=== PATIENT | female | born 1940 | race Caucasian/White ===

== ENCOUNTER → 2016-12-12 | Outpatient (CLI) | payer MEDICARE ==
[2016-12-12 13:00] LABS: BLOOD UREA NITROGEN 19 MG/DL (7-18); BUN/CREATININE RATIO 22 (0-20); CREATININE SERUM 0.87 MG/DL (0.60-1.30); GFR ESTIMATED > 60
--- NOTE | 2016-12-12 15:26 | Diagnostic Imaging Report ---
PROCEDURE: MRI pelvis without contrast. TECHNIQUE: Multiplanar, multisequence MRI of the pelvis was performed without contrast. This is focusing on the sacrum. INDICATION: Low back pain after fall. FINDINGS: The sacrum has normal alignment. There is no bone marrow signal abnormality of significance seen to suggest stress or insufficiency fractures. There is normal alignment at the sacroiliac joints bilaterally. There is no suspicious mass. The coccygeal levels also appear unremarkable. Soft tissues in the pelvis demonstrate extensive diverticulosis and prominent veins in the adnexa. IMPRESSION: No fracture or other significant abnormality seen in the sacrum. Dictated by: Dictated on workstation # [id number]
--- NOTE | 2016-12-12 16:08 | Diagnostic Imaging Report ---
PROCEDURE: MRI lumbar spine. TECHNIQUE: Multiplanar, multisequence MRI of the lumbar spine was performed without contrast. INDICATION: Back pain after a fall. FINDINGS: There is satisfactory alignment of the lumbar spine. The vertebral body heights are preserved. Discs demonstrate desiccation at all levels with minimal disc height loss at upper lumbar spine levels. There are reactive marrow changes with marrow edema seen along the anterior aspect of endplates around L2/L3 disc level. There is also mild marrow edema seen along the anterior right side aspect of T11 vertebral body of unclear etiology. This could possibly relate to a mild contusion given the history of trauma with no significant vertebral body height loss seen. There is a 1 cm T1 hyperintense signal abnormality lesion in the upper aspect of T12 vertebral body suggestive of a hemangioma. The cauda equina and conus medullaris appear grossly unremarkable. T12/L1: There is a right posterolateral disc protrusion and bilateral moderate facet hypertrophy. No central canal, lateral recess or foraminal stenosis. L1/L2: There is mild disc herniation and bilateral moderate facet hypertrophy. No central canal, lateral recess or foraminal stenosis. L2/L3: There is a disc bulge and moderate facet arthropathy. There is moderate spinal canal stenosis reducing the AP dimension of the canal to 7.9 mm with moderate lateral recess stenosis on the left and mild lateral recess stenosis on the right side. The foramina demonstrate mild stenosis only on the left side. L3/L4: There is a diffuse disc bulge and bilateral moderate to severe facet hypertrophy. There is moderate to severe spinal canal stenosis with AP dimension of the canal at 6.5 mm. The lateral recess demonstrates mild to moderate stenosis bilaterally. There is mild foraminal stenosis on the left side only. There is mild effusion in the facet joints. L4/L5: There is a diffuse disc bulge and moderate to severe facet hypertrophy. There is moderate central canal stenosis reducing the AP dimension of the canal to 6.8 mm. The lateral recess demonstrates moderate to severe stenosis bilaterally. There is foraminal stenosis mild to moderate on the left and moderate on the right side. L5/S1: There is asymmetric disc bulge to the right side and moderate to severe facet hypertrophy seen. No central canal stenosis. There is moderate to severe lateral recess stenosis on the right side encroaching upon the descending right S1 nerve root and moderate left lateral recess stenosis. The foramina demonstrate moderate to severe stenosis on the right and moderate stenosis on the left. IMPRESSION: Degenerative disc and facet changes resulting in multilevel spinal canal and foraminal stenosis. Dictated by: Dictated on workstation # [id number]
== END ==
LOC: RAD 12:27
DX: M48.06 Spinal stenosis, lumbar region (principal); M51.36 Other intervertebral disc degeneration, lumbar region; N39.3 Stress incontinence (female) (male); K21.9 Gastro-esophageal reflux disease without esophagitis; E03.9 Hypothyroidism, unspecified; I10 Essential (primary) hypertension; E11.9 Type 2 diabetes mellitus without complications; Z78.0 Asymptomatic menopausal state; E66.9 Obesity, unspecified
CPT/HCPCS: 36415; 72148; 72195; 82565; 84520

== ENCOUNTER 2019-07-26 11:28 | Outpatient (RCR) | payer MEDICARE | END 2019-07-26 12:09 | disposition home or self-care (01) | PROVIDERS: ATTEND Nurse Practitioner Family | DX: M54.42 Lumbago with sciatica, left side (principal); M54.41 Lumbago with sciatica, right side; K21.9 Gastro-esophageal reflux disease without esophagitis; I10 Essential (primary) hypertension; M19.90 Unspecified osteoarthritis, unspecified site; E07.9 Disorder of thyroid, unspecified; E11.9 Type 2 diabetes mellitus without complications ==

== ENCOUNTER → 2020-10-26 | Outpatient (CLI) | payer MEDICARE ==
--- NOTE | 2020-10-26 14:20 | Diagnostic Imaging Report ---
EXAMINATION: Ultrasound soft tissue neck. INDICATION: Right supraclavicular mass. COMPARISON: There are no prior studies available for comparison. FINDINGS: Reportedly, the patient has a palpable abnormality in the right supraclavicular region. On this exam, there is a rounded 1.5 x 1.7 x 1.7 cm hypoechoic area with some internal vascularity. This finding is of uncertain etiology but worrisome for malignancy. I would recommend that CT of the neck and chest be performed with contrast for further study. No other abnormality is identified. IMPRESSION: There is a 1.5 x 1.7 x 1.7 cm solid mass in the area of the patient's palpable abnormality in the right supraclavicular region. Considerations and recommendations as above. Dictated by: Dictated on workstation # [id number]
== END ==
LOC: RAD 12:24
PROVIDERS: ATTEND Family Medicine
DX: R22.1 Localized swelling, mass and lump, neck (principal)
CPT/HCPCS: 76536

== ENCOUNTER → 2020-11-03 | Outpatient (CLI) | payer MEDICARE ==
[~2020-11-03] MED LIST: CATHETER FLUSH 10 ML SYR IV PRN; HOLD METFORMIN - RECEIVED CONTRAST 20 ML VIAL IV SCH; IOHEXOL 350 MG/ML 100 ML (OMNIPAQUE 350) VIAL IV ONE; NS 100 ML (IVPB) BAG IV ONE
[2020-11-03 14:05] LABS: CHLORIDE 97 MMOL/L (98-107); POTASSIUM 3.7 MMOL/L (3.6-5.0); SODIUM 139 MMOL/L (135-145)
[2020-11-03 14:07] LABS: CALCIUM 9.7 MG/DL (8.5-10.1); GLUCOSE 110 MG/DL (70-105)
[2020-11-03 14:09] LABS: CARBON DIOXIDE 29 MMOL/L (21-32)
[2020-11-03 14:11] LABS: CREATININE SERUM 0.67 MG/DL (0.60-1.30); GFR ESTIMATED > 60
[2020-11-03 14:12] LABS: BUN/CREATININE RATIO 10
--- NOTE | 2020-11-03 15:16 | Diagnostic Imaging Report ---
EXAMINATION: CT neck and chest with intravenous contrast. TECHNIQUE: Multiple contiguous axial images were obtained through the neck and chest after the uneventful administration of intravenous contrast. All CT scans use one or more of the following dose optimizing techniques: automated exposure control, MA and/or KvP adjustment based on patient size and exam type or iterative reconstruction. HISTORY: Right supraclavicular mass. COMPARISON: None available. FINDINGS: Neck CT: Scattered subcentimeter lymph nodes are seen in the neck. None are pathologically enlarged or abnormally enhancing. The muscles of the neck are normal. Vessels of the neck demonstrate normal course and caliber. There is a 15 x 17 mm soft tissue nodule in the region of the right brachial plexus (series 7, image 67 and series 605, image 27). This is lower than the marker that was placed on the right neck. The visualized airway is widely patent. The base of the skull and the temporal bones are normal. Limited views of the brain including the cerebellum and brainstem are normal. The limited view of the [place] is unremarkable. The visualized portions of the orbits are normal. The spinal canal is normal in caliber. Intervertebral disk heights are normal. Neural foramina are normal. Chest CT: There is no edema or pneumonia. No pleural effusion. No pneumothorax. No suspicious nodules. There is mild right base and lingular atelectasis or scarring. There is no axillary or supraclavicular lymphadenopathy. There is no mediastinal lymphadenopathy. Heart size is normal. There are mild coronary artery calcifications. No pericardial effusion. Aorta is normal in caliber. Limited views of the upper abdomen are unremarkable. There are no suspicious osseous lesions. IMPRESSION: 1. Indeterminate 15 x 17 mm soft tissue nodule in the region of the right brachial plexus. It is indeterminate if this is the palpable abnormality as it is lower than the marker that was placed in the neck. This may represent a neurogenic lesion and a brachioplexus MRI would be the study of choice if further evaluation is needed. Dictated by: Dictated on workstation # [id number]
== END ==
LOC: RAD 14:15
PROVIDERS: ATTEND Family Medicine
DX: G54.8 Other nerve root and plexus disorders (principal)
CPT/HCPCS: 36415; 70491; 71260; 80048

== ENCOUNTER → 2020-11-10 | Outpatient (CLI) | payer MEDICARE ==
[~2020-11-10] MED LIST changes: -CATHETER FLUSH 10 ML SYR IV PRN; +GADOBUTROL 10 MMOL/10 ML (GADAVIST) VIAL IV ONE; -HOLD METFORMIN - RECEIVED CONTRAST 20 ML VIAL IV SCH; -IOHEXOL 350 MG/ML 100 ML (OMNIPAQUE 350) VIAL IV ONE; -NS 100 ML (IVPB) BAG IV ONE
--- NOTE | 2020-11-10 17:02 | Diagnostic Imaging Report ---
PROCEDURE: MR imaging of the chest with and without contrast. TECHNIQUE: Multiplanar, multisequence pre and post contrast MR imaging of the chest was performed. INDICATION: Right supraclavicular mass. COMPARISON: CT chest from 11/03/2020. FINDINGS: There is a well-circumscribed ovoid mass located within the brachial plexus just cranial to the first rib. This corresponds to the region of the divisions of the brachial plexus. The mass measures 1.9 x 1.5 cm and likely has homogeneous enhancement. There appear to be nerve roots entering and exiting the mass indicative of a nerve sheath tumor. The tumor sits just behind the right subclavian artery and there is no invasion of the surrounding vascular structures. Chronic massive rotator cuff tear is present on the right with severe atrophy of the supraspinatus and infraspinatus. High riding humeral head is present. Glenohumeral joint effusion is noted. IMPRESSION: 1. 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 This mass has no overt malignant characteristics by MR imaging, although if this is enlarging, low-grade malignant peripheral nerve sheath tumor could give this appearance. Continued follow-up with physical exam is suggested. 2. Chronic massive right-sided rotator cuff tear. Dictated by: Dictated on workstation # [id number]
== END ==
LOC: RAD 13:15
PROVIDERS: ATTEND Family Medicine
DX: M75.101 Unspecified rotator cuff tear or rupture of right shoulder, not specified as traumatic (principal); R22.1 Localized swelling, mass and lump, neck
CPT/HCPCS: 71552

== ENCOUNTER → 2021-01-11 | Outpatient (CLI) | payer MEDICARE ==
--- NOTE | 2021-01-11 18:57 | Diagnostic Imaging Report ---
INDICATION: Neck pain COMPARISON: None. FINDINGS: Four views of the cervical column demonstrate normal alignment. There is no subluxation or fracture. Advanced degenerative disc disease and facet joint arthropathy is seen. There is no osseous lesion. IMPRESSION: Advanced degenerative changes. Dictated by: Dictated on workstation # [id number]
--- NOTE | 2021-01-11 19:18 | Diagnostic Imaging Report ---
INDICATION: Left elbow pain AP, oblique, and lateral views of the left elbow were obtained. No acute fracture is seen. There is no overt joint effusion. There is extensive degenerative change of the left elbow joint. IMPRESSION: Extensive degenerative findings in the left elbow with no acute appearing abnormality. Dictated by: Dictated on workstation # [id number]
--- NOTE | 2021-01-11 19:55 | Diagnostic Imaging Report ---
INDICATION: Shoulder pain COMPARISON: None. FINDINGS: Three views of the left shoulder demonstrate advanced degenerative joint disease of the AC and glenohumeral joint. There is no fracture or dislocation. No osseous lesion. IMPRESSION: Advanced degenerative joint disease. Dictated by: Dictated on workstation # [id number]
== END ==
LOC: RAD 18:17
PROVIDERS: ATTEND Nurse Practitioner Family
DX: M19.012 Primary osteoarthritis, left shoulder (principal); M19.072 Primary osteoarthritis, left ankle and foot; M47.812 Spondylosis without myelopathy or radiculopathy, cervical region
CPT/HCPCS: 72040; 73030; 73080

== ENCOUNTER 2021-05-09 10:47 | Inpatient (IN) | payer MEDICARE ==
[~2021-05-09] VITALS: Ht 165.1 cm; Wt 79.6 kg
[2021-05-09] MEDS ORDERED: ONDANSETRON 4 MG (ZOFRAN) ORAL DISSOLVE TAB PO PRN (11:00)
[2021-05-09] MEDS ORDERED: DOCUSATE SODIUM 100 MG (COLACE) CAP PO PRN (11:00)
[2021-05-09] MEDS ORDERED: LACTULOSE SYRUP 10GM/15ML (ENULOSE) 30ML UDC PO PRN (11:00)
[2021-05-09] MEDS ORDERED: CALCIUM CARBONATE 500 MG (TUMS) TAB.CHEW PO PRN (11:00)
[2021-05-09] MEDS ORDERED: ALPRAZolam 0.25 MG (XANAX) TAB PO PRN (11:00)
[2021-05-09] MEDS ORDERED: LOPERAMIDE 2 MG (IMODIUM) TABLET PO PRN (11:00)
[2021-05-09] MEDS ORDERED: MELATONIN 3 MG TABLET PO PRN (11:00)
[2021-05-09] MEDS ORDERED: BISACODYL 10 MG SUPP (DULCOLAX) PR PRN (11:00)
[2021-05-09] MEDS ORDERED: diphenhydrAMINE 25 MG TAB (BENADRYL) PO PRN (11:00)
[2021-05-09] MEDS ORDERED: guaiFENesin/CODEINE (ROBITUSSIN AC) 10ML UDC PO PRN (11:00)
[2021-05-09] MEDS ORDERED: FLEET ENEMA ADULT 1 EA BTL PR PRN (11:00)
[2021-05-09] MEDS ORDERED: CYCL10TA25 PO (13:32)
[2021-05-09] MEDS ORDERED: METF-397 PO (13:32)
[2021-05-09] MEDS ORDERED: TRM50T PO (13:32)
[2021-05-09] MEDS ORDERED: LEVO150T PO (13:32)
[2021-05-09] MEDS ORDERED: [UNRECOGNIZED DRUG - CODE] PO (13:32)
[2021-05-09] MEDS ORDERED: MELO15TA14 PO (13:32)
[2021-05-09] MEDS ORDERED: ASPI-999 PO (13:32)
[2021-05-09] MEDS ORDERED: LISI20TA26 PO (13:32)
[2021-05-09] MEDS ORDERED: CYAN1TAB18 PO (13:32)
[2021-05-09] MEDS ORDERED: NF-NACL1GT PO (13:32)
[2021-05-09] MEDS ORDERED: GABA300C PO (13:32)
[2021-05-09] MEDS ORDERED: FURO20TA4 PO (13:32)
[2021-05-09] MEDS ORDERED: OXYB15TA19 PO (13:32)
[2021-05-09] MEDS ORDERED: POTA10TA37 PO (13:32)
[2021-05-09] MEDS ORDERED: ACEB200C PO (13:32)
[2021-05-09] MEDS ORDERED: OXC5T PO (13:32)
[2021-05-09] MEDS ORDERED: ACET-168 PO (13:32)
[2021-05-09] MEDS ORDERED: GINKGO BILOBA PO (13:33)
[2021-05-09] MEDS ORDERED: ACETAMINOPHEN 500 MG TAB (TYLENOL) PO SCH (15:00)
[2021-05-09] MEDS ORDERED: NON-FORMULARY MEDICATION 1 EA EA (Potassium Chloride 10 MEQ) PO SCH (15:00)
[2021-05-09] MEDS ORDERED: FUROSEMIDE 20 MG (LASIX) TAB PO SCH (15:00)
[2021-05-09] MEDS ORDERED: inSUlin ASPART (NovoLOG) 1 UNIT/0.01 ML (CHARGE PER UNIT) SC SCH (16:00)
[2021-05-09 17:41] VITALS: BP 178/77
--- NOTE | 2021-05-09 18:12 | PM&R Post Admission Assessment ---
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 She has a h/o HTN, DM, HLP and Hypothyroidism. She lives alone but her daughter will stay with her at [place] to assure she is able to live independently. Dr Darling will be consulted for PCP. Patient denies pain. BP has been elevated so will add multiple meds to her regimen. Nauseated at this time. She needs meds for GERD so I ordered that. Sodium level is 128 so salt tablets ordered by Yohan. HCTZ has been held which she takes at home and substituted with Lasix every 48 hours. IV infiltrated so will monitor that arm closely. Regular diet is initiated since that is what she eats at home. She is retired from [employer]. Past Hynvbxh-Mgcbzq-Bstmpr Hx Past Med/Social Hx: Reviewed Nursing Past Med/Soc Hx, Reviewed and Corrections made Patient Social History Marrital Status: single Employed/Student: retired Alcohol Use: Denies Use Smoking Status: Former Smoker Past Medical History Surgeries: Orthopedic Cardiac: High Cholesterol, Hypertension Genitourinary: Bladder Infection Gastrointestinal: Gastroesophageal Reflux Musculoskeletal: Arthritis, Chronic Back Pain Endocrine: Hypothyroidsim, Diabetes, Non-Insulin dep PM&R Allergy/Meds/Data Review Allergies Coded Allergies: Yquhrwj-BEV-RiB Reductase Inhibitor (Verified Adverse Reaction, Unknown, 1 07/09/20) Home Medications Scheduled Acebutolol HCl (Acebutolol HCl), 200 MG PO BID, (Reported) Acetaminophen (Acetaminophen Extra Strength), 1,000 MG PO Q8H, (Reported) Aspirin (Aspirin), 81 MG PO BID, (Reported) Cyanocobalamin/FA/Pyridoxine (B Complex-Folic Acid Tablet), 1 EACH PO DAILY, (Reported) Furosemide (Furosemide), 20 MG PO Q48H, (Reported) Gabapentin (Neurontin), 300 MG PO HS, (Reported) Glipizide (Glucotrol Xl), 5 MG PO DAILY, (Reported) Levothyroxine Sodium (Synthroid), 150 MCG PO DAILY, (Reported) Lisinopril (Lisinopril), 20 MG PO DAILY, (Reported) Meloxicam (Mobic), 15 MG PO DAILY, (Reported) Metformin HCl (Metformin HCl), 500 MG PO BID, (Reported) Oxybutynin Chloride (Oxybutynin Chloride ER), 15 MG PO DAILY, (Reported) Potassium Chloride (Potassium Chloride), 10 MEQ PO Q48H, (Reported) Sodium Chloride (Sodium Chloride), 1 GM PO TID, (Reported) [Ginkgo Biloba 230 Mg], 1 TAB PO DAILY, (Reported) Scheduled PRN Cyclobenzaprine HCl (Cyclobenzaprine HCl), 10 MG PO TID PRN for SPASMS, (Reported) Oxycodone Hcl (Oxyir Tablet), 5-10 MG PO Q4H PRN for PAIN-SEVERE (8-10), (Reported) Tramadol HCl (Tramadol HCl), 50-100 MG PO Q6H PRN for PAIN-MODERATE (5-7), (Re ported) Current Medications Current Medications Reviewed Review of Systems Constitutional: see HPI, malaise, weakness EENTM: no symptoms reported Respiratory: no symptoms reported Cardiovascular: no symptoms reported Gastrointestinal: no symptoms reported Genitourinary: no symptoms reported Musculoskeletal: back pain, joint pain Skin: no symptoms reported Psychiatric/Neurological: No Symptoms Reported All Other Systems Reviewed Negative Unless Noted: Yes Physical Exam Physical Exam Vital Signs Vital Signs - First Documented 05/09/21 17:41 Temp 36.8 Pulse 65 Resp 18 B/P (MAP) 178/77 (110) Pulse Ox 97 O2 Delivery Room Air Capillary Refill : Height, Weight, BMI Height: '" Weight: lbs. oz. kg; BMI Method: General Appearance: No Apparent Distress, WD/WN, Chronically ill, Obese Eyes: Bilateral Eye Normal Inspection, Bilateral Eye PERRL HEENT: PERRL/EOMI, Normal ENT Inspection, Pharynx Normal Neck: Full Range of Motion, Normal Inspection, Non Tender, Supple, Carotid Bruit Respiratory: Chest Non Tender, Lungs Clear, Normal Breath Sounds, No Accessory Muscle Use, No Respiratory Distress Cardiovascular: Regular Rate, Rhythm, No Edema, No Gallop, No JVD, No Murmur, Normal Peripheral Pulses Gastrointestinal: Normal Bowel Sounds, No Organomegaly, No Pulsatile Mass, Non Tender, Soft Back: Normal Inspection, No CVA Tenderness, No Vertebral Tenderness Extremity: Normal Capillary Refill, Normal Inspection, Normal Range of Motion (except right leg), Non Tender, No Calf Tenderness, No Pedal Edema Neurologic/Psychiatric: Alert, Oriented x3, No Motor/Sensory Deficits, Normal Mood/Affect, Abnormal Gait, Motor Weakness (generalized) Skin: Normal Color, Warm/Dry Lymphatic: No Adenopathy PM&R Medical Assessment & Plan REHAB/MEDICAL ASSESSMENT AND PLAN: REHAB IMPAIRMENT GROUP: Right hip replacement ETIOLOGIC DIAGNOSIS: Right hip replacement The comorbidities that impact the patients function and/or functional outcome by: advanced age, hyponatremia, elevated BP REHAB PLAN: The patient is being admitted to our comprehensive inpatient rehabilitation facility and can tolerate the intensity of service consisting of at least: 180 minutes of therapy a day, 5 out of 7 days a week Rehab treatment will consist of: PT OT will focus on regaining independence with ADL's and increased stamina with use of assistive devices The patient/family has a good understanding of our discharge process and will benefit from an interdisciplinary inpatient rehabilitation program. The patient has potential to make improvement and is in need of at least two of the following multidisciplinary therapies including but not limited to physical, occupational, speech, and prosthetics and orthotics. Additionally the patient will need services from respiratory, nutritional services, wound care, psychology, etc. (Customize this to each patient). Given the patients complex condition and risk of further medical complications, rehabilitation services cannot be safely or effectively provided at a lower level of care such as a shelter facility. BARRIERS TO DISCHARGE: Advanced age and lives alone ESTIMATED LOS: 14 days DISPOSITION: Home RELEVANT CHANGES SINCE PREADMISSION SCREENING: I have compared the patients medical and functional status at the time of the preadmission screening and there are: No changes PROGNOSIS: Good REHABILITATION GOALS: 1. PT OT will focus on regaining independence with ADL's and increased stamina with use of assistive devices All the above goals were reviewed with the patient and he/she is in agreement. By signing this document, I acknowledge that I have personally performed a full physical examination on this patient within 24 hours of admission to this inpatient rehabilitation facility and have determined the patient to be able to tolerate the above course of treatment at an intensive level for a reasonable period of time. I will be completing a detailed individualized Plan of Care for this patient by day #4 of the patients stay based upon the Preadmission Screen, the Post-Admission Evaluation, and the therapy evaluations. Admission Dx/Comorbidities: (1) Status post right hip replacement ICD Codes: Z96.641 - Presence of right artificial hip joint (2) Hypertension ICD Codes: I10 - Essential (primary) hypertension (3) Hypothyroidism ICD Codes: E03.9 - Hypothyroidism, unspecified (4) Hyponatremia ICD Codes: E87.1 - Hypo-osmolality and hyponatremia (5) Advanced age ICD Codes: R54 - Age-related physical debility (6) Chronic GERD ICD Codes: K21.9 - Gastro-esophageal reflux disease without esophagitis (7) Diabetes ICD Codes: E11.9 - Type 2 diabetes mellitus without complications Assessment/Plan Assessment and Plan Assess & Plan/Chief Complaint Assessment: s/p 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
[2021-05-09] MEDS ORDERED: PANTOPRAZOLE 40 MG (PROTONIX) TAB PO ONE ×2 (18:15→18:25)
[2021-05-09] MEDS ORDERED: amLODIPine 5 MG (NORVASC) TAB PO ONE (18:15)
[2021-05-09] MEDS ORDERED: FAMOTIDINE 20 MG (PEPCID) TABLET PO PRN (18:15)
[2021-05-09] MEDS ORDERED: amLODIPine 5 MG (NORVASC) TAB ONE (18:25)
[2021-05-09 20:00] VITALS: BP 182/79
[2021-05-09] MEDS ORDERED: cloNIDine 0.1 MG (CATAPRES) TAB PO PRN (20:15)
[2021-05-09] MEDS ORDERED: hydrALAZINE (APRESOLINE) 25 MG TAB PO PRN (20:15)
[2021-05-09] MEDS ORDERED: CYCLOBENZAPRINE 10 MG (FLEXERIL) TAB PO PRN (20:45)
[2021-05-09] MEDS: ASPIRIN 81 MG CHEW (CHILDREN'S ASA) PO SCH (20:51)
[2021-05-09] MEDS: GABAPENTIN 300 MG (NEURONTIN) CAP PO SCH (20:52)
[2021-05-09] MEDS: inSUlin ASPART (NovoLOG) 1 UNIT/0.01 ML (CHARGE PER UNIT) SC SCH (20:52)
[2021-05-09] MEDS: SENNA W/DOCUSATE (SENOKOT S) TABLET PO SCH (20:52)
[2021-05-09] MEDS: polyethylene glycoL POWDER 17 GM (MIRALAX) PACK PO SCH (20:52)
[2021-05-09] MEDS: DOCUSATE SODIUM 100 MG (COLACE) CAP PO SCH (20:52)
[2021-05-09] MEDS ORDERED: metFORMIN 500 MG (GLUCOPHAGE) TAB PO ONE (21:15)
[2021-05-09] MEDS: OXYBUTYNIN (DITROPAN) 5 MG TAB PO SCH (21:39)
[2021-05-09] MEDS: ACEBUTOLOL 200 MG (SECTRAL) CAPSULE PO SCH (21:39)
[2021-05-09] MEDS: SODIUM CHLORIDE 1 GM TABLET PO SCH (21:40)
[2021-05-09] MEDS: ACETAMINOPHEN 500 MG TAB (TYLENOL) PO SCH (23:24)
[2021-05-09 23:27] VITALS: BP 148/67
[2021-05-10 05:47] LABS: BASOPHILS % (AUTO) 1 % (0-10); EOSINOPHILS # (AUTO) 0.3 10^3/uL (0.0-0.3); EOSINOPHILS % (AUTO) 4 % (0-10); HEMATOCRIT 28 % (35-52); HEMOGLOBIN 9.4 g/dL (11.5-16.0); LYMPHOCYTES # (AUTO) 1.6 10^3/uL (1.0-4.0); LYMPHOCYTES % (AUTO) 25 % (12-44); MEAN CORPUSCULAR HEMOGLOBIN 29 pg (25-34); MEAN CORPUSCULAR HGB CONC 34 g/dL (32-36); MEAN CORPUSCULAR VOLUME 88 fL (80-99); MEAN PLATELET VOLUME 10.2 fL (9.0-12.2); MONOCYTES # (AUTO) 0.7 10^3/uL (0.0-1.0); MONOCYTES % (AUTO) 11 % (0-12); NEUTROPHILS # (AUTO) 3.7 10^3/uL (1.8-7.8); NEUTROPHILS % (AUTO) 59 % (42-75); PLATELET COUNT 288 10^3/uL (130-400); WHITE BLOOD COUNT 6.3 10^3/uL (4.3-11.0)
[2021-05-10] MEDS: inSUlin ASPART (NovoLOG) 1 UNIT/0.01 ML (CHARGE PER UNIT) SC SCH (05:48)
[2021-05-10 05:58] LABS: CHLORIDE 97 MMOL/L (98-107); POTASSIUM 3.5 MMOL/L (3.6-5.0); SODIUM 132 MMOL/L (135-145)
[2021-05-10 05:59] LABS: CALCIUM 8.6 MG/DL (8.5-10.1)
[2021-05-10 06:00] LABS: GLUCOSE 117 MG/DL (70-105); TOTAL PROTEIN 5.2 GM/DL (6.4-8.2)
[2021-05-10 06:01] LABS: CARBON DIOXIDE 24 MMOL/L (21-32)
[2021-05-10 06:02] LABS: BILIRUBIN,TOTAL 0.9 MG/DL (0.1-1.0)
[2021-05-10 06:03] LABS: ALKALINE PHOSPHATASE 53 U/L (40-136)
[2021-05-10 06:04] LABS: CREATININE SERUM 0.53 MG/DL (0.60-1.30); GFR ESTIMATED 110
[2021-05-10 06:05] LABS: BUN/CREATININE RATIO 9
[2021-05-10 06:07] LABS: ALANINE AMINOTRANSFERASE < 6 U/L (0-55)
[2021-05-10] MEDS: ACETAMINOPHEN 500 MG TAB (TYLENOL) PO SCH ×3 (06:10→20:23)
[2021-05-10] MEDS: PANTOPRAZOLE 40 MG (PROTONIX) TAB PO SCH (06:10)
[2021-05-10] MEDS: LEVOTHYROXINE 150 MCG (LEVOTHROID) TAB PO SCH (06:10)
--- NOTE | 2021-05-10 06:46 | PM&R Progress Note ---
Subjective HPI/CC On Admission Date Seen by Provider: May 10, 2021 Time Seen by Provider: 09:00 Subjective/Events-last exam 05/10/2021: Pt doing very well Hgb 9.4 Will DC the Acu-Checks and sliding scale per Pt request since she is not going to take any Insulin Sodium level better at 132 Review of Systems General: Fatigue, Malaise Musculoskeletal: leg pain Objective Exam Vital Signs Vital Signs Date Time Temp Pulse Resp B/P (MAP) Pulse Ox O2 Delivery O2 Flow Rate FiO2 05/10/21 20:24 Room Air 05/10/21 19:51 37.0 81 20 134/76 (95) 95 Capillary Refill : General Appearance: No Apparent Distress, WD/WN, Chronically ill, Obese HEENT: PERRL/EOMI, Normal ENT Inspection, Pharynx Normal Neck: Full Range of Motion, Normal Inspection, Non Tender, Supple, Carotid Bruit Respiratory: Chest Non Tender, Lungs Clear, Normal Breath Sounds, No Accessory Muscle Use, No Respiratory Distress Cardiovascular: Regular Rate, Rhythm, No Edema, No Gallop, No JVD, No Murmur, Normal Peripheral Pulses Gastrointestinal: Normal Bowel Sounds, No Organomegaly, No Pulsatile Mass, Non Tender, Soft Back: Normal Inspection, No CVA Tenderness, No Vertebral Tenderness Extremity: Normal Capillary Refill, Normal Inspection, Normal Range of Motion (except right leg), Non Tender, No Calf Tenderness, No Pedal Edema Neurologic/Psychiatric: Alert, Oriented x3, No Motor/Sensory Deficits, Normal Mood/Affect, Abnormal Gait, Motor Weakness (generalized) Skin: Normal Color, Warm/Dry Lymphatic: No Adenopathy Results/Procedures Lab Laboratory Tests 05/10/21 05:38 Patient resulted labs reviewed. [facility] Transfers Therapy Code Descriptions/Definitions Functional [place] Measure: 0=Not Assessed/NA 4=Minimal Assistance 1=Total Assistance 5=Supervision or Setup 2=Maximal Assistance 6=Modified [place] 3=Moderate Assistance 7=Complete IndependenceSCALE: Activities may be completed with or without assistive devices. 6-Nzikxoxmxd-vnhstmw completes the activity by him/herself with no assistance from a helper. 5-Set-up or Clean-up Assistance-helper sets up or cleans up; patient completes activity. [place] assists only prior to or following the activity. 4-Supervision or Touching Assistance-helper provides verbal cues and/or touching/steadying and/or contact guard assistance as patient completes activity. Assistance may be provided throughout the activity or intermittently. 3-Partial/Moderate Assistance-helper does LESS THAN HALF the effort. [place] lifts, holds or supports trunk or limbs, but provides less than half the effort. 2-Substantial/Maximal Assistance-helper does MORE THAN HALF the effort. [place] lifts or holds trunk or limbs and provides more than half the effort. 9-Gwsotbcmb-echbas does ALL the effort. Patient does none of the effort to complete the activity. Or, the assistance of 2 or more helpers is required for the patient to complete the activity. If activity was not attempted, code reason: 7-Patient Refused. 9-Not Applicable-not attempted and the patient did not perform the activity before the current illness, exacerbation or injury. 10-Not Attempted due to Environmental Limitations-(lack of equipment, weather restraints, etc.). 88-Not Attempted due to Medical Conditions or Safety Concerns. 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
[2021-05-10 07:32] VITALS: BP 142/64
[2021-05-10] MEDS ORDERED: KCL 10 MEQ TAB (MICRO K) PO SCH (08:00)
[2021-05-10] MEDS: ASPIRIN 81 MG CHEW (CHILDREN'S ASA) PO SCH ×2 (08:00→20:18)
[2021-05-10] MEDS: MELOXICAM 7.5 MG (MOBIC) TABLET PO SCH (08:00)
[2021-05-10] MEDS: lisINopril 20 MG (PRINIVIL) TABLET PO SCH (08:00)
[2021-05-10] MEDS: KCL 10 MEQ TAB (MICRO K) PO SCH (08:01)
[2021-05-10] MEDS: amLODIPine 5 MG (NORVASC) TAB PO SCH (08:01)
[2021-05-10] MEDS: metFORMIN 500 MG (GLUCOPHAGE) TAB PO SCH ×2 (08:01→17:03)
[2021-05-10] MEDS: ACEBUTOLOL 200 MG (SECTRAL) CAPSULE PO SCH ×2 (08:04→20:18)
[2021-05-10] MEDS: OXYBUTYNIN (DITROPAN) 5 MG TAB PO SCH ×3 (08:05→20:18)
[2021-05-10] MEDS: glipiZIDE XL 5 MG (GLUCOTROL XL) TAB PO SCH (08:05)
[2021-05-10] MEDS: DOCUSATE SODIUM 100 MG (COLACE) CAP PO SCH ×3 (09:50→20:17)
[2021-05-10] MEDS: polyethylene glycoL POWDER 17 GM (MIRALAX) PACK PO SCH ×2 (09:50→20:17)
[2021-05-10] MEDS: SENNA W/DOCUSATE (SENOKOT S) TABLET PO SCH ×3 (09:50→20:17)
[2021-05-10] MEDS: FUROSEMIDE 20 MG (LASIX) TAB PO SCH (09:52)
[2021-05-10] MEDS: SODIUM CHLORIDE 1 GM TABLET PO SCH ×3 (09:53→20:19)
--- NOTE | 2021-05-10 10:03 | Occupational Therapy Eval ---
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 Social History Current Living Status: Alone Entry Into Home: Stairs With Railing Steps Into Home: 3 Daughter plans on staying with pt after discharge for a little while ADL-Prior Level of Function SCALE: Activities may be completed with or without assistive devices. 2-Ttejfamoro-hqpyyva completes the activity by him/herself with no assistance from a helper. 5-Set-up or Clean-up Assistance-helper sets up or cleans up; patient completes activity. [place] assists only prior to or following the activity. 4-Supervision or Touching Assistance-helper provides verbal cues and/or touching/steadying and/or contact guard assistance as patient completes activity. Assistance may be provided throughout the activity or intermittently. 3-Partial/Moderate Assistance-helper does LESS THAN HALF the effort. [place] lifts, holds or supports trunk or limbs, but provides less than half the effort. 2-Substantial/Maximal Assistance-helper does MORE THAN HALF the effort. [place] lifts or holds trunk or limbs and provides more than half the effort. 2-Rccmpqphe-yghdjk does ALL the effort. Patient does none of the effort to complete the activity. Or, the assistance of 2 or more helpers is required for the patient to complete the activity. If activity was not attempted, code reason: 7-Patient Refused. 9-Not Applicable-not attempted and the patient did not perform the activity before the current illness, exacerbation or injury. 10-Not Attempted due to Environmental Limitations-(lack of equipment, weather restraints, etc.). 88-Not Attempted due to Medical Conditions or Safety Concerns. ADL PLOF Comments Pt reports IND with ADLs and functional mobility at PLOF. For functional mobility, pt either uses 2 canes, FWW or 4WW (owns all). She has a tub/shower with a shower chair that sits within the tub, and hand held shower head. Self Care: Independent Functional Cognition: Independent DME/Equipment: Bath Chair, Shower Hose Agricultural Researcher, Tub/Shower DME/Equipment Comments FWW, 2 canes, 4WW, SC OT Current Status Subjective Pt in bed, agreeable to OT Tx. Mental Status/Objective Patient Orientation: Person, Place, Time, Situation Current Glasses/Contacts: Yes Hearing Aids: No Dentures/Partials: Yes Hand Dominance: Right Upper Extremity ROM (Pt reports decreased bilateral shoulder movements due to rotator cuff problems) WFL during ADL tx, BUE shoulder flexion to approx 120 degrees Upper Extremity Coordination WFL Upper Extremity Sensation Pt reports decreased sensation along ulnar nerve distribution of LUE from elbow to fingertips Upper Extremity Strength grossly 3/5 BUEs ADL-Treatment Eating (QC): 6 (IND with breakfast) Oral Hygiene (QC): 4 (SBA standing at sink) Shower/Bathe Self (QC): 3 (Pt able to wash BUEs, chest/abdomen, upper thighs, periarea and buttocks, CGA in stand. Assistance provided with BLEs lower legs/feet.) Upper Body Dressing (QC): 5 (set up with mold puller shirt.) Lower Body Dressing (QC): 2 (Pt able to perform pant hike, assist doffing/donning over BLEs due to hip precautions) On/Off Footwear (QC): 1 (total assist with gripper socks due to hip precautions) Toileting Hygiene (QC): 4 (CGA, pt able to manage clothing and perform hygiene.) Other Treatments [id number] Pt laying in bed, transferred supine to sit EOB, assist to bring RLE to EOB. Pt then completed sit to stand transfer, CGA. Pt used FWW to perform functional mobility into bathroom and onto [facility] over toilet. She completed toileting, doffed LE clothing. Pt transferred to NE, CGA, cues for UE placement during transfer. Pt doffed remainder of clothing, then completed shower. Pt very thorough, washing parts multiple times with wash cloth and with soapy hands. Pt required CGA in stand at [facility] as she washed buttocks/perirarea. Pt transferred to dry chair to dry remainder of body and don clothes. Pt used FWW to go back to bedroom and transfer to recliner. Post tx, pt up in recliner, call light in reach and all needs met. Pt recalled 3/3 hip precautions during session. [id number] Pt up in recliner, agreeable to OT Tx. Pt used FWW to perform functional mobility, CGA, into bathroom and onto BSC over toilet. Pt completed toileting, then stood at sink to complete oral care and hand washing, SBA. Pt sat in chair to comb her hair. Pt used FWW to return to recliner, CGA. Post tx, pt in recliner, call light in reach and all needs met. Education OT Patient Education: Correct positioning, Energy conservation, Modified ADL techniques, Progress toward Goal/Update tx plan, Purpose of tx/functional activities, Reviewed precautions, Rehab process Teaching Recipient: Patient Teaching Methods: Discussion Response to Teaching: Verbalize Understanding OT Short Term Goals Short Term Goals Time Frame: May 20, 2021 Oral hygiene: 5 Toileting hygiene: 5 Shower/bathe self: 4 Lower body dressin Putting on/taking off footwear: 4 OT Shelter Goals Shelter Goals Time Frame: Jun 04, 2021 Eating (QC): 6 Oral Hygiene (QC): 6 Toileting Hygiene (QC): 6 Shower/Bathe Self (QC): 5 Upper Body Dressing (QC): 6 Lower Body Dressing (QC): 6 On/Off Footwear (QC): 6 Additional Goals: 1-Demonstrate ADL Tasks, 2-Verbalize Understanding, 3- ImproveStrength/Darlene 1=Demonstrate adherence to instructed precautions during ADL tasks. 2=Patient will verbalize/demonstrate understanding of assistive devices/modifications for ADL. 3=Patient will improve strength/tolerance for activity to enable patient to perform ADL's. OT Education/Plan Problem List/Assessment Assessment: Decreased Activ Tolerance, Decreased UE Strength, Impaired Funct Balance, Impaired I ADL's, Impaired Self-Care Skills Discharge Recommendations Plan/Recommendations: Continue POC Treatment Plan/Plan of Care Patient would benefit from OT for education, treatment and training to promote independence in ADL's, mobility, safety and/or upper extremity function for ADL's. Plan of Care: ADL Retraining, Functional Mobility, Group Exercise/Act as Ind, UE Funct Exercise/Act Treatment Duration: Jun 04, 2021 Frequency: At least 5 of 7 days/Wk (IRF) Estimated Hrs Per Day: 1.5 hours per day Agreement: Yes Rehab Potential: Good Time/GCodes Start Time: 08:00 ([id number]) Stop Time: 13:30 ([id number]) Total Time Billed (hr/min): 90 Billed Treatment Time [id number] 1, EVM (10'), ADL 3 (50') [id number] 1, ADL 2 (30') PAT HOOKER OT May 10, 2021 10:03
[2021-05-10] MEDS: [UNRECOGNIZED DRUG - OTHER] PO SCH (10:50)
[2021-05-10] MEDS: PYRIDOXINE PO SCH (10:50)
[2021-05-10] MEDS: CYANOCOBALAMIN PO SCH (10:50)
[2021-05-10] MEDS: GINKGO BILOBA PO SCH (10:50)
--- NOTE | 2021-05-10 10:55 | Physical Therapy Evaluation ---
PT Evaluation-General Medical Diagnosis Admission Date May 09, 2021 at 17:05 Medical Diagnosis: s/p R JUNIOR Onset Date: May 06, 2021 Therapy Diagnosis Therapy Diagnosis: impaired mobility, strength, endurance Precautions Precautions/Isolations: Fall Prevention, Standard Precautions, Pressure Ulcer Referral Physician: Izabella Tamez DO Reason for Referral: Evaluation/Treatment Medical History Pertinent Medical History: HTN, Hypothroidism Reviewed History: Yes Social History Current Living Status: Alone Entry Into Home: Stairs With Railing PT Steps Into Home: 3 Prior Prior Level of Function SCALE: Activities may be completed with or without assistive devices. 4-Huntpqgaiq-itgftrj completes the activity by him/herself with no assistance from a helper. 5-Set-up or Clean-up Assistance-helper sets up or cleans up; patient completes activity. [place] assists only prior to or following the activity. 4-Supervision or Touching Assistance-helper provides verbal cues and/or touching/steadying and/or contact guard assistance as patient completes activity. Assistance may be provided throughout the activity or intermittently. 3-Partial/Moderate Assistance-helper does LESS THAN HALF the effort. [place] lifts, holds or supports trunk or limbs, but provides less than half the effort. 2-Substantial/Maximal Assistance-helper does MORE THAN HALF the effort. [place] lifts or holds trunk or limbs and provides more than half the effort. 0-Sdgtisubm-jtcwjs does ALL the effort. Patient does none of the effort to complete the activity. Or, the assistance of 2 or more helpers is required for the patient to complete the activity. If activity was not attempted, code reason: 7-Patient Refused. 9-Not Applicable-not attempted and the patient did not perform the activity bef ore the current illness, exacerbation or injury. 10-Not Attempted due to Environmental Limitations-(lack of equipment, weather r estraints, etc.). 88-Not Attempted due to Medical Conditions or Safety Concerns. Bed Mobility: 6 Transfers (B,C,W/C): 6 Gait: 6 Stairs: 6 Indoor Mobility (Ambulation): Independent Stairs: Independent Prior Devices Use: Walker PT Evaluation-Current Subjective Patient in recliner pre tx, agrees to PT, has no complaints of pain at rest. Pt/Family Goals to be independent at home Objective Patient Orientation: Person, Place, Situation Sensory Hearing: Impaired Hand Dominance: Right Sensation Right Lower Extremit: Intact Sensation Left Lower Extremity: Intact Sensation Lower Extremities Patient has some tingling in her toes but has intact light touch sensation Transfers Roll Left & Right (QC): 4 Sit to Lying (QC): 3 Lying to Sitting/Side of Bed(Q: 3 Sit to Stand (QC): 4 Chair/Rso-wq-Tnstn Xfer(QC): 4 Toilet Transfer (QC): 4 Car Transfer (QC): 3 Patient performs rolling with SBA, supine to sit mod assist, sit to supine min assist, sit <-> stand CGA, transfers CGA, car transfer mod assist. Needs f requent cues for hand placement and positioning. Reviewed hip precautions. Gait Does the Patient Walk?: Yes Mode of Locomotion: Walk Anticipated Mode of Locomotion: Walk Walk 10 feet (QC): 4 Walk 50 ft with 2 Turns(QC): 4 Walk 150 ft (QC): 88 Walking 10ft/uneven surface-QC: 4 Distance: 120', 50', 70' Gait Assistive Device: FWW Comments/Gait Description Patient can ambulate 120' with a rolling walker with CGA (including 50' with at least 2 turns of 90 degrees and 10' over an uneven surface). Gait is antalgic, slow, good step through though. Wheelchair Training Does the Pt Use a Wheelchair?: No Wheel 50 ft with 2 turns (QC): 9 Wheel 150 ft (QC): 9 Stairs #of Steps: 1 1 Step (curb) (QC): 4 4 Steps (QC): 88 12 Steps (QC): 88 Balance Sitting Static: Normal Sitting Dynamic: Normal Standing Static: Good Standing Dynamic: Good Picking up an Object (QC): 6 (using a print designer) Treatment sit to stands x10 from slightly elevated therapy table, parallel bars exercises x15 (AP, mini-squats, marching, hip abd), seated exercises x20 (LAQ) Assessment/Needs Patient in recliner post tx with nurse call, phone, tray, all needs met. Patient has impaired mobility, strength, endurance. Patient has pain with activity, needs mod assist for sit to supine Rehab Potential: Fair PT Short Term Goals Short Term Goals Time Frame: May 17, 2021 Roll Left & Right: 6 Sit to lyin Lying to sitting on side of be: 4 Sit to stand: 4 Chair/uwf-dn-cioep transfer: 4 Walk 10 feet: 4 Walk 50 feet with two turns: 4 Walk 150 feet: 4 PT Mcc Goals Plant Associate Goals PT Plant Associate Goals Time Frame: May 31, 2021 Roll Left & Right (QC): 6 Sit to Lying (QC): 4 Lying-Sitting on Side/Bed(QC): 4 Sit to Stand (QC): 4 Chair/Utg-yo-Mecml Xfer(QC): 4 Toilet Transfer (QC): 4 Car Transfer (QC): 4 Does the Patient Walk: Yes Walk 10 feet (QC): 4 Walk 50ft with 2 Turns (QC): 4 Walk 150 ft (QC): 4 Walking 10ft on Uneven Surface: 4 1 Step (curb) (QC): 4 4 Steps (QC): 4 12 Steps (QC): 88 Picking up an Object (QC): 6 Wheel 50 feet with 2 turns (QC: 9 Wheel 150 feet: 9 PT Plan Problem List Problem List: Activity Tolerance, Functional Strength, Safety, Balance, Gait, Transfer, Bed Mobility, ROM Treatment/Plan Treatment Plan: Continue Plan of Care Treatment Plan: Bed Mobility, Education, Functional Activity Darlene, Functional Strength, Group Therapy, Gait, Safety, Therapeutic Exercise, Transfers Treatment Duration: May 31, 2021 Frequency: At least 5 of 7 days/Wk (IRF) Estimated Hrs Per Day: 1.5 hours per day Patient and/or Family Agrees t: Yes Safety Risks/Education Patient Education: Gait Training, Transfer Techniques, Steps, Reviewed Precautions, Correct Positioning, Safety Issues Teaching Recipient: Patient Teaching Methods: Demonstration, Discussion Response to Teaching: Reinforcement Needed Discharge Recommendations Plan Patient will perform bed mobility and transfer training, balance and endurance training, functional strengthening, stair training, gait training, and education, to improve functional mobility and independence at home. Therapy Discharge Recommendati: Scheduled Assistance, Home & Family, Post Acute PT Time/GCodes Time In: 1000 Time Out: 1100 Total Billed Treatment Time: 60 Total Billed Treatment 1 visit [place] 15' GT 15' EX 30' KENTRELL MCHUGH PT May 10, 2021 10:55
--- NOTE | 2021-05-10 14:29 | Physical Therapy Daily Note ---
PT Daily Note-Current Subjective Patient in recliner pre tx, agrees to PT, has 4/10 pain, nurse aware and brings her pain meds. Appearance Patient in recliner post tx with nurse call, phone, tray, all needs met. Mental Status Patient Orientation: Person, Place, Situation Transfers SCALE: Activities may be completed with or without assistive devices. 8-Hxfotmhaab-hpjwzjy completes the activity by him/herself with no assistance from a helper. 5-Set-up or Clean-up Assistance-helper sets up or cleans up; patient completes activity. [place] assists only prior to or following the activity. 4-Supervision or Touching Assistance-helper provides verbal cues and/or touching/steadying and/or contact guard assistance as patient completes activity. Assistance may be provided throughout the activity or intermittently. 3-Partial/Moderate Assistance-helper does LESS THAN HALF the effort. [place] lifts, holds or supports trunk or limbs, but provides less than half the effort. 2-Substantial/Maximal Assistance-helper does MORE THAN HALF the effort. [place] lifts or holds trunk or limbs and provides more than half the effort. 0-Refefdftn-swcsdl does ALL the effort. Patient does none of the effort to complete the activity. Or, the assistance of 2 or more helpers is required for the patient to complete the activity. If activity was not attempted, code reason: 7-Patient Refused. 9-Not Applicable-not attempted and the patient did not perform the activity before the current illness, exacerbation or injury. 10-Not Attempted due to Environmental Limitations-(lack of equipment, weather restraints, etc.). 88-Not Attempted due to Medical Conditions or Safety Concerns. Sit to Stand (QC): 4 Chair/Qbj-yk-Uozzt Xfer(QC): 4 Gait Training Distance: 120'x2 Walk 10 feet (QC): 4 Walk 50 ft with 2 Turns(QC): 4 Gait Persons Needed: 1 Gait Assistive Device: FWW SBA, slow but steady ambulation, antalgic Exercises NuStep Minutes: 10 NuStep Workload: 4 (positioned so she doesn't violate hip flexion precautions) Treatments transfers, ambulation, LE strengthening and ROM Assessment Current Status: Fair Progress improving ambulation PT Short Term Goals Short Term Goals Time Frame: May 17, 2021 Roll Left & Right: 6 Sit to lyin Lying to sitting on side of be: 4 Sit to stand: 4 Chair/seg-uz-tojcu transfer: 4 Walk 10 feet: 4 Walk 50 feet with two turns: 4 Walk 150 feet: 4 PT [place] Goals Care Home Goals PT [place] Goals Time Frame: May 31, 2021 Roll Left & Right (QC): 6 Sit to Lying (QC): 4 Lying-Sitting on Side/Bed(QC): 4 Sit to Stand (QC): 4 Chair/Ado-ei-Uqjxe Xfer(QC): 4 Toilet Transfer (QC): 4 Car Transfer (QC): 4 Does the Patient Walk: Yes Walk 10 feet (QC): 4 Walk 50ft with 2 Turns (QC): 4 Walk 150 ft (QC): 4 Walking 10ft on Uneven Surface: 4 1 Step (curb) (QC): 4 4 Steps (QC): 4 12 Steps (QC): 88 Picking up an Object (QC): 6 Wheel 50 feet with 2 turns (QC: 9 Wheel 150 feet: 9 PT Plan Problem List Problem List: Activity Tolerance, Functional Strength, Safety, Balance, Gait, Transfer, Bed Mobility, ROM Treatment/Plan Treatment Plan: Continue Plan of Care Treatment Plan: Bed Mobility, Education, Functional Activity Darlene, Functional Strength, Group Therapy, Gait, Safety, Therapeutic Exercise, Transfers Treatment Duration: May 31, 2021 Frequency: At least 5 of 7 days/Wk (IRF) Estimated Hrs Per Day: 1.5 hours per day Patient and/or Family Agrees t: Yes Safety Risks/Education Patient Education: Gait Training, Transfer Techniques, Correct Positioning, Safety Issues Teaching Recipient: Patient Teaching Methods: Demonstration, Discussion Response to Teaching: Reinforcement Needed Time/GCodes Time In: 1400 Time Out: 1430 Total Billed Treatment Time: 30 Total Billed Treatment 1 visit EX 10' FA 20' KENTRELL MCHUGH PT May 10, 2021 14:29
[2021-05-10 19:51] VITALS: BP 134/76
[2021-05-10] MEDS: GABAPENTIN 300 MG (NEURONTIN) CAP PO SCH (20:18)
[2021-05-11] MEDS: PANTOPRAZOLE 40 MG (PROTONIX) TAB PO SCH (05:42)
[2021-05-11] MEDS: LEVOTHYROXINE 150 MCG (LEVOTHROID) TAB PO SCH (05:42)
[2021-05-11 07:59] VITALS: BP 147/71
[2021-05-11] MEDS: MELOXICAM 7.5 MG (MOBIC) TABLET PO SCH (08:32)
[2021-05-11] MEDS: amLODIPine 5 MG (NORVASC) TAB PO SCH (08:32)
[2021-05-11] MEDS: lisINopril 20 MG (PRINIVIL) TABLET PO SCH (08:33)
[2021-05-11] MEDS: DOCUSATE SODIUM 100 MG (COLACE) CAP PO SCH ×2 (08:33→20:14)
[2021-05-11] MEDS: ACEBUTOLOL 200 MG (SECTRAL) CAPSULE PO SCH ×2 (08:33→20:14)
[2021-05-11] MEDS: OXYBUTYNIN (DITROPAN) 5 MG TAB PO SCH ×3 (08:33→20:14)
[2021-05-11] MEDS: polyethylene glycoL POWDER 17 GM (MIRALAX) PACK PO SCH ×2 (08:33→20:13)
[2021-05-11] MEDS: KCL 10 MEQ TAB (MICRO K) PO SCH (08:33)
[2021-05-11] MEDS: ASPIRIN 81 MG CHEW (CHILDREN'S ASA) PO SCH ×2 (08:33→20:14)
[2021-05-11] MEDS: SENNA W/DOCUSATE (SENOKOT S) TABLET PO SCH ×2 (08:33→20:14)
[2021-05-11] MEDS: glipiZIDE XL 5 MG (GLUCOTROL XL) TAB PO SCH (08:33)
[2021-05-11] MEDS: metFORMIN 500 MG (GLUCOPHAGE) TAB PO SCH ×2 (08:33→18:02)
[2021-05-11] MEDS: PYRIDOXINE PO SCH (08:38)
[2021-05-11] MEDS: SODIUM CHLORIDE 1 GM TABLET PO SCH ×3 (08:38→20:37)
[2021-05-11] MEDS: CYANOCOBALAMIN PO SCH (08:38)
[2021-05-11] MEDS: [UNRECOGNIZED DRUG - OTHER] PO SCH (08:38)
[2021-05-11] MEDS: GINKGO BILOBA PO SCH (08:39)
--- NOTE | 2021-05-11 08:53 | Individualized Plan of Care ---
Individualized Plan of Care Rehab Nursing IPOC Order Admission Date May 09, 2021 at 17:05 Current Orders Orders Admission Order(Inpt,Obs,Sdc) (05/09/21 10:55) Vital Signs: Per Unit Policy ( ,16,00 (05/09/21 10:55) Graham Pedraza (05/09/21 10:55) Sequential Compression Device (05/09/21 10:55) Energy Auditor-Inpt Rehab Con (05/09/21 10:55) Rehab Nursing Orders-Ipoc (05/09/21 10:55) Physical Therapy Rehab Orders (05/09/21 10:55) Occupational Therapy Rehab Ord (05/09/21 10:55) Speech Therapy Rehab Orders (05/09/21 10:55) Cbc With Automated Diff (05/10/21 06:00) Comprehensive Metabolic Panel (05/10/21 06:00) Precautions (Aru) (05/09/21 10:55) Weekly Weight WEEK (05/09/21 10:55) Rehab-Intensity Of Therapy (05/09/21 10:55) Initiate Admission Nursing Pro .admission (05/09/21 10:55) Alprazolam Tablet (Xanax Tablet) (05/09/21 11:00) Calcium Carbonate Chew Tablet (Antacid C (05/09/21 11:00) Diphenhydramine Tablet (Benadryl Tablet) (05/09/21 11:00) Docusate Sodium Capsule (Colace Capsule) (05/09/21 21:00) Docusate Sodium Capsule (Colace Capsule) (05/09/21 11:00) Bisacodyl Suppository (Dulcolax Supposit (05/09/21 11:00) Lactulose Oral Solution (Enulose Oral So (05/09/21 11:00) Na Phos/Na Biphos Enema (Fleet Enema Niels (05/09/21 11:00) Guaifenesin/Codeine Syrup (Robitussin Ac (05/09/21 11:00) Loperamide Tablet (Imodium Tablet) (05/09/21 11:00) Melatonin Tablet (Melatonin Tablet) (05/09/21 11:00) Polyethylene Glycol Powder Pkt (Miralax (05/09/21 21:00) Ondansetron Oral Dissolve Tab (Zofran (05/09/21 11:00) Senna S Tablet (Senokot S Tablet) (05/09/21 21:00) Code/Resuscitation (05/09/21 10:55) Initiate Admission Nursing Pro .admission (05/09/21 10:55) Weight Bearing As Tolerated (05/09/21 13:44) Nursing Communication (Order) (05/09/21 13:44) Follow-Up Appointment (05/09/21 13:44) Acebutolol Capsule (Sectral Capsule) (05/09/21 21:00) Acetaminophen Tablet (Tylenol Tablet) (05/09/21 15:00) Aspirin Chewable Tablet (Baby Aspirin Ch (05/09/21 21:00) Furosemide Tablet (Lasix Tablet) (05/09/21 15:00) Gabapentin Capsule/Tablet (Neurontin Cap (05/09/21 21:00) Glipizide Xl Tablet (Glucotrol Xl Tablet (05/10/21 08:00) Levothyroxine Tablet (Synthroid Tablet) (05/10/21 07:00) Lisinopril Tablet (Zestril Tablet) (05/10/21 09:00) Oxycodone Immediate Rel Tablet (Oxyir Ta (05/09/21 15:00) Sodium Chloride Tablet (Sodium Chloride (05/09/21 21:00) Tramadol Tablet (Ultram Tablet) (05/09/21 15:00) (Nf) Cyanocobalamin/Fa/Pyridoxine (B Com (05/10/21 09:00) Meloxicam Tablet (Mobic Tablet) (05/10/21 09:00) (Nf) Potassium Chloride (05/09/21 15:00) (Nf) [Ginkgo Biloba 230 Mg] (05/10/21 09:00) Insulin Aspart (Novolog) (Novolog (Charg (05/09/21 16:00) Admission Arrival Bed Request (05/09/21 17:09) General/Regular (05/09/21 Lunch) Furosemide Tablet (Lasix Tablet) (05/10/21 09:00) Insulin Aspart (Novolog) (Novolog (Charg (05/09/21 21:00) Potassium Chloride (Tablet) (Klor Con Ta (05/10/21 08:00) Pantoprazole Tablet (Protonix Tablet) (05/09/21 18:15) Pantoprazole Tablet (Protonix Tablet) (05/10/21 07:00) Famotidine Tablet (Pepcid Tablet) (05/09/21 18:15) Consult Family Medicine (05/09/21 18:09) Amlodipine Tablet (Norvasc Tablet) (05/09/21 18:15) Amlodipine Tablet (Norvasc Tablet) (05/10/21 09:00) Acetaminophen Tablet (Tylenol Tablet) (05/09/21 23:00) Clonidine Tablet (Catapres Tablet) (05/09/21 20:15) Hydralazine Tablet (Apresoline Tablet) (05/09/21 20:15) Amlodipine Tablet (Norvasc Tablet) (05/09/21 18:25) Pantoprazole Tablet (Protonix Tablet) (05/09/21 18:25) Cyclobenzaprine Tablet (Flexeril Tablet) (05/09/21 20:45) Oxybutynin Tablet (Ditropan Tablet) (05/09/21 21:00) Metformin Tablet (Glucophage Tablet) (05/09/21 21:15) Metformin Tablet (Glucophage Tablet) (05/10/21 08:00) Potassium Chloride (Tablet) (Klor Con Ta (05/10/21 09:00) Patient Visit (05/10/21 ) Pt Eval Moderate Complexity (05/10/21 ) Gait Training, Ea 15 Min (05/10/21 ) Exercise Therap, Ea 15 Min (05/10/21 ) Functional Activities, Ea 15 (05/10/21 ) Accucheck Fasting (05/11/21 05:12) Accucheck Prn (05/11/21 05:12) Patient Visit (05/11/21 ) Speech Sound Lang Comp (05/11/21 ) Treat. Speech/Lang/Voice (05/11/21 ) Patient Visit (05/11/21 ) Gait Training, Ea 15 Min (05/11/21 ) Exercise Therap, Ea 15 Min (05/11/21 ) Ex Neuromuscular, Ea 15 Min (05/11/21 ) Rehab Nursing Orders: Ongoing Assess. of Cognitive Status, Ongoing Assess. of Function Status, Bladder Management, Bladder Scan, Bladder Training, Bowel Management, Bowel Training, Disease Management & Educaiton, DVT Prophylaxis, Fall Prevention, Fluid/Electrolyte/Nutrition Mgmt, Infection Prevention, Medication Management & Education, Management of Risks & Complications, Management of Skin Intergrity, Nutrition Management, Pain Management, Patient/Family Support, Safety Management, Wound Management Intensity of Therapy to be met Patient to be seen: Min.3h per day/5 of 7d PT IPOC Problem List: Activity Tolerance, Functional Strength, Safety, Balance, Gait, Transfer, Bed Mobility, ROM Treatment Plan: Continue Plan of Care Bed Mobility, Education, Functional Activity Darlene, Functional Strength, Group Therapy, Gait, Safety, Therapeutic Exercise, Transfers Treatment Duration: May 31, 2021 Frequency: At least 5 of 7 days/Wk (IRF) Estimated Hrs Per Day: 1.5 hours per day OT IPOC Problems: Decreased Activ Tolerance, Decreased UE Strength, Impaired Funct Balance, Impaired I ADL's, Impaired Self-Care Skills OT Treatment, Training and Edu: Yes Plan of Care: ADL Retraining, Functional Mobility, Group Exercise/Act as Ind, UE Funct Exercise/Act Treatment Duration: Jun 04, 2021 Frequency: At least 5 of 7 days/Wk (IRF) Estimated Hrs Per Day: 1.[address] IPOC Speech Therapy Treatment Plan: Discontinue ST Treatment Duration: May 11, 2021 Frequency: Modified Program (IRF) Estimated Hrs Per Day: Other Energy Auditor/Case Mgmt Energy Auditor/Case Managemen: Discharge Planning Dietitian/Solid Waste Division Supervisor Dietitian/Solid Waste Division Supervisor to monitor nutritional status and make changes and/or recommendations as needed and work with speech pathology on dietary upgrades as the occur. Physician IPOC Medical Issues being managed closely and that require the 24 hour availability of a physician: Recent orthopedic surgery with hyponatremia and severe hypertension [id number] will require close monitoring for decompensation Medical Issues: Bowel/Bladder Function, DVT Prophylaxis, Falls Precautions, Fluid/Electrolyte/Nutrition Balance, Infection Protection, Pain Management, Wound Care Brief Synthesis of Preadmission Screen, Post-Admission Evaluation, and Therapy Evaluations: PT and OT will focus on regaining function with use of assistive devices in order to regain enough independence in order to return back to independent living Medical Prognosis: Good Anticipated Length of Stay: 7 days BRENDA GALLEGOS DO May 11, 2021 08:53
--- NOTE | 2021-05-11 08:53 | PM&R Progress Note ---
Subjective HPI/CC On Admission Date Seen by Provider: May 11, 2021 Time Seen by Provider: 09:00 Subjective/Events-last exam 05/11/2021: Pt doing really well Took a shower today Thigh high viky hose on Left hand carpal tunnel syndrome bothering her 05/10/2021: Pt doing very well Hgb 9.4 Will DC the Acu-Checks and sliding scale per Pt request since she is not going to take any Insulin Sodium level better at 132 Review of Systems Musculoskeletal: arm pain, hand pain, leg pain Objective Exam Vital Signs Vital Signs Date Time Temp Pulse Resp B/P (MAP) Pulse Ox O2 Delivery O2 Flow Rate FiO2 05/11/21 20:26 36.7 70 20 124/66 (85) 97 Room Air Capillary Refill : General Appearance: No Apparent Distress, WD/WN, Chronically ill, Obese HEENT: PERRL/EOMI, Normal ENT Inspection, Pharynx Normal Neck: Full Range of Motion, Normal Inspection, Non Tender, Supple, Carotid Bruit Respiratory: Chest Non Tender, Lungs Clear, Normal Breath Sounds, No Accessory Muscle Use, No Respiratory Distress Cardiovascular: Regular Rate, Rhythm, No Edema, No Gallop, No JVD, No Murmur, Normal Peripheral Pulses Gastrointestinal: Normal Bowel Sounds, No Organomegaly, No Pulsatile Mass, Non Tender, Soft Back: Normal Inspection, No CVA Tenderness, No Vertebral Tenderness Extremity: Normal Capillary Refill, Normal Inspection, Normal Range of Motion (except right leg), Non Tender, No Calf Tenderness, No Pedal Edema Neurologic/Psychiatric: Alert, Oriented x3, No Motor/Sensory Deficits, Normal Mood/Affect, Abnormal Gait, Motor Weakness (generalized) Skin: Normal Color, Warm/Dry Lymphatic: No Adenopathy Results/Procedures Lab Patient resulted labs reviewed. FIM Transfers Therapy Code Descriptions/Definitions Functional [place] Measure: 0=Not Assessed/NA 4=Minimal Assistance 1=Total Assistance 5=Supervision or Setup 2=Maximal Assistance 6=Modified [place] 3=Moderate Assistance 7=Complete IndependenceSCALE: Activities may be completed with or without assistive devices. 3-Vbjckonkkv-jyoewoy completes the activity by him/herself with no assistance from a helper. 5-Set-up or Clean-up Assistance-helper sets up or cleans up; patient completes activity. [place] assists only prior to or following the activity. 4-Supervision or Touching Assistance-helper provides verbal cues and/or touching/steadying and/or contact guard assistance as patient completes activity. Assistance may be provided throughout the activity or intermittently. 3-Partial/Moderate Assistance-helper does LESS THAN HALF the effort. [place] lifts, holds or supports trunk or limbs, but provides less than half the effort. 2-Substantial/Maximal Assistance-helper does MORE THAN HALF the effort. [place] lifts or holds trunk or limbs and provides more than half the effort. 0-Vjodxecag-dzbjdf does ALL the effort. Patient does none of the effort to complete the activity. Or, the assistance of 2 or more helpers is required for the patient to complete the activity. If activity was not attempted, code reason: 7-Patient Refused. 9-Not Applicable-not attempted and the patient did not perform the activity before the current illness, exacerbation or injury. 10-Not Attempted due to Environmental Limitations-(lack of equipment, weather restraints, etc.). 88-Not Attempted due to Medical Conditions or Safety Concerns. Roll Left to Right (QC): 4 Sit to Lying (QC): 3 Sit to Stand (QC): 4 Chair/Btk-jl-Xneec Xfer(QC): 4 Car Transfer (QC): 3 Gait Training Does the Patient Walk?: Yes Distance: 120'x2 Walk 10 feet (QC): 4 Walk 50 ft with 2 Turns(QC): 4 Walk 150 ft (QC): 88 Walking 10ft/uneven surface-QC: 4 Gait Persons Needed: 1 Gait Assistive Device: FWW Wheelchair Training Does the Pt Use a Wheelchair?: No Wheel 50 ft with 2 turns (QC): 9 Wheel 150 ft (QC): 9 Stair Training #of Steps: 1 1 Step (curb) (QC): 4 4 Steps (QC): 88 12 Steps (QC): 88 Balance Picking up an Object (QC): 6 (using a daylight driller) ADL-Treatment Eating (QC): 6 (IND with breakfast) Oral Hygiene (QC): 4 (SBA standing at sink) Shower/Bathe Self (QC): 3 (Pt able to wash BUEs, chest/abdomen, upper thighs, periarea and buttocks, CGA in stand. 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
--- NOTE | 2021-05-11 09:00 | Occupational Ther Daily Note ---
OT Current Status-Daily Note Subjective Pt in bed, agreeable to OT Tx. Pt states she did not sleep well last night due to ulnar nerve issues/tingling from elbow to fingertips along ulnar nerve distribution. Mental Status/Objective Patient Orientation: Person, Place, Situation ADL-Treatment Therapy Code Descriptions/Definitions Functional [place] Measure: 0=Not Assessed/NA 4=Minimal Assistance 1=Total Assistance 5=Supervision or Setup 2=Maximal Assistance 6=Modified [place] 3=Moderate Assistance 7=Complete IndependenceSCALE: Activities may be completed with or without assistive devices. 1-Lpdjnjzvpl-ymxowdk completes the activity by him/herself with no assistance from a helper. 5-Set-up or Clean-up Assistance-helper sets up or cleans up; patient completes activity. [place] assists only prior to or following the activity. 4-Supervision or Touching Assistance-helper provides verbal cues and/or touching/steadying and/or contact guard assistance as patient completes activity. Assistance may be provided throughout the activity or intermittently. 3-Partial/Moderate Assistance-helper does LESS THAN HALF the effort. [place] lifts, holds or supports trunk or limbs, but provides less than half the effort. 2-Substantial/Maximal Assistance-helper does MORE THAN HALF the effort. [place] lifts or holds trunk or limbs and provides more than half the effort. 9-Yvfpamsyv-myoavc does ALL the effort. Patient does none of the effort to complete the activity. Or, the assistance of 2 or more helpers is required for the patient to complete the activity. If activity was not attempted, code reason: 7-Patient Refused. 9-Not Applicable-not attempted and the patient did not perform the activity before the current illness, exacerbation or injury. 10-Not Attempted due to Environmental Limitations-(lack of equipment, weather restraints, etc.). 88-Not Attempted due to Medical Conditions or Safety Concerns. Oral Hygiene (QC): 4 (SBA standing at sink) Upper Body Dressing (QC): 5 (set up) Lower Body Dressing (QC): 4 (CGA, pt utilized fire supervisor with min verbal cues to don pants.) On/Off Footwear: 3 (Min A overall. OT donned tedhose. Pt able to doff gripper socks using fire supervisor, donned using sock aide, min A with adjusting socks.) Toileting Hygiene (QC): 4 (SBA) Toilet Transfer (QC): 4 (SBA on/off BSC over toilet.) Other Treatment Pt in bed, transferred supine to sit EOB, SBA. Pt stood from EOB, CGA, then used FWW to perform functional mobility into bathroom and onto BSC over toilet. Pt completed toileting, then stood at sink to complete oral care and hand hygiene, SBA. Pt sat in chair to comb hair, set up assist. Then complete dressing as outlined above. OT educated pt on AE for LE dressing, pt states she owns a sock aide and a fire supervisor. Pt used FWW to perform functional mobility to therapy gym, [facility]. In order to increase BUE strength and activity tolerance, pt completed arm bike, minimal resistance, x10 mins. Pt took multiple rest breaks with task. Pt returned to room, tranfserring to recliner. Post tx, pt up in chair, call light in reach and all needs met. Education OT Patient Education: Correct positioning, Energy conservation, Modified ADL techniques, Progress toward Goal/Update tx plan, Purpose of tx/functional activities, Rehab process Teaching Recipient: Patient Teaching Methods: Discussion Response to Teaching: Verbalize Understanding OT Short Term Goals Short Term Goals Time Frame: May 20, 2021 Oral hygiene: 5 Toileting hygiene: 5 Shower/bathe self: 4 Lower body dressin Putting on/taking off footwear: 4 OT Assisted Goals Assisted Goals Time Frame: Jun 04, 2021 Eating (QC): 6 Oral Hygiene (QC): 6 Toileting Hygiene (QC): 6 Shower/Bathe Self (QC): 5 Upper Body Dressing (QC): 6 Lower Body Dressing (QC): 6 On/Off Footwear (QC): 6 Additional Goals: 1-Demonstrate ADL Tasks, 2-Verbalize Understanding, 3- ImproveStrength/Darlene 1=Demonstrate adherence to instructed precautions during ADL tasks. 2=Patient will verbalize/demonstrate understanding of assistive devices/modifications for ADL. 3=Patient will improve strength/tolerance for activity to enable patient to perform ADL's. OT Education/Plan Problem List/Assessment Assessment: Decreased Activ Tolerance, Decreased UE Strength, Impaired Funct Ba swati, Impaired I ADL's, Impaired Self-Care Skills Discharge Recommendations Plan/Recommendations: Continue POC Treatment Plan/Plan of Care Patient would benefit from OT for education, treatment and training to promote independence in ADL's, mobility, safety and/or upper extremity function for ADL's. Plan of Care: ADL Retraining, Functional Mobility, Group Exercise/Act as Ind, UE Funct Exercise/Act Treatment Duration: Jun 04, 2021 Frequency: At least 5 of 7 days/Wk (IRF) Estimated Hrs Per Day: 1.5 hours per day Agreement: Yes Rehab Potential: Fair Time/GCodes Start Time: 08:00 Stop Time: 09:15 Total Time Billed (hr/min): 75 Billed Treatment Time 1, ADL 4 (60') EX (15') PAT HOOKER OT May 11, 2021 09:00
--- NOTE | 2021-05-11 10:37 | ST Cognitive Linguistic Eval ---
Speech Evaluation-General Medical Diagnosis s/p R JUNIOR Onset Date: May 06, 2021 Therapy Diagnosis Therapy Diagnosis: Cognitive-communication Referral Referring Physician: Dr. Tamez Medical History Pertinent Medical History: HTN, Hypothroidism Reviewed History: Yes Social History Current Living Status: Alone Speech PLF-Current Status Prior Level of Function Patient lives home alone where she is independent with her daily needs. Subjective Patient was pleasant and cooperative with the cognitive assessment. Language Eval: Auditory Comprehends Simple Yes/No Ques: Functional Indent/Objects Multiple [place]: Functional Ident/Pics in Multiple [place]: Functional Follows 1-Step Commands: Functional Follows Complex Directions: Functional Follows General Conversations: Functional Language Eval: Verbal Language Completes Spontaneous Greeting: Functional Produces Auto, Serial Info: Functional Imitates Simple Words/Phrases: Functional Word Finding: Functional Requests Basic Needs: Functional States Basic Personal Info: Functional Expresses Complex Ideas: Functional Objective Cognitive Domain Attention: WNL Memory: WNL Problem Solving: Functional Executive Functions: WNL Visuospatial Skills: WNL Composite Severity Rating: WNL Clock Drawing Severity Rating: WNL Objective Formal/Standardized Tests [facility] Mental Status ([facility]) Results 28/30, within normal range of function Oral Motor/Speech Production Within Normal Limits Impression Patient is a pleasant 80 y/o female who was admitted to the ARU due to right knee replacement. The patient completed the UMS with a score of 28/30 obtained. The patient's score is within normal range of function and does not indicate the need for further ST services at this time. Speech Patient Assess Expression of Ideas/Wants: Expression (4) Understanding Verbal Content: Understands (4) Brief Interview-Mental Status: Yes Repetition of Three Words: Three (3) Temporal Orientation: Year: Correct (3) Temporal Orientation: Month: Accurate within 5 days(2) Temporal Orientation: Day: Correct (1) Recall : Wear to say "Sock": Yes, no cue required (2) Recall : Color: Yes, no cue required (2) Recall : Bed: Yes, no cue required (2) Memory/Recall Ability: Current season, Location of own room, That he or she is in a hsp/hsp unit Speech-Plan Patient/Family Goals Patient/Family Goals: Patient plans on returning to her home where she lives alone. Treatment Plan Speech Therapy Treatment Plan: Discontinue ST Treatment Duration: May 11, 2021 Frequency: 1 time per week Estimated Hrs Per Day: .5 hour per day Rehab Potential: Fair Barriers to Learning: Patient's age, physical well being Pt/Family Agrees to Plan: Yes Safety Risks/Education Teaching Recipient: Patient Teaching Methods: Discussion Response to Teaching: Verbalize Understanding Education Topics Provided: Safety within her room, communication of wants/needs Time Speech Therapy Time In: 09:30 Speech Therapy Time Out: 10:00 Total Billed Time: 30 Billed Treatment Time 1, SUMAYA INTERIANO BETHANIA ST May 11, 2021 10:37
--- NOTE | 2021-05-11 11:14 | Physical Therapy Daily Note ---
PT Daily Note-Current Subjective Pt in recliner upon arrival and agrees to tx. Pt states pain 5/10 in R hip Pain Numeric Pain Scale: 5-Moderate Pain Location: Right Location Body Site: Hip Mental Status Patient Orientation: Person, Place, Time, Situation Transfers SCALE: Activities may be completed with or without assistive devices. 3-Bjjftcceyf-lclqlow completes the activity by him/herself with no assistance from a helper. 5-Set-up or Clean-up Assistance-helper sets up or cleans up; patient completes activity. [place] assists only prior to or following the activity. 4-Supervision or Touching Assistance-helper provides verbal cues and/or touching/steadying and/or contact guard assistance as patient completes activity. Assistance may be provided throughout the activity or intermittently. 3-Partial/Moderate Assistance-helper does LESS THAN HALF the effort. [place] lifts, holds or supports trunk or limbs, but provides less than half the effort. 2-Substantial/Maximal Assistance-helper does MORE THAN HALF the effort. [place] lifts or holds trunk or limbs and provides more than half the effort. 1-Xsqgthitv-outmlm does ALL the effort. Patient does none of the effort to complete the activity. Or, the assistance of 2 or more helpers is required for the patient to complete the activity. If activity was not attempted, code reason: 7-Patient Refused. 9-Not Applicable-not attempted and the patient did not perform the activity before the current illness, exacerbation or injury. 10-Not Attempted due to Environmental Limitations-(lack of equipment, weather restraints, etc.). 88-Not Attempted due to Medical Conditions or Safety Concerns. Sit to Stand (QC): 4 VC for hand placement Gait Training Does the Patient Walk?: Yes Distance: 200', 100' x3 Walk 10 feet (QC): 4 Walk 50 ft with 2 Turns(QC): 4 Walk 150 ft (QC): 4 Gait Assistive Device: FWW Pt has slow and antalgic, but steady gait Exercises Standing: Hip Abduction, Heel/toe raises, Marching, Sit to Stand Standing Reps: 10 NuStep Minutes: 15 NuStep Workload: 4 (Positioned to follow hip precautions) Treatments Pt sit to stand from recliner CGA and amb to therapy gym to complete NuStep. Pt then amb back to room to order lunch. Pt then returns to gym and completes standing ex in // bars with rest breaks often. Pt performs dynamic standing b alance activity, reaching with B UE and weight shifting to each side while unsupported. Pt slightly unsteady but able to hold stance with CGA. Pt then amb 200' and returns to recliner in room. Pt remains with all needs met and call light in hand. Assessment Current Status: Fair Progress Pt requires frequent rest breaks d/t fatigue. Pt increasing strength, balance, and mobility PT Short Term Goals Short Term Goals Time Frame: May 17, 2021 Roll Left & Right: 6 Sit to lyin Lying to sitting on side of be: 4 Sit to stand: 4 Chair/jrm-vi-qsxey transfer: 4 Walk 10 feet: 4 Walk 50 feet with two turns: 4 Walk 150 feet: 4 PT Manager [place] Goals PT Manager [place] Goals Time Frame: May 31, 2021 Roll Left & Right (QC): 6 Sit to Lying (QC): 4 Lying-Sitting on Side/Bed(QC): 4 Sit to Stand (QC): 4 Chair/Fgv-uh-Cauow Xfer(QC): 4 Toilet Transfer (QC): 4 Car Transfer (QC): 4 Does the Patient Walk: Yes Walk 10 feet (QC): 4 Walk 50ft with 2 Turns (QC): 4 Walk 150 ft (QC): 4 Walking 10ft on Uneven Surface: 4 1 Step (curb) (QC): 4 4 Steps (QC): 4 12 Steps (QC): 88 Picking up an Object (QC): 6 Wheel 50 feet with 2 turns (QC: 9 Wheel 150 feet: 9 PT Plan Problem List Problem List: Activity Tolerance, Safety Treatment/Plan Treatment Plan: Continue Plan of Care Treatment Plan: Bed Mobility, Education, Functional Activity Darlene, Functional Strength, Group Therapy, Gait, Safety, Therapeutic Exercise, Transfers Treatment Duration: May 31, 2021 Frequency: At least 5 of 7 days/Wk (IRF) Estimated Hrs Per Day: 1.5 hours per day Patient and/or Family Agrees t: Yes Safety Risks/Education Patient Education: Gait Training, Reviewed Precautions, Correct Positioning, Safety Issues Teaching Recipient: Patient Teaching Methods: Discussion Response to Teaching: Verbalize Understanding Time/GCodes Time In: 1000 Time Out: 1115 Total Billed Treatment Time: 75 Total Billed Treatment 1, GT x2, EX x2, NM DIEGO FRIAS SALESPERSON HOSIERY May 11, 2021 11:14
[2021-05-11] MEDS: ACETAMINOPHEN 500 MG TAB (TYLENOL) PO SCH ×2 (13:14→20:41)
[2021-05-11] MEDS: GABAPENTIN 300 MG (NEURONTIN) CAP PO SCH (20:14)
[2021-05-11 20:26] VITALS: BP 124/66
[2021-05-12] MEDS: ACETAMINOPHEN 500 MG TAB (TYLENOL) PO SCH ×4 (05:16→21:11)
[2021-05-12] MEDS: PANTOPRAZOLE 40 MG (PROTONIX) TAB PO SCH (05:41)
[2021-05-12] MEDS: LEVOTHYROXINE 150 MCG (LEVOTHROID) TAB PO SCH (05:41)
[2021-05-12 07:48] VITALS: BP 139/65
[2021-05-12] MEDS: SENNA W/DOCUSATE (SENOKOT S) TABLET PO SCH ×2 (08:29→20:20)
[2021-05-12] MEDS: DOCUSATE SODIUM 100 MG (COLACE) CAP PO SCH ×2 (08:29→20:20)
[2021-05-12] MEDS: glipiZIDE XL 5 MG (GLUCOTROL XL) TAB PO SCH (08:29)
[2021-05-12] MEDS: KCL 10 MEQ TAB (MICRO K) PO SCH (08:29)
[2021-05-12] MEDS: MELOXICAM 7.5 MG (MOBIC) TABLET PO SCH (08:29)
[2021-05-12] MEDS: polyethylene glycoL POWDER 17 GM (MIRALAX) PACK PO SCH ×2 (08:29→20:20)
[2021-05-12] MEDS: ACEBUTOLOL 200 MG (SECTRAL) CAPSULE PO SCH ×2 (08:29→20:19)
[2021-05-12] MEDS: lisINopril 20 MG (PRINIVIL) TABLET PO SCH (08:29)
[2021-05-12] MEDS: metFORMIN 500 MG (GLUCOPHAGE) TAB PO SCH ×2 (08:29→17:20)
[2021-05-12] MEDS: SODIUM CHLORIDE 1 GM TABLET PO SCH ×3 (08:29→20:25)
[2021-05-12] MEDS: ASPIRIN 81 MG CHEW (CHILDREN'S ASA) PO SCH ×2 (08:29→20:19)
[2021-05-12] MEDS: OXYBUTYNIN (DITROPAN) 5 MG TAB PO SCH ×3 (08:29→20:19)
[2021-05-12] MEDS: amLODIPine 5 MG (NORVASC) TAB PO SCH (08:30)
[2021-05-12] MEDS: FUROSEMIDE 20 MG (LASIX) TAB PO SCH (08:33)
--- NOTE | 2021-05-12 09:00 | Physical Therapy Daily Note ---
PT Daily Note-Current Subjective Pt. up in recliner. Pt. c/o her arms are painful/sore from previous Rx. "My arms are strong, I dont need all that" Pt. agrees to gait and LE therex and TRFs. Rates pain in right hip at 3/10 after Rx Pain Numeric Pain Scale: 3 Location: Right Location Body Site: Hip Pain Description: Ache Mental Status Patient Orientation: Normal For Age Transfers SCALE: Activities may be completed with or without assistive devices. 0-Xfabnnnnzl-wjcvjqq completes the activity by him/herself with no assistance from a helper. 5-Set-up or Clean-up Assistance-helper sets up or cleans up; patient completes activity. [place] assists only prior to or following the activity. 4-Supervision or Touching Assistance-helper provides verbal cues and/or touching/steadying and/or contact guard assistance as patient completes activity. Assistance may be provided throughout the activity or intermittently. 3-Partial/Moderate Assistance-helper does LESS THAN HALF the effort. [place] lifts, holds or supports trunk or limbs, but provides less than half the effort. 2-Substantial/Maximal Assistance-helper does MORE THAN HALF the effort. [place] lifts or holds trunk or limbs and provides more than half the effort. 6-Jeqmxtvqg-atwkax does ALL the effort. Patient does none of the effort to c omplete the activity. Or, the assistance of 2 or more helpers is required for the patient to complete the activity. If activity was not attempted, code reason: 7-Patient Refused. 9-Not Applicable-not attempted and the patient did not perform the activity before the current illness, exacerbation or injury. 10-Not Attempted due to Environmental Limitations-(lack of equipment, weather restraints, etc.). 88-Not Attempted due to Medical Conditions or Safety Concerns. Roll Left & Right (QC): 4 (needs assist to keep hips abducted during roll) Sit to Lying (QC): 5 Lying to Sitting/Side of Bed(Q: 5 Sit to Stand (QC): 5 Chair/Byl-qh-Sffpx Xfer(QC): 5 Gait Training Does the Patient Walk?: Yes Walk 10 feet (QC): 5 Walk 50 ft with 2 Turns(QC): 5 Walk 150 ft (QC): 5 Gait Persons Needed: 1 Gait Assistive Device: FWW slow, head down, heavy wt bearing on FWW. Pt. states she needs a TKR revision on right and has pain in this knee with gait, does not rate pain Exercises Supine Ex: Ankle pumps, Quad Set, Rolling, Glut sets, Heel Slides, Short Arc Quads, Scooting, Straight leg raise (assisted), Hip abd/add Supine Reps: 20 (assisted) Seated Therapy Exercises: Ankle pumps, Sit to stand, Long arc quads Seated Reps: 15 NuStep Minutes: 8 NuStep Workload: 3 Treatments TRFs, gait and LE therex Assessment Current Status: Good Progress over all arthritic pain limits pts function PT Short Term Goals Short Term Goals Time Frame: May 17, 2021 Roll Left & Right: 6 Sit to lyin Lying to sitting on side of be: 4 Sit to stand: 4 Chair/csv-ez-sgacq transfer: 4 Walk 10 feet: 4 Walk 50 feet with two turns: 4 Walk 150 feet: 4 PT Auto Body Mechanic Goals Fdc Goals PT Fdc Goals Time Frame: May 31, 2021 Roll Left & Right (QC): 6 Sit to Lying (QC): 4 Lying-Sitting on Side/Bed(QC): 4 Sit to Stand (QC): 4 Chair/Cov-fn-Yplly Xfer(QC): 4 Toilet Transfer (QC): 4 Car Transfer (QC): 4 Does the Patient Walk: Yes Walk 10 feet (QC): 4 Walk 50ft with 2 Turns (QC): 4 Walk 150 ft (QC): 4 Walking 10ft on Uneven Surface: 4 1 Step (curb) (QC): 4 4 Steps (QC): 4 12 Steps (QC): 88 Picking up an Object (QC): 6 Wheel 50 feet with 2 turns (QC: 9 Wheel 150 feet: 9 PT Plan Treatment/Plan Treatment Plan: Continue Plan of Care Treatment Plan: Bed Mobility, Education, Functional Activity Darlene, Functional Strength, Group Therapy, Gait, Safety, Therapeutic Exercise, Transfers Treatment Duration: May 31, 2021 Frequency: At least 5 of 7 days/Wk (IRF) Estimated Hrs Per Day: 1.5 hours per day Patient and/or Family Agrees t: Yes Safety Risks/Education Patient Education: Gait Training, Transfer Techniques, Correct Positioning, Disease Process, Safety Issues Teaching Recipient: Patient Teaching Methods: Demonstration, Discussion Response to Teaching: Verbalize Understanding, Return Demonstration, Reinforcement Needed Time/GCodes Time In: 800 Time Out: 900 Total Billed Treatment Time: 60 Total Billed Treatment 1,FA15m,EX25m,GT20m CHARITY JAIMES EMERGENCY MANAGEMENT CONSULTANT May 12, 2021 09:00
--- NOTE | 2021-05-12 10:28 | Occupational Ther Daily Note ---
OT Current Status-Daily Note ADL-Treatment Therapy Code Descriptions/Definitions Functional [place] Measure: 0=Not Assessed/NA 4=Minimal Assistance 1=Total Assistance 5=Supervision or Setup 2=Maximal Assistance 6=Modified [place] 3=Moderate Assistance 7=Complete IndependenceSCALE: Activities may be completed with or without assistive devices. 1-Lwibyjsycv-hphfnll completes the activity by him/herself with no assistance from a helper. 5-Set-up or Clean-up Assistance-helper sets up or cleans up; patient completes activity. [place] assists only prior to or following the activity. 4-Supervision or Touching Assistance-helper provides verbal cues and/or touching/steadying and/or contact guard assistance as patient completes activity. Assistance may be provided throughout the activity or intermittently. 3-Partial/Moderate Assistance-helper does LESS THAN HALF the effort. [place] lifts, holds or supports trunk or limbs, but provides less than half the effort. 2-Substantial/Maximal Assistance-helper does MORE THAN HALF the effort. [place] lifts or holds trunk or limbs and provides more than half the effort. 7-Tsbfcbhff-fgtoow does ALL the effort. Patient does none of the effort to complete the activity. Or, the assistance of 2 or more helpers is required for the patient to complete the activity. If activity was not attempted, code reason: 7-Patient Refused. 9-Not Applicable-not attempted and the patient did not perform the activity before the current illness, exacerbation or injury. 10-Not Attempted due to Environmental Limitations-(lack of equipment, weather restraints, etc.). 88-Not Attempted due to Medical Conditions or Safety Concerns. Eating (QC): 6 (Per pt report.) Oral Hygiene (QC): 6 (IND standing at sink) Upper Body Dressing (QC): 6 (Pt gathered clothing, donned independently) Lower Body Dressing (QC): 4 (SBA in stand for pant hike, pt donned using AE) On/Off Footwear: 3 (Assist to don tedhose, pt able to doff/don gripper socks using AE. Min A overall) Other Treatment Pt seated in recliner, used FWW to gather clothing from closet, then transferred to chair to don clothes. Pt utilized AE to don clothes as outlined above, then stood at sink to complete oral care and face washing. Pt sat at sink to brush hair. Pt returned to recliner. Post tx, pt in recliner, call light in reach and all needs met. Education OT Patient Education: Correct positioning, Energy conservation, Modified ADL techniques, Progress toward Goal/Update tx plan, Purpose of tx/functional acti vities, Safety issues, Use of adapted equipment Teaching Recipient: Patient Teaching Methods: Discussion Response to Teaching: Verbalize Understanding OT Short Term Goals Short Term Goals Time Frame: May 20, 2021 Oral hygiene: 5 Toileting hygiene: 5 Shower/bathe self: 4 Lower body dressin Putting on/taking off footwear: 4 OT Electro Tech Goals Electro Tech Goals Time Frame: Jun 04, 2021 Eating (QC): 6 Oral Hygiene (QC): 6 Toileting Hygiene (QC): 6 Shower/Bathe Self (QC): 5 Upper Body Dressing (QC): 6 Lower Body Dressing (QC): 6 On/Off Footwear (QC): 6 Additional Goals: 1-Demonstrate ADL Tasks, 2-Verbalize Understanding, 3- ImproveStrength/Darlene 1=Demonstrate adherence to instructed precautions during ADL tasks. 2=Patient will verbalize/demonstrate understanding of assistive devices/modifications for ADL. 3=Patient will improve strength/tolerance for activity to enable patient to perform ADL's. OT Education/Plan Problem List/Assessment Assessment: Decreased Activ Tolerance, Decreased UE Strength, Impaired Funct Balance, Impaired I ADL's, Impaired Self-Care Skills Discharge Recommendations Plan/Recommendations: Continue POC Treatment Plan/Plan of Care Patient would benefit from OT for education, treatment and training to promote independence in ADL's, mobility, safety and/or upper extremity function for ADL's. Plan of Care: ADL Retraining, Functional Mobility, Group Exercise/Act as Ind, UE Funct Exercise/Act Treatment Duration: Jun 04, 2021 Frequency: At least 5 of 7 days/Wk (IRF) Estimated Hrs Per Day: 1.5 hours per day Agreement: Yes Rehab Potential: Fair Time/GCodes Start Time: 09:30 Stop Time: 10:30 Total Time Billed (hr/min): 60 Billed Treatment Time 1, ADL 4 PAT HOOKER OT May 12, 2021 10:28
--- NOTE | 2021-05-12 12:31 | PM&R Progress Note ---
Subjective HPI/CC On Admission Date Seen by Provider: May 12, 2021 Time Seen by Provider: 12:00 Subjective/Events-last exam 05/12/2021: Pt doing well No significant problems Eating and drinking well Checked meds and labs 05/11/2021: Pt doing really well Took a shower today Thigh high viky hose on Left hand carpal tunnel syndrome bothering her 05/10/2021: Pt doing very well Hgb 9.4 Will DC the Acu-Checks and sliding scale per Pt request since she is not going to take any Insulin Sodium level better at 132 Review of Systems General: Fatigue, Malaise Objective Exam Vital Signs Vital Signs Date Time Temp Pulse Resp B/P (MAP) Pulse Ox O2 Delivery O2 Flow Rate FiO2 05/12/21 20:39 Room Air 05/12/21 20:15 36.8 69 18 138/63 (88) 97 Capillary Refill : General Appearance: No Apparent Distress, WD/WN, Chronically ill, Obese HEENT: PERRL/EOMI, Normal ENT Inspection, Pharynx Normal Neck: Full Range of Motion, Normal Inspection, Non Tender, Supple, Carotid Bruit Respiratory: Chest Non Tender, Lungs Clear, Normal Breath Sounds, No Accessory Muscle Use, No Respiratory Distress Cardiovascular: Regular Rate, Rhythm, No Edema, No Gallop, No JVD, No Murmur, Normal Peripheral Pulses Gastrointestinal: Normal Bowel Sounds, No Organomegaly, No Pulsatile Mass, Non Tender, Soft Back: Normal Inspection, No CVA Tenderness, No Vertebral Tenderness Extremity: Normal Capillary Refill, Normal Inspection, Normal Range of Motion (except right leg), Non Tender, No Calf Tenderness, No Pedal Edema Neurologic/Psychiatric: Alert, Oriented x3, No Motor/Sensory Deficits, Normal Mood/Affect, Abnormal Gait, Motor Weakness (generalized) Skin: Normal Color, Warm/Dry Lymphatic: No Adenopathy Results/Procedures Lab Patient resulted labs reviewed. FIM Transfers Therapy Code Descriptions/Definitions Functional [place] Measure: 0=Not Assessed/NA 4=Minimal Assistance 1=Total Assistance 5=Supervision or Setup 2=Maximal Assistance 6=Modified [place] 3=Moderate Assistance 7=Complete IndependenceSCALE: Activities may be completed with or without assistive devices. 7-Ogfkwvclsy-szriyyc completes the activity by him/herself with no assistance from a helper. 5-Set-up or Clean-up Assistance-helper sets up or cleans up; patient completes activity. [place] assists only prior to or following the activity. 4-Supervision or Touching Assistance-helper provides verbal cues and/or touching/steadying and/or contact guard assistance as patient completes activity. Assistance may be provided throughout the activity or intermittently. 3-Partial/Moderate Assistance-helper does LESS THAN HALF the effort. [place] lifts, holds or supports trunk or limbs, but provides less than half the effort. 2-Substantial/Maximal Assistance-helper does MORE THAN HALF the effort. [place] lifts or holds trunk or limbs and provides more than half the effort. 2-Zdtcjzzpb-btazbe does ALL the effort. Patient does none of the effort to complete the activity. Or, the assistance of 2 or more helpers is required for the patient to complete the activity. If activity was not attempted, code reason: 7-Patient Refused. 9-Not Applicable-not attempted and the patient did not perform the activity before the current illness, exacerbation or injury. 10-Not Attempted due to Environmental Limitations-(lack of equipment, weather restraints, etc.). 88-Not Attempted due to Medical Conditions or Safety Concerns. Roll Left to Right (QC): 4 (needs assist to keep hips abducted during roll) Sit to Lying (QC): 5 Sit to Stand (QC): 5 Chair/Exy-vl-Kwuep Xfer(QC): 5 Car Transfer (QC): 3 Gait Training Does the Patient Walk?: Yes Distance: 200', 100' x3 Walk 10 feet (QC): 5 Walk 50 ft with 2 Turns(QC): 5 Walk 150 ft (QC): 5 Walking 10ft/uneven surface-QC: 4 Gait Persons Needed: 1 Gait Assistive Device: FWW Wheelchair Training Does the Pt Use a Wheelchair?: No Wheel 50 ft with 2 turns (QC): 9 Wheel 150 ft (QC): 9 Stair Training #of Steps: 1 1 Step (curb) (QC): 4 4 Steps (QC): 88 12 Steps (QC): 88 Balance Picking up an Object (QC): 6 (using a trimmer tailer) ADL-Treatment Eating (QC): 6 (Per pt report.) Oral Hygiene (QC): 6 (IND standing at sink) Shower/Bathe Self (QC): 3 (Pt able to wash BUEs, chest/abdomen, upper thighs, periarea and buttocks, CGA in stand. Assistance provided with BLEs lower legs/feet.) Upper Body Dressing (QC): 6 (Pt gathered clothing, donned independently) Lower Body Dressing (QC): 4 (SBA in stand for pant hike, pt donned using AE) On/Off Footwear (QC): 3 (Assist to don tedhose, pt able to doff/don gripper socks using AE. 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
--- NOTE | 2021-05-12 14:34 | Therapy Group Daily Note ---
Therapy Daily Group Note Patient Education Topic Other List Below Exercises LE Seated Exercise, UE Exercise Session Ratio (pt:therapist): 7:2 Goal of Session: Education on ARU Expectations, Memory Strategies, UE/LE Strengthing Goal Met for this Session: Yes Pt Benefit of Group: Contributions to Others, F/U Use of Strategies @Home, Increased Functional Safety, Increased Functional Strength, Improved Cognition, Recognition of Peers, Socialization Other/Notes Pt ambulated using FWW to AR[facility] area for OT/PT group. Group consisted of introductions (name, place living, childhood memory), socialization, B UE/LE seated exercises, educational topics of ARU description/expectations and memory. Pt introduced self appropriately and actively listened to peers. Pt able to complete B UE/LE WFL with minimal modifications due to medical issues. Pt acknowledged understanding of educational topics by nodding affirmative and giving own personal strategies. After session, pt lying in bed with call light/phone in reach. All needs met in room. Start Time: 13:00 Stop Time: 14:00 Total Billed Treatment Time: 60 Total Billed Treatment 1-GRP SYBIL GRIFFITH May 12, 2021 14:34
[2021-05-12 20:15] VITALS: BP 138/63
[2021-05-12] MEDS: GABAPENTIN 300 MG (NEURONTIN) CAP PO SCH (20:19)
[2021-05-13] MEDS: PANTOPRAZOLE 40 MG (PROTONIX) TAB PO SCH (05:55)
[2021-05-13] MEDS: LEVOTHYROXINE 150 MCG (LEVOTHROID) TAB PO SCH (05:55)
[2021-05-13] MEDS: ASPIRIN 81 MG CHEW (CHILDREN'S ASA) PO SCH ×2 (07:38→20:35)
[2021-05-13] MEDS: SENNA W/DOCUSATE (SENOKOT S) TABLET PO SCH ×2 (07:38→20:34)
[2021-05-13] MEDS: ACEBUTOLOL 200 MG (SECTRAL) CAPSULE PO SCH ×2 (07:41→20:34)
[2021-05-13] MEDS: DOCUSATE SODIUM 100 MG (COLACE) CAP PO SCH ×2 (07:41→20:34)
[2021-05-13] MEDS: metFORMIN 500 MG (GLUCOPHAGE) TAB PO SCH ×2 (07:42→17:16)
[2021-05-13] MEDS: lisINopril 20 MG (PRINIVIL) TABLET PO SCH (07:42)
[2021-05-13] MEDS: MELOXICAM 7.5 MG (MOBIC) TABLET PO SCH (07:43)
[2021-05-13] MEDS: glipiZIDE XL 5 MG (GLUCOTROL XL) TAB PO SCH (07:43)
[2021-05-13] MEDS: OXYBUTYNIN (DITROPAN) 5 MG TAB PO SCH ×3 (07:43→20:35)
[2021-05-13] MEDS: amLODIPine 5 MG (NORVASC) TAB PO SCH (07:44)
[2021-05-13] MEDS: KCL 10 MEQ TAB (MICRO K) PO SCH (07:44)
[2021-05-13] MEDS: SODIUM CHLORIDE 1 GM TABLET PO SCH ×3 (07:48→20:35)
[2021-05-13 08:00] VITALS: BP 136/60
[2021-05-13] MEDS: polyethylene glycoL POWDER 17 GM (MIRALAX) PACK PO SCH ×2 (09:07→20:34)
--- NOTE | 2021-05-13 09:36 | Occupational Ther Daily Note ---
OT Current Status-Daily Note Subjective Pt agreeable to OT tx. When pt arrived in gym, she indicated she didn't want to work on her arms as they are strong and all of this extra work is irritating her rotator cuffs. OT attempted to educate pt on purpose and benefit of OT with focus on strengthening her arms including elbows/wrists/hands, pt continued to talk over therapist and state that this therapist wasn't listening to her. OT again states that she understands pt's concerns but also reeducated her on what OT focuses on and benefits of OT. Pt reluctantly agreed to tx in therapy gym. Mental Status/Objective Patient Orientation: Person, Place, Time, Situation ADL-Treatment Therapy Code Descriptions/Definitions Functional [place] Measure: 0=Not Assessed/NA 4=Minimal Assistance 1=Total Assistance 5=Supervision or Setup 2=Maximal Assistance 6=Modified [place] 3=Moderate Assistance 7=Complete IndependenceSCALE: Activities may be completed with or without assistive devices. 4-Imrpuhesso-tlczxty completes the activity by him/herself with no assistance from a helper. 5-Set-up or Clean-up Assistance-helper sets up or cleans up; patient completes activity. [place] assists only prior to or following the activity. 4-Supervision or Touching Assistance-helper provides verbal cues and/or touching/steadying and/or contact guard assistance as patient completes activity. Assistance may be provided throughout the activity or intermittently. 3-Partial/Moderate Assistance-helper does LESS THAN HALF the effort. [place] lifts, holds or supports trunk or limbs, but provides less than half the effort. 2-Substantial/Maximal Assistance-helper does MORE THAN HALF the effort. [place] lifts or holds trunk or limbs and provides more than half the effort. 9-Dzdfmvdtj-qggdkn does ALL the effort. Patient does none of the effort to complete the activity. Or, the assistance of 2 or more helpers is required for the patient to complete the activity. If activity was not attempted, code reason: 7-Patient Refused. 9-Not Applicable-not attempted and the patient did not perform the activity before the current illness, exacerbation or injury. 10-Not Attempted due to Environmental Limitations-(lack of equipment, weather restraints, etc.). 88-Not Attempted due to Medical Conditions or Safety Concerns. Oral Hygiene (QC): 6 (IND standing at sink) Upper Body Dressing (QC): 6 (IND, pt able to gather clothing and don/doff clod puller shirt.) Lower Body Dressing (QC): 5 (set up assist, OT provided pt with AE. PT gathered clothing, donned without cues.) Other Treatment Pt laying in bed, transferred supine to sit EOB without assistance. Pt used FWW to gather clothing from counter in her room, SBA, then transferred to chair in bathroom. Pt completed dressing as outlined above, sat at sink to brush her hair independently, then stood at sink to complete oral care and face washing independently. Pt used FWW in her room to gather phone, place on barn and property manager, and grab her mask, SBA. Pt performed functional mobility to therapy gym. As soon as pt entered gym, she states she doesn't want to do the arm bike as it was making her rotator cuffs worse. OT tx focused on increasing BUE strength and activity tolerance. Pt completed pegboard task, placing/removing x100 pegs, 1lb wrist weights BUEs. Upon starting task, pt states that all of this work is making her rotator cuffs worse and she doesn't need the arm strengthening. OT reeducated pt on the purpose and benefit of OT, she reluctantly agreed to tx. Pt then completed fine motor strengthening task of removing beads from moderate resistance theraputty. Pt able to locate all beads without cues. Pt returned to room using FWW, SBA. Post tx, pt in recliner, call light in reach and all needs met. Education OT Patient Education: Correct positioning, Energy conservation, Exercise program, Modified ADL techniques, Progress toward Goal/Update tx plan, Purpose of tx/functional activities Teaching Recipient: Patient Teaching Methods: Discussion Response to Teaching: Verbalize Understanding, Reinforcement Needed OT Short Term Goals Short Term Goals Time Frame: May 20, 2021 Oral hygiene: 5 Toileting hygiene: 5 Shower/bathe self: 4 Lower body dressin Putting on/taking off footwear: 4 OT Audit Control Clerk Goals [facility] Goals Time Frame: Jun 04, 2021 Eating (QC): 6 Oral Hygiene (QC): 6 (met) Toileting Hygiene (QC): 6 Shower/Bathe Self (QC): 5 Upper Body Dressing (QC): 6 (net) Lower Body Dressing (QC): 6 On/Off Footwear (QC): 6 Additional Goals: 1-Demonstrate ADL Tasks, 2-Verbalize Understanding, 3- ImproveStrength/Darlene 1=Demonstrate adherence to instructed precautions during ADL tasks. 2=Patient will verbalize/demonstrate understanding of assistive devices/modifications for ADL. 3=Patient will improve strength/tolerance for activity to enable patient to perform ADL's. OT Education/Plan Problem List/Assessment Assessment: Decreased Activ Tolerance, Decreased UE Strength, Impaired Funct Balance, Impaired I ADL's, Impaired Self-Care Skills, Restricted Funct UE ROM Discharge Recommendations Plan/Recommendations: Continue POC Treatment Plan/Plan of Care Patient would benefit from OT for education, treatment and training to promote independence in ADL's, mobility, safety and/or upper extremity function for ADL's. Plan of Care: ADL Retraining, Functional Mobility, Group Exercise/Act as Ind, UE Funct Exercise/Act Treatment Duration: Jun 04, 2021 Frequency: At least 5 of 7 days/Wk (IRF) Estimated Hrs Per Day: 1.5 hours per day Agreement: Yes Rehab Potential: Fair Time/GCodes Start Time: 08:45 Stop Time: 10:15 Total Time Billed (hr/min): 90 Billed Treatment Time 1, ADL 2 (30'), FA 4 (60') PAT HOOKER OT May 13, 2021 09:36
--- NOTE | 2021-05-13 12:04 | Physical Therapy Daily Note ---
PT Daily Note-Current Subjective Pt in recliner upon arrival and agrees to tx. Pt has no c/o pain prior to tx, states soreness in R hip post tx. Pt expresses "I don't understand why the other girl wants to make my arms stronger. They are strong enough and she is just making it worse because of my torn rotator cuffs and pinched nerves in my elbows." PT explains importance of strengthening muscles to improve independence Mental Status Patient Orientation: Person, Place, Time, Situation Transfers SCALE: Activities may be completed with or without assistive devices. 3-Opsdyworum-mwuinxc completes the activity by him/herself with no assistance from a helper. 5-Set-up or Clean-up Assistance-helper sets up or cleans up; patient completes activity. [place] assists only prior to or following the activity. 4-Supervision or Touching Assistance-helper provides verbal cues and/or touching/steadying and/or contact guard assistance as patient completes activity. Assistance may be provided throughout the activity or intermittently. 3-Partial/Moderate Assistance-helper does LESS THAN HALF the effort. [place] lifts, holds or supports trunk or limbs, but provides less than half the effort. 2-Substantial/Maximal Assistance-helper does MORE THAN HALF the effort. [place] lifts or holds trunk or limbs and provides more than half the effort. 8-Wbwvinlgm-tyijnn does ALL the effort. Patient does none of the effort to complete the activity. Or, the assistance of 2 or more helpers is required for the patient to complete the activity. If activity was not attempted, code reason: 7-Patient Refused. 9-Not Applicable-not attempted and the patient did not perform the activity bef ore the current illness, exacerbation or injury. 10-Not Attempted due to Environmental Limitations-(lack of equipment, weather r estraints, etc.). 88-Not Attempted due to Medical Conditions or Safety Concerns. Sit to Stand (QC): 5 Gait Training Does the Patient Walk?: Yes Distance: 100' x2 Walk 10 feet (QC): 5 Walk 50 ft with 2 Turns(QC): 5 Gait Persons Needed: 1 Gait Assistive Device: FWW Pt has slow, antalgic gait Wheelchair Training Does the Pt Use a Wheelchair?: No Exercises Seated Therapy Exercises: Ankle pumps, Sit to stand, Long arc quads, Hamstring Curls, Glut set Seated Reps: 10 NuStep Minutes: 15 NuStep Workload: 4 (Postioned to keep precautions) Treatments Pt sit to stand from recliner SBA and amb 100' to therapy gym and completes NuStep for 15 mins on WL of 4. Pt then sits on raised mat in gym and performs seated ex. Pt amb back to room and returns to recliner. Pt left with all needs met and call light in hand. Assessment Current Status: Fair Progress Pt is limited by pain and weakness. Has poor motivation to improve mobility PT Short Term Goals Short Term Goals Time Frame: May 17, 2021 Roll Left & Right: 6 Sit to lyin Lying to sitting on side of be: 4 Sit to stand: 4 Chair/fhn-ii-fctiv transfer: 4 Walk 10 feet: 4 Walk 50 feet with two turns: 4 Walk 150 feet: 4 PT Residential Goals Residential Goals PT Blood Coordinator Goals Time Frame: May 31, 2021 Roll Left & Right (QC): 6 Sit to Lying (QC): 4 Lying-Sitting on Side/Bed(QC): 4 Sit to Stand (QC): 4 Chair/Vxg-tt-Xpwnd Xfer(QC): 4 Toilet Transfer (QC): 4 Car Transfer (QC): 4 Does the Patient Walk: Yes Walk 10 feet (QC): 4 Walk 50ft with 2 Turns (QC): 4 Walk 150 ft (QC): 4 Walking 10ft on Uneven Surface: 4 1 Step (curb) (QC): 4 4 Steps (QC): 4 12 Steps (QC): 88 Picking up an Object (QC): 6 Wheel 50 feet with 2 turns (QC: 9 Wheel 150 feet: 9 PT Plan Problem List Problem List: Activity Tolerance Treatment/Plan Treatment Plan: Continue Plan of Care Treatment Plan: Bed Mobility, Education, Functional Activity Darlene, Functional Strength, Group Therapy, Gait, Safety, Therapeutic Exercise, Transfers Treatment Duration: May 31, 2021 Frequency: At least 5 of 7 days/Wk (IRF) Estimated Hrs Per Day: 1.5 hours per day Patient and/or Family Agrees t: Yes Safety Risks/Education Patient Education: Gait Training, Correct Positioning, Safety Issues Teaching Recipient: Patient Teaching Methods: Demonstration, Discussion Response to Teaching: Verbalize Understanding, Return Demonstration Time/GCodes Time In: 1115 Time Out: 1215 Total Billed Treatment Time: 60 Total Billed Treatment 1, GT x2, EX x2 FRIAS,[facility] May 13, 2021 12:04
--- NOTE | 2021-05-13 12:23 | PM&R Progress Note ---
Subjective HPI/CC On Admission Date Seen by Provider: May 13, 2021 Time Seen by Provider: 12:20 Subjective/Events-last exam 05/13/2021: Patient denies any pain Working well with therapy Bowels are moving Ultram for pain Tylenol added as needed Incision looks good 05/12/2021: Pt doing well No significant problems Eating and drinking well Checked meds and labs 05/11/2021: Pt doing really well Took a shower today Thigh high viky hose on Left hand carpal tunnel syndrome bothering her 05/10/2021: Pt doing very well Hgb 9.4 Will DC the Acu-Checks and sliding scale per Pt request since she is not going to take any Insulin Sodium level better at 132 Review of Systems Musculoskeletal: leg pain Objective Exam Vital Signs Vital Signs Date Time Temp Pulse Resp B/P (MAP) Pulse Ox O2 Delivery O2 Flow Rate FiO2 05/13/21 21:38 98 Room Air 05/13/21 20:00 36.8 77 18 150/67 (94) Capillary Refill : General Appearance: No Apparent Distress, WD/WN, Chronically ill, Obese HEENT: PERRL/EOMI, Normal ENT Inspection, Pharynx Normal Neck: Full Range of Motion, Normal Inspection, Non Tender, Supple, Carotid Bruit Respiratory: Chest Non Tender, Lungs Clear, Normal Breath Sounds, No Accessory Muscle Use, No Respiratory Distress Cardiovascular: Regular Rate, Rhythm, No Edema, No Gallop, No JVD, No Murmur, Normal Peripheral Pulses Gastrointestinal: Normal Bowel Sounds, No Organomegaly, No Pulsatile Mass, Non Tender, Soft Back: Normal Inspection, No CVA Tenderness, No Vertebral Tenderness Extremity: Normal Capillary Refill, Normal Inspection, Normal Range of Motion (except right leg), Non Tender, No Calf Tenderness, No Pedal Edema Neurologic/Psychiatric: Alert, Oriented x3, No Motor/Sensory Deficits, Normal Mood/Affect, Abnormal Gait, Motor Weakness (generalized) Skin: Normal Color, Warm/Dry Lymphatic: No Adenopathy Results/Procedures Lab Patient resulted labs reviewed. FIM Transfers Therapy Code Descriptions/Definitions Functional [place] Measure: 0=Not Assessed/NA 4=Minimal Assistance 1=Total Assistance 5=Supervision or Setup 2=Maximal Assistance 6=Modified [place] 3=Moderate Assistance 7=Complete IndependenceSCALE: Activities may be completed with or without assistive devices. 0-Evktfpqzqh-pzumrud completes the activity by him/herself with no assistance from a helper. 5-Set-up or Clean-up Assistance-helper sets up or cleans up; patient completes activity. [place] assists only prior to or following the activity. 4-Supervision or Touching Assistance-helper provides verbal cues and/or touching/steadying and/or contact guard assistance as patient completes acti vity. Assistance may be provided throughout the activity or intermittently. 3-Partial/Moderate Assistance-helper does LESS THAN HALF the effort. [place] lifts, holds or supports trunk or limbs, but provides less than half the effort. 2-Substantial/Maximal Assistance-helper does MORE THAN HALF the effort. [place] lifts or holds trunk or limbs and provides more than half the effort. 4-Txbgbaqes-lizdiw does ALL the effort. Patient does none of the effort to complete the activity. Or, the assistance of 2 or more helpers is required for the patient to complete the activity. If activity was not attempted, code reason: 7-Patient Refused. 9-Not Applicable-not attempted and the patient did not perform the activity before the current illness, exacerbation or injury. 10-Not Attempted due to Environmental Limitations-(lack of equipment, weather restraints, etc.). 88-Not Attempted due to Medical Conditions or Safety Concerns. Roll Left to Right (QC): 4 (needs assist to keep hips abducted during roll) Sit to Lying (QC): 5 Sit to Stand (QC): 5 Chair/Vlf-xg-Elyhv Xfer(QC): 5 Car Transfer (QC): 3 Gait Training Does the Patient Walk?: Yes Distance: 100' x2 Walk 10 feet (QC): 5 Walk 50 ft with 2 Turns(QC): 5 Walk 150 ft (QC): 5 Walking 10ft/uneven surface-QC: 4 Gait Persons Needed: 1 Gait Assistive Device: FWW Wheelchair Training Does the Pt Use a Wheelchair?: No Wheel 50 ft with 2 turns (QC): 9 Wheel 150 ft (QC): 9 Stair Training #of Steps: 1 1 Step (curb) (QC): 4 4 Steps (QC): 88 12 Steps (QC): 88 Balance Picking up an Object (QC): 6 (using a assembler tester) ADL-Treatment Eating (QC): 6 (Per pt report.) Oral Hygiene (QC): 6 (IND standing at sink) Shower/Bathe Self (QC): 3 (Pt able to wash BUEs, chest/abdomen, upper thighs, periarea and buttocks, CGA in stand. Assistance provided with BLEs lower legs/feet.) Upper Body Dressing (QC): 6 (IND, pt able to gather clothing and don/doff assembler for puller over machine shirt.) Lower Body Dressing (QC): 5 (set up assist, OT provided pt with AE. PT gathered clothing, donned without cues.) On/Off Footwear (QC): 3 (Assist to don tedhose, pt able to doff/don gripper socks using AE. 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
--- NOTE | 2021-05-13 13:55 | Physical Therapy Daily Note ---
PT Daily Note-Current Subjective pt in recliner upon arrival and agrees to PT. Pt has no c/o pain at this time Mental Status Patient Orientation: Person, Place, Time, Situation Transfers SCALE: Activities may be completed with or without assistive devices. 5-Ikcgcdzuwa-zhvdkff completes the activity by him/herself with no assistance from a helper. 5-Set-up or Clean-up Assistance-helper sets up or cleans up; patient completes activity. [place] assists only prior to or following the activity. 4-Supervision or Touching Assistance-helper provides verbal cues and/or touching/steadying and/or contact guard assistance as patient completes activity. Assistance may be provided throughout the activity or intermittently. 3-Partial/Moderate Assistance-helper does LESS THAN HALF the effort. [place] lifts, holds or supports trunk or limbs, but provides less than half the effort. 2-Substantial/Maximal Assistance-helper does MORE THAN HALF the effort. [place] lifts or holds trunk or limbs and provides more than half the effort. 1-Mjltykbrz-vowagg does ALL the effort. Patient does none of the effort to complete the activity. Or, the assistance of 2 or more helpers is required for the patient to complete the activity. If activity was not attempted, code reason: 7-Patient Refused. 9-Not Applicable-not attempted and the patient did not perform the activity before the current illness, exacerbation or injury. 10-Not Attempted due to Environmental Limitations-(lack of equipment, weather restraints, etc.). 88-Not Attempted due to Medical Conditions or Safety Concerns. Sit to Stand (QC): 5 Gait Training Does the Patient Walk?: Yes Distance: 200' Walk 10 feet (QC): 5 Walk 50 ft with 2 Turns(QC): 5 Walk 150 ft (QC): 5 Gait Assistive Device: FWW Pt has slow, antalgic gait Wheelchair Training Does the Pt Use a Wheelchair?: No Treatments Pt sit to stand from recliner SBA and request to use bathroom, pt able to doff/don pants and clean self SBA. Pt then amb 200' on ARU and returns to recliner in room. Pt left with all needs met and call light in hand Assessment Current Status: Good Progress Pt requires encouragement to improve current level of function. PT Short Term Goals Short Term Goals Time Frame: May 17, 2021 Roll Left & Right: 6 Sit to lyin Lying to sitting on side of be: 4 Sit to stand: 4 Chair/sgr-xo-opwee transfer: 4 Walk 10 feet: 4 Walk 50 feet with two turns: 4 Walk 150 feet: 4 PT Skilled Nursing Goals Trains Service Conductor Goals PT Trains Service Conductor Goals Time Frame: May 31, 2021 Roll Left & Right (QC): 6 Sit to Lying (QC): 4 Lying-Sitting on Side/Bed(QC): 4 Sit to Stand (QC): 4 Chair/Idm-kl-Zhuvk Xfer(QC): 4 Toilet Transfer (QC): 4 Car Transfer (QC): 4 Does the Patient Walk: Yes Walk 10 feet (QC): 4 Walk 50ft with 2 Turns (QC): 4 Walk 150 ft (QC): 4 Walking 10ft on Uneven Surface: 4 1 Step (curb) (QC): 4 4 Steps (QC): 4 12 Steps (QC): 88 Picking up an Object (QC): 6 Wheel 50 feet with 2 turns (QC: 9 Wheel 150 feet: 9 PT Plan Problem List Problem List: Activity Tolerance, Functional Strength Treatment/Plan Treatment Plan: Continue Plan of Care Treatment Plan: Bed Mobility, Education, Functional Activity Darlene, Functional Strength, Group Therapy, Gait, Safety, Therapeutic Exercise, Transfers Treatment Duration: May 31, 2021 Frequency: At least 5 of 7 days/Wk (IRF) Estimated Hrs Per Day: 1.5 hours per day Patient and/or Family Agrees t: Yes Safety Risks/Education Patient Education: Gait Training Teaching Recipient: Patient Teaching Methods: Discussion Response to Teaching: Verbalize Understanding Time/GCodes Time In: 1330 Time Out: 1400 Total Billed Treatment Time: 30 Total Billed Treatment 1, ASHLEY, DIEGO LUO DETECTIVE LIEUTENANT May 13, 2021 13:55
[2021-05-13 20:00] VITALS: BP 150/67
[2021-05-13] MEDS: GABAPENTIN 300 MG (NEURONTIN) CAP PO SCH (20:34)
[2021-05-14] MEDS: PANTOPRAZOLE 40 MG (PROTONIX) TAB PO SCH (06:18)
[2021-05-14] MEDS: LEVOTHYROXINE 150 MCG (LEVOTHROID) TAB PO SCH (06:18)
[2021-05-14] MEDS: DOCUSATE SODIUM 100 MG (COLACE) CAP PO SCH ×2 (07:55→21:12)
[2021-05-14] MEDS: amLODIPine 5 MG (NORVASC) TAB PO SCH (07:55)
[2021-05-14] MEDS: SENNA W/DOCUSATE (SENOKOT S) TABLET PO SCH ×2 (07:55→21:17)
[2021-05-14] MEDS: ACEBUTOLOL 200 MG (SECTRAL) CAPSULE PO SCH ×2 (07:55→21:15)
[2021-05-14] MEDS: glipiZIDE XL 5 MG (GLUCOTROL XL) TAB PO SCH (07:55)
[2021-05-14] MEDS: ASPIRIN 81 MG CHEW (CHILDREN'S ASA) PO SCH ×2 (07:55→21:12)
[2021-05-14] MEDS: lisINopril 20 MG (PRINIVIL) TABLET PO SCH (07:55)
[2021-05-14] MEDS: OXYBUTYNIN (DITROPAN) 5 MG TAB PO SCH ×3 (07:55→21:13)
[2021-05-14] MEDS: MELOXICAM 7.5 MG (MOBIC) TABLET PO SCH (07:55)
[2021-05-14] MEDS: metFORMIN 500 MG (GLUCOPHAGE) TAB PO SCH ×2 (07:55→17:43)
[2021-05-14] MEDS: SODIUM CHLORIDE 1 GM TABLET PO SCH ×3 (07:56→21:12)
[2021-05-14] MEDS: KCL 10 MEQ TAB (MICRO K) PO SCH (07:56)
[2021-05-14] MEDS: FUROSEMIDE 20 MG (LASIX) TAB PO SCH (07:59)
[2021-05-14 08:00] VITALS: BP 149/68
--- NOTE | 2021-05-14 09:02 | Physical Therapy Daily Note ---
PT Daily Note-Current Subjective Pt in bed upon arrival eating breakfast and agrees to PT. Pt reports that her R hip isn't hurting her too bad. Pain Numeric Pain Scale: 4 Location: Right, Left Location Body Site: Hip Comment: Pt reports her R hip pain is 4/10 and says her L hip is 6/10 Mental Status Patient Orientation: Person, Place, Time, Situation Attachments: Other-See Comments (mask while out of room) Transfers SCALE: Activities may be completed with or without assistive devices. 3-Lbhoutveea-xnstxqy completes the activity by him/herself with no assistance from a helper. 5-Set-up or Clean-up Assistance-helper sets up or cleans up; patient completes activity. [place] assists only prior to or following the activity. 4-Supervision or Touching Assistance-helper provides verbal cues and/or touching/steadying and/or contact guard assistance as patient completes activity. Assistance may be provided throughout the activity or intermittently. 3-Partial/Moderate Assistance-helper does LESS THAN HALF the effort. [place] lifts, holds or supports trunk or limbs, but provides less than half the effort. 2-Substantial/Maximal Assistance-helper does MORE THAN HALF the effort. [place] lifts or holds trunk or limbs and provides more than half the effort. 9-Idpeqolqd-coouqg does ALL the effort. Patient does none of the effort to complete the activity. Or, the assistance of 2 or more helpers is required for the patient to complete the activity. If activity was not attempted, code reason: 7-Patient Refused. 9-Not Applicable-not attempted and the patient did not perform the activity before the current illness, exacerbation or injury. 10-Not Attempted due to Environmental Limitations-(lack of equipment, weather restraints, etc.). 88-Not Attempted due to Medical Conditions or Safety Concerns. Roll Left & Right (QC): 4 Lying to Sitting/Side of Bed(Q: 4 Sit to Stand (QC): 4 Gait Training Does the Patient Walk?: Yes Distance: 100' x 2 Walk 10 feet (QC): 4 Walk 50 ft with 2 Turns(QC): 4 Gait Persons Needed: 1 Gait Assistive Device: FWW Informed about about externally rotating RLE when turning to R in order to not break hip precautions Exercises Seated Therapy Exercises: Ankle pumps, Sit to stand, Long arc quads, Hamstring Curls Seated Reps: [address] Ex=Flex, Abd, Ext, Sit to Stand, Side steps Standing Reps: 15 NuStep Minutes: 15 NuStep Workload: 4 Treatments Pt in bed upon arrival and agrees to PT. PT helps pt get pants on and then provided CGA for sit to stands. Pt amb 100' to therapy gym and TF to nustep. After nustep pt amb to mat and performs seated exs. Then pt amb to // bars and performs standing exs. Pt then amb 100' back to room and TF to recliner. All needs met and call light nearby. Assessment Current Status: Good Progress Informed pt about ER RLE in order to not break precautions. Instructed pt to stand up straight while ambulating w/ FWW and pt corrects after cues. PT provided CGA throughout tx for pt safety. PT Short Term Goals Short Term Goals Time Frame: May 17, 2021 Roll Left & Right: 6 Sit to lyin Lying to sitting on side of be: 4 Sit to stand: 4 Chair/wxc-ve-kcvou transfer: 4 Walk 10 feet: 4 Walk 50 feet with two turns: 4 Walk 150 feet: 4 PT Fisher Goals Usp Goals PT Usp Goals Time Frame: May 31, 2021 Roll Left & Right (QC): 6 Sit to Lying (QC): 4 Lying-Sitting on Side/Bed(QC): 4 Sit to Stand (QC): 4 Chair/Dmj-pw-Sxhus Xfer(QC): 4 Toilet Transfer (QC): 4 Car Transfer (QC): 4 Does the Patient Walk: Yes Walk 10 feet (QC): 4 Walk 50ft with 2 Turns (QC): 4 Walk 150 ft (QC): 4 Walking 10ft on Uneven Surface: 4 1 Step (curb) (QC): 4 4 Steps (QC): 4 12 Steps (QC): 88 Picking up an Object (QC): 6 Wheel 50 feet with 2 turns (QC: 9 Wheel 150 feet: 9 PT Plan Problem List Problem List: Activity Tolerance, Functional Strength, Gait Treatment/Plan Treatment Plan: Continue Plan of Care Treatment Plan: Bed Mobility, Education, Functional Activity Darlene, Functional Strength, Group Therapy, Gait, Safety, Therapeutic Exercise, Transfers Treatment Duration: May 31, 2021 Frequency: At least 5 of 7 days/Wk (IRF) Estimated Hrs Per Day: 1.5 hours per day Patient and/or Family Agrees t: Yes Safety Risks/Education Patient Education: Gait Training, Transfer Techniques Teaching Recipient: Patient Teaching Methods: Demonstration, Discussion Response to Teaching: Return Demonstration Time/GCodes Time In: 800 Time Out: 900 Total Billed Treatment Time: 60 Total Billed Treatment 1, Ex x3 50 min , GT 10 min MAGGY PE[employer] May 14, 2021 09:02
--- NOTE | 2021-05-14 09:23 | Occupational Ther Daily Note ---
OT Current Status-Daily Note [facility]ive [facility], states she does not want to shower today, and will take one on Monday before she discharges on Monday. Mental Status/Objective Patient Orientation: Person, Place, Time, Situation ADL-Treatment Therapy Code Descriptions/Definitions Functional [place] Measure: 0=Not Assessed/NA 4=Minimal Assistance 1=Total Assistance 5=Supervision or Setup 2=Maximal Assistance 6=Modified [place] 3=Moderate Assistance 7=Complete IndependenceSCALE: Activities may be completed with or without assistive devices. 9-Xdukufuygd-xugnpwq completes the activity by him/herself with no assistance from a helper. 5-Set-up or Clean-up Assistance-helper sets up or cleans up; patient completes activity. [place] assists only prior to or following the activity. 4-Supervision or Touching Assistance-helper provides verbal cues and/or touching/steadying and/or contact guard assistance as patient completes activity. Assistance may be provided throughout the activity or intermittently. 3-Partial/Moderate Assistance-helper does LESS THAN HALF the effort. [place] lifts, holds or supports trunk or limbs, but provides less than half the effort. 2-Substantial/Maximal Assistance-helper does MORE THAN HALF the effort. [place] lifts or holds trunk or limbs and provides more than half the effort. 8-Boqnhxjbu-wagvra does ALL the effort. Patient does none of the effort to complete the activity. Or, the assistance of 2 or more helpers is required for the patient to complete the activity. If activity was not attempted, code reason: 7-Patient Refused. 9-Not Applicable-not attempted and the patient did not perform the activity before the current illness, exacerbation or injury. 10-Not Attempted due to Environmental Limitations-(lack of equipment, weather restraints, etc.). 88-Not Attempted due to Medical Conditions or Safety Concerns. Eating (QC): 6 (Per pt report.) Shower/Bathe Self (QC): 7 Other Treatment [facility], declined shower but agreeable to going to therapy gym as long as she doesn't have to do the arm bike. Pt used FWW to go to therapy gym, SBA. OT tx with focus on increasing BUE strength and activity tolerance. Pt completed card task, 1lb wrist weights BUEs initially. After 5 mins of task, pt requests R weight to be removed as it is causing her too much pain in her shoulder due to torn rotator cuff. Pt did not verbalize pain rating. Pt continued to complete c ayah task, using BUEs, 1lb wrist weight only on LUE. Pt then sorted cards first by suit, then by number, 1lb wrist weight LUE. Pt completed putty activity, removing beads from moderate resistance theraputty in order to increase fine motor strength and coordination. Pt used FWW to return to room, SBA. Post tx, pt in recliner, call light in reach and all needs met. Education OT Patient Education: Correct positioning, Energy conservation, Modified ADL techniques, Progress toward Goal/Update tx plan, Purpose of tx/functional activities, Rehab process Teaching Recipient: Patient Teaching Methods: Discussion Response to Teaching: Verbalize Understanding OT Short Term Goals Short Term Goals Time Frame: May 20, 2021 Oral hygiene: 5 Toileting hygiene: 5 Shower/bathe self: 4 Lower body dressin Putting on/taking off footwear: 4 OT Custodial Goals Custodial Goals Time Frame: Jun 04, 2021 Eating (QC): 6 Oral Hygiene (QC): 6 (met) Toileting Hygiene (QC): 6 Shower/Bathe Self (QC): 5 Upper Body Dressing (QC): 6 (net) Lower Body Dressing (QC): 6 On/Off Footwear (QC): 6 Additional Goals: 1-Demonstrate ADL Tasks, 2-Verbalize Understanding, 3- ImproveStrength/Darlene 1=Demonstrate adherence to instructed precautions during ADL tasks. 2=Patient will verbalize/demonstrate understanding of assistive devices/modifica tions for ADL. 3=Patient will improve strength/tolerance for activity to enable patient to perform ADL's. OT Education/Plan Problem List/Assessment Assessment: Decreased Activ Tolerance, Decreased UE Strength, Impaired Funct Balance, Impaired I ADL's, Impaired Self-Care Skills, Restricted Funct UE ROM Discharge Recommendations Plan/Recommendations: Continue POC Treatment Plan/Plan of Care Patient would benefit from OT for education, treatment and training to promote independence in ADL's, mobility, safety and/or upper extremity function for ADL's. Plan of Care: ADL Retraining, Functional Mobility, Group Exercise/Act as Ind, UE Funct Exercise/Act Treatment Duration: Jun 04, 2021 Frequency: At least 5 of 7 days/Wk (IRF) Estimated Hrs Per Day: 1.5 hours per day Agreement: Yes Rehab Potential: Fair Time/GCodes Start Time: 09:00 Stop Time: 10:00 Total Time Billed (hr/min): 60 Billed Treatment Time 1, FA 4 PAT HOOKER OT May 14, 2021 09:23
[2021-05-14] MEDS: ACETAMINOPHEN 500 MG TAB (TYLENOL) PO PRN (12:37)
[2021-05-14] MEDS: polyethylene glycoL POWDER 17 GM (MIRALAX) PACK PO SCH ×2 (12:39→21:17)
[2021-05-14] MEDS ORDERED: SALIVA STIMULANT MOUTH SPRAY (BIOTENE) 1.5 OZ MM PRN (12:45)
--- NOTE | 2021-05-14 13:22 | PM&R Progress Note ---
Subjective HPI/CC On Admission Date Seen by Provider: May 14, 2021 Time Seen by Provider: 13:00 Subjective/Events-last exam 05/14/21: Patient doing well Transferring well No pain except shoulders Diflofenac gel and Kpad ordered 05/13/2021: Patient denies any pain Working well with therapy Bowels are moving Ultram for pain Tylenol added as needed Incision looks good 05/12/2021: Pt doing well No significant problems Eating and drinking well Checked meds and labs 05/11/2021: Pt doing really well Took a shower today Thigh high viky hose on Left hand carpal tunnel syndrome bothering her 05/10/2021: Pt doing very well Hgb 9.4 Will DC the Acu-Checks and sliding scale per Pt request since she is not going to take any Insulin Sodium level better at 132 Review of Systems General: Fatigue, Malaise Musculoskeletal: arm pain Objective Exam Vital Signs Vital Signs Date Time Temp Pulse Resp B/P (MAP) Pulse Ox O2 Delivery O2 Flow Rate FiO2 05/14/21 21:15 Room Air 05/14/21 19:28 36.8 67 16 147/70 (95) 96 Capillary Refill : General Appearance: No Apparent Distress, WD/WN, Chronically ill, Obese HEENT: PERRL/EOMI, Normal ENT Inspection, Pharynx Normal Neck: Full Range of Motion, Normal Inspection, Non Tender, Supple, Carotid Bruit Respiratory: Chest Non Tender, Lungs Clear, Normal Breath Sounds, No Accessory Muscle Use, No Respiratory Distress Cardiovascular: Regular Rate, Rhythm, No Edema, No Gallop, No JVD, No Murmur, Normal Peripheral Pulses Gastrointestinal: Normal Bowel Sounds, No Organomegaly, No Pulsatile Mass, Non Tender, Soft Back: Normal Inspection, No CVA Tenderness, No Vertebral Tenderness Extremity: Normal Capillary Refill, Normal Inspection, Normal Range of Motion (except right leg), Non Tender, No Calf Tenderness, No Pedal Edema Neurologic/Psychiatric: Alert, Oriented x3, No Motor/Sensory Deficits, Normal Mood/Affect, Abnormal Gait, Motor Weakness (generalized) Skin: Normal Color, Warm/Dry Lymphatic: No Adenopathy Results/Procedures Lab Patient resulted labs reviewed. FIM Transfers Therapy Code Descriptions/Definitions Functional [place] Measure: 0=Not Assessed/NA 4=Minimal Assistance 1=Total Assistance 5=Supervision or Setup 2=Maximal Assistance 6=Modified [place] 3=Moderate Assistance 7=Complete IndependenceSCALE: Activities may be completed with or without assistive devices. 4-Dqsbybfgfo-rtgtpik completes the activity by him/herself with no assistance from a helper. 5-Set-up or Clean-up Assistance-helper sets up or cleans up; patient completes activity. [place] assists only prior to or following the activity. 4-Supervision or Touching Assistance-helper provides verbal cues and/or touching/steadying and/or contact guard assistance as patient completes activity. Assistance may be provided throughout the activity or intermittently. 3-Partial/Moderate Assistance-helper does LESS THAN HALF the effort. [place] lifts, holds or supports trunk or limbs, but provides less than half the effort. 2-Substantial/Maximal Assistance-helper does MORE THAN HALF the effort. [place] lifts or holds trunk or limbs and provides more than half the effort. 1-Olrclpgsu-kmbdlv does ALL the effort. Patient does none of the effort to complete the activity. Or, the assistance of 2 or more helpers is required for the patient to complete the activity. If activity was not attempted, code reason: 7-Patient Refused. 9-Not Applicable-not attempted and the patient did not perform the activity before the current illness, exacerbation or injury. 10-Not Attempted due to Environmental Limitations-(lack of equipment, weather restraints, etc.). 88-Not Attempted due to Medical Conditions or Safety Concerns. Roll Left to Right (QC): 4 Sit to Lying (QC): 5 Sit to Stand (QC): 4 Chair/Vxf-rb-Muzuf Xfer(QC): 5 Car Transfer (QC): 3 Gait Training Does the Patient Walk?: Yes Distance: 100' x 2 Walk 10 feet (QC): 4 Walk 50 ft with 2 Turns(QC): 4 Walk 150 ft (QC): 5 Walking 10ft/uneven surface-QC: 4 Gait Persons Needed: 1 Gait Assistive Device: FWW Wheelchair Training Does the Pt Use a Wheelchair?: No Wheel 50 ft with 2 turns (QC): 9 Wheel 150 ft (QC): 9 Stair Training #of Steps: 1 1 Step (curb) (QC): 4 4 Steps (QC): 88 12 Steps (QC): 88 Balance Picking up an Object (QC): 6 (using a identification technician) ADL-Treatment Eating (QC): 6 (Per pt report.) Oral Hygiene (QC): 6 (IND standing at sink) Shower/Bathe Self (QC): 7 Upper Body Dressing (QC): 6 (IND, pt able to gather clothing and don/doff hook puller shirt.) Lower Body Dressing (QC): 5 (set up assist, OT provided pt with AE. PT gathered clothing, donned without cues.) On/Off Footwear (QC): 3 (Assist to don tedhose, pt able to doff/don gripper socks using AE. 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
--- NOTE | 2021-05-14 14:34 | Therapy Group Daily Note ---
Therapy Daily Group Note Patient Education Topic Fall Prevention, Other List Below (balance) Exercises LE Seated Exercise, UE Exercise Session Ratio (pt:therapist): 3:1 Goal of Session: Education on ARU Expectations Goal Met for this Session: Yes Pt Benefit of Group: Increased Functional Safety, Socialization Other/Notes Patient in recliner . Pt. ambulated to from group with assist. Each patient had to introduce themselves and answer a question involving memory and critical thinking. Patients then participate in a group discussion, led by therapists about home safety, balance, safety strategies. Each patient also had to direct the others to do an exercise, which they had on a card in hand. When done, patient is transported back to room and transfers to bed with nurse call, phone, tray, all needs met. Start Time: 13:00 Stop Time: 14:00 Total Billed Treatment Time: 60 Total Billed Treatment 1,GRP CHARITY JAIMES DEL[employer]ISE May 14, 2021 14:34
[2021-05-14] MEDS: DICLOFENAC 1% GEL 100 GM (VOLTAREN) TUBE TOP SCH ×2 (17:39→21:18)
[2021-05-14 19:28] VITALS: BP 147/70
[2021-05-14] MEDS: GABAPENTIN 300 MG (NEURONTIN) CAP PO SCH (21:12)
[2021-05-15] MEDS: PANTOPRAZOLE 40 MG (PROTONIX) TAB PO SCH (06:38)
[2021-05-15] MEDS: LEVOTHYROXINE 150 MCG (LEVOTHROID) TAB PO SCH (06:49)
[2021-05-15 07:30] VITALS: BP 152/70
[2021-05-15] MEDS: ASPIRIN 81 MG CHEW (CHILDREN'S ASA) PO SCH ×2 (08:43→20:52)
[2021-05-15] MEDS: lisINopril 20 MG (PRINIVIL) TABLET PO SCH (08:43)
[2021-05-15] MEDS: DOCUSATE SODIUM 100 MG (COLACE) CAP PO SCH ×2 (08:43→20:55)
[2021-05-15] MEDS: SENNA W/DOCUSATE (SENOKOT S) TABLET PO SCH ×2 (08:44→20:55)
[2021-05-15] MEDS: metFORMIN 500 MG (GLUCOPHAGE) TAB PO SCH ×2 (08:44→17:34)
[2021-05-15] MEDS: MELOXICAM 7.5 MG (MOBIC) TABLET PO SCH (08:44)
[2021-05-15] MEDS: amLODIPine 5 MG (NORVASC) TAB PO SCH (08:44)
[2021-05-15] MEDS: OXYBUTYNIN (DITROPAN) 5 MG TAB PO SCH ×3 (08:44→20:51)
[2021-05-15] MEDS: glipiZIDE XL 5 MG (GLUCOTROL XL) TAB PO SCH (08:44)
[2021-05-15] MEDS: polyethylene glycoL POWDER 17 GM (MIRALAX) PACK PO SCH ×2 (08:45→20:55)
[2021-05-15] MEDS: ACEBUTOLOL 200 MG (SECTRAL) CAPSULE PO SCH ×2 (08:45→20:51)
[2021-05-15] MEDS: DICLOFENAC 1% GEL 100 GM (VOLTAREN) TUBE TOP SCH ×4 (08:45→20:56)
[2021-05-15] MEDS: KCL 10 MEQ TAB (MICRO K) PO SCH (08:45)
--- NOTE | 2021-05-15 09:20 | Physical Therapy Daily Note ---
PT Daily Note-Current Subjective States that she is doing okay. Transfers SCALE: Activities may be completed with or without assistive devices. 4-Qtumcemusg-ixuahwv completes the activity by him/herself with no assistance from a helper. 5-Set-up or Clean-up Assistance-helper sets up or cleans up; patient completes a ctivity. [place] assists only prior to or following the activity. 4-Supervision or Touching Assistance-helper provides verbal cues and/or touching/steadying and/or contact guard assistance as patient completes activity. Assistance may be provided throughout the activity or intermittently. 3-Partial/Moderate Assistance-helper does LESS THAN HALF the effort. [place] lifts, holds or supports trunk or limbs, but provides less than half the effort. 2-Substantial/Maximal Assistance-helper does MORE THAN HALF the effort. [place] lifts or holds trunk or limbs and provides more than half the effort. 0-Lnruqpzyk-oqdorq does ALL the effort. Patient does none of the effort to complete the activity. Or, the assistance of 2 or more helpers is required for the patient to complete the activity. If activity was not attempted, code reason: 7-Patient Refused. 9-Not Applicable-not attempted and the patient did not perform the activity before the current illness, exacerbation or injury. 10-Not Attempted due to Environmental Limitations-(lack of equipment, weather restraints, etc.). 88-Not Attempted due to Medical Conditions or Safety Concerns. Gait Training Distance: 50' x 2 Gait Persons Needed: 1 Gait Assistive Device: FWW Exercises NuStep Minutes: 10 NuStep Workload: 5 Assessment Current Status: Excellent Progress Patient progressing well. PT Short Term Goals Short Term Goals Time Frame: May 17, 2021 Roll Left & Right: 6 Sit to lyin Lying to sitting on side of be: 4 Sit to stand: 4 Chair/rkd-pd-dpdle transfer: 4 Walk 10 feet: 4 Walk 50 feet with two turns: 4 Walk 150 feet: 4 PT Snf Goals [employer] Goals PT Snf Goals Time Frame: May 31, 2021 Roll Left & Right (QC): 6 Sit to Lying (QC): 4 Lying-Sitting on Side/Bed(QC): 4 Sit to Stand (QC): 4 Chair/Hiq-jb-Fagxh Xfer(QC): 4 Toilet Transfer (QC): 4 Car Transfer (QC): 4 Does the Patient Walk: Yes Walk 10 feet (QC): 4 Walk 50ft with 2 Turns (QC): 4 Walk 150 ft (QC): 4 Walking 10ft on Uneven Surface: 4 1 Step (curb) (QC): 4 4 Steps (QC): 4 12 Steps (QC): 88 Picking up an Object (QC): 6 Wheel 50 feet with 2 turns (QC: 9 Wheel 150 feet: 9 PT Plan Treatment/Plan Treatment Plan: Continue Plan of Care Treatment Plan: Bed Mobility, Education, Functional Activity Darlene, Functional Strength, Group Therapy, Gait, Safety, Therapeutic Exercise, Transfers Treatment Duration: May 31, 2021 Frequency: At least 5 of 7 days/Wk (IRF) Estimated Hrs Per Day: 1.5 hours per day Patient and/or Family Agrees t: Yes Time/GCodes Time In: 0900 Time Out: 914 Total Billed Treatment Time: 15 Total Billed Treatment 1, EX x 15' FORD GARCIA PT May 15, 2021 09:20
[2021-05-15] MEDS: SODIUM CHLORIDE 1 GM TABLET PO SCH ×3 (10:51→20:51)
--- NOTE | 2021-05-15 11:46 | PM&R Progress Note ---
Subjective HPI/CC On Admission Date Seen by Provider: May 15, 2021 Time Seen by Provider: 12:10 Subjective/Events-last exam 05/15/2021: Patient doing well Transferring well Ambulating well with assistive device Does not want any home care at discharge 05/14/21: Patient doing well Transferring well No pain except shoulders Diflofenac gel and Kpad ordered 05/13/2021: Patient denies any pain Working well with therapy Bowels are moving Ultram for pain Tylenol added as needed Incision looks good 05/12/2021: Pt doing well No significant problems Eating and drinking well Checked meds and labs 05/11/2021: Pt doing really well Took a shower today Thigh high viky hose on Left hand carpal tunnel syndrome bothering her 05/10/2021: Pt doing very well Hgb 9.4 Will DC the Acu-Checks and sliding scale per Pt request since she is not going to take any Insulin Sodium level better at 132 Review of Systems Musculoskeletal: leg pain Objective Exam Vital Signs Vital Signs Date Time Temp Pulse Resp B/P (MAP) Pulse Ox O2 Delivery O2 Flow Rate FiO2 05/15/21 20:55 95 Room Air 05/15/21 20:24 37.2 70 18 137/71 (93) Capillary Refill : General Appearance: No Apparent Distress, WD/WN, Chronically ill, Obese HEENT: PERRL/EOMI, Normal ENT Inspection, Pharynx Normal Neck: Full Range of Motion, Normal Inspection, Non Tender, Supple, Carotid Bruit Respiratory: Chest Non Tender, Lungs Clear, Normal Breath Sounds, No Accessory Muscle Use, No Respiratory Distress Cardiovascular: Regular Rate, Rhythm, No Edema, No Gallop, No JVD, No Murmur, Normal Peripheral Pulses Gastrointestinal: Normal Bowel Sounds, No Organomegaly, No Pulsatile Mass, Non Tender, Soft Back: Normal Inspection, No CVA Tenderness, No Vertebral Tenderness Extremity: Normal Capillary Refill, Normal Inspection, Normal Range of Motion (except right leg), Non Tender, No Calf Tenderness, No Pedal Edema Neurologic/Psychiatric: Alert, Oriented x3, No Motor/Sensory Deficits, Normal Mood/Affect, Abnormal Gait, Motor Weakness (generalized) Skin: Normal Color, Warm/Dry Lymphatic: No Adenopathy Results/Procedures Lab Patient resulted labs reviewed. FIM Transfers Therapy Code Descriptions/Definitions Functional [place] Measure: 0=Not Assessed/NA 4=Minimal Assistance 1=Total Assistance 5=Supervision or Setup 2=Maximal Assistance 6=Modified [place] 3=Moderate Assistance 7=Complete IndependenceSCALE: Activities may be completed with or without assistive devices. 2-Rjvuosubxa-wzdnznq completes the activity by him/herself with no assistance from a helper. 5-Set-up or Clean-up Assistance-helper sets up or cleans up; patient completes activity. [place] assists only prior to or following the activity. 4-Supervision or Touching Assistance-helper provides verbal cues and/or touching/steadying and/or contact guard assistance as patient completes activity. Assistance may be provided throughout the activity or intermittently. 3-Partial/Moderate Assistance-helper does LESS THAN HALF the effort. [place] lifts, holds or supports trunk or limbs, but provides less than half the effort. 2-Substantial/Maximal Assistance-helper does MORE THAN HALF the effort. [place] lifts or holds trunk or limbs and provides more than half the effort. 1-Onkdcqhvv-pzwmfx does ALL the effort. Patient does none of the effort to complete the activity. Or, the assistance of 2 or more helpers is required for the patient to complete the activity. If activity was not attempted, code reason: 7-Patient Refused. 9-Not Applicable-not attempted and the patient did not perform the activity before the current illness, exacerbation or injury. 10-Not Attempted due to Environmental Limitations-(lack of equipment, weather restraints, etc.). 88-Not Attempted due to Medical Conditions or Safety Concerns. Roll Left to Right (QC): 4 Sit to Lying (QC): 5 Sit to Stand (QC): 4 Chair/Mqa-cj-Plsnn Xfer(QC): 5 Car Transfer (QC): 3 Gait Training Does the Patient Walk?: Yes Distance: 50' x 2 Walk 10 feet (QC): 4 Walk 50 ft with 2 Turns(QC): 4 Walk 150 ft (QC): 5 Walking 10ft/uneven surface-QC: 4 Gait Persons Needed: 1 Gait Assistive Device: FWW Wheelchair Training Does the Pt Use a Wheelchair?: No Wheel 50 ft with 2 turns (QC): 9 Wheel 150 ft (QC): 9 Stair Training #of Steps: 1 1 Step (curb) (QC): 4 4 Steps (QC): 88 12 Steps (QC): 88 Balance Picking up an Object (QC): 6 (using a industrial electrician) ADL-Treatment Eating (QC): 6 (Per pt report.) Oral Hygiene (QC): 6 (IND standing at sink) Shower/Bathe Self (QC): 7 Upper Body Dressing (QC): 6 (IND, pt able to gather clothing and don/doff thread puller shirt.) Lower Body Dressing (QC): 5 (set up assist, OT provided pt with AE. PT gathered clothing, donned without cues.) On/Off Footwear (QC): 3 (Assist to don tedhose, pt able to doff/don gripper socks using AE. 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
[2021-05-15 20:24] VITALS: BP 137/71
[2021-05-15] MEDS: GABAPENTIN 300 MG (NEURONTIN) CAP PO SCH (20:52)
[2021-05-16] MEDS: LEVOTHYROXINE 150 MCG (LEVOTHROID) TAB PO SCH (06:29)
[2021-05-16] MEDS: PANTOPRAZOLE 40 MG (PROTONIX) TAB PO SCH (06:29)
[2021-05-16 07:30] VITALS: BP 158/68
[2021-05-16] MEDS: metFORMIN 500 MG (GLUCOPHAGE) TAB PO SCH ×2 (09:15→17:24)
[2021-05-16] MEDS: ASPIRIN 81 MG CHEW (CHILDREN'S ASA) PO SCH ×2 (09:15→20:55)
[2021-05-16] MEDS: DOCUSATE SODIUM 100 MG (COLACE) CAP PO SCH ×2 (09:15→20:58)
[2021-05-16] MEDS: MELOXICAM 7.5 MG (MOBIC) TABLET PO SCH ×2 (09:16→09:45)
[2021-05-16] MEDS: glipiZIDE XL 5 MG (GLUCOTROL XL) TAB PO SCH (09:16)
[2021-05-16] MEDS: lisINopril 20 MG (PRINIVIL) TABLET PO SCH (09:16)
[2021-05-16] MEDS: OXYBUTYNIN (DITROPAN) 5 MG TAB PO SCH ×3 (09:16→20:55)
[2021-05-16] MEDS: ACEBUTOLOL 200 MG (SECTRAL) CAPSULE PO SCH ×2 (09:16→20:55)
[2021-05-16] MEDS: amLODIPine 5 MG (NORVASC) TAB PO SCH (09:16)
[2021-05-16] MEDS: SODIUM CHLORIDE 1 GM TABLET PO SCH ×3 (09:18→20:56)
[2021-05-16] MEDS: SENNA W/DOCUSATE (SENOKOT S) TABLET PO SCH ×2 (09:18→20:58)
[2021-05-16] MEDS: polyethylene glycoL POWDER 17 GM (MIRALAX) PACK PO SCH ×2 (09:18→20:58)
[2021-05-16] MEDS: DICLOFENAC 1% GEL 100 GM (VOLTAREN) TUBE TOP SCH ×4 (09:24→20:58)
[2021-05-16] MEDS: FUROSEMIDE 20 MG (LASIX) TAB PO SCH (09:24)
[2021-05-16] MEDS: KCL 10 MEQ TAB (MICRO K) PO SCH (09:24)
--- NOTE | 2021-05-16 11:42 | PM&R Progress Note ---
Subjective HPI/CC On Admission Date Seen by Provider: May 16, 2021 Time Seen by Provider: 11:45 Subjective/Events-last exam 05/16/2021: Patient doing well Does not want home health Discharge on Monday05/15/2021: Patient doing well Transferring well Ambulating well with assistive device Does not want any home care at discharge 05/14/21: Patient doing well Transferring well No pain except shoulders Diflofenac gel and Kpad ordered 05/13/2021: Patient denies any pain Working well with therapy Bowels are moving Ultram for pain Tylenol added as needed Incision looks good 05/12/2021: Pt doing well No significant problems Eating and drinking well Checked meds and labs 05/11/2021: Pt doing really well Took a shower today Thigh high viky hose on Left hand carpal tunnel syndrome bothering her 05/10/2021: Pt doing very well Hgb 9.4 Will DC the Acu-Checks and sliding scale per Pt request since she is not going to take any Insulin Sodium level better at 132 Review of Systems Musculoskeletal: leg pain Objective Exam Vital Signs Vital Signs Date Time Temp Pulse Resp B/P (MAP) Pulse Ox O2 Delivery O2 Flow Rate FiO2 05/16/21 19:09 36.4 73 12 138/65 (89) 97 Room Air Capillary Refill : General Appearance: No Apparent Distress, WD/WN, Chronically ill, Obese HEENT: PERRL/EOMI, Normal ENT Inspection, Pharynx Normal Neck: Full Range of Motion, Normal Inspection, Non Tender, Supple, Carotid Bruit Respiratory: Chest Non Tender, Lungs Clear, Normal Breath Sounds, No Accessory Muscle Use, No Respiratory Distress Cardiovascular: Regular Rate, Rhythm, No Edema, No Gallop, No JVD, No Murmur, Normal Peripheral Pulses Gastrointestinal: Normal Bowel Sounds, No Organomegaly, No Pulsatile Mass, Non Tender, Soft Back: Normal Inspection, No CVA Tenderness, No Vertebral Tenderness Extremity: Normal Capillary Refill, Normal Inspection, Normal Range of Motion (except right leg), Non Tender, No Calf Tenderness, No Pedal Edema Neurologic/Psychiatric: Alert, Oriented x3, No Motor/Sensory Deficits, Normal Mood/Affect, Abnormal Gait, Motor Weakness (generalized) Skin: Normal Color, Warm/Dry Lymphatic: No Adenopathy Results/Procedures Lab Patient resulted labs reviewed. FIM Transfers Therapy Code Descriptions/Definitions Functional [place] Measure: 0=Not Assessed/NA 4=Minimal Assistance 1=Total Assistance 5=Supervision or Setup 2=Maximal Assistance 6=Modified [place] 3=Moderate Assistance 7=Complete IndependenceSCALE: Activities may be completed with or without assistive devices. 6-Ijiugzxakk-vgrflrq completes the activity by him/herself with no assistance from a helper. 5-Set-up or Clean-up Assistance-helper sets up or cleans up; patient completes activity. [place] assists only prior to or following the activity. 4-Supervision or Touching Assistance-helper provides verbal cues and/or touching/steadying and/or contact guard assistance as patient completes activity. Assistance may be provided throughout the activity or intermittently. 3-Partial/Moderate Assistance-helper does LESS THAN HALF the effort. [place] lifts, holds or supports trunk or limbs, but provides less than half the effort. 2-Substantial/Maximal Assistance-helper does MORE THAN HALF the effort. [place] lifts or holds trunk or limbs and provides more than half the effort. 6-Whbuhvrwp-doppiq does ALL the effort. Patient does none of the effort to complete the activity. Or, the assistance of 2 or more helpers is required for the patient to complete the activity. If activity was not attempted, code reason: 7-Patient Refused. 9-Not Applicable-not attempted and the patient did not perform the activity before the current illness, exacerbation or injury. 10-Not Attempted due to Environmental Limitations-(lack of equipment, weather restraints, etc.). 88-Not Attempted due to Medical Conditions or Safety Concerns. Roll Left to Right (QC): 4 Sit to Lying (QC): 5 Sit to Stand (QC): 4 Chair/Vxm-ec-Frcik Xfer(QC): 5 Car Transfer (QC): 3 Gait Training Does the Patient Walk?: Yes Distance: 50' x 2 Walk 10 feet (QC): 4 Walk 50 ft with 2 Turns(QC): 4 Walk 150 ft (QC): 5 Walking 10ft/uneven surface-QC: 4 Gait Persons Needed: 1 Gait Assistive Device: FWW Wheelchair Training Does the Pt Use a Wheelchair?: No Wheel 50 ft with 2 turns (QC): 9 Wheel 150 ft (QC): 9 Stair Training #of Steps: 1 1 Step (curb) (QC): 4 4 Steps (QC): 88 12 Steps (QC): 88 Balance Picking up an Object (QC): 6 (using a drum drier) ADL-Treatment Eating (QC): 6 (Per pt report.) Oral Hygiene (QC): 6 (IND standing at sink) Shower/Bathe Self (QC): 7 Upper Body Dressing (QC): 6 (IND, pt able to gather clothing and don/doff gut puller shirt.) Lower Body Dressing (QC): 5 (set up assist, OT provided pt with AE. PT gathered clothing, donned without cues.) On/Off Footwear (QC): 3 (Assist to don tedhose, pt able to doff/don gripper socks using AE. 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
[2021-05-16 19:09] VITALS: BP 138/65
[2021-05-16] MEDS: GABAPENTIN 300 MG (NEURONTIN) CAP PO SCH (20:56)
--- NOTE | 2021-05-17 05:38 | PM&R Progress Note ---
Subjective HPI/CC On Admission Date Seen by Provider: May 17, 2021 Time Seen by Provider: 09:00 Subjective/Events-last exam 05/17/2021: No major issues Discharge plan for tomorrow No issues 05/16/2021: Patient doing well Does not want home health Discharge on Monday05/15/2021: Patient doing well Transferring well Ambulating well with assistive device Does not want any home care at discharge 05/14/21: Patient doing well Transferring well No pain except shoulders Diflofenac gel and Kpad ordered 05/13/2021: Patient denies any pain Working well with therapy Bowels are moving Ultram for pain Tylenol added as needed Incision looks good 05/12/2021: Pt doing well No significant problems Eating and drinking well Checked meds and labs 05/11/2021: Pt doing really well Took a shower today Thigh high viky hose on Left hand carpal tunnel syndrome bothering her 05/10/2021: Pt doing very well Hgb 9.4 Will DC the Acu-Checks and sliding scale per Pt request since she is not going to take any Insulin Sodium level better at 132 Review of Systems General: Fatigue Musculoskeletal: leg pain Objective Exam Vital Signs Vital Signs Date Time Temp Pulse Resp B/P (MAP) Pulse Ox O2 Delivery O2 Flow Rate FiO2 05/17/21 20:20 Room Air 05/17/21 20:03 36.8 76 18 120/52 (74) 96 Capillary Refill : General Appearance: No Apparent Distress, WD/WN, Chronically ill, Obese HEENT: PERRL/EOMI, Normal ENT Inspection, Pharynx Normal Neck: Full Range of Motion, Normal Inspection, Non Tender, Supple, Carotid Br uit Respiratory: Chest Non Tender, Lungs Clear, Normal Breath Sounds, No Accessory Muscle Use, No Respiratory Distress Cardiovascular: Regular Rate, Rhythm, No Edema, No Gallop, No JVD, No Murmur, Normal Peripheral Pulses Gastrointestinal: Normal Bowel Sounds, No Organomegaly, No Pulsatile Mass, Non Tender, Soft Back: Normal Inspection, No CVA Tenderness, No Vertebral Tenderness Extremity: Normal Capillary Refill, Normal Inspection, Normal Range of Motion (except right leg), Non Tender, No Calf Tenderness, No Pedal Edema Neurologic/Psychiatric: Alert, Oriented x3, No Motor/Sensory Deficits, Normal Mood/Affect, Abnormal Gait, Motor Weakness (generalized) Skin: Normal Color, Warm/Dry Lymphatic: No Adenopathy Results/Procedures Lab Laboratory Tests 05/17/21 05:21 Patient resulted labs reviewed. FIM Transfers Therapy Code Descriptions/Definitions Functional [place] Measure: 0=Not Assessed/NA 4=Minimal Assistance 1=Total Assistance 5=Supervision or Setup 2=Maximal Assistance 6=Modified [place] 3=Moderate Assistance 7=Complete IndependenceSCALE: Activities may be completed with or without assistive devices. 6-Pncnqyydfh-xdpellz completes the activity by him/herself with no assistance from a helper. 5-Set-up or Clean-up Assistance-helper sets up or cleans up; patient completes activity. [place] assists only prior to or following the activity. 4-Supervision or Touching Assistance-helper provides verbal cues and/or touching/steadying and/or contact guard assistance as patient completes activity. Assistance may be provided throughout the activity or intermittently. 3-Partial/Moderate Assistance-helper does LESS THAN HALF the effort. [place] lifts, holds or supports trunk or limbs, but provides less than half the effort. 2-Substantial/Maximal Assistance-helper does MORE THAN HALF the effort. [place] lifts or holds trunk or limbs and provides more than half the effort. 1-Kqrhhqhpe-dgappn does ALL the effort. Patient does none of the effort to complete the activity. Or, the assistance of 2 or more helpers is required for the patient to complete the activity. If activity was not attempted, code reason: 7-Patient Refused. 9-Not Applicable-not attempted and the patient did not perform the activity before the current illness, exacerbation or injury. 10-Not Attempted due to Environmental Limitations-(lack of equipment, weather restraints, etc.). 88-Not Attempted due to Medical Conditions or Safety Concerns. Roll Left to Right (QC): 4 Sit to Lying (QC): 5 Sit to Stand (QC): 4 Chair/Zfa-nl-Jzysa Xfer(QC): 5 Car Transfer (QC): 3 Gait Training Does the Patient Walk?: Yes Distance: 50' x 2 Walk 10 feet (QC): 4 Walk 50 ft with 2 Turns(QC): 4 Walk 150 ft (QC): 5 Walking 10ft/uneven surface-QC: 4 Gait Persons Needed: 1 Gait Assistive Device: FWW Wheelchair Training Does the Pt Use a Wheelchair?: No Wheel 50 ft with 2 turns (QC): 9 Wheel 150 ft (QC): 9 Stair Training #of Steps: 1 1 Step (curb) (QC): 4 4 Steps (QC): 88 12 Steps (QC): 88 Balance Picking up an Object (QC): 6 (using a solar project engineer) ADL-Treatment Eating (QC): 6 (Per pt report.) Oral Hygiene (QC): 6 (IND standing at sink) Shower/Bathe Self (QC): 7 Upper Body Dressing (QC): 6 (IND, pt able to gather clothing and don/doff pulley maintainer shirt.) Lower Body Dressing (QC): 5 (set up assist, OT provided pt with AE. PT gathered clothing, donned without cues.) On/Off Footwear (QC): 3 (Assist to don tedhose, pt able to doff/don gripper socks using AE. 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 HTN HLP Hypothyroidism Obesity Hyponatremia holding HCTZ home med Plan: Hold HCTZ Salt tablets BP elevation management 05/10/2021: Blood pressure management Salt tablets Pain control Bowel regimen 05/11/2021: DC salt tablets Supportive care 05/12/2021: Supportive care Pain control 05/13/2021: Supportive care Discharge next week 05/14/21: Monitor closely 05/15/2021: Supportive care 05/16/2021: Check labs in the morning 05/17/2021: Discharge for tomorrow (1) Status post right hip replacement (2) Hypertension (3) Hypothyroidism (4) Hyponatremia (5) Advanced age (6) Chronic GERD (7) Diabetes BRENDA GALLEGOS DO May 17, 2021 05:38
[2021-05-17] MEDS: PANTOPRAZOLE 40 MG (PROTONIX) TAB PO SCH (06:21)
[2021-05-17] MEDS: LEVOTHYROXINE 150 MCG (LEVOTHROID) TAB PO SCH (06:21)
[2021-05-17 06:23] LABS: ALBUMIN 3.3 GM/DL (3.2-4.5)
[2021-05-17 06:24] LABS: CHLORIDE 98 MMOL/L (98-107); POTASSIUM 3.9 MMOL/L (3.6-5.0); SODIUM 133 MMOL/L (135-145)
[2021-05-17 06:25] LABS: CALCIUM 8.9 MG/DL (8.5-10.1)
[2021-05-17 06:26] LABS: GLUCOSE 100 MG/DL (70-105); TOTAL PROTEIN 5.9 GM/DL (6.4-8.2)
[2021-05-17 06:27] LABS: CARBON DIOXIDE 22 MMOL/L (21-32)
[2021-05-17 06:28] LABS: BILIRUBIN,TOTAL 0.6 MG/DL (0.1-1.0)
[2021-05-17 06:29] LABS: ALKALINE PHOSPHATASE 72 U/L (40-136); CREATININE SERUM 0.76 MG/DL (0.60-1.30); GFR ESTIMATED 73
[2021-05-17 06:31] LABS: BUN/CREATININE RATIO 21
[2021-05-17 06:32] LABS: ALANINE AMINOTRANSFERASE < 6 U/L (0-55)
[2021-05-17 06:35] LABS: BASOPHILS # (AUTO) 0.1 10^3/uL (0.0-0.1); BASOPHILS % (AUTO) 1 % (0-10); EOSINOPHILS # (AUTO) 0.4 10^3/uL (0.0-0.3); EOSINOPHILS % (AUTO) 4 % (0-10); HEMATOCRIT 31 % (35-52); HEMOGLOBIN 10.2 g/dL (11.5-16.0); LYMPHOCYTES # (AUTO) 1.9 10^3/uL (1.0-4.0); LYMPHOCYTES % (AUTO) 20 % (12-44); MEAN CORPUSCULAR HEMOGLOBIN 30 pg (25-34); MEAN CORPUSCULAR HGB CONC 33 g/dL (32-36); MEAN CORPUSCULAR VOLUME 90 fL (80-99); MEAN PLATELET VOLUME 9.9 fL (9.0-12.2); MONOCYTES # (AUTO) 0.6 10^3/uL (0.0-1.0); MONOCYTES % (AUTO) 7 % (0-12); NEUTROPHILS # (AUTO) 6.1 10^3/uL (1.8-7.8); NEUTROPHILS % (AUTO) 67 % (42-75); PLATELET COUNT 498 10^3/uL (130-400); WHITE BLOOD COUNT 9.1 10^3/uL (4.3-11.0)
[2021-05-17] MEDS: DOCUSATE SODIUM 100 MG (COLACE) CAP PO SCH ×2 (07:27→19:51)
[2021-05-17] MEDS: polyethylene glycoL POWDER 17 GM (MIRALAX) PACK PO SCH ×2 (07:28→19:51)
[2021-05-17 07:47] VITALS: BP 142/64
[2021-05-17] MEDS: lisINopril 20 MG (PRINIVIL) TABLET PO SCH (08:24)
[2021-05-17] MEDS: OXYBUTYNIN (DITROPAN) 5 MG TAB PO SCH ×3 (08:24→21:08)
[2021-05-17] MEDS: metFORMIN 500 MG (GLUCOPHAGE) TAB PO SCH ×2 (08:24→17:11)
[2021-05-17] MEDS: amLODIPine 5 MG (NORVASC) TAB PO SCH (08:24)
[2021-05-17] MEDS: glipiZIDE XL 5 MG (GLUCOTROL XL) TAB PO SCH (08:24)
[2021-05-17] MEDS: KCL 10 MEQ TAB (MICRO K) PO SCH (08:24)
[2021-05-17] MEDS: ASPIRIN 81 MG CHEW (CHILDREN'S ASA) PO SCH ×2 (08:25→21:08)
[2021-05-17] MEDS: ACEBUTOLOL 200 MG (SECTRAL) CAPSULE PO SCH ×2 (08:25→21:08)
[2021-05-17] MEDS: SENNA W/DOCUSATE (SENOKOT S) TABLET PO SCH ×2 (08:26→19:51)
[2021-05-17] MEDS: DICLOFENAC 1% GEL 100 GM (VOLTAREN) TUBE TOP SCH ×4 (08:26→21:11)
[2021-05-17] MEDS: SODIUM CHLORIDE 1 GM TABLET PO SCH ×3 (08:26→21:08)
--- NOTE | 2021-05-17 09:28 | Physical Therapy Daily Note ---
PT Daily Note-Current Subjective Pt. in bathroom upon arrival. States she feels she is doing well . Agrees to Rx. No c/o pain Pain Location: No Pain Reported Mental Status Patient Orientation: Normal For Age Attachments: Other-See Comments (mask) Transfers SCALE: Activities may be completed with or without assistive devices. 5-Kjjyljzvtf-dqlyuxg completes the activity by him/herself with no assistance from a helper. 5-Set-up or Clean-up Assistance-helper sets up or cleans up; patient completes activity. [place] assists only prior to or following the activity. 4-Supervision or Touching Assistance-helper provides verbal cues and/or touching/steadying and/or contact guard assistance as patient completes activity . Assistance may be provided throughout the activity or intermittently. 3-Partial/Moderate Assistance-helper does LESS THAN HALF the effort. [place] lifts, holds or supports trunk or limbs, but provides less than half the effort. 2-Substantial/Maximal Assistance-helper does MORE THAN HALF the effort. [place] lifts or holds trunk or limbs and provides more than half the effort. 9-Notvmgifv-lyibgh does ALL the effort. Patient does none of the effort to complete the activity. Or, the assistance of 2 or more helpers is required for the patient to complete the activity. If activity was not attempted, code reason: 7-Patient Refused. 9-Not Applicable-not attempted and the patient did not perform the activity before the current illness, exacerbation or injury. 10-Not Attempted due to Environmental Limitations-(lack of equipment, weather restraints, etc.). 88-Not Attempted due to Medical Conditions or Safety Concerns. Roll Left & Right (QC): 6 Sit to Lying (QC): 6 Lying to Sitting/Side of Bed(Q: 6 Sit to Stand (QC): 6 Chair/Vsr-mo-Btacd Xfer(QC): 6 Toilet Transfer (QC): 6 Car Transfer (QC): 6 Gait Training Does the Patient Walk?: Yes Walk 10 feet (QC): 6 Walk 50 ft with 2 Turns(QC): 6 Walk 150 ft (QC): 6 Gait Persons Needed: 1 Stair Training Stair Training: Handrails/: 2 handrails #of Steps: 4 4 Steps (QC): 4 Stairs: Pattern: Reciprocal some instruction for sequence Exercises Supine Ex: Ankle pumps, Quad Set, Glut sets, Heel Slides, Short Arc Quads, Scooting, Straight leg raise, Hip abd/add Supine Reps: 15 Seated Therapy Exercises: Ankle pumps, Sit to stand, Long arc quads Seated Reps: 15 Assessment Current Status: Good Progress progressing well PT Short Term Goals Short Term Goals Time Frame: May 17, 2021 Roll Left & Right: 6 Sit to lyin Lying to sitting on side of be: 4 Sit to stand: 4 Chair/fwp-tg-jtecx transfer: 4 Walk 10 feet: 4 Walk 50 feet with two turns: 4 Walk 150 feet: 4 PT Chcf Goals Chcf Goals PT [employer]orer [employer] Goals Time Frame: May 31, 2021 Roll Left & Right (QC): 6 Sit to Lying (QC): 4 Lying-Sitting on Side/Bed(QC): 4 Sit to Stand (QC): 4 Chair/Pes-cp-Kqqjy Xfer(QC): 4 Toilet Transfer (QC): 4 Car Transfer (QC): 4 Does the Patient Walk: Yes Walk 10 feet (QC): 4 Walk 50ft with 2 Turns (QC): 4 Walk 150 ft (QC): 4 Walking 10ft on Uneven Surface: 4 1 Step (curb) (QC): 4 4 Steps (QC): 4 12 Steps (QC): 88 Picking up an Object (QC): 6 Wheel 50 feet with 2 turns (QC: 9 Wheel 150 feet: 9 PT Plan Treatment/Plan Treatment Plan: Continue Plan of Care Treatment Plan: Bed Mobility, Education, Functional Activity Darlene, Functional Strength, Group Therapy, Gait, Safety, Therapeutic Exercise, Transfers Treatment Duration: May 31, 2021 Frequency: At least 5 of 7 days/Wk (IRF) Estimated Hrs Per Day: 1.5 hours per day Patient and/or Family Agrees t: Yes Safety Risks/Education Patient Education: Gait Training, Transfer Techniques, Steps, Correct Positioning, Disease Process, Safety Issues Teaching Recipient: Patient Teaching Methods: Demonstration, Discussion Response to Teaching: Verbalize Understanding, Return Demonstration, Reinforcement Needed Time/GCodes Time In: 845 Time Out: 930 Total Billed Treatment Time: 45 Total Billed Treatment 1,GT15m,EX15m,FA15m CHARITY JAIMES LINE ERECTOR May 17, 2021 09:27
--- NOTE | 2021-05-17 11:22 | Occupational Ther Daily Note ---
OT Current Status-Daily Note Subjective Pt up in recliner, agreeable to OT Tx. Mental Status/Objective Patient Orientation: Person, Place, Time, Situation ADL-Treatment Therapy Code Descriptions/Definitions Functional [place] Measure: 0=Not Assessed/NA 4=Minimal Assistance 1=Total Assistance 5=Supervision or Setup 2=Maximal Assistance 6=Modified [place] 3=Moderate Assistance 7=Complete IndependenceSCALE: Activities may be completed with or without assistive devices. 9-Spdqxkcklm-oofybjb completes the activity by him/herself with no assistance from a helper. 5-Set-up or Clean-up Assistance-helper sets up or cleans up; patient completes activity. [place] assists only prior to or following the activity. 4-Supervision or Touching Assistance-helper provides verbal cues and/or touching/steadying and/or contact guard assistance as patient completes activity. Assistance may be provided throughout the activity or intermittently. 3-Partial/Moderate Assistance-helper does LESS THAN HALF the effort. [place] lifts, holds or supports trunk or limbs, but provides less than half the effort. 2-Substantial/Maximal Assistance-helper does MORE THAN HALF the effort. [place] lifts or holds trunk or limbs and provides more than half the effort. 0-Qsuverlyt-qnkkeb does ALL the effort. Patient does none of the effort to complete the activity. Or, the assistance of 2 or more helpers is required for the patient to complete the activity. If activity was not attempted, code reason: 7-Patient Refused. 9-Not Applicable-not attempted and the patient did not perform the activity before the current illness, exacerbation or injury. 10-Not Attempted due to Environmental Limitations-(lack of equipment, weather restraints, etc.). 88-Not Attempted due to Medical Conditions or Safety Concerns. Eating (QC): 6 Oral Hygiene (QC): 6 Bathing Location: L Arm, R Arm, L Upper Leg, R Upper Leg, L Lower Leg (including foot), R Lower Leg (including foot), Chest, Abdomen, Buttocks, Perineal Area Shower/Bathe Self (QC): 5 (Able to wash/dry all parts, using LH sponge as needed.) Upper Body Dressing (QC): 6 Lower Body Dressing (QC): 6 On/Off Footwear: 6 Toileting Hygiene (QC): 6 Toilet Transfer (QC): 6 Pt required increased time with ADLs Other Treatment Pt up in recliner, used FWW to perform functional mobility into bathroom. Pt transferred to SC, doffed clothes, then completed shower after set up assi stance. Pt dried off, transferred to dry chair to don clothes. Pt utilized family assistant and sock aide to don LE clothing. Pt stood at sink to complete oral care independently, then returned to recliner. Post tx, pt seated in recliner, call light in reach and all needs met. Education OT Patient Education: Correct positioning, Energy conservation, Modified ADL techniques, Progress toward Goal/Update tx plan, Purpose of tx/functional activities, Rehab process Teaching Recipient: Patient Teaching Methods: Discussion Response to Teaching: Verbalize Understanding OT Short Term Goals Short Term Goals Time Frame: May 20, 2021 Oral hygiene: 5 Toileting hygiene: 5 Shower/bathe self: 4 Lower body dressin Putting on/taking off footwear: 4 OT Pre Coder Goals Pre Coder Goals Time Frame: Jun 04, 2021 Eating (QC): 6 (met) Oral Hygiene (QC): 6 (met) Toileting Hygiene (QC): 6 (met) Shower/Bathe Self (QC): 5 (met) Upper Body Dressing (QC): 6 (net) Lower Body Dressing (QC): 6 (met) On/Off Footwear (QC): 6 (met) Additional Goals: 1-Demonstrate ADL Tasks, 2-Verbalize Understanding, 3- ImproveStrength/Darlene 1=Demonstrate adherence to instructed precautions during ADL tasks. 2=Patient will verbalize/demonstrate understanding of assistive devices/modifications for ADL. 3=Patient will improve strength/tolerance for activity to enable patient to perform ADL's. OT Education/Plan Problem List/Assessment Assessment: Decreased Activ Tolerance, Decreased UE Strength, Impaired I ADL's Discharge Recommendations Plan/Recommendations: Continue POC Treatment Plan/Plan of Care Patient would benefit from OT for education, treatment and training to promote independence in ADL's, mobility, safety and/or upper extremity function for ADL's. Plan of Care: ADL Retraining, Functional Mobility, Group Exercise/Act as Ind, UE Funct Exercise/Act Treatment Duration: Jun 04, 2021 Frequency: At least 5 of 7 days/Wk (IRF) Estimated Hrs Per Day: 1.5 hours per day Agreement: Yes Rehab Potential: Fair Time/GCodes Start Time: 09:30 Stop Time: 11:00 Total Time Billed (hr/min): 90 Billed Treatment Time 1, ADL 6 PAT HOOKER OT May 17, 2021 11:22
[2021-05-17] MEDS ORDERED: HYDR12.56 PO (12:17)
[2021-05-17] MEDS ORDERED: ACHD5005 PO (12:17)
[2021-05-17] MEDS ORDERED: IBUP-30 PO (12:17)
[2021-05-17] MEDS ORDERED: OXYB15TA19 PO (12:21)
--- NOTE | 2021-05-17 14:23 | Physical Therapy Daily Note ---
PT Daily Note-Current Subjective Pt. agrees to Rx. States she had a big lunch and would rather nap really. Pain Location: No Pain Reported Mental Status Patient Orientation: Normal For Age Attachments: Other-See Comments (mask) Transfers SCALE: Activities may be completed with or without assistive devices. 1-Ywrjppuilt-ktlfylf completes the activity by him/herself with no assistance from a helper. 5-Set-up or Clean-up Assistance-helper sets up or cleans up; patient completes activity. [place] assists only prior to or following the activity. 4-Supervision or Touching Assistance-helper provides verbal cues and/or touching/steadying and/or contact guard assistance as patient completes activity. Assistance may be provided throughout the activity or intermittently. 3-Partial/Moderate Assistance-helper does LESS THAN HALF the effort. [place] lifts, holds or supports trunk or limbs, but provides less than half the effort. 2-Substantial/Maximal Assistance-helper does MORE THAN HALF the effort. [place] lifts or holds trunk or limbs and provides more than half the effort. 8-Iwsirjlne-cykrkd does ALL the effort. Patient does none of the effort to complete the activity. Or, the assistance of 2 or more helpers is required for the patient to complete the activity. If activity was not attempted, code reason: 7-Patient Refused. 9-Not Applicable-not attempted and the patient did not perform the activity before the current illness, exacerbation or injury. 10-Not Attempted due to Environmental Limitations-(lack of equipment, weather restraints, etc.). 88-Not Attempted due to Medical Conditions or Safety Concerns. Roll Left & Right (QC): 6 Sit to Lying (QC): 6 Lying to Sitting/Side of Bed(Q: 6 Sit to Stand (QC): 6 Chair/Htq-hs-Hppci Xfer(QC): 6 Toilet Transfer (QC): 6 Car Transfer (QC): 6 Gait Training Does the Patient Walk?: Yes Walk 10 feet (QC): 6 Walk 50 ft with 2 Turns(QC): 6 Walk 150 ft (QC): 6 Walking 10ft/uneven surface-QC: 6 Gait Persons Needed: 0 Gait Assistive Device: FWW Stair Training Stair Training: Handrails/: 2 handrails 1 Step (curb) (QC): 5 4 Steps (QC): 4 12 Steps (QC): 88 (left leg ftigues) Exercises Seated Therapy Exercises: Ankle pumps, Sit to stand, Long arc quads, Hip abd/add Seated Reps: 12 NuStep Minutes: 5 NuStep Workload: 3 Assessment Current Status: Good Progress PT Short Term Goals Short Term Goals Time Frame: May 17, 2021 Roll Left & Right: 6 Sit to lyin Lying to sitting on side of be: 4 Sit to stand: 4 Chair/vpq-lw-rpzrk transfer: 4 Walk 10 feet: 4 Walk 50 feet with two turns: 4 Walk 150 feet: 4 PT Wedding Designer Goals Wedding Designer Goals PT Nursing Home Goals Time Frame: May 31, 2021 Roll Left & Right (QC): 6 Sit to Lying (QC): 4 Lying-Sitting on Side/Bed(QC): 4 Sit to Stand (QC): 4 Chair/Xls-wn-Slrxz Xfer(QC): 4 Toilet Transfer (QC): 4 Car Transfer (QC): 4 Does the Patient Walk: Yes Walk 10 feet (QC): 4 Walk 50ft with 2 Turns (QC): 4 Walk 150 ft (QC): 4 Walking 10ft on Uneven Surface: 4 1 Step (curb) (QC): 4 4 Steps (QC): 4 12 Steps (QC): 88 Picking up an Object (QC): 6 Wheel 50 feet with 2 turns (QC: 9 Wheel 150 feet: 9 PT Plan Treatment/Plan Treatment Plan: Continue Plan of Care Treatment Plan: Bed Mobility, Education, Functional Activity Darlene, Functional Strength, Group Therapy, Gait, Safety, Therapeutic Exercise, Transfers Treatment Duration: May 31, 2021 Frequency: At least 5 of 7 days/Wk (IRF) Estimated Hrs Per Day: 1.5 hours per day Patient and/or Family Agrees t: Yes Safety Risks/Education Patient Education: Gait Training, Transfer Techniques, Steps, Correct Positioning, Disease Process, Safety Issues Teaching Recipient: Patient Teaching Methods: Demonstration, Discussion Response to Teaching: Verbalize Understanding, Return Demonstration, Reinforcement Needed Time/GCodes Time In: 1345 Time Out: 1430 Total Billed Treatment Time: 45 Total Billed Treatment 1,GT20m,FA10m,EX15m HCARITY JAIMES WORKS MANAGER May 17, 2021 14:23
[2021-05-17 20:03] VITALS: BP 120/52
[2021-05-17] MEDS: GABAPENTIN 300 MG (NEURONTIN) CAP PO SCH (21:08)
[2021-05-18] MEDS: LEVOTHYROXINE 150 MCG (LEVOTHROID) TAB PO SCH (06:12)
[2021-05-18] MEDS: PANTOPRAZOLE 40 MG (PROTONIX) TAB PO SCH (06:12)
[2021-05-18] MEDS ORDERED: NF-NACL1GT PO (06:15)
[2021-05-18] MEDS ORDERED: PANT40TA52 PO (06:15)
[2021-05-18] MEDS ORDERED: OXC5T PO (06:15)
[2021-05-18] MEDS ORDERED: GABA-486 PO (06:15)
[2021-05-18] MEDS ORDERED: DICL100G13 TOP (06:15)
[2021-05-18] MEDS ORDERED: FURO20TA4 PO (06:15)
[2021-05-18] MEDS ORDERED: TRM50T PO (06:15)
[2021-05-18] MEDS ORDERED: ASPI81TA64 PO (06:15)
[2021-05-18] MEDS ORDERED: AMLO-250 PO (06:15)
--- NOTE | 2021-05-18 06:16 | Discharge Summary ---
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 HTN HLP Hypothyroidism Obesity Hyponatremia holding HCTZ home med Plan: Hold HCTZ Salt tablets BP elevation management 05/10/2021: Blood pressure management Salt tablets Pain control Bowel regimen 05/11/2021: DC salt tablets Supportive care 05/12/2021: Supportive care Pain control 05/13/2021: Supportive care Discharge next week 05/14/21: Monitor closely 05/15/2021: Supportive care 05/16/2021: Check labs in the morning 05/17/2021: Discharge for tomorrow (1) Status post right hip replacement (2) Hypertension (3) Hypothyroidism (4) Hyponatremia (5) Advanced age (6) Chronic GERD (7) Diabetes Discharge Summary Discharge Physical Examination Allergies: Coded Allergies: Jsltshi-ONC-SdU Reductase Inhibitor (Verified Adverse Reaction, Unknown, 05/09/21) Vitals & I&Os Vital Signs Date Time Temp Pulse Resp B/P (MAP) Pulse Ox O2 Delivery O2 Flow Rate FiO2 05/18/21 12:30 36.2 71 16 143/63 96 Room Air General Appearance: Alert, Oriented X3, Cooperative Respiratory: Clear to Auscultation Cardiovascular: Regular Rate Neuro: Normal Gait, Normal Speech, Strength at 5/5 X4 Ext Psych/Mental Status: Mental Status NL Hospital Course Was the Problem List Reviewed?: Yes Hospital course: Patient had an uneventful hospital course after admitted for rehab from hip replacement. Patient had no major events or infections during the stay. Home meds were restarted. Hyponatremia did respond to sodium tablets and discontinuation of the hydrochlorothiazide. Patient overall regain enough strength to return back to independent living for outpatient physical therapy. Her daughter is involved in her care. Labs (last 24 hrs) Laboratory Tests 05/09/21 20:50: Glucometer 177H 05/10/21 05:38: White Blood Count 6.3, Red Blood Count 3.20L, Hemoglobin 9.4L, Hematocrit 28L, Mean Corpuscular Volume 88, Mean Corpuscular Hemoglobin 29, Mean Corpuscular Hemoglobin Concent 34, Red Cell Distribution Width 12.8, Platelet Count 288, Mean Platelet Volume 10.2, Immature Granulocyte % (Auto) 0, Neutrophils (%) (Auto) 59, Lymphocytes (%) (Auto) 25, Monocytes (%) (Auto) 11, Eosinophils (%) (Auto) 4, Basophils (%) (Auto) 1, Neutrophils # (Auto) 3.7, Lymphocytes # (Auto) 1.6, Monocytes # (Auto) 0.7, Eosinophils # (Auto) 0.3, Basophils # (Auto) 0.0, Immature Granulocyte # (Auto) 0.0, Sodium Level 132L, Potassium Level 3.5L, Chloride Level 97L, Carbon Dioxide Level 24, Anion Gap 11, Blood Urea Nitrogen 5L, Creatinine 0.53L, Estimat Glomerular Filtration Rate 110, BUN/Creatinine Ratio 9, Glucose Level 117H, Calcium Level 8.6, Corrected Calcium 9.4, Total Bilirubin 0.9, Aspartate Amino Transf (AST/SGOT) 16, Alanine Aminotransferase (ALT/SGPT) < 6, Alkaline Phosphatase 53, Total Protein 5.2L, Albumin 3.0L 05/10/21 05:46: Glucometer 113H 05/11/21 05:43: Glucometer 112H 05/12/21 05:40: Glucometer 96 05/13/21 05:55: Glucometer 100 05/14/21 05:33: Glucometer 98 05/15/21 05:51: Glucometer 107 05/16/21 05:34: Glucometer 106 05/17/21 05:21: White Blood Count 9.1, Red Blood Count 3.42L, Hemoglobin 10.2L, Hematocrit 31L, Mean Corpuscular Volume 90, Mean Corpuscular Hemoglobin 30, Mean Corpuscular Hemoglobin Concent 33, Red Cell Distribution Width 13.9, Platelet Count 498H, Mean Platelet Volume 9.9, Immature Granulocyte % (Auto) 1, Neutrophils (%) (Auto) 67, Lymphocytes (%) (Auto) 20, Monocytes (%) (Auto) 7, Eosinophils (%) (Auto) 4, Basophils (%) (Auto) 1, Neutrophils # (Auto) 6.1, Lymphocytes # (Auto) 1.9, Monocytes # (Auto) 0.6, Eosinophils # (Auto) 0.4H, Basophils # (Auto) 0.1, Immature Granulocyte # (Auto) 0.1, Sodium Level 133L, Potassium Level 3.9, Chlor lenora Level 98, Carbon Dioxide Level 22, Anion Gap 13, Blood Urea Nitrogen 16, Creatinine 0.76, Estimat Glomerular Filtration Rate 73, BUN/Creatinine Ratio 21, Glucose Level 100, Calcium Level 8.9, Corrected Calcium 9.5, Total Bilirubin 0.6, Aspartate Amino Transf (AST/SGOT) 14, Alanine Aminotransferase (ALT/SGPT) < 6, Alkaline Phosphatase 72, Total Protein 5.9L, Albumin 3.3 05/17/21 05:22: Glucometer 100 05/18/21 06:07: Glucometer 122H Pending Labs Laboratory Tests 05/09/21 20:50: Glucometer 177 05/10/21 05:38: White Blood Count 6.3, Red Blood Count 3.20, Hemoglobin 9.4, Hematocrit 28, Mean Corpuscular Volume 88, Mean Corpuscular Hemoglobin 29, Mean Corpuscular Hemoglobin Concent 34, Red Cell Distribution Width 12.8, Platelet Count 288, Mean Platelet Volume 10.2, Immature Granulocyte % (Auto) 0, Neutrophils (%) (Auto) 59, Lymphocytes (%) (Auto) 25, Monocytes (%) (Auto) 11, Eosinophils (%) (Auto) 4, Basophils (%) (Auto) 1, Neutrophils # (Auto) 3.7, Lymphocytes # (Auto) 1.6, Monocytes # (Auto) 0.7, Eosinophils # (Auto) 0.3, Basophils # (Auto) 0.0, Immature Granulocyte # (Auto) 0.0, Sodium Level 132, Potassium Level 3.5, Chloride Level 97, Carbon Dioxide Level 24, Anion Gap 11, Blood Urea Nitrogen 5, Creatinine 0.53, Estimat Glomerular Filtration Rate 110, BUN/Creatinine Ratio 9, Glucose Level 117, Calcium Level 8.6, Corrected Calcium 9.4, Total Bilirubin 0.9, Aspartate Amino Transf (AST/SGOT) 16, Alanine Aminotransferase (ALT/SGPT) < 6, Alkaline Phosphatase 53, Total Protein 5.2, Albumin 3.0 05/10/21 05:46: Glucometer 113 05/11/21 05:43: Glucometer 112 05/12/21 05:40: Glucometer 96 05/13/21 05:55: Glucometer 100 05/14/21 05:33: Glucometer 98 05/15/21 05:51: Glucometer 107 05/16/21 05:34: Glucometer 106 05/17/21 05:21: White Blood Count 9.1, Red Blood Count 3.42, Hemoglobin 10.2, Hematocrit 31, Mean Corpuscular Volume 90, Mean Corpuscular Hemoglobin 30, Mean Corpuscular Hemoglobin Concent 33, Red Cell Distribution Width 13.9, Platelet Count 498, Mean Platelet Volume 9.9, Immature Granulocyte % (Auto) 1, Neutrophils (%) (Auto) 67, Lymphocytes (%) (Auto) 20, Monocytes (%) (Auto) 7, Eosinophils (%) (Auto) 4, Basophils (%) (Auto) 1, Neutrophils # (Auto) 6.1, Lymphocytes # (Auto) 1.9, Monocytes # (Auto) 0.6, Eosinophils # (Auto) 0.4, Basophils # (Auto) 0.1, Immature Granulocyte # (Auto) 0.1, Sodium Level 133, Potassium Level 3.9, Chloride Level 98, Carbon Dioxide Level 22, Anion Gap 13, Blood Urea Nitrogen 16, Creatinine 0.76, Estimat Glomerular Filtration Rate 73, BUN/Creatinine Ratio 21, Glucose Level 100, Calcium Level 8.9, Corrected Calcium 9.5, Total Bilirubin 0.6, Aspartate Amino Transf (AST/SGOT) 14, Alanine Aminotransferase (ALT/SGPT) < 6, Alkaline Phosphatase 72, Total Protein 5.9, Albumin 3.3 05/17/21 05:22: Glucometer 100 05/18/21 06:07: Glucometer 122 Discharge Home Medications: Active Scripts Active Gabapentin 100 Mg Capsule 300 Mg PO HS Sodium Chloride 1 Gm Tab 1 Gm PO BID Pantoprazole Sodium 40 Mg Tablet.dr 40 Mg PO DAILY@0700 Furosemide 20 Mg Tablet 20 Mg PO Q48H Tramadol HCl 50 Mg Tablet 50-100 Mg PO Q6H PRN Oxyir Tablet (Oxycodone HCl) 5 Mg Tab 5-10 Mg PO Q4H PRN Diclofenac Sodium 100 Gm Gel..gram. 0 Gm TOP QID Children's Aspirin (Aspirin) 81 Mg Tab.chew 81 Mg PO BID Amlodipine Besylate 5 Mg Tablet 5 Mg PO DAILY Reported Oxybutynin Chloride ER (Oxybutynin Chloride) 15 Mg Tab.er.24 15 Mg PO HS [Ginkgo Biloba 230 Mg] 1 Tab PO BID Acebutolol HCl 200 Mg Capsule 200 Mg PO BID B Complex-Folic Acid Tablet (Cyanocobalamin/FA/Pyridoxine) 1 Each Tablet 1 Each PO DAILY Cyclobenzaprine HCl 10 Mg Tablet 10 Mg PO BID PRN Glucotrol Xl (Glipizide) 5 Mg Tab.er.24 5 Mg PO DAILY Synthroid (Levothyroxine Sodium) 150 Mcg Tablet 150 Mcg PO DAILY Lisinopril 20 Mg Tablet 20 Mg PO DAILY Mobic (Meloxicam) 15 Mg Tablet 15 Mg PO DAILY Metformin HCl 500 Mg Tablet 500 Mg PO HS Instructions to patient/family Please see electronic discharge instructions given to patient. Diagnosis/Problems Diagnosis/Problems (1) Status post right hip replacement (2) Hypertension (3) Hypothyroidism (4) Hyponatremia (5) Advanced age (6) Chronic GERD (7) Diabetes BRENDA GALLEGOS DO May 18, 2021 06:16
[2021-05-18 07:56] VITALS: BP 143/63
[2021-05-18] MEDS: KCL 10 MEQ TAB (MICRO K) PO SCH (08:22)
[2021-05-18] MEDS: amLODIPine 5 MG (NORVASC) TAB PO SCH (08:22)
[2021-05-18] MEDS: ACEBUTOLOL 200 MG (SECTRAL) CAPSULE PO SCH (08:22)
[2021-05-18] MEDS: metFORMIN 500 MG (GLUCOPHAGE) TAB PO SCH (08:22)
[2021-05-18] MEDS: lisINopril 20 MG (PRINIVIL) TABLET PO SCH (08:22)
[2021-05-18] MEDS: glipiZIDE XL 5 MG (GLUCOTROL XL) TAB PO SCH (08:22)
[2021-05-18] MEDS: ASPIRIN 81 MG CHEW (CHILDREN'S ASA) PO SCH (08:22)
[2021-05-18] MEDS: OXYBUTYNIN (DITROPAN) 5 MG TAB PO SCH ×2 (08:22→11:51)
[2021-05-18] MEDS: polyethylene glycoL POWDER 17 GM (MIRALAX) PACK PO SCH (08:23)
[2021-05-18] MEDS: MELOXICAM 7.5 MG (MOBIC) TABLET PO SCH (08:23)
[2021-05-18] MEDS: SODIUM CHLORIDE 1 GM TABLET PO SCH ×2 (08:24→11:54)
[2021-05-18] MEDS: SENNA W/DOCUSATE (SENOKOT S) TABLET PO SCH (08:43)
[2021-05-18] MEDS: DOCUSATE SODIUM 100 MG (COLACE) CAP PO SCH (08:44)
[2021-05-18] MEDS: FUROSEMIDE 20 MG (LASIX) TAB PO SCH (08:44)
[2021-05-18] MEDS: DICLOFENAC 1% GEL 100 GM (VOLTAREN) TUBE TOP SCH (08:46)
--- NOTE | 2021-05-18 09:32 | Physical Therapy Daily Note ---
PT Daily Note-Current Subjective Patient reports pain currently at 0/10. Mental Status Patient Orientation: Person, Place, Time, Situation Transfers SCALE: Activities may be completed with or without assistive devices. 5-Vbvftcwicl-dakagew completes the activity by him/herself with no assistance from a helper. 5-Set-up or Clean-up Assistance-helper sets up or cleans up; patient completes activity. [place] assists only prior to or following the activity. 4-Supervision or Touching Assistance-helper provides verbal cues and/or touc maty/steadying and/or contact guard assistance as patient completes activity. Assistance may be provided throughout the activity or intermittently. 3-Partial/Moderate Assistance-helper does LESS THAN HALF the effort. [place] lifts, holds or supports trunk or limbs, but provides less than half the effort. 2-Substantial/Maximal Assistance-helper does MORE THAN HALF the effort. [place] lifts or holds trunk or limbs and provides more than half the effort. 3-Wucuvfhef-battti does ALL the effort. Patient does none of the effort to complete the activity. Or, the assistance of 2 or more helpers is required for the patient to complete the activity. If activity was not attempted, code reason: 7-Patient Refused. 9-Not Applicable-not attempted and the patient did not perform the activity before the current illness, exacerbation or injury. 10-Not Attempted due to Environmental Limitations-(lack of equipment, weather restraints, etc.). 88-Not Attempted due to Medical Conditions or Safety Concerns. Roll Left & Right (QC): 6 Sit to Lying (QC): 6 Lying to Sitting/Side of Bed(Q: 6 Sit to Stand (QC): 6 Chair/Nsy-le-Lmuzt Xfer(QC): 6 Toilet Transfer (QC): 6 Car Transfer (QC): 6 Gait Training Does the Patient Walk?: Yes Distance: 200 Walk 10 feet (QC): 6 Walk 50 ft with 2 Turns(QC): 6 Walk 150 ft (QC): 6 Walking 10ft/uneven surface-QC: 6 Gait Persons Needed: 0 Gait Assistive Device: FWW Wheelchair Training Does the Pt Use a Wheelchair?: No Wheel 50 ft with 2 turns (QC): 88 Wheel 150 ft (QC): 88 Type of Wheelchair: N/A Stair Training #of Steps: 12 1 Step (curb) (QC): 6 4 Steps (QC): 6 12 Steps (QC): 4 Stairs: Pattern: Step to Balance Picking up an Object (QC): 6 Special Test Comments Patient able to independently use her FWW for support and reach to safely pear picker a box of Kleenex Assessment Current Status: Excellent Progress Patient performs all observed bed mobility and transfers with complete [place]. Patient ambulates 200 feet with FWW, with I. Patient is able to ascend/descend 4 steps with I and 12 steps with CGA. Patient performs all other tasks observed this date with I. Patient in chair post treatment with all needs met, nursing notified, nurse in the room upon PT departure and call light in reach. PT Short Term Goals Short Term Goals Time Frame: May 17, 2021 Roll Left & Right: 6 (MET) Sit to lyin (MET) Lying to sitting on side of be: 4 (MET) Sit to stand: 4 (MET) Chair/tds-px-lnezd transfer: 4 (MET) Walk 10 feet: 4 (MET) Walk 50 feet with two turns: 4 (MET) Walk 150 feet: 4 (MET) PT Skilled Nursing Goals Food And Beverage Order Clerk Goals PT Skilled Nursing Goals Time Frame: May 31, 2021 Roll Left & Right (QC): 6 (MET) Sit to Lying (QC): 4 (MET) Lying-Sitting on Side/Bed(QC): 4 (MET) Sit to Stand (QC): 4 (MET) Chair/Mms-xl-Xbdxt Xfer(QC): 4 (MET) Toilet Transfer (QC): 4 (MET) Car Transfer (QC): 4 (MET) Does the Patient Walk: Yes Walk 10 feet (QC): 4 (MET) Walk 50ft with 2 Turns (QC): 4 (MET) Walk 150 ft (QC): 4 (MET) Walking 10ft on Uneven Surface: 4 (MET) 1 Step (curb) (QC): 4 (MET) 4 Steps (QC): 4 (MET) 12 Steps (QC): 88 (Patient able to ascend/descend 12 steps with CGA) Picking up an Object (QC): 6 (MET) Does the Pt use WC or Scooter?: No Wheel 50 feet with 2 turns (QC: 9 Type: N/A Wheel 150 feet: 9 Type: N/A PT Plan Treatment/Plan Treatment Plan: Discontinue PT, goals met Treatment Plan: Bed Mobility, Education, Functional Activity Darlene, Functional Strength, Group Therapy, Gait, Safety, Therapeutic Exercise, Transfers Treatment Duration: May 31, 2021 Frequency: At least 5 of 7 days/Wk (IRF) Estimated Hrs Per Day: 1.5 hours per day Patient and/or Family Agrees t: Yes Time/GCodes Time In: 823 Time Out: 848 Total Billed Treatment Time: 25 Total Billed Treatment Visit, Gait x 2 COLLEEN MCCARTY PT May 18, 2021 09:31
--- NOTE | 2021-05-18 10:14 | Therapy Team Discharge Summary ---
Therapy Discharge Summary Discharge Recommendations Date of Discharge Occupational Therapy Pt admitted to ARU s/p R THR. At OF, pt was independent with ADLs and functional mobility, using either 2 canes, FWW, or 4WW. Upon initial evaluation, pt was independent with eating, required SBA oral care, min A showering, set up upper body dressing, max A lower body dressing, total assistance footwear and CGA toileting. OT tx focused on increasing BUE strength and activity tolerance, and increasing safety and independence with ADLs and functional mobility. At discharge, pt required set up assistance with showering and was independent with all other ADLs. Pt made good progress towards goals, meeting all LTGs. OT recommends an extended bath bench, pt already owns a pocket secretary assembler and sock aide. Pt to discharge from facility today, d/c from OT. Decreased Activ Tolerance, Decreased UE Strength, Impaired I ADL's PT Mixer Helper Goals Mixer Helper Goals PT Correction Goals Time Frame: May 31, 2021 Roll Left to Right (QC): 6 (MET) Sit to Lying (QC): 4 (MET) Lying-Sitting on Side/Bed(QC): 4 (MET) Sit to Stand (QC): 4 (MET) Chair/Ren-fg-Xywyx Xfer(QC): 4 (MET) Car Transfer (QC): 4 (MET) Does the Patient Walk: Yes Walk 10 feet (QC): 4 (MET) Walk 10ft-Uneven Surface(QC): 4 (MET) Walk 50ft with 2 Turns (QC): 4 (MET) Walk 150 ft (QC): 4 (MET) Does the Pt use WC or Scooter?: No Wheel 50 feet with 2 turns (QC: 9 1 Step (curb) (QC): 4 (MET) 4 Steps (QC): 4 (MET) 12 Steps (QC): 88 (Patient able to ascend/descend 12 steps with CGA) Picking up an Object (QC): 6 (MET) OT Correction Goals Correction Goals Time Frame: Jun 04, 2021 Eating (FIM): 6 Eating (QC): 6 (met) Oral Hygiene (QC): 6 (met) Shower/Bathe Self (QC): 5 (met) Upper Body Dressing (QC): 6 (net) Lower Body Dressing (QC): 6 (met) On/Off Footwear (QC): 6 (met) Toileting(FIM): 6 Toileting Hygiene (QC): 6 (met) Toilet/Commode Transfer (QC): 4 (MET) Additional Goals: 1-Demonstrate ADL Tasks, 2-Verbalize Understanding, 3- ImproveStrength/Darlene 1=Demonstrate adherence to instructed precautions during ADL tasks. 2=Patient will verbalize/demonstrate understanding of assistive devices/modifications for ADL. 3=Patient will improve strength/tolerance for activity to enable patient to perform ADL's. PAT HOOKER OT May 18, 2021 10:14
[2021-05-18] MEDS: ACETAMINOPHEN 500 MG TAB (TYLENOL) PO PRN (11:50)
[2021-05-18 12:30] VITALS: BP 143/63
--- NOTE | 2021-05-18 13:54 | Therapy Team Discharge Summary ---
Therapy Discharge Summary Discharge Recommendations Date of Discharge Physical Therapy Current Status: Excellent Progress Patient performs all observed bed mobility and transfers with complete [place]. Patient ambulates 200 feet with FWW, with I. Patient is able to ascend/descend 4 steps with I and 12 steps with CGA. Patient performs all other tasks observed this date with I. Patient in chair post treatment with all needs met, nursing notified, nurse in the room upon PT departure and call light in reach. Occupational Therapy Decreased Activ Tolerance, Decreased UE Strength, Impaired I ADL's PT Funeral Home Director Goals Care Home Goals PT Care Home Goals Time Frame: May 31, 2021 Roll Left to Right (QC): 6 (MET) Sit to Lying (QC): 4 (MET) Lying-Sitting on Side/Bed(QC): 4 (MET) Sit to Stand (QC): 4 (MET) Chair/Uow-uy-Vivkq Xfer(QC): 4 (MET) Car Transfer (QC): 4 (MET) Does the Patient Walk: Yes Walk 10 feet (QC): 4 (MET) Walk 10ft-Uneven Surface(QC): 4 (MET) Walk 50ft with 2 Turns (QC): 4 (MET) Walk 150 ft (QC): 4 (MET) Does the Pt use WC or Scooter?: No Wheel 50 feet with 2 turns (QC: 9 1 Step (curb) (QC): 4 (MET) 4 Steps (QC): 4 (MET) 12 Steps (QC): 88 (Patient able to ascend/descend 12 steps with CGA) Picking up an Object (QC): 6 (MET) OT Funeral Home Director Goals Funeral Home Director Goals Time Frame: Jun 04, 2021 Eating (FIM): 6 Eating (QC): 6 (met) Oral Hygiene (QC): 6 (met) Shower/Bathe Self (QC): 5 (met) Upper Body Dressing (QC): 6 (net) Lower Body Dressing (QC): 6 (met) On/Off Footwear (QC): 6 (met) Toileting(FIM): 6 Toileting Hygiene (QC): 6 (met) Toilet/Commode Transfer (QC): 4 (MET) Additional Goals: 1-Demonstrate ADL Tasks, 2-Verbalize Understanding, 3- ImproveStrength/Darlene 1=Demonstrate adherence to instructed precautions during ADL tasks. 2=Patient will verbalize/demonstrate understanding of assistive devices/modifications for ADL. 3=Patient will improve strength/tolerance for activity to enable patient to perform ADL's. COLLEEN MCCARTY PT May 18, 2021 13:53
== END 2021-05-18 12:30 | disposition home or self-care (01) | DRG 560 ==
PROVIDERS: ADMIT Internal Medicine; ATTEND Internal Medicine
DX: Z47.1 Aftercare following joint replacement surgery (principal); E87.1 Hypo-osmolality and hyponatremia; Z96.641 Presence of right artificial hip joint; I10 Essential (primary) hypertension; E11.9 Type 2 diabetes mellitus without complications; E78.5 Hyperlipidemia, unspecified; E03.9 Hypothyroidism, unspecified; K21.9 Gastro-esophageal reflux disease without esophagitis; G56.02 Carpal tunnel syndrome, left upper limb; E66.9 Obesity, unspecified; Z68.29 Body mass index [BMI] 29.0-29.9, adult; Z87.891 Personal history of nicotine dependence; Z79.84 Long term (current) use of oral hypoglycemic drugs; Z79.82 Long term (current) use of aspirin; Z88.8 Allergy status to other drugs, medicaments and biological substances
CPT/HCPCS: 36415; 80053; 82947; 85025

== ENCOUNTER 2021-06-24 14:21 | Outpatient (RCR) | payer MEDICARE ==
[~2021-06-24 14:21] MED LIST changes: +ACEB200C PO; +ACET-168 PO; +ACHD5005 PO; +AMLO-250 PO; +ASPI-999 PO; +ASPI81TA64 PO; +CYAN1TAB18 PO; +CYCL10TA25 PO; +DICL100G13 TOP; +FURO20TA4 PO; +GABA-486 PO; +GABA300C PO; -GADOBUTROL 10 MMOL/10 ML (GADAVIST) VIAL IV ONE; +GINKGO BILOBA PO; +HYDR12.56 PO; +IBUP-30 PO; +LEVO150T PO; +LISI20TA26 PO; +MELO15TA14 PO; +METF-397 PO; +NF-NACL1GT PO; +OXC5T PO; +OXYB15TA19 PO; +PANT40TA52 PO; +POTA10TA37 PO; +TRM50T PO; +[UNRECOGNIZED DRUG - CODE] PO
== END 2021-06-25 | disposition home or self-care (01) ==
PROVIDERS: ATTEND Internal Medicine
DX: Z47.1 Aftercare following joint replacement surgery (principal); M87.051 Idiopathic aseptic necrosis of right femur; E11.9 Type 2 diabetes mellitus without complications; Z96.641 Presence of right artificial hip joint

== ENCOUNTER 2021-06-28 13:50 | Outpatient (RCR) | payer MEDICARE | END 2021-07-22 09:42 | disposition home or self-care (01) | PROVIDERS: ATTEND Internal Medicine | DX: Z47.1 Aftercare following joint replacement surgery (principal); M87.051 Idiopathic aseptic necrosis of right femur; E11.9 Type 2 diabetes mellitus without complications; Z96.641 Presence of right artificial hip joint ==

== ENCOUNTER 2022-03-11 11:23 | Inpatient (IN) | payer MEDICARE ==
[~2022-03-11] VITALS: Ht 165.1 cm; Wt 81.1 kg
[~2022-03-11 11:23] MED LIST changes: +POTA-177 PO; -POTA10TA37 PO
[2022-03-11] MEDS ORDERED: guaiFENesin/CODEINE (ROBITUSSIN AC) 10ML UDC PO PRN (12:15)
[2022-03-11] MEDS ORDERED: CALCIUM CARBONATE 500 MG (TUMS) TAB.CHEW PO PRN (12:15)
[2022-03-11] MEDS ORDERED: ONDANSETRON 4 MG (ZOFRAN) ORAL DISSOLVE TAB PO PRN (12:15)
[2022-03-11] MEDS ORDERED: LOPERAMIDE 2 MG (IMODIUM) TABLET PO PRN (12:15)
[2022-03-11] MEDS ORDERED: BISACODYL 10 MG SUPP (DULCOLAX) PR PRN (12:15)
[2022-03-11] MEDS ORDERED: FLEET ENEMA ADULT 1 EA BTL PR PRN (12:15)
[2022-03-11] MEDS ORDERED: LACTULOSE SYRUP 10GM/15ML (ENULOSE) 30ML UDC PO PRN (12:15)
[2022-03-11] MEDS ORDERED: diphenhydrAMINE 25 MG TAB (BENADRYL) PO PRN (12:15)
[2022-03-11] MEDS ORDERED: DOCUSATE SODIUM 100 MG (COLACE) CAP PO PRN (12:15)
[2022-03-11] MEDS ORDERED: ALPRAZolam 0.25 MG (XANAX) TAB PO PRN (12:15)
[2022-03-11] MEDS ORDERED: MELATONIN 3 MG TABLET PO PRN (12:15)
[2022-03-11] MEDS ORDERED: ACETAMINOPHEN 325 MG TABLET PO PRN (12:15)
[2022-03-11] MEDS ORDERED: AMLO-250 PO (12:55)
[2022-03-11] MEDS ORDERED: LEVO100T7 PO (12:55)
[2022-03-11] MEDS ORDERED: ACET-2267 PO (12:55)
[2022-03-11] MEDS ORDERED: POTA10TA PO (12:55)
[2022-03-11] MEDS ORDERED: GABA-486 PO (12:55)
[2022-03-11] MEDS ORDERED: MELO15TA39 PO (12:55)
[2022-03-11] MEDS ORDERED: VITA-93 PO (12:55)
[2022-03-11] MEDS ORDERED: HYDR12.56 PO (12:55)
[2022-03-11] MEDS ORDERED: TRAM50TA3 PO (12:55)
[2022-03-11 16:44] VITALS: BP 138/75
--- NOTE | 2022-03-11 17:14 | PM&R Post Admission Assessment ---
PM&R Date of Visit: Mar 11, 2022 Time of Visit: 17:15 History of Present Illness CC: Left hip replacement with debility HPI: This is an 81yoWF clinic patient of Dr Darling who presented from [place] s/p left hip replacement with slow recovery in need of regaining independence since she lives alone. She had a previous right hip replacement 04/2021 and had a successful stay in ARU. She denies any issues and reports her bowels are moving and bladder is functioning normally. Pain is controlled. I have restarted all home meds. PT OT will focus on regaining strength with use of AD and prevent falls. Past Augypjg-Cuwoma-Pnlwrj Hx Past Med/Social Hx: Reviewed Nursing Past Med/Soc Hx, Reviewed and Corrections made Patient Social History Marrital Status: single Employed/Student: retired Alcohol Use: Denies Use Smoking Status: Never a Smoker Past Medical History Surgeries: Orthopedic Cardiac: High Cholesterol, Hypertension Genitourinary: Bladder Infection Gastrointestinal: Gastroesophageal Reflux Musculoskeletal: Arthritis, Chronic Back Pain Endocrine: Hypothyroidsim, Diabetes, Non-Insulin dep PM&R Allergy/Meds/Data Review Allergies Coded Allergies: Jawxvtj-GBZ-XtO Reductase Inhibitor (Verified Adverse Reaction, Unknown, 05/09/21) Home Medications Scheduled Acebutolol HCl (Acebutolol HCl), 200 MG PO BID, (Reported) Amlodipine Besylate (Amlodipine Besylate), 5 MG PO DAILY, (Reported) Gabapentin (Gabapentin), 100 MG PO HS, (Reported) Glipizide (Glucotrol Xl), 5 MG PO DAILY, (Reported) Hydrochlorothiazide (Hydrochlorothiazide), 12.5 MG PO DAILY, (Reported) Levothyroxine Sodium (Levothyroxine Sodium), 100 MCG PO DAILY, (Reported) Lisinopril (Lisinopril), 20 MG PO DAILY, (Reported) Meloxicam (Meloxicam), 15 MG PO DAILY, (Reported) Metformin HCl (Metformin HCl), 500 MG PO HS, (Reported) Oxybutynin Chloride (Oxybutynin Chloride ER), 15 MG PO DAILY, (Reported) Potassium Chloride (K-Tab ER), 10 MEQ PO Q48H, (Reported) Vitamin B Complex/Folic Acid (B Complex Formula #1 Tablet), 1 EA PO DAILY, (Reported) [Ginkgo Biloba 230 Mg], 1 TAB PO BID, (Reported) Scheduled PRN Acetaminophen (Tylenol Extra Strength), 1,000 MG PO Q8H PRN for PAIN-MILD (1-4), (Reported) Cyclobenzaprine HCl (Cyclobenzaprine HCl), 10 MG PO BID PRN for MUSCLE SPASMS, (Reported) Tramadol HCl (Tramadol HCl), 50-100 MG PO Q6H PRN for PAIN-MODERATE (5-7), (Reported) Discontinued Medications Amlodipine Besylate (Amlodipine Besylate), 5 MG PO DAILY Discontinued Reason: No Longer Taking Aspirin (Children's Aspirin), 81 MG PO BID Discontinued Reason: No Longer Taking Cyanocobalamin/FA/Pyridoxine (B Complex-Folic Acid Tablet), 1 EACH PO DAILY, (Reported) Discontinued Reason: No Longer Taking Diclofenac Sodium (Diclofenac Sodium), 0 GM TOP QID Discontinued Reason: No Longer Taking Furosemide (Furosemide), 20 MG PO Q48H Discontinued Reason: No Longer Taking Gabapentin (Gabapentin), 300 MG PO HS Discontinued Reason: No Longer Taking Levothyroxine Sodium (Synthroid), 150 MCG PO DAILY, (Reported) Discontinued Reason: No Longer Taking Oxycodone Hcl (Oxyir Tablet), 5-10 MG PO Q4H PRN for PAIN-SEVERE (8-10) Discontinued Reason: No Longer Taking Pantoprazole Sodium (Pantoprazole Sodium), 40 MG PO DAILY@0700 Discontinued Reason: No Longer Taking Sodium Chloride (Sodium Chloride), 1 GM PO BID Discontinued Reason: No Longer Taking Tramadol HCl (Tramadol HCl), 50-100 MG PO Q6H PRN for PAIN-MODERATE (5-7) Discontinued Reason: No Longer Taking Current Medications Current Medications Reviewed Review of Systems Constitutional: see HPI, malaise, weakness EENTM: no symptoms reported Respiratory: no symptoms reported Cardiovascular: no symptoms reported Gastrointestinal: no symptoms reported Genitourinary: no symptoms reported Musculoskeletal: joint pain Skin: no symptoms reported Psychiatric/Neurological: No Symptoms Reported All Other Systems Reviewed Negative Unless Noted: Yes Physical Exam Physical Exam Vital Signs Vital Signs - First Documented 03/11/22 16:44 Temp 36.4 Pulse 60 Resp 20 B/P (MAP) 138/75 (96) Pulse Ox 98 O2 Delivery Room Air Capillary Refill : Height, Weight, BMI Height: '" Weight: lbs. oz. kg; 30.66 BMI Method: General Appearance: No Apparent Distress, WD/WN, Chronically ill Eyes: Bilateral Eye Normal Inspection, Bilateral Eye PERRL HEENT: PERRL/EOMI, Normal ENT Inspection, Pharynx Normal Neck: Full Range of Motion, Normal Inspection, Non Tender, Supple, Carotid Bruit Respiratory: Chest Non Tender, Lungs Clear, Normal Breath Sounds, No Accessory Muscle Use, No Respiratory Distress Cardiovascular: Regular Rate, Rhythm, No Edema, No Gallop, No JVD, No Murmur, Normal Peripheral Pulses Gastrointestinal: Normal Bowel Sounds, No Organomegaly, No Pulsatile Mass, Non Tender, Soft Back: Normal Inspection, No CVA Tenderness, No Vertebral Tenderness Extremity: Normal Capillary Refill, Normal Inspection, Normal Range of Motion (except left leg), Non Tender, No Calf Tenderness, No Pedal Edema Neurologic/Psychiatric: Alert, Oriented x3, Normal 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, 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 Norm as Tested, Abnormal Gait, Motor Weakness (left leg) Skin: Normal Color, Warm/Dry Lymphatic: No Adenopathy PM&R Medical Assessment & Plan REHAB/MEDICAL ASSESSMENT AND PLAN: REHAB IMPAIRMENT GROUP: Left hip replacement ETIOLOGIC DIAGNOSIS: Left hip replacement The comorbidities that impact the patients function and/or functional outcome by: advanced age, HTN, fall risk, anemia REHAB PLAN: The patient is being admitted to our comprehensive inpatient rehabilitation fac ili and can tolerate the intensity of service consisting of at least: 180 minutes of therapy a day, 5 out of 7 days a week Rehab treatment will consist of: PT OT will focus on regaining function with use of AD in order to regain independence in order to return home to live independently The patient/family has a good understanding of our discharge process and will benefit from an interdisciplinary inpatient rehabilitation program. The patient has potential to make improvement and is in need of at least two of the following multidisciplinary therapies including but not limited to physical, occupational, speech, and prosthetics and orthotics. Additionally the patient will need services from respiratory, nutritional services, wound care, psychology, etc. (Customize this to each patient). Given the patients complex condition and risk of further medical complications, rehabilitation services cannot be safely or effectively provided at a lower level of care such as a [facility] facility. BARRIERS TO DISCHARGE: Advanced age and lives alone ESTIMATED LOS: 7 days DISPOSITION: Home RELEVANT CHANGES SINCE PREADMISSION SCREENING: I have compared the patients medical and functional status at the time of the preadmission screening and there are: no changes PROGNOSIS: Good REHABILITATION GOALS: 1. PT OT will focus on regaining function with use of AD in order to regain independence in order to return home to live independently All the above goals were reviewed with the patient and he/she is in agreement. By signing this document, I acknowledge that I have personally performed a full physical examination on this patient within 24 hours of admission to this inpatient rehabilitation facility and have determined the patient to be able to tolerate the above course of treatment at an intensive level for a reasonable period of time. I will be completing a detailed individualized Plan of Care for this patient by day #4 of the patients stay based upon the Preadmission Screen, the Post-Admission Evaluation, and the therapy evaluations. Admission Dx/Comorbidities: (1) Status post left hip replacement ICD Codes: Z96.642 - Presence of left artificial hip joint (2) Chronic GERD ICD Codes: K21.9 - Gastro-esophageal reflux disease without esophagitis (3) Advanced age ICD Codes: R54 - Age-related physical debility (4) Hypertension ICD Codes: I10 - Essential (primary) hypertension (5) Hypothyroidism ICD Codes: E03.9 - Hypothyroidism, unspecified (6) Hyponatremia ICD Codes: E87.1 - Hypo-osmolality and hyponatremia (7) Diabetes ICD Codes: E11.9 - Type 2 diabetes mellitus without complications Assessment/Plan Assessment and Plan Assess & Plan/Chief Complaint Assessment: 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
[2022-03-11] MEDS ORDERED: RX-CYCLOBENZAPRINE 10 MG (FLEXERIL) TAB PPK#3 PO PRN (17:15)
[2022-03-11] MEDS: metFORMIN 500 MG (GLUCOPHAGE) TAB PO SCH (17:31)
[2022-03-11 19:56] VITALS: BP 151/71
[2022-03-11] MEDS ORDERED: GINKGO BILOBA PO SCH (21:00)
[2022-03-11] MEDS: polyethylene glycoL POWDER 17 GM (MIRALAX) PACK PO SCH (21:50)
[2022-03-11] MEDS: DOCUSATE SODIUM 100 MG (COLACE) CAP PO SCH (21:53)
[2022-03-11] MEDS: GABAPENTIN 100 MG (NEURONTIN) CAP PO SCH (21:53)
[2022-03-11] MEDS: SENNA W/DOCUSATE (SENOKOT S) TABLET PO SCH (21:53)
[2022-03-11] MEDS: ACEBUTOLOL 200 MG (SECTRAL) CAPSULE PO SCH (21:53)
[2022-03-12 05:57] LABS: BASOPHILS % (AUTO) 0 % (0-10); EOSINOPHILS # (AUTO) 0.3 10^3/uL (0.0-0.3); EOSINOPHILS % (AUTO) 3 % (0-10); HEMATOCRIT 28 % (35-52); HEMOGLOBIN 9.8 g/dL (11.5-16.0); LYMPHOCYTES % (AUTO) 10 % (12-44); MEAN CORPUSCULAR HEMOGLOBIN 30 pg (25-34); MEAN CORPUSCULAR HGB CONC 36 g/dL (32-36); MEAN CORPUSCULAR VOLUME 84 fL (80-99); MONOCYTES # (AUTO) 0.9 10^3/uL (0.0-1.0); MONOCYTES % (AUTO) 9 % (0-12); NEUTROPHILS # (AUTO) 7.4 10^3/uL (1.8-7.8); NEUTROPHILS % (AUTO) 76 % (42-75); PLATELET COUNT 295 10^3/uL (130-400); WHITE BLOOD COUNT 9.7 10^3/uL (4.3-11.0)
[2022-03-12 06:19] LABS: ALBUMIN 2.8 GM/DL (3.2-4.5); BILIRUBIN,TOTAL 0.6 MG/DL (0.1-1.0); CALCIUM 8.2 MG/DL (8.5-10.1); CREATININE SERUM 0.59 MG/DL (0.60-1.30); POTASSIUM 3.4 MMOL/L (3.6-5.0); TOTAL PROTEIN 5.1 GM/DL (6.4-8.2)
[2022-03-12] MEDS ORDERED: KCL 10 MEQ TAB (MICRO K) PO SCH (07:00)
[2022-03-12] MEDS: LEVOTHYROXINE 100 MCG (LEVOTHROID) TAB PO SCH (07:06)
[2022-03-12] MEDS: glipiZIDE XL 5 MG (GLUCOTROL XL) TAB PO SCH (07:06)
[2022-03-12] MEDS: MULTIVIT W/MINERALS TAB (THERAGRAN M) PO SCH (07:06)
--- NOTE | 2022-03-12 07:14 | PM&R Progress Note ---
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 Hgb stable but low Review of Systems General: Fatigue, Malaise Musculoskeletal: leg pain Objective Exam Vital Signs Vital Signs Date Time Temp Pulse Resp B/P (MAP) Pulse Ox O2 Delivery O2 Flow Rate FiO2 03/12/22 07:15 37.6 80 18 131/57 (81) 94 Room Air Capillary Refill : General Appearance: No Apparent Distress, WD/WN, Chronically ill HEENT: PERRL/EOMI, Normal ENT Inspection, Pharynx Normal Neck: Full Range of Motion, Normal Inspection, Non Tender, Supple, Carotid Bruit Respiratory: Chest Non Tender, Lungs Clear, Normal Breath Sounds, No Accessory Muscle Use, No Respiratory Distress Cardiovascular: Regular Rate, Rhythm, No Edema, No Gallop, No JVD, No Murmur, Normal Peripheral Pulses Gastrointestinal: Normal Bowel Sounds, No Organomegaly, No Pulsatile Mass, Non Tender, Soft Back: Normal Inspection, No CVA Tenderness, No Vertebral Tenderness Extremity: Normal Capillary Refill, Normal Inspection, Normal Range of Motion (except left leg), Non Tender, No Calf Tenderness, No Pedal Edema Neurologic/Psychiatric: Alert, Oriented x3, Normal 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 FIM Transfers Therapy Code Descriptions/Definitions Functional [place] Measure: 0=Not Assessed/NA 4=Minimal Assistance 1=Total Assistance 5=Supervision or Setup 2=Maximal Assistance 6=Modified [place] 3=Moderate Assistance 7=Complete IndependenceSCALE: Activities may be completed with or without assistive devices. 5-Tfpqmcnhlj-oxqefjv completes the activity by him/herself with no assistance from a helper. 5-Set-up or Clean-up Assistance-helper sets up or cleans up; patient completes activity. [place] assists only prior to or following the activity. 4-Supervision or Touching Assistance-helper provides verbal cues and/or touching/steadying and/or contact guard assistance as patient completes activity. Assistance may be provided throughout the activity or intermittently. 3-Partial/Moderate Assistance-helper does LESS THAN HALF the effort. [place] lifts, holds or supports trunk or limbs, but provides less than half the effort. 2-Substantial/Maximal Assistance-helper does MORE THAN HALF the effort. [place] lifts or holds trunk or limbs and provides more than half the effort. 3-Jdovunosh-xheahw does ALL the effort. Patient does none of the effort to complete the activity. Or, the assistance of 2 or more helpers is required for the patient to complete the activity. If activity was not attempted, code reason: 7-Patient Refused. 9-Not Applicable-not attempted and the patient did not perform the activity before the current illness, exacerbation or injury. 10-Not Attempted due to Environmental Limitations-(lack of equipment, weather restraints, etc.). 88-Not Attempted due to Medical Conditions or Safety Concerns. 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
[2022-03-12 07:15] VITALS: BP 131/57
--- NOTE | 2022-03-12 08:29 | Occupational Therapy Eval ---
OT Evaluation-General/PLF Medical Diagnosis Admission Date Mar 11, 2022 at 16:08 Medical Diagnosis: L hip replacement Onset Date: Mar 11, 2022 Therapy Diagnosis Therapy Diagnosis: decr self care, decr funct mobility, decr act alfredito, weakness Precautions Precautions/Isolations: Fall Prevention, Standard Precautions Comments Pt reported no bending, twisting, crossing legs Weight Bear Status Weight Bearing Restriction: Weight Bearing/Tolerated Referral Physician: Joi Referral Reason: Evaluation/Treatment Medical History Pertinent Medical History: Arthritis, DM, GERD, HTN, Hypothroidism Additional Medical History Chronic back pain. Obesity. Post-op anemia. Hyperlipidemia. Pt reported bilat carpal tunnel surgery and bilat rotator cuff injuries, R worse than L. Previous bilat total knees. Current History Admitted from [place] s/p L hip replacement on 03/09/22. Had R hip replaced 05/16 and did well after stay in IRF Reviewed History: Yes Social History Home: Single Level [place] ADL-Prior Level of Function SCALE: Activities may be completed with or without assistive devices. 1-Xbnlntpywf-neesxbh completes the activity by him/herself with no assistance from a helper. 5-Set-up or Clean-up Assistance-helper sets up or cleans up; patient completes activity. [place] assists only prior to or following the activity. 4-Supervision or Touching Assistance-helper provides verbal cues and/or touching/steadying and/or contact guard assistance as patient completes activity. Assistance may be provided throughout the activity or intermittently. 3-Partial/Moderate Assistance-helper does LESS THAN HALF the effort. [place] lifts, holds or supports trunk or limbs, but provides less than half the effort. 2-Substantial/Maximal Assistance-helper does MORE THAN HALF the effort. [place] lifts or holds trunk or limbs and provides more than half the effort. 5-Mheblutsq-aeqbsn does ALL the effort. Patient does none of the effort to complete the activity. Or, the assistance of 2 or more helpers is required for the patient to complete the activity. If activity was not attempted, code reason: 7-Patient Refused. 9-Not Applicable-not attempted and the patient did not perform the activity before the current illness, exacerbation or injury. 10-Not Attempted due to Environmental Limitations-(lack of equipment, weather restraints, etc.). 88-Not Attempted due to Medical Conditions or Safety Concerns. ADL PLOF Comments Pt reported that she has been able to manage all of her basic ADLs. She can do housework, cook simple meals, drive. she goes to town to laundry [facility]. She has radio mechanic, sock aid, tub bench, BSC, hand held shower Self Care: Independent Functional Cognition: Independent DME/Equipment: Bath Bench, Bedside Commode, Reachers, Shower Hose Occupational Health Nurse, Sock Aid, Tub/Shower Occupation: Worked at [employer] for 7 years. OT Current Status Subjective Pt seen in room, up in recliner, agreeable to OT. No pain reported. Appearance Alert, cooperative Mental Status/Objective Patient Orientation: Person, Unable to Assess, Time, Situation Acute Mental Status Change: 0 Inattention: 0 Disorganized thinkin Altered level of consciousness: 0 Current Glasses/Contacts: Yes Hearing Aids: No Dentures/Partials: Yes (Uppers only) Hand Dominance: Right Upper Extremity ROM Grossly WFL except R shoulder limited actively to approximately 30 degrees flex and abd. Arthritic changes in joints Upper Extremity Coordination Grossly WFL bilat Upper Extremity Sensation Pt reported numbness Left little finger Upper Extremity Strength Grossly 3+/5 except at shoulders Edema: None observed ADL-Treatment ADL-Current Pt agreeable to OT. Completed sponge bath in recliner but needed help washing lower legs and back. Help to don TEDs and slipper socks. Pt needed a little help with pants. CGA to stand from recliner and SBA when standing to wash donald area. SBA to don gown in standing, FWW. CGA to stand from recliner and CGA to walk to bathroom to brush teeth. Cleaned them SBA at sink, FWW. Pt reported she can feed herself. Eating (QC): 6 Oral Hygiene (QC): 5 (SBA at sink) Shower/Bathe Self (QC): 3 (Sponge bath. Help to wash lower legs and back. CGA to stand and SBA to wash donald area) Upper Body Dressing (QC): 5 (SBA to don shirt over head when standing, FWW) Lower Body Dressing (QC): 3 (Help with pants. ) On/Off Footwear (QC): 1 (Unable to don TEDs. help with slipper socks off and on) Toileting Hygiene (QC): 4 (CGA, per PT report) PT reported toilet transfer CGA and provided BSC over toilet due to hip precautions Other Treatments Pt walked to gym with CGA, FWW and transferred into chair with arms with CGA. She was able to better use her arms to get in/out of chair than recliner. Completed 9 minutes bilat UE exercise with arm bike set at 15W resistance, with one recovery break midpoint. Reported R arm was more sore during activity and activity stopped. Exercise to help with strengthening arms for transfers. Pt able to get out of chair with arms with CGA and walked back to room, CGA, FWW, with no LOB observed. Pt left up in recliner, all needs met. Education OT Patient Education: Modified ADL techniques, Purpose of tx/functional activities, Reviewed precautions, Rehab process, Transfer techniques, Use of adapted equipment Teaching Recipient: Patient Teaching Methods: Discussion Response to Teaching: Verbalize Understanding, Return Demonstration OT Short Term Goals Short Term Goals Time Frame: Mar 19, 2022 Eatin Oral hygiene: 6 Toileting hygiene: 6 Shower/bathe self: 5 Upper body dressin Lower body dressin Putting on/taking off footwear: 5 OT Insulation Power Unit Tender Goals Insulation Power Unit Tender Goals Time Frame: Mar 19, 2022 Acute change in mental status: 0 Inattention: 0 Disorganized thinkin Altered level of consciousness: 0 Eating (QC): 6 Oral Hygiene (QC): 6 Toileting Hygiene (QC): 6 Shower/Bathe Self (QC): 5 Upper Body Dressing (QC): 6 Lower Body Dressing (QC): 6 On/Off Footwear (QC): 6 1=Demonstrate adherence to instructed precautions during ADL tasks. 2=Patient will verbalize/demonstrate understanding of assistive devices/modifications for ADL. 3=Patient will improve strength/tolerance for activity to enable patient to perform ADL's. OT Education/Plan Problem List/Assessment Assessment: Decreased Activ Tolerance, Decreased UE Strength, Dependent Transfers, Impaired Self-Care Skills, Restricted Funct UE ROM Pt would benefit from skilled OT to increase her independence in basic self care to allow her to safely return home and decrease caregiver burden. Discharge Recommendations Plan/Recommendations: Continue POC Therapy Discharge Recommendati: Post Acute OT Treatment Plan/Plan of Care Treatment,Training & Education: Yes Patient would benefit from OT for education, treatment and training to promote independence in ADL's, mobility, safety and/or upper extremity function for ADL's. Plan of Care: ADL Retraining, Functional Mobility, Group Exercise/Act as Ind (education, exercise, energy conservation, safety, socialization, activity tolerance), UE Funct Exercise/Act Treatment Duration: Mar 19, 2022 Frequency: At least 5 of 7 days/Wk (IRF) Estimated Hrs Per Day: 1.5 hours per day Agreement: Yes Rehab Potential: Good Time/GCodes Start Time: 08:30 Stop Time: 10:00 Total Time Billed (hr/min): 90 Billed Treatment Time Visit, evaluation moderate intensity 15 minutes, ADL 45 minutes, exercise 30 minutes CLINT JOHNSON OT Mar 12, 2022 08:29
--- NOTE | 2022-03-12 08:39 | Physical Therapy Evaluation ---
PT Evaluation-General Medical Diagnosis Admission Date Mar 11, 2022 at 16:08 Medical Diagnosis: L hip replacement Onset Date: Mar 11, 2022 Therapy Diagnosis Therapy Diagnosis: s/p L JUNIOR Precautions Precautions/Isolations: Fall Prevention, Standard Precautions Weight Bear Status Right Lower Extremity: Right Full Weight Bearing Left Lower Extremity: Left Weight Bearing/Tolerated Referral Physician: Joi Reason for Referral: Evaluation/Treatment Medical History Pertinent Medical History: Arthritis, DM, GERD, HTN, Hypothroidism History of Falls (past yr): No Prior Surgery (last 100 days): Yes Current History Pt presets 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 5-Qdpyrfhumx-nrfgwpk completes the activity by him/herself with no assistance from a helper. 5-Set-up or Clean-up Assistance-helper sets up or cleans up; patient completes activity. [place] assists only prior to or following the activity. 4-Supervision or Touching Assistance-helper provides verbal cues and/or touching/steadying and/or contact guard assistance as patient completes activity. Assistance may be provided throughout the activity or intermittently. 3-Partial/Moderate Assistance-helper does LESS THAN HALF the effort. [place] lifts, holds or supports trunk or limbs, but provides less than half the effort. 2-Substantial/Maximal Assistance-helper does MORE THAN HALF the effort. [place] lifts or holds trunk or limbs and provides more than half the effort. 2-Hsazbrebz-spkxwv does ALL the effort. Patient does none of the effort to complete the activity. Or, the assistance of 2 or more helpers is required for the patient to complete the activity. If activity was not attempted, code reason: 7-Patient Refused. 9-Not Applicable-not attempted and the patient did not perform the activity before the current illness, exacerbation or injury. 10-Not Attempted due to Environmental Limitations-(lack of equipment, weather restraints, etc.). 88-Not Attempted due to Medical Conditions or Safety Concerns. Bed Mobility: 6 Transfers (B,C,W/C): 6 Gait: 6 Stairs: 6 Prior Devices Use: Other-see list below (SPC) PT Evaluation-Current Subjective Pt supine in bed upon arrival to room, agreeable to PT evaluation at this time. Denies pain, however, once she is up and walking states "well I said I didn't ave pain but now I do." Does not rate on scale Pain Section J - Health Conditions 1. Rarely or not at all 2. Occasionally 3. Frequently 4. Almost constantly 8. Unable to answer Pain Effect on Sleep: 2 Pain Interference with Therapy: 2 Pain Interference w/Day-to-Day: 2 Pt/Family Goals Return home Objective Patient Orientation: Person, Place, Situation ROM/Strength ROM Lower Extremities Decreased ROM L hip Strength Lower Extremities grossly 3/5 with functional mobility Integumentary/Posture Integumentary refer to nursing notes Bowel Incontinence: No Bladder Incontinence: No Posture forward flexed posture with ambulation Sensory Vision: Functional Hearing: Functional Transfers Roll Left & Right (QC): 4 Sit to Lying (QC): 3 Lying to Sitting/Side of Bed(Q: 3 Sit to Stand (QC): 3 Chair/Ips-bg-Vuidm Xfer(QC): 3 Toilet Transfer (QC): 4 Car Transfer (QC): 88 Gait Does the Patient Walk?: Yes Mode of Locomotion: Walk Anticipated Mode of Locomotion: Walk Walk 10 feet (QC): 4 Walk 50 ft with 2 Turns(QC): 88 Walk 150 ft (QC): 88 Walking 10ft/uneven surface-QC: 88 Gait Assistive Device: FWW Comments/Gait Description Pt ambulated to and from bathroom with CGA. Wheelchair Training Wheel 50 ft with 2 turns (QC): 9 Wheel 150 ft (QC): 9 Stairs 1 Step (curb) (QC): 88 4 Steps (QC): 88 12 Steps (QC): 88 Balance Sitting Static: Normal Sitting Dynamic: Normal Standing Static: Fair Standing Dynamic: Fair Picking up an Object (QC): 88 Assessment/Needs Pt is an 81 year old female s/p L JUNIOR due to AVN. She presents with decreased L hip ROM, L hip strength, decreased balance and decreased functional mobility which all increase her risk of falls. Pt would benefit from skilled PT to address above mentioned limitations and ensure safety upon DC from hospital. Rehab Potential: Good PT Short Term Goals Short Term Goals Time Frame: Mar 25, 2022 Roll Left & Right: 6 Sit to lyin Lying to sitting on side of be: 6 Sit to stand: 4 Chair/ncv-wu-mgdgd transfer: 4 Toilet transfer: 4 Car transfer: 4 Walk 10 feet: 6 Walk 50 feet with two turns: 4 Walk 150 feet: 4 Walking 10ft on uneven surface: 4 1 step (curb): 4 4 steps: 4 12 steps: 4 PT Nail Technician Goals Nail Technician Goals PT Nail Technician Goals Time Frame: Apr 02, 2022 Scoring Section J - Health Conditions 1. Rarely or not at all 2. Occasionally 3. Frequently 4. Almost constantly 8. Unable to answer Roll Left to Right (QC): 6 Sit to Lying (QC): 6 Lying-Sitting on Side/Bed(QC): 6 Sit to Stand (QC): 6 Chair/Zho-er-Eueht Xfer(QC): 6 Car Transfer (QC): 6 Does the Patient Walk: Yes Walk 10 feet (QC): 6 Walk 10ft-Uneven Surface(QC): 6 Walk 50ft with 2 Turns (QC): 6 Walk 150 ft (QC): 6 Gait Assistive Device: FWW Does the Pt use WC or Scooter?: No 1 Step (curb) (QC): 6 4 Steps (QC): 6 12 Steps (QC): 6 PT Plan Problem List Problem List: Activity Tolerance, Functional Strength, Safety, Balance, Gait, Transfer, Bed Mobility, ROM Treatment/Plan Treatment Plan: Continue Plan of Care Treatment Plan: Bed Mobility, Education, Functional Activity Darlene, Functional Strength, Group Therapy, Gait, Safety, Therapeutic Exercise, Transfers Treatment Duration: Apr 02, 2022 Frequency: At least 5 of 7 days/Wk (IRF) Estimated Hrs Per Day: 1.5 hours per day Patient and/or Family Agrees t: Yes Time/GCodes Time In: 800 Time Out: 830 Total Billed Treatment Time: 30 Total Billed Treatment 1 visit [facility] (30') TERESA GONZALES PT Mar 12, 2022 08:38
[2022-03-12] MEDS: amLODIPine 5 MG (NORVASC) TAB PO SCH (08:48)
[2022-03-12] MEDS: lisINopril 20 MG (PRINIVIL) TABLET PO SCH (08:48)
[2022-03-12] MEDS: ACEBUTOLOL 200 MG (SECTRAL) CAPSULE PO SCH ×2 (08:48→20:49)
[2022-03-12] MEDS: MELOXICAM 7.5 MG (MOBIC) TABLET PO SCH (08:48)
[2022-03-12] MEDS: KCL 10 MEQ TAB (MICRO K) PO SCH ×2 (08:49→20:49)
[2022-03-12] MEDS: OXYBUTYNIN (DITROPAN) 5 MG TAB PO SCH (08:49)
[2022-03-12] MEDS: ACETAMINOPHEN 500 MG TAB (TYLENOL) PO PRN (08:54)
[2022-03-12] MEDS ORDERED: NON-FORMULARY MEDICATION 1 EA EA (Meloxicam 15 MG) PO SCH (09:00)
[2022-03-12] MEDS ORDERED: NON-FORMULARY MEDICATION 1 EA EA (Hydrochlorothiazide 12.5 MG) PO SCH (09:00)
[2022-03-12] MEDS ORDERED: [UNRECOGNIZED DRUG - OTHER] PO SCH (09:00)
[2022-03-12] MEDS ORDERED: NON-FORMULARY MEDICATION 1 EA EA (Oxybutynin Chloride (Oxybutynin Chloride ER) 15 MG) PO SCH (09:00)
[2022-03-12] MEDS ORDERED: HydroCHLOROthiazide CAP/TABLET 12.5 MG TAB PO SCH (09:00)
[2022-03-12] MEDS ORDERED: FOLIC ACID PO SCH (09:00)
[2022-03-12] MEDS ORDERED: VITAMIN B COMPLEX PO SCH (09:00)
[2022-03-12] MEDS: polyethylene glycoL POWDER 17 GM (MIRALAX) PACK PO SCH ×2 (11:13→21:02)
[2022-03-12] MEDS: SENNA W/DOCUSATE (SENOKOT S) TABLET PO SCH ×2 (11:13→21:02)
[2022-03-12] MEDS: DOCUSATE SODIUM 100 MG (COLACE) CAP PO SCH ×2 (11:13→21:02)
--- NOTE | 2022-03-12 11:24 | Physical Therapy Daily Note ---
PT Daily Note-Current Subjective Pt sitting up in chair upon arrival to room, just finished with OT treatment. Agreeable to Pt treatment at this time. Pain Section J - Health Conditions 1. Rarely or not at all 2. Occasionally 3. Frequently 4. Almost constantly 8. Unable to answer Pain Effect on Sleep: 2 Pain Interference with Therapy: 2 Pain Interference w/Day-to-Day: 2 Appearance Following session, pt seated in chair with call light, phone and tray table within reach. All needs met at this time. Mental Status Patient Orientation: Person, Place, Situation Transfers SCALE: Activities may be completed with or without assistive devices. 9-Mxujsntwes-rmyisxa completes the activity by him/herself with no assistance from a helper. 5-Set-up or Clean-up Assistance-helper sets up or cleans up; patient completes activity. [place] assists only prior to or following the activity. 4-Supervision or Touching Assistance-helper provides verbal cues and/or touching/steadying and/or contact guard assistance as patient completes activity. Assistance may be provided throughout the activity or intermittently. 3-Partial/Moderate Assistance-helper does LESS THAN HALF the effort. [place] lift s, holds or supports trunk or limbs, but provides less than half the effort. 2-Substantial/Maximal Assistance-helper does MORE THAN HALF the effort. [place] lifts or holds trunk or limbs and provides more than half the effort. 1-Vdqenpgpt-rwfzal does ALL the effort. Patient does none of the effort to complete the activity. Or, the assistance of 2 or more helpers is required for the patient to complete the activity. If activity was not attempted, code reason: 7-Patient Refused. 9-Not Applicable-not attempted and the patient did not perform the activity before the current illness, exacerbation or injury. 10-Not Attempted due to Environmental Limitations-(lack of equipment, weather restraints, etc.). 88-Not Attempted due to Medical Conditions or Safety Concerns. Sit to Stand (QC): 4 Car Transfer (QC): 3 min A needed on car transfer to get legs up and into the car. Weight Bearing Right Lower Extremity: Right Full Weight Bearing Left Lower Extremity: Left Weight Bearing/Tolerated Gait Training Walk 50 ft with 2 Turns(QC): 4 Walk 150 ft (QC): 4 Gait Assistive Device: FWW Pt ambulates with slow, steady gait pattern. Occasional cueing to prevent FWW getting too far ahead of her Stair Training Stair Training: Handrails/: 2 handrails #of Steps: 4 1 Step (curb) (QC): 4 4 Steps (QC): 4 Stairs: Pattern: Step to Exercises Seated Therapy Exercises: Ankle pumps, Long arc quads Standing: Heel/toe raises, 3 way Ex=Flex, Abd, Ext, Mini squats NuStep Minutes: 10 NuStep Workload: 3 Assessment Current Status: Good Progress Pt doing very well since JUNIOR on Monday, 03/09. Will continue to progress stre ngth, balance, and functional activities as pt tolerates. PT Short Term Goals Short Term Goals Time Frame: Mar 25, 2022 Roll Left & Right: 6 Sit to lyin Lying to sitting on side of be: 6 Sit to stand: 4 Chair/yra-jx-gzjlb transfer: 4 Toilet transfer: 4 Car transfer: 4 Walk 10 feet: 6 Walk 50 feet with two turns: 4 Walk 150 feet: 4 Walking 10ft on uneven surface: 4 1 step (curb): 4 4 steps: 4 12 steps: 4 PT Addiction Nurse Goals Assisted Goals PT Assisted Goals Time Frame: Apr 02, 2022 Roll Left & Right (QC): 6 Sit to Lying (QC): 6 Lying-Sitting on Side/Bed(QC): 6 Sit to Stand (QC): 6 Chair/Ldm-yo-Jgwzd Xfer(QC): 6 Toilet Transfer (QC): 6 Car Transfer (QC): 6 Does the Patient Walk: Yes Walk 10 feet (QC): 6 Walk 50ft with 2 Turns (QC): 6 Walk 150 ft (QC): 6 Walking 10ft on Uneven Surface: 6 1 Step (curb) (QC): 6 4 Steps (QC): 6 12 Steps (QC): 6 Picking up an Object (QC): 6 Does the Pt use WC or Scooter?: No Wheel 50 feet with 2 turns (QC: 88 Wheel 150 feet: 88 PT Plan Problem List Problem List: Activity Tolerance, Functional Strength, Safety, Balance, Gait, Transfer, Bed Mobility, ROM Treatment/Plan Treatment Plan: Continue Plan of Care Treatment Plan: Bed Mobility, Education, Functional Activity Darlene, Functional Strength, Group Therapy, Gait, Safety, Therapeutic Exercise, Transfers Treatment Duration: Apr 02, 2022 Frequency: At least 5 of 7 days/Wk (IRF) Estimated Hrs Per Day: 1.5 hours per day Patient and/or Family Agrees t: Yes Time/GCodes Time In: 1015 Time Out: 1115 Total Billed Treatment Time: 60 Total Billed Treatment 1 visit [facility] (30') [facility] (20') [facility] (10') TERESA GONZALES PT Mar 12, 2022 11:24
[2022-03-12] MEDS: metFORMIN 500 MG (GLUCOPHAGE) TAB PO SCH (16:55)
[2022-03-12 20:00] VITALS: BP 125/58
[2022-03-12] MEDS: GABAPENTIN 100 MG (NEURONTIN) CAP PO SCH (20:49)
[2022-03-13] MEDS: glipiZIDE XL 5 MG (GLUCOTROL XL) TAB PO SCH (06:52)
[2022-03-13] MEDS: MULTIVIT W/MINERALS TAB (THERAGRAN M) PO SCH (06:52)
[2022-03-13] MEDS: LEVOTHYROXINE 100 MCG (LEVOTHROID) TAB PO SCH (06:52)
[2022-03-13 07:15] VITALS: BP 143/72
[2022-03-13] MEDS: lisINopril 20 MG (PRINIVIL) TABLET PO SCH (08:19)
[2022-03-13] MEDS: ACEBUTOLOL 200 MG (SECTRAL) CAPSULE PO SCH ×2 (08:19→21:02)
[2022-03-13] MEDS: DOCUSATE SODIUM 100 MG (COLACE) CAP PO SCH ×2 (08:19→21:02)
[2022-03-13] MEDS: amLODIPine 5 MG (NORVASC) TAB PO SCH (08:19)
[2022-03-13] MEDS: KCL 10 MEQ TAB (MICRO K) PO SCH ×2 (08:19→21:02)
[2022-03-13] MEDS: MELOXICAM 7.5 MG (MOBIC) TABLET PO SCH (08:20)
[2022-03-13] MEDS: OXYBUTYNIN (DITROPAN) 5 MG TAB PO SCH (08:20)
[2022-03-13] MEDS: polyethylene glycoL POWDER 17 GM (MIRALAX) PACK PO SCH ×2 (08:22→21:00)
--- NOTE | 2022-03-13 08:36 | Individualized Plan of Care ---
Individualized Plan of Care Rehab Nursing IPOC Order Admission Date Mar 11, 2022 at 16:08 Current Orders Orders Admission Order(Inpt,Obs,Sdc) (03/11/22 12:07) Vital Signs: Per Unit Policy ( , (03/11/22 12:07) Graham Pedraza (03/11/22 12:07) Sequential Compression Device (03/11/22 12:07) [employer]iconductor Processing Group Leader-Inpt Rehab Con (03/11/22 12:07) Rehab Nursing Orders-Ipoc (03/11/22 12:07) Physical Therapy Rehab Orders (03/11/22 12:07) Occupational Therapy Rehab Ord (03/11/22 12:07) Speech Therapy Rehab Orders (03/11/22 12:07) Cbc With Automated Diff (03/12/22 06:00) Comprehensive Metabolic Panel (03/12/22 06:00) Precautions (Aru) (03/11/22 12:07) Weekly Weight WEEK (03/11/22 12:07) Rehab-Intensity Of Therapy (03/11/22 12:07) Initiate Admission Nursing Pro .admission (03/11/22 12:07) Alprazolam Tablet (Xanax Tablet) (03/11/22 12:15) Calcium Carbonate Chew Tablet (Antacid C (03/11/22 12:15) Diphenhydramine Tablet (Benadryl Tablet) (03/11/22 12:15) Docusate Sodium Capsule (Colace Capsule) (03/11/22 21:00) Docusate Sodium Capsule (Colace Capsule) (03/11/22 12:15) Bisacodyl Suppository (Dulcolax Supposit (03/11/22 12:15) Lactulose Oral Solution (Enulose Oral So (03/11/22 12:15) Na Phos/Na Biphos Enema (Fleet Enema Niels (03/11/22 12:15) Guaifenesin/Codeine Syrup (Robitussin Ac (03/11/22 12:15) Loperamide Tablet (Imodium Tablet) (03/11/22 12:15) Melatonin Tablet (Melatonin Tablet) (03/11/22 12:15) Polyethylene Glycol Powder Pkt (Miralax (03/11/22 21:00) Ondansetron Oral Dissolve Tab (Zofran (03/11/22 12:15) Senna S Tablet (Senokot S Tablet) (03/11/22 21:00) Acetaminophen Tablet/Caplet (Tylenol T (03/11/22 12:15) Initiate Admission Nursing Pro .admission (03/11/22 12:07) Weight Bearing As Tolerated (03/11/22 12:39) Nursing Communication (Order) (03/11/22 12:39) Follow-Up Appointment (03/11/22 12:39) Admission Arrival Bed Request (03/11/22 16:08) General/Regular (03/11/22 Lunch) Nursing Communication (Order) (03/11/22 16:57) Acebutolol Capsule (Sectral Capsule) (03/11/22 21:00) Acetaminophen Tablet (Tylenol Tablet) (03/11/22 17:15) Amlodipine Tablet (Norvasc Tablet) (03/12/22 09:00) Rx-Cyclobenzaprine Tablet (Rx-Flexeril T (03/11/22 17:15) Gabapentin Capsule/Tablet (Neurontin Cap (03/11/22 21:00) Glipizide Xl Tablet (Glucotrol Xl Tablet (03/12/22 07:00) Levothyroxine Tablet (Synthroid Tablet) (03/12/22 06:30) Lisinopril Tablet (Zestril Tablet) (03/12/22 09:00) Metformin Tablet (Glucophage Tablet) (03/11/22 18:00) Rx-Tramadol Hcl (Rx-Ultram) (03/11/22 17:15) (Nf) Hydrochlorothiazide (03/12/22 09:00) (Nf) Meloxicam (03/12/22 09:00) (Nf) Oxybutynin Chloride (Oxybutynin Chl (03/12/22 09:00) (Nf) Vitamin B Complex/Folic Acid (B Com (03/12/22 09:00) (Nf) [Ginkgo Biloba 230 Mg] (03/11/22 21:00) Hydrochlorothiazide Cap/Tablet (Hctz Cap (03/12/22 09:00) Meloxicam Tablet (Mobic Tablet) (03/12/22 09:00) Therapeutic Multivitamin Tab (Vitamins, (03/12/22 07:00) Cyclobenzaprine Tablet (Flexeril Tablet) (03/11/22 17:30) Tramadol Tablet (Ultram Tablet) (03/11/22 17:30) Potassium Chloride (Tablet) (Klor Con Ta (03/12/22 07:00) Oxybutynin Tablet (Ditropan Tablet) (03/12/22 09:00) Potassium Chloride (Tablet) (Klor Con Ta (03/12/22 09:00) Accucheck Daily DAILY (03/12/22 07:15) Patient Visit (03/12/22 ) Pt Eval Moderate Complexity (03/12/22 ) Patient Visit (03/12/22 ) Exercise Therap, Ea 15 Min (03/12/22 ) Gait Training, Ea 15 Min (03/12/22 ) Functional Activities, Ea 15 (03/12/22 ) Potassium Chloride (Tablet) (Klor Con Ta (03/16/22 08:00) Cbc With Automated Diff (03/14/22 05:03) Comprehensive Metabolic Panel (03/14/22 05:03) Magnesium (03/14/22 05:03) Rehab Nursing Orders: Ongoing Assess. of Function Status, Bladder Management, Bladder Scan, Bladder Training, Bowel Management, Bowel Training, Disease Management & Educaiton, DVT Prophylaxis, Fall Prevention, Fluid/Electrolyte/Nutr ition Mgmt, Infection Prevention, Medication Management & Education, Management of Risks & Complications, Management of Skin Intergrity, Nutrition Management, Pain Management, Patient/Family Support, Safety Management, Weight Bearing Precaution, Wound Management Intensity of Therapy to be met Patient to be seen: Min.3h per day/5 of 7d PT IPOC Problem List: Activity Tolerance, Functional Strength, Safety, Balance, Gait, Transfer, Bed Mobility, ROM Treatment Plan: Continue Plan of Care Bed Mobility, Education, Functional Activity Darlene, Functional Strength, Group Therapy, Gait, Safety, Therapeutic Exercise, Transfers Treatment Duration: Apr 02, 2022 Frequency: At least 5 of 7 days/Wk (IRF) Estimated Hrs Per Day: 1.5 hours per day OT IPOC Problems: Decreased Activ Tolerance, Decreased UE Strength, Dependent Transfers, Impaired Self-Care Skills, Restricted Funct UE ROM OT Treatment, Training and Edu: Yes OT Problems Pt would benefit from skilled OT to increase her independence in basic self care to allow her to safely return home and decrease caregiver burden. Plan of Care: ADL Retraining, Functional Mobility, Group Exercise/Act as Ind (education, exercise, energy conservation, safety, socialization, activity tolerance), UE Funct Exercise/Act Treatment Duration: Mar 19, 2022 Frequency: At least 5 of 7 days/Wk (IRF) Estimated Hrs Per Day: 1.[address] IPOC Speech Therapy Treatment Plan: Discontinue ST Treatment Duration: Mar 14, 2022 Frequency: Modified Program (IRF) Estimated Hrs Per Day: Other [employer] Processing Group Leader/Case Mgmt [employer] Processing Group Leader/Case Managemen: Discharge Planning Dietitian/Supervisor Ride Assembly Dietitian/Supervisor Ride Assembly to monitor nutritional status and make changes and/or recommendations as needed and work with speech pathology on dietary upgrades as the occur. Physician IPOC Medical Issues being managed closely and that require the 24 hour availability of a physician: Recent replacement of joint will require close monitoring of lab levels and pain management and bowel function and be on standby for any decompensation Medical Issues: Bowel/Bladder Function, DVT Prophylaxis, Falls Precautions, Fluid/Electrolyte/Nutrition Balance, Infection Protection, Pain Management, Wound Care Brief Synthesis of Preadmission Screen, Post-Admission Evaluation, and Therapy Evaluations: PT OT will focus on regaining function with use of AD in order to return to independent living at her own home at [place] Medical Prognosis: Good Anticipated Length of Stay: 7 days BRENDA GALLEGOS DO Mar 13, 2022 08:36
--- NOTE | 2022-03-13 08:36 | PM&R Progress Note ---
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 Hgb stable but low Review of Systems General: Fatigue Musculoskeletal: leg pain Objective Exam Vital Signs Vital Signs Date Time Temp Pulse Resp B/P (MAP) Pulse Ox O2 Delivery O2 Flow Rate FiO2 03/13/22 21:00 97 Room Air 03/13/22 20:07 36.8 68 18 155/67 (96) Capillary Refill : General Appearance: No Apparent Distress, WD/WN, Chronically ill HEENT: PERRL/EOMI, Normal ENT Inspection, Pharynx Normal Neck: Full Range of Motion, Normal Inspection, Non Tender, Supple, Carotid Bruit Respiratory: Chest Non Tender, Lungs Clear, Normal Breath Sounds, No Accessory Muscle Use, No Respiratory Distress Cardiovascular: Regular Rate, Rhythm, No Edema, No Gallop, No JVD, No Murmur, Normal Peripheral Pulses Gastrointestinal: Normal Bowel Sounds, No Organomegaly, No Pulsatile Mass, Non Tender, Soft Back: Normal Inspection, No CVA Tenderness, No Vertebral Tenderness Extremity: Normal Capillary Refill, Normal Inspection, Normal Range of Motion (except left leg), Non Tender, No Calf Tenderness, No Pedal Edema Neurologic/Psychiatric: Alert, Oriented x3, Normal Mood/Affect, cook fast food II-XII Norm as Tested, Abnormal Gait, Motor Weakness (left leg) Skin: Normal Color, Warm/Dry Lymphatic: No Adenopathy Results/Procedures Lab Patient resulted labs reviewed. FIM Transfers Therapy Code Descriptions/Definitions Functional [place] Measure: 0=Not Assessed/NA 4=Minimal Assistance 1=Total Assistance 5=Supervision or Setup 2=Maximal Assistance 6=Modified [place] 3=Moderate Assistance 7=Complete IndependenceSCALE: Activities may be completed with or without assistive devices. 0-Fxtuykpvgo-xsdqebe completes the activity by him/herself with no assistance from a helper. 5-Set-up or Clean-up Assistance-helper sets up or cleans up; patient completes activity. [place] assists only prior to or following the activity. 4-Supervision or Touching Assistance-helper provides verbal cues and/or touching/steadying and/or contact guard assistance as patient completes activity. Assistance may be provided throughout the activity or intermittently. 3-Partial/Moderate Assistance-helper does LESS THAN HALF the effort. [place] lifts, holds or supports trunk or limbs, but provides less than half the effort. 2-Substantial/Maximal Assistance-helper does MORE THAN HALF the effort. [place] lifts or holds trunk or limbs and provides more than half the effort. 5-Tfzpsekwf-eztshs does ALL the effort. Patient does none of the effort to complete the activity. Or, the assistance of 2 or more helpers is required for the patient to complete the activity. If activity was not attempted, code reason: 7-Patient Refused. 9-Not Applicable-not attempted and the patient did not perform the activity before the current illness, exacerbation or injury. 10-Not Attempted due to Environmental Limitations-(lack of equipment, weather restraints, etc.). 88-Not Attempted due to Medical Conditions or Safety Concerns. Roll Left to Right (QC): 4 Sit to Lying (QC): 3 Sit to Stand (QC): 4 Chair/Xkj-he-Fcnde Xfer(QC): 3 Car Transfer (QC): 3 Gait Training Does the Patient Walk?: Yes Walk 10 feet (QC): 4 Walk 50 ft with 2 Turns(QC): 4 Walk 150 ft (QC): 4 Walking 10ft/uneven surface-QC: 88 Gait Assistive Device: FWW Wheelchair Training Wheel 50 ft with 2 turns (QC): 9 Wheel 150 ft (QC): 9 Stair Training Stair Training: Handrails/: 2 handrails #of Steps: 4 1 Step (curb) (QC): 4 4 Steps (QC): 4 12 Steps (QC): 88 Stairs: Pattern: Step to Balance Picking up an Object (QC): 88 ADL-Treatment Eating (QC): 6 Oral Hygiene (QC): 5 (SBA at sink) Shower/Bathe Self (QC): 3 (Sponge bath. Help to wash lower legs and back. CGA to stand and SBA to wash donald area) Upper Body Dressing (QC): 5 (SBA to don shirt over head when standing, FWW) Lower Body Dressing (QC): 3 (Help with pants. ) On/Off Footwear (QC): 1 (Unable to don TEDs. 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
[2022-03-13] MEDS: SENNA W/DOCUSATE (SENOKOT S) TABLET PO SCH ×2 (11:13→21:02)
[2022-03-13] MEDS: metFORMIN 500 MG (GLUCOPHAGE) TAB PO SCH (17:25)
[2022-03-13 20:07] VITALS: BP 155/67
[2022-03-13] MEDS: GABAPENTIN 100 MG (NEURONTIN) CAP PO SCH (21:02)
[2022-03-14 05:50] LABS: BASOPHILS # (AUTO) 0.1 10^3/uL (0.0-0.1); BASOPHILS % (AUTO) 1 % (0-10); EOSINOPHILS # (AUTO) 0.5 10^3/uL (0.0-0.3); EOSINOPHILS % (AUTO) 6 % (0-10); HEMATOCRIT 28 % (35-52); HEMOGLOBIN 9.4 g/dL (11.5-16.0); LYMPHOCYTES # (AUTO) 1.3 10^3/uL (1.0-4.0); LYMPHOCYTES % (AUTO) 17 % (12-44); MEAN CORPUSCULAR HEMOGLOBIN 29 pg (25-34); MEAN CORPUSCULAR HGB CONC 34 g/dL (32-36); MEAN CORPUSCULAR VOLUME 85 fL (80-99); MEAN PLATELET VOLUME 9.9 fL (9.0-12.2); MONOCYTES # (AUTO) 0.8 10^3/uL (0.0-1.0); MONOCYTES % (AUTO) 11 % (0-12); NEUTROPHILS # (AUTO) 4.7 10^3/uL (1.8-7.8); NEUTROPHILS % (AUTO) 64 % (42-75); PLATELET COUNT 350 10^3/uL (130-400); WHITE BLOOD COUNT 7.4 10^3/uL (4.3-11.0)
[2022-03-14 06:12] LABS: ALBUMIN 2.8 GM/DL (3.2-4.5); BILIRUBIN,TOTAL 0.5 MG/DL (0.1-1.0); CALCIUM 8.6 MG/DL (8.5-10.1); CREATININE SERUM 0.66 MG/DL (0.60-1.30); MAGNESIUM 1.3 MG/DL (1.6-2.4); POTASSIUM 4.2 MMOL/L (3.6-5.0); TOTAL PROTEIN 5.1 GM/DL (6.4-8.2)
[2022-03-14] MEDS: MULTIVIT W/MINERALS TAB (THERAGRAN M) PO SCH (06:44)
[2022-03-14] MEDS: glipiZIDE XL 5 MG (GLUCOTROL XL) TAB PO SCH (06:44)
[2022-03-14] MEDS: LEVOTHYROXINE 100 MCG (LEVOTHROID) TAB PO SCH (06:44)
[2022-03-14 07:29] VITALS: BP 147/67
[2022-03-14] MEDS: MELOXICAM 7.5 MG (MOBIC) TABLET PO SCH (08:04)
[2022-03-14] MEDS: lisINopril 20 MG (PRINIVIL) TABLET PO SCH (08:04)
[2022-03-14] MEDS: OXYBUTYNIN (DITROPAN) 5 MG TAB PO SCH (08:04)
[2022-03-14] MEDS: ACEBUTOLOL 200 MG (SECTRAL) CAPSULE PO SCH ×2 (08:04→21:43)
[2022-03-14] MEDS: amLODIPine 5 MG (NORVASC) TAB PO SCH (08:06)
[2022-03-14] MEDS: DOCUSATE SODIUM 100 MG (COLACE) CAP PO SCH ×2 (08:45→21:44)
[2022-03-14] MEDS: SENNA W/DOCUSATE (SENOKOT S) TABLET PO SCH ×2 (08:45→21:44)
[2022-03-14] MEDS: polyethylene glycoL POWDER 17 GM (MIRALAX) PACK PO SCH ×2 (08:45→21:45)
--- NOTE | 2022-03-14 10:12 | Occupational Ther Daily Note ---
OT Current Status-Daily Note Subjective Pt in bed, agreeable to cotreat with focus on higher level balance tasks, then OT tx. Mental Status/Objective Patient Orientation: Person, Place, Time, Situation Acute change in mental status: 0 Inattention: 0 Disorganized thinkin Altered level of consciousness: 0 ADL-Treatment Therapy Code Descriptions/Definitions Functional [place] Measure: 0=Not Assessed/NA 4=Minimal Assistance 1=Total Assistance 5=Supervision or Setup 2=Maximal Assistance 6=Modified [place] 3=Moderate Assistance 7=Complete IndependenceSCALE: Activities may be completed with or without assistive devices. 2-Krvdhnbcga-wtgxgnj completes the activity by him/herself with no assistance from a helper. 5-Set-up or Clean-up Assistance-helper sets up or cleans up; patient completes activity. [place] assists only prior to or following the activity. 4-Supervision or Touching Assistance-helper provides verbal cues and/or touching/steadying and/or contact guard assistance as patient completes activity. Assistance may be provided throughout the activity or intermittently. 3-Partial/Moderate Assistance-helper does LESS THAN HALF the effort. Walker lifts, holds or supports trunk or limbs, but provides less than half the effort. 2-Substantial/Maximal Assistance-helper does MORE THAN HALF the effort. Walker lifts or holds trunk or limbs and provides more than half the effort. 6-Qbehurpka-mauoys does ALL the effort. Patient does none of the effort to complete the activity. Or, the assistance of 2 or more helpers is required for the patient to complete the activity. If activity was not attempted, code reason: 7-Patient Refused. 9-Not Applicable-not attempted and the patient did not perform the activity before the current illness, exacerbation or injury. 10-Not Attempted due to Environmental Limitations-(lack of equipment, weather restraints, etc.). 88-Not Attempted due to Medical Conditions or Safety Concerns. Toileting Hygiene (QC): 6 (IND with hygiene and clothing management.) Other Treatment [id number]: OT/PT cotreat due to skill of 2 clinicians required which a rehab care assistant could not perform in order to coordinate UE/LEs, decrease fall risk, focus on higher level balance tasks, and due to pt's limitations in strength, activity tolerance and mobility. OT focused on UE placement, ADLs, cues for sequencing and safety. PT focused on LE placement, gross overall movement, transfers/mobility. and dynamic standing balance. Pt transferred supine to sit EOB then used FWW to transfer into bathroom and onto BSC over toilet. Pt completed toileting, then used FWW to perform functional mobility to therapy gym. Pt completed balloon batting activity, hitting balloon back and forth with OT, reaching in all planes (limited by decreased shoulder movements from rotator cuff problems), SBA. Pt had 1 LOB, able to self correct with SBA. Pt then stood on AirEx Mat, removing beads from moderate resistance (red) theraputty, able to locate all beads without cues, CGA. Pt then stood on AirEx mat, completing graded clothes pin task (1-5 lbs), placing/removing BUEs. End of Cotreat [id number]: OT tx focused on increasing BUE strength and activity tolerance, as well as fine motor strength and coordination. Pt completed arm bike x5 mins, no resistance. Pt c/o increased pain in bilateral shoulders from rotator cuff issues. Pt then placed 1" pegs into foam pegboard, alternating hands. As pt fatigued, she supported RUE with LUE while reaching for pegs. Pt able to complete x100 pegs. Pt used FWW to return to her room, SBA ,OT encouraged pt to stay up in recliner, but pt began c/o nausea, requesting to transfer to bed. Pt unable to lift LLE into bed, requiring assistance. Post tx, pt in bed, call light in reach and all needs met, nurse aware of c/o nausea. Education OT Patient Education: Correct positioning, Modified ADL techniques, Progress toward Goal/Update tx plan, Purpose of tx/functional activities, Rehab process Teaching Recipient: Patient Teaching Methods: Demonstration Response to Teaching: Return Demonstration OT Short Term Goals Short Term Goals Time Frame: Mar 19, 2022 Eatin Oral hygiene: 6 Toileting hygiene: 6 Shower/bathe self: 5 Upper body dressin Lower body dressin Putting on/taking off footwear: 5 OT Alf Goals Alf Goals Time Frame: Mar 19, 2022 Acute change in mental status: 0 Inattention: 0 Disorganized thinkin Altered level of consciousness: 0 Eating (QC): 6 Oral Hygiene (QC): 6 Toileting Hygiene (QC): 6 Shower/Bathe Self (QC): 5 Upper Body Dressing (QC): 6 Lower Body Dressing (QC): 6 On/Off Footwear (QC): 6 1=Demonstrate adherence to instructed precautions during ADL tasks. 2=Patient will verbalize/demonstrate understanding of assistive devices/modifications for ADL. 3=Patient will improve strength/tolerance for activity to enable patient to perform ADL's. OT Education/Plan Problem List/Assessment Assessment: Decreased Activ Tolerance, Decreased UE Strength, Impaired Funct Balance, Impaired I ADL's, Impaired Self-Care Skills Pt would benefit from skilled OT to increase her independence in basic self care to allow her to safely return home and decrease caregiver burden. Discharge Recommendations Plan/Recommendations: Continue POC Treatment Plan/Plan of Care Patient would benefit from OT for education, treatment and training to promote independence in ADL's, mobility, safety and/or upper extremity function for ADL's. Plan of Care: ADL Retraining, Functional Mobility, Group Exercise/Act as Ind (education, exercise, energy conservation, safety, socialization, activity tolerance), UE Funct Exercise/Act Treatment Duration: Mar 19, 2022 Frequency: At least 5 of 7 days/Wk (IRF) Estimated Hrs Per Day: 1.5 hours per day Agreement: Yes Rehab Potential: Good Time/GCodes Start Time: 09:00 Stop Time: 10:30 Total Time Billed (hr/min): 90 Billed Treatment Time cotreat x60', OT tx x30' 1, ADL (15'), EX (10'), FA 4 (65') PAT HOOKER OT Mar 14, 2022 10:12
--- NOTE | 2022-03-14 10:15 | Physical Therapy Daily Note ---
PT Daily Note-Current Subjective Pt laying Supine in bed upon arrival. Pt agrees to PT/OT co-treat for high functioning balance work as pt reports this to be a problem. Pain Section J - Health Conditions 1. Rarely or not at all 2. Occasionally 3. Frequently 4. Almost constantly 8. Unable to answer Pain Effect on Sleep: 2 Pain Interference with Therapy: 2 Pain Interference w/Day-to-Day: 2 Mental Status Patient Orientation: Person, Place, Time, Situation Transfers SCALE: Activities may be completed with or without assistive devices. 0-Jlsqdlfuey-dekango completes the activity by him/herself with no assistance from a helper. 5-Set-up or Clean-up Assistance-helper sets up or cleans up; patient completes activity. [place] assists only prior to or following the activity. 4-Supervision or Touching Assistance-helper provides verbal cues and/or touching/steadying and/or contact guard assistance as patient completes activity. Assistance may be provided throughout the activity or intermittently. 3-Partial/Moderate Assistance-helper does LESS THAN HALF the effort. [place] li fts, holds or supports trunk or limbs, but provides less than half the effort. 2-Substantial/Maximal Assistance-helper does MORE THAN HALF the effort. [place] lifts or holds trunk or limbs and provides more than half the effort. 7-Rsgwrcfyf-bjehek does ALL the effort. Patient does none of the effort to complete the activity. Or, the assistance of 2 or more helpers is required for the patient to complete the activity. If activity was not attempted, code reason: 7-Patient Refused. 9-Not Applicable-not attempted and the patient did not perform the activity before the current illness, exacerbation or injury. 10-Not Attempted due to Environmental Limitations-(lack of equipment, weather restraints, etc.). 88-Not Attempted due to Medical Conditions or Safety Concerns. Sit to Stand (QC): 5 Weight Bearing Right Lower Extremity: Right Full Weight Bearing Left Lower Extremity: Left Weight Bearing/Tolerated Gait Training Does the Patient Walk?: Yes Distance: 125' x2 Walk 10 feet (QC): 5 Walk 50 ft with 2 Turns(QC): 5 Walk 150 ft (QC): 5 Gait Assistive Device: FWW Wheelchair Training Does the Pt Use a Wheelchair?: No Treatments [id number]: OT/PT co-treat due to skill of 2 clinicians required which a cnc technician could not perform in order to coordinate UE/LEs, decrease fall risk, focus on higher level balance tasks, and due to pt's limitations in strength, activity tolerance and mobility. OT focused on UE placement, ADLs, cues for sequencing and safety. PT focused on LE placement, gross overall movement, transfers/mobility. and dynamic standing balance. Pt transferred supine to sit EOB then used FWW to transfer into bathroom and onto BSC over toilet. Pt completed toileting, then used FWW to perform functional mobility to therapy gym. Pt completed balloon batting activity, hitting balloon back and forth with OT, reaching in all planes (limited by decreased shoulder movements from rotator cuff problems), SBA. Pt had 1 LOB, able to self correct with SBA. Pt then stood on AirEx Mat, removing beads from moderate resistance (red) theraputty, able to locate all beads without cues, CGA. Pt then stood on AirEx mat, completing graded clothes pin task (1-5 lbs), placing/removing BUEs. End of Cotreat as PT departs and OT continues Ind. tx. Assessment Current Status: Good Progress Pt is able to ambulate well but wants to work on her balance so incorporated b alance challenges to improve dynamic standing balance. Pt has 1 LOB that pt is able to self correct. With a less NBOS, pt has improved balance. PT Short Term Goals Short Term Goals Time Frame: Mar 25, 2022 Roll Left & Right: 6 Sit to lyin Lying to sitting on side of be: 6 Sit to stand: 4 Chair/lsz-va-oubfa transfer: 4 Toilet transfer: 4 Car transfer: 4 Walk 10 feet: 6 Walk 50 feet with two turns: 4 Walk 150 feet: 4 Walking 10ft on uneven surface: 4 1 step (curb): 4 4 steps: 4 12 steps: 4 PT Alf Goals Alf Goals PT Alf Goals Time Frame: Apr 02, 2022 Roll Left & Right (QC): 6 Sit to Lying (QC): 6 Lying-Sitting on Side/Bed(QC): 6 Sit to Stand (QC): 6 Chair/Otz-jl-Cdklg Xfer(QC): 6 Toilet Transfer (QC): 6 Car Transfer (QC): 6 Does the Patient Walk: Yes Walk 10 feet (QC): 6 Walk 50ft with 2 Turns (QC): 6 Walk 150 ft (QC): 6 Walking 10ft on Uneven Surface: 6 1 Step (curb) (QC): 6 4 Steps (QC): 6 12 Steps (QC): 6 Picking up an Object (QC): 6 Does the Pt use WC or Scooter?: No Wheel 50 feet with 2 turns (QC: 88 Wheel 150 feet: 88 PT Plan Problem List Problem List: Activity Tolerance, Balance Treatment/Plan Treatment Plan: Continue Plan of Care Treatment Plan: Bed Mobility, Education, Functional Activity Darlene, Functional Strength, Group Therapy, Gait, Safety, Therapeutic Exercise, Transfers Treatment Duration: Apr 02, 2022 Frequency: At least 5 of 7 days/Wk (IRF) Estimated Hrs Per Day: 1.5 hours per day Patient and/or Family Agrees t: Yes Safety Risks/Education Patient Education: Correct Positioning, Safety Issues Teaching Recipient: Patient Teaching Methods: Discussion Response to Teaching: Verbalize Understanding Time/GCodes Time In: 900 Time Out: 1000 Total Billed Treatment Time: 60 Total Billed Treatment Co-treat w/OT for 60m (900-1000) 1, GT (15m) & FA x3 (45m) JESSICA MAIER PRESSURIZER Mar 14, 2022 10:15
--- NOTE | 2022-03-14 11:05 | PM&R Progress Note ---
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 Hgb stable but low Review of Systems General: Fatigue, Malaise Musculoskeletal: leg pain Objective Exam Vital Signs Vital Signs Date Time Temp Pulse Resp B/P (MAP) Pulse Ox O2 Delivery O2 Flow Rate FiO2 03/14/22 20:20 Room Air 03/14/22 20:17 37.2 72 20 152/81 (104) 94 Capillary Refill : General Appearance: No Apparent Distress, WD/WN, Chronically ill HEENT: PERRL/EOMI, Normal ENT Inspection, Pharynx Normal Neck: Full Range of Motion, Normal Inspection, Non Tender, Supple, Carotid Bruit Respiratory: Chest Non Tender, Lungs Clear, Normal Breath Sounds, No Accessory Muscle Use, No Respiratory Distress Cardiovascular: Regular Rate, Rhythm, No Edema, No Gallop, No JVD, No Murmur, Normal Peripheral Pulses Gastrointestinal: Normal Bowel Sounds, No Organomegaly, No Pulsatile Mass, Non Tender, Soft Back: Normal Inspection, No CVA Tenderness, No Vertebral Tenderness Extremity: Normal Capillary Refill, Normal Inspection, Normal Range of Motion (except left leg), Non Tender, No Calf Tenderness, No Pedal Edema Neurologic/Psychiatric: Alert, Oriented x3, Normal Mood/Affect, hepatologist II-XII Norm as Tested, Abnormal Gait, Motor Weakness (left leg) Skin: Normal Color, Warm/Dry Lymphatic: No Adenopathy Results/Procedures Lab Laboratory Tests 03/14/22 05:24 Patient resulted labs reviewed. FIM Transfers Therapy Code Descriptions/Definitions Functional [place] Measure: 0=Not Assessed/NA 4=Minimal Assistance 1=Total Assistance 5=Supervision or Setup 2=Maximal Assistance 6=Modified [place] 3=Moderate Assistance 7=Complete IndependenceSCALE: Activities may be completed with or without assistive devices. 2-Pfwntiyuox-imopkht completes the activity by him/herself with no assistance f rom a helper. 5-Set-up or Clean-up Assistance-helper sets up or cleans up; patient completes activity. [place] assists only prior to or following the activity. 4-Supervision or Touching Assistance-helper provides verbal cues and/or touching/steadying and/or contact guard assistance as patient completes activity. Assistance may be provided throughout the activity or intermittently. 3-Partial/Moderate Assistance-helper does LESS THAN HALF the effort. [place] lifts, holds or supports trunk or limbs, but provides less than half the effort. 2-Substantial/Maximal Assistance-helper does MORE THAN HALF the effort. [place] lifts or holds trunk or limbs and provides more than half the effort. 8-Xbwhlhkww-edwbdh does ALL the effort. Patient does none of the effort to complete the activity. Or, the assistance of 2 or more helpers is required for the patient to complete the activity. If activity was not attempted, code reason: 7-Patient Refused. 9-Not Applicable-not attempted and the patient did not perform the activity before the current illness, exacerbation or injury. 10-Not Attempted due to Environmental Limitations-(lack of equipment, weather restraints, etc.). 88-Not Attempted due to Medical Conditions or Safety Concerns. Roll Left to Right (QC): 4 Sit to Lying (QC): 3 Sit to Stand (QC): 5 Chair/Tbp-ew-Loqkp Xfer(QC): 3 Car Transfer (QC): 3 Gait Training Does the Patient Walk?: Yes Distance: 125' x2 Walk 10 feet (QC): 5 Walk 50 ft with 2 Turns(QC): 5 Walk 150 ft (QC): 5 Walking 10ft/uneven surface-QC: 88 Gait Assistive Device: FWW Wheelchair Training Does the Pt Use a Wheelchair?: No Wheel 50 ft with 2 turns (QC): 9 Wheel 150 ft (QC): 9 Stair Training Stair Training: Handrails/: 2 handrails #of Steps: 4 1 Step (curb) (QC): 4 4 Steps (QC): 4 12 Steps (QC): 88 Stairs: Pattern: Step to Balance Picking up an Object (QC): 88 ADL-Treatment Eating (QC): 6 Oral Hygiene (QC): 5 (SBA at sink) Shower/Bathe Self (QC): 3 (Sponge bath. Help to wash lower legs and back. CGA to stand and SBA to wash donald area) Upper Body Dressing (QC): 5 (SBA to don shirt over head when standing, FWW) Lower Body Dressing (QC): 3 (Help with pants. ) On/Off Footwear (QC): 1 (Unable to don TEDs. 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
--- NOTE | 2022-03-14 11:05 | Individualized Plan of Care ---
Individualized Plan of Care Rehab Nursing IPOC Order Admission Date Mar 11, 2022 at 16:08 Current Orders Orders Admission Order(Inpt,Obs,Sdc) (03/11/22 12:07) Vital Signs: Per Unit Policy ( , (03/11/22 12:07) Graham Pedraza (03/11/22 12:07) Sequential Compression Device (03/11/22 12:07) Stock Lifter-Inpt Rehab Con (03/11/22 12:07) Rehab Nursing Orders-Ipoc (03/11/22 12:07) Physical Therapy Rehab Orders (03/11/22 12:07) Occupational Therapy Rehab Ord (03/11/22 12:07) Speech Therapy Rehab Orders (03/11/22 12:07) Cbc With Automated Diff (03/12/22 06:00) Comprehensive Metabolic Panel (03/12/22 06:00) Precautions (Aru) (03/11/22 12:07) Weekly Weight WEEK (03/11/22 12:07) Rehab-Intensity Of Therapy (03/11/22 12:07) Initiate Admission Nursing Pro .admission (03/11/22 12:07) Alprazolam Tablet (Xanax Tablet) (03/11/22 12:15) Calcium Carbonate Chew Tablet (Antacid C (03/11/22 12:15) Diphenhydramine Tablet (Benadryl Tablet) (03/11/22 12:15) Docusate Sodium Capsule (Colace Capsule) (03/11/22 21:00) Docusate Sodium Capsule (Colace Capsule) (03/11/22 12:15) Bisacodyl Suppository (Dulcolax Supposit (03/11/22 12:15) Lactulose Oral Solution (Enulose Oral So (03/11/22 12:15) Na Phos/Na Biphos Enema (Fleet Enema Niels (03/11/22 12:15) Guaifenesin/Codeine Syrup (Robitussin Ac (03/11/22 12:15) Loperamide Tablet (Imodium Tablet) (03/11/22 12:15) Melatonin Tablet (Melatonin Tablet) (03/11/22 12:15) Polyethylene Glycol Powder Pkt (Miralax (03/11/22 21:00) Ondansetron Oral Dissolve Tab (Zofran (03/11/22 12:15) Senna S Tablet (Senokot S Tablet) (03/11/22 21:00) Acetaminophen Tablet/Caplet (Tylenol T (03/11/22 12:15) Initiate Admission Nursing Pro .admission (03/11/22 12:07) Weight Bearing As Tolerated (03/11/22 12:39) Nursing Communication (Order) (03/11/22 12:39) Follow-Up Appointment (03/11/22 12:39) Admission Arrival Bed Request (03/11/22 16:08) General/Regular (03/11/22 Lunch) Nursing Communication (Order) (03/11/22 16:57) Acebutolol Capsule (Sectral Capsule) (03/11/22 21:00) Acetaminophen Tablet (Tylenol Tablet) (03/11/22 17:15) Amlodipine Tablet (Norvasc Tablet) (03/12/22 09:00) Rx-Cyclobenzaprine Tablet (Rx-Flexeril T (03/11/22 17:15) Gabapentin Capsule/Tablet (Neurontin Cap (03/11/22 21:00) Glipizide Xl Tablet (Glucotrol Xl Tablet (03/12/22 07:00) Levothyroxine Tablet (Synthroid Tablet) (03/12/22 06:30) Lisinopril Tablet (Zestril Tablet) (03/12/22 09:00) Metformin Tablet (Glucophage Tablet) (03/11/22 18:00) Rx-Tramadol Hcl (Rx-Ultram) (03/11/22 17:15) (Nf) Hydrochlorothiazide (03/12/22 09:00) (Nf) Meloxicam (03/12/22 09:00) (Nf) Oxybutynin Chloride (Oxybutynin Chl (03/12/22 09:00) (Nf) Vitamin B Complex/Folic Acid (B Com (03/12/22 09:00) (Nf) [Ginkgo Biloba 230 Mg] (03/11/22 21:00) Hydrochlorothiazide Cap/Tablet (Hctz Cap (03/12/22 09:00) Meloxicam Tablet (Mobic Tablet) (03/12/22 09:00) Therapeutic Multivitamin Tab (Vitamins, (03/12/22 07:00) Cyclobenzaprine Tablet (Flexeril Tablet) (03/11/22 17:30) Tramadol Tablet (Ultram Tablet) (03/11/22 17:30) Potassium Chloride (Tablet) (Klor Con Ta (03/12/22 07:00) Oxybutynin Tablet (Ditropan Tablet) (03/12/22 09:00) Potassium Chloride (Tablet) (Klor Con Ta (03/12/22 09:00) Accucheck Daily DAILY (03/12/22 07:15) Patient Visit (03/12/22 ) Pt Eval Moderate Complexity (03/12/22 ) Patient Visit (03/12/22 ) Exercise Therap, Ea 15 Min (03/12/22 ) Gait Training, Ea 15 Min (03/12/22 ) Functional Activities, Ea 15 (03/12/22 ) Potassium Chloride (Tablet) (Klor Con Ta (03/16/22 08:00) Cbc With Automated Diff (03/14/22 05:03) Comprehensive Metabolic Panel (03/14/22 05:03) Magnesium (03/14/22 05:03) Patient Visit (03/14/22 ) Speech Sound Lang Comp (03/14/22 ) Patient Visit (03/14/22 ) Gait Training, Ea 15 Min (03/14/22 ) Functional Activities, Ea 15 (03/14/22 ) Rehab Nursing Orders: Ongoing Assess. of Function Status, Bladder Management, Bladder Scan, Bladder Training, Bowel Management, Bowel Training, Disease Management & Educaiton, DVT Prophylaxis, Fall Prevention, Fluid/Electrolyte/Nutrition Mgmt, Infection Prevention, Medication Management & Education, Management of Risks & Complications, Management of Skin Intergrity, Nutrition Management, Pain Management, Patient/Family Support, Safety Management, Weight Bearing Precaution, Wound Management Intensity of Therapy to be met Patient to be seen: Min.3h per day/5 of 7d PT IPOC Problem List: Activity Tolerance, Balance Treatment Plan: Continue Plan of Care Bed Mobility, Education, Functional Activity Darlene, Functional Strength, Group Therapy, Gait, Safety, Therapeutic Exercise, Transfers Treatment Duration: Apr 02, 2022 Frequency: At least 5 of 7 days/Wk (IRF) Estimated Hrs Per Day: 1.5 hours per day OT IPOC Problems: Decreased Activ Tolerance, Decreased UE Strength, Impaired Funct Balance, Impaired I ADL's, Impaired Self-Care Skills OT Treatment, Training and Edu: Yes OT Problems Pt would benefit from skilled OT to increase her independence in basic self care to allow her to safely return home and decrease caregiver burden. Plan of Care: ADL Retraining, Functional Mobility, Group Exercise/Act as Ind (education, exercise, energy conservation, safety, socialization, activity tolerance), UE Funct Exercise/Act Treatment Duration: Mar 19, 2022 Frequency: At least 5 of 7 days/Wk (IRF) Estimated Hrs Per Day: 1.[address] IPOC Speech Therapy Treatment Plan: Discontinue ST Treatment Duration: Mar 14, 2022 Frequency: Modified Program (IRF) Estimated Hrs Per Day: Other Stock Lifter/Case Mgmt Stock Lifter/Case Managemen: Discharge Planning Dietitian/Head Mechanic Dietitian/Head Mechanic to monitor nutritional status and make changes and/or recommendations as needed and work with speech pathology on dietary upgrades as the occur. Physician IPOC Medical Issues being managed closely and that require the 24 hour availability of a physician: Medical Issues: Bowel/Bladder Function, DVT Prophylaxis, Falls Precautions, Fluid/Electrolyte/Nutrition Balance, Infection Protection, Pain Management, Wound Care Brief Synthesis of Preadmission Screen, Post-Admission Evaluation, and Therapy Evaluations: Medical Prognosis: Good Anticipated Length of Stay: 7 days BRENDA GALLEGOS DO Mar 14, 2022 11:05
--- NOTE | 2022-03-14 11:08 | ST Cognitive Linguistic Eval ---
Speech Evaluation-General Medical Diagnosis L Hip Replacement Onset Date: Mar 11, 2022 Therapy Diagnosis Therapy Diagnosis: Intact Neurocognitive Skills Precautions Precautions: Fall, Hip Precautions/Isolations: Fall Prevention Referral Referring Physician: Dr. Tamez Reason for Referral: Evaluation/Treatment Medical History Pertinent Medical History: Arthritis, DM, GERD, HTN, Hypothroidism Current History The patient is an 81 year-old female who presents to ARU following a left hip replacement. Reviewed History: Yes Social History Current Living Status: Alone Speech PLF-Current Status Prior Level of Function The patient denied any prior or current concerns with her cognition, speech, or language. Subjective The patient was seated upright in the bed, awake and alert upon entrance to her room by the clinician. The patient greeted the clinician appropriately and was agreeable to participation in the cognitive linguistic assessment. Language Eval: Auditory Comprehends Simple Yes/No Ques: Functional Indent/Objects Multiple [place]: Functional Ident/Pics in Multiple [place]: Functional Follows 1-Step Commands: Functional Follows General Conversations: Functional Language Eval: Verbal Language Completes Spontaneous Greeting: Functional Produces Auto, Serial Info: Functional Imitates Simple Words/Phrases: Functional Word Finding: Functional Requests Basic Needs: Functional States Basic Personal Info: Functional Expresses Complex Ideas: Functional Language Evaluation: Reading Follows Simple Written Direct: Functional Language Evaluation: Writing Writes to Simple Dictation: Functional Cognitive Patient Orientation The patient was independently oriented to self, location, month, day of the week, date, and year. Objective Cognitive Domain Attention: WNL Memory: WNL Problem Solving: Functional Executive Functions: WNL Visuospatial Skills: WNL Composite Severity Rating: WNL Clock Drawing Severity Rating: WNL Objective Formal/Standardized Tests [facility] Mental Status Exam (UMS) Results The patient demonstrated a result of +30/30 on the UMS correlating to n eurocognitive skills within normal limits. Oral Motor/Speech Production The patient does not display dysarthria or apraxia of speech at this time. The patient is 100% intelligible in known and unknown contexts. Impression The patient displays intact neurocognitive skills. Speech Patient Assess Expression of Ideas/Wants: Expression (4) Understanding Verbal Content: Understands (4) Brief Interview-Mental Status: Yes Repetition of Three Words: Three (3) Temporal Orientation: Year: Correct (3) Temporal Orientation: Month: Accurate within 5 days(2) Temporal Orientation: Day: Correct (1) Recall : Wear to say "Sock": Yes, no cue required (2) Recall : Color: Yes, no cue required (2) Recall : Bed: Yes, no cue required (2) Memory/Recall Ability: Current season, Location of own room, Staff names and faces, That he or she is in a hsp/hsp unit Speech-Plan Treatment Plan Speech Therapy Treatment Plan: Discontinue ST Treatment Duration: Mar 14, 2022 Frequency: Modified Program (IRF) Estimated Hrs Per Day: Other Rehab Potential: Good Safety Risks/Education Teaching Recipient: Patient Teaching Methods: Discussion Response to Teaching: Verbalize Understanding Education Topics Provided: Results, Recommendations, Plan of Care Time Speech Therapy Time In: 08:15 Speech Therapy Time Out: 08:30 Total Billed Time: 15 Billed Treatment Time 1, DANK Thompson Mar 14, 2022 11:08
--- NOTE | 2022-03-14 12:41 | Progress Note ---
ASAD CHEN 03/14/22 1241: Progress Note CC: Left hip replacement with debility HPI: This is an 81yoWF clinic patient of Dr. Darling who presented from [place] s/p left hip replacement with slow recovery in need of regaining independence since she lives alone. She had a previous right hip replacement 04/2021 and had a successful stay in ARU. All home meds were restarted. PT OT will focus on regaining strength with use of AD and prevent falls. Patient is lying in bed when I visited and in no acute distress. She complains of left leg and bilateral shoulder discomfort. Reports her bowels are moving and bladder is functioning normally. Pain is controlled. Today will provide OMM to patient for assistance with recovery ROS: General: Fatigue, Malaise Musculoskeletal: leg pain, shoulder pain Exam: General Appearance: No Apparent Distress, WD/WN, Chronically ill HEENT: PERRL/EOMI Respiratory: Chest Non Tender, Lungs Clear, Normal Breath Sounds, No Accessory Muscle Use, No Respiratory Distress Cardiovascular: Regular Rate, Rhythm, No Edema, No Gallop, No JVD, No Murmur, Normal Peripheral Pulses Extremity: Normal Capillary Refill, Normal Inspection, Normal Range of Motion (except left leg), Non Tender, No Calf Tenderness, No Pedal Edema Neurologic/Psychiatric: Alert, Oriented x3, Normal Mood/Affect, Motor Weakness (left leg) Skin: Normal Color, Warm/Dry Lymphatic: No Adenopathy Assessment: 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 HTN HLP Hypothyroidism Obesity Hyponatremia holding HCTZ home med Hypokalemia Post op anemia from acute blood loss Left rectus femoris muscle hypertonic Left IT band taut bilateral deltoid muscles hypertonic Plan: -left leg lymphatic drainage and myofascial release -left rectus femoris soft tissue technique -bilateral deltoid muscles soft tissue technique IZABELLA GALLEGOS DO 03/15/22 0527: Supervisory-Addendum Brief Verification & Attestation Participated in pt care: history, MDM, physical Personally performed: exam, history, MDM, supervision of care Care discussed with: Medical Student Procedures: n/a Results interpretation: Verified all documentation Verification and Attestation of Medical Student E/M Service A medical student performed and documented this service in my presence. I reviewed and verified all information documented by the medical student and made modifications to such information, when appropriate. I personally performed the physical exam and medical decision making. Izabella Gallegos, Mar 15, 2022,05:27 ASAD CHEN Mar 14, 2022 12:41 IZABELLA GALLEGOS DO Mar 15, 2022 05:27
--- NOTE | 2022-03-14 13:54 | Physical Therapy Daily Note ---
PT Daily Note-Current Subjective Pt sitting up in bed after just finishing lunch. Pt agrees to PT. Pain Location: No Pain Reported Section J - Health Conditions 1. Rarely or not at all 2. Occasionally 3. Frequently 4. Almost constantly 8. Unable to answer Pain Effect on Sleep: 2 Pain Interference with Therapy: 2 Pain Interference w/Day-to-Day: 2 Mental Status Patient Orientation: Person, Place, Time, Situation Transfers SCALE: Activities may be completed with or without assistive devices. 4-Gejmartjbf-tyedzyw completes the activity by him/herself with no assistance from a helper. 5-Set-up or Clean-up Assistance-helper sets up or cleans up; patient completes activity. [place] assists only prior to or following the activity. 4-Supervision or Touching Assistance-helper provides verbal cues and/or touching/steadying and/or contact guard assistance as patient completes activity. Assistance may be provided throughout the activity or intermittently. 3-Partial/Moderate Assistance-helper does LESS THAN HALF the effort. [place] lifts, holds or supports trunk or limbs, but provides less than half the effort. 2-Substantial/Maximal Assistance-helper does MORE THAN HALF the effort. [place] lifts or holds trunk or limbs and provides more than half the effort. 1-Uvhiauwuq-jmqjll does ALL the effort. Patient does none of the effort to complete the activity. Or, the assistance of 2 or more helpers is required for the patient to complete the activity. If activity was not attempted, code reason: 7-Patient Refused. 9-Not Applicable-not attempted and the patient did not perform the activity before the current illness, exacerbation or injury. 10-Not Attempted due to Environmental Limitations-(lack of equipment, weather restraints, etc.). 88-Not Attempted due to Medical Conditions or Safety Concerns. Weight Bearing Right Lower Extremity: Right Full Weight Bearing Left Lower Extremity: Left Weight Bearing/Tolerated Exercises Supine Ex: Ankle pumps, Quad Set, Glut sets, Heel Slides (Limited to staying w/in Hip precautions), Hip abd/add Supine Reps: 10 Treatments Pt completes Supine EX then rest at end of tx. All needs met, call light in hand. Assessment Current Status: Good Progress Pt alfredito. tx well. PT Short Term Goals Short Term Goals Time Frame: Mar 25, 2022 Roll Left & Right: 6 Sit to lyin Lying to sitting on side of be: 6 Sit to stand: 4 Chair/rtj-oe-tfuob transfer: 4 Toilet transfer: 4 Car transfer: 4 Walk 10 feet: 6 Walk 50 feet with two turns: 4 Walk 150 feet: 4 Walking 10ft on uneven surface: 4 1 step (curb): 4 4 steps: 4 12 steps: 4 PT Salesforce Developer Goals Usp Goals PT Salesforce Developer Goals Time Frame: Apr 02, 2022 Roll Left & Right (QC): 6 Sit to Lying (QC): 6 Lying-Sitting on Side/Bed(QC): 6 Sit to Stand (QC): 6 Chair/Ybr-xo-Nihok Xfer(QC): 6 Toilet Transfer (QC): 6 Car Transfer (QC): 6 Does the Patient Walk: Yes Walk 10 feet (QC): 6 Walk 50ft with 2 Turns (QC): 6 Walk 150 ft (QC): 6 Walking 10ft on Uneven Surface: 6 1 Step (curb) (QC): 6 4 Steps (QC): 6 12 Steps (QC): 6 Picking up an Object (QC): 6 Does the Pt use WC or Scooter?: No Wheel 50 feet with 2 turns (QC: 88 Wheel 150 feet: 88 PT Plan Treatment/Plan Treatment Plan: Continue Plan of Care Treatment Plan: Bed Mobility, Education, Functional Activity Darlene, Functional Strength, Group Therapy, Gait, Safety, Therapeutic Exercise, Transfers Treatment Duration: Apr 02, 2022 Frequency: At least 5 of 7 days/Wk (IRF) Estimated Hrs Per Day: 1.5 hours per day Patient and/or Family Agrees t: Yes Time/GCodes Time In: 1245 Time Out: 1300 Total Billed Treatment Time: 15 Total Billed Treatment 1, ASHLEY (15m) JESSICA MAIER NUCLEAR MEDICAL TECH Mar 14, 2022 13:54
[2022-03-14] MEDS: metFORMIN 500 MG (GLUCOPHAGE) TAB PO SCH (17:27)
[2022-03-14 20:17] VITALS: BP 152/81
[2022-03-14] MEDS: GABAPENTIN 100 MG (NEURONTIN) CAP PO SCH (21:43)
--- NOTE | 2022-03-15 05:48 | PM&R Progress Note ---
Subjective HPI/CC On Admission Date Seen by Provider: Mar 15, 2022 Time Seen by Provider: 09:00 Subjective/Events-last exam 03/15/2022: Pt is doing about the same Edema is noted of the thigh No BM of the third day, will initiate a suppository 03/14/2022: Pt is doing well Sodium level 132, potassium 4.2 No other concerns Pain is controlled 03/13/2022: No major issues No pain No falls Eating well Checking labs in am 03/12/2022: No major issues Pain controlled Hyponatremia will require holding HCTZ Potassium low at 3.4 so ordered 10meq BID for 2 days then will go back to Q48 hours on Mon and she did not really want to do that unless Dr Darling approved but she is not [employer] and it appears she is willing to take the additional supplement for 2 days now but she could possibly refuse it. Hgb stable but low Review of Systems General: Fatigue Objective Exam Vital Signs Vital Signs Date Time Temp Pulse Resp B/P (MAP) Pulse Ox O2 Delivery O2 Flow Rate FiO2 03/15/22 20:42 Room Air 03/15/22 19:29 37.1 65 16 134/60 (84) 97 Capillary Refill : General Appearance: No Apparent Distress, WD/WN, Chronically ill HEENT: PERRL/EOMI, Normal ENT Inspection, Pharynx Normal Neck: Full Range of Motion, Normal Inspection, Non Tender, Supple, Carotid Bruit Respiratory: Chest Non Tender, Lungs Clear, Normal Breath Sounds, No Accessory Muscle Use, No Respiratory Distress Cardiovascular: Regular Rate, Rhythm, No Edema, No Gallop, No JVD, No Murmur, Normal Peripheral Pulses Gastrointestinal: Normal Bowel Sounds, No Organomegaly, No Pulsatile Mass, Non Tender, Soft Back: Normal Inspection, No CVA Tenderness, No Vertebral Tenderness Extremity: Normal Capillary Refill, Normal Inspection, Normal Range of Motion (except left leg), Non Tender, No Calf Tenderness, No Pedal Edema Neurologic/Psychiatric: Alert, Oriented x3, Normal Mood/Affect, coat padder II-XII Norm as Tested, Abnormal Gait, Motor Weakness (left leg) Skin: Normal Color, Warm/Dry Lymphatic: No Adenopathy Results/Procedures Lab Patient resulted labs reviewed. FIM Transfers Therapy Code Descriptions/Definitions Functional [place] Measure: 0=Not Assessed/NA 4=Minimal Assistance 1=Total Assistance 5=Supervision or Setup 2=Maximal Assistance 6=Modified [place] 3=Moderate Assistance 7=Complete IndependenceSCALE: Activities may be completed with or without assistive devices. 4-Lqovavrtmw-amqxnyu completes the activity by him/herself with no assistance from a helper. 5-Set-up or Clean-up Assistance-helper sets up or cleans up; patient completes activity. [place] assists only prior to or following the activity. 4-Supervision or Touching Assistance-helper provides verbal cues and/or touching/steadying and/or contact guard assistance as patient completes activity. Assistance may be provided throughout the activity or intermittently. 3-Partial/Moderate Assistance-helper does LESS THAN HALF the effort. [place] lifts, holds or supports trunk or limbs, but provides less than half the effort. 2-Substantial/Maximal Assistance-helper does MORE THAN HALF the effort. [place] lifts or holds trunk or limbs and provides more than half the effort. 2-Ekwrvuoix-absjcl does ALL the effort. Patient does none of the effort to complete the activity. Or, the assistance of 2 or more helpers is required for the patient to complete the activity. If activity was not attempted, code reason: 7-Patient Refused. 9-Not Applicable-not attempted and the patient did not perform the activity before the current illness, exacerbation or injury. 10-Not Attempted due to Environmental Limitations-(lack of equipment, weather restraints, etc.). 88-Not Attempted due to Medical Conditions or Safety Concerns. Roll Left to Right (QC): 4 Sit to Lying (QC): 3 Sit to Stand (QC): 5 Chair/Ygu-az-Nqvhs Xfer(QC): 3 Car Transfer (QC): 3 Gait Training Does the Patient Walk?: Yes Distance: 125' x2 Walk 10 feet (QC): 5 Walk 50 ft with 2 Turns(QC): 5 Walk 150 ft (QC): 5 Walking 10ft/uneven surface-QC: 88 Gait Assistive Device: FWW Wheelchair Training Does the Pt Use a Wheelchair?: No Wheel 50 ft with 2 turns (QC): 9 Wheel 150 ft (QC): 9 Stair Training Stair Training: Handrails/: 2 handrails #of Steps: 4 1 Step (curb) (QC): 4 4 Steps (QC): 4 12 Steps (QC): 88 Stairs: Pattern: Step to Balance Picking up an Object (QC): 88 ADL-Treatment Eating (QC): 6 Oral Hygiene (QC): 5 (SBA at sink) Shower/Bathe Self (QC): 3 (Sponge bath. Help to wash lower legs and back. CGA to stand and SBA to wash donald area) Upper Body Dressing (QC): 5 (SBA to don shirt over head when standing, FWW) Lower Body Dressing (QC): 3 (Help with pants. ) On/Off Footwear (QC): 1 (Unable to don TEDs. 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
[2022-03-15] MEDS: LEVOTHYROXINE 100 MCG (LEVOTHROID) TAB PO SCH (06:53)
[2022-03-15] MEDS: MULTIVIT W/MINERALS TAB (THERAGRAN M) PO SCH (06:53)
[2022-03-15] MEDS: glipiZIDE XL 5 MG (GLUCOTROL XL) TAB PO SCH (06:53)
[2022-03-15 07:54] VITALS: BP 112/60
[2022-03-15] MEDS: polyethylene glycoL POWDER 17 GM (MIRALAX) PACK PO SCH ×2 (09:24→20:39)
[2022-03-15] MEDS: DOCUSATE SODIUM 100 MG (COLACE) CAP PO SCH ×2 (09:25→20:37)
[2022-03-15] MEDS: lisINopril 20 MG (PRINIVIL) TABLET PO SCH (09:25)
[2022-03-15] MEDS: ACEBUTOLOL 200 MG (SECTRAL) CAPSULE PO SCH ×2 (09:25→20:37)
[2022-03-15] MEDS: OXYBUTYNIN (DITROPAN) 5 MG TAB PO SCH (09:26)
[2022-03-15] MEDS: SENNA W/DOCUSATE (SENOKOT S) TABLET PO SCH ×2 (09:26→20:40)
[2022-03-15] MEDS: MELOXICAM 7.5 MG (MOBIC) TABLET PO SCH (09:26)
[2022-03-15] MEDS: amLODIPine 5 MG (NORVASC) TAB PO SCH (09:26)
--- NOTE | 2022-03-15 10:29 | Occupational Ther Daily Note ---
OT Current Status-Daily Note Subjective Pt up in recliner, agreeable to OT tx. Pt c/o sore arms from yesterdays treatment and indicates she doesn't want to complete any exercises today. Pt agreeable to ADLs. Mental Status/Objective Patient Orientation: Person, Place, Situation Acute change in mental status: 0 Inattention: 0 Disorganized thinkin Altered level of consciousness: 0 ADL-Treatment Therapy Code Descriptions/Definitions Functional [place] Measure: 0=Not Assessed/NA 4=Minimal Assistance 1=Total Assistance 5=Supervision or Setup 2=Maximal Assistance 6=Modified [place] 3=Moderate Assistance 7=Complete IndependenceSCALE: Activities may be completed with or without assistive devices. 3-Ssjuqcnrsq-hiwmmex completes the activity by him/herself with no assistance from a helper. 5-Set-up or Clean-up Assistance-helper sets up or cleans up; patient completes activity. [place] assists only prior to or following the activity. 4-Supervision or Touching Assistance-helper provides verbal cues and/or touching/steadying and/or contact guard assistance as patient completes activity. Assistance may be provided throughout the activity or intermittently. 3-Partial/Moderate Assistance-helper does LESS THAN HALF the effort. [place] lifts, holds or supports trunk or limbs, but provides less than half the effort. 2-Substantial/Maximal Assistance-helper does MORE THAN HALF the effort. [place] lifts or holds trunk or limbs and provides more than half the effort. 6-Phxivwcxj-msbxpb does ALL the effort. Patient does none of the effort to complete the activity. Or, the assistance of 2 or more helpers is required for the patient to complete the activity. If activity was not attempted, code reason: 7-Patient Refused. 9-Not Applicable-not attempted and the patient did not perform the activity before the current illness, exacerbation or injury. 10-Not Attempted due to Environmental Limitations-(lack of equipment, weather restraints, etc.). 88-Not Attempted due to Medical Conditions or Safety Concerns. Eating (QC): 6 Oral Hygiene (QC): 6 (Per clinical judgment seated at sink.) Shower/Bathe Self (QC): 4 (SBA. Pt required education on how to dry LEs while maintaining hip precautions.) Upper Body Dressing (QC): 6 Lower Body Dressing (QC): 6 (IND with AE.) Toileting Hygiene (QC): 6 Toilet Transfer (QC): 6 (BSC over toilet.) Other Treatment Pt in recliner, used FWW to transfer into bathroom and onto toilet. Pt completed toileting, then transferred to MO. OT covered pt's dressing prior to shower, and provided pt with LH sponge. Pt able to doff clothes using AE as needed independently, including footwear. Pt completed shower, SBA with education on adaptive techniques to dry lower legs/feet. Pt then able to don insole tack puller hand gown and underwear independently. OT assisted with donning socks due to time constraint, thus no QC score given. Post tx, pt in recliner, call light in reach and all needs met. SBA with transfers/mobility, no LOB during session. Education OT Patient Education: Correct positioning, Energy conservation, Modified ADL techniques, Progress toward Goal/Update tx plan, Purpose of tx/functional activities, Rehab process Teaching Recipient: Patient Teaching Methods: Discussion Response to Teaching: Verbalize Understanding, Reinforcement Needed OT Short Term Goals Short Term Goals Time Frame: Mar 19, 2022 Eatin Oral hygiene: 6 Toileting hygiene: 6 Shower/bathe self: 5 Upper body dressin Lower body dressin Putting on/taking off footwear: 5 OT Tattooer Goals Correction Goals Time Frame: Mar 19, 2022 Acute change in mental status: 0 Inattention: 0 Disorganized thinkin Altered level of consciousness: 0 Eating (QC): 6 Oral Hygiene (QC): 6 Toileting Hygiene (QC): 6 Shower/Bathe Self (QC): 5 Upper Body Dressing (QC): 6 Lower Body Dressing (QC): 6 On/Off Footwear (QC): 6 1=Demonstrate adherence to instructed precautions during ADL tasks. 2=Patient will verbalize/demonstrate understanding of assistive devices/modifications for ADL. 3=Patient will improve strength/tolerance for activity to enable patient to perform ADL's. OT Education/Plan Problem List/Assessment Assessment: Decreased Activ Tolerance, Decreased UE Strength, Impaired Funct Balance, Impaired I ADL's, Impaired Self-Care Skills, Restricted Funct UE ROM Pt would benefit from skilled OT to increase her independence in basic self care to allow her to safely return home and decrease caregiver burden. Discharge Recommendations Plan/Recommendations: Continue POC Treatment Plan/Plan of Care Patient would benefit from OT for education, treatment and training to promote independence in ADL's, mobility, safety and/or upper extremity function for ADL's. Plan of Care: ADL Retraining, Functional Mobility, Group Exercise/Act as Ind (education, exercise, energy conservation, safety, socialization, activity tolerance), UE Funct Exercise/Act Treatment Duration: Mar 19, 2022 Frequency: At least 5 of 7 days/Wk (IRF) Estimated Hrs Per Day: 1.5 hours per day Agreement: Yes Rehab Potential: Good Time/GCodes Start Time: 08:00 Stop Time: 09:00 Total Time Billed (hr/min): 60 Billed Treatment Time 1, ADL 4 PAT HOOKER OT Mar 15, 2022 10:29
--- NOTE | 2022-03-15 10:55 | Physical Therapy Daily Note ---
PT Daily Note-Current Subjective Pt sitting in recliner after finishing w/OT. All needs met, call light in hand. Pain Section J - Health Conditions 1. Rarely or not at all 2. Occasionally 3. Frequently 4. Almost constantly 8. Unable to answer Pain Effect on Sleep: 2 Pain Interference with Therapy: 2 Pain Interference w/Day-to-Day: 2 Mental Status Patient Orientation: Person, Place, Time, Situation Transfers SCALE: Activities may be completed with or without assistive devices. 4-Uufnlpqshy-vbeeqrw completes the activity by him/herself with no assistance from a helper. 5-Set-up or Clean-up Assistance-helper sets up or cleans up; patient completes activity. [place] assists only prior to or following the activity. 4-Supervision or Touching Assistance-helper provides verbal cues and/or touching/steadying and/or contact guard assistance as patient completes activity. Assistance may be provided throughout the activity or intermittently. 3-Partial/Moderate Assistance-helper does LESS THAN HALF the effort. [place] lifts, holds or supports trunk or limbs, but provides less than half the effort. 2-Substantial/Maximal Assistance-helper does MORE THAN HALF the effort. [place] lifts or holds trunk or limbs and provides more than half the effort. 5-Jkvgnvasr-vgunsk does ALL the effort. Patient does none of the effort to complete the activity. Or, the assistance of 2 or more helpers is required for the patient to complete the activity. If activity was not attempted, code reason: 7-Patient Refused. 9-Not Applicable-not attempted and the patient did not perform the activity bef ore the current illness, exacerbation or injury. 10-Not Attempted due to Environmental Limitations-(lack of equipment, weather r estraints, etc.). 88-Not Attempted due to Medical Conditions or Safety Concerns. Roll Left & Right (QC): 6 Sit to Lying (QC): 6 Lying to Sitting/Side of Bed(Q: 6 Sit to Stand (QC): 6 Chair/Gog-vd-Akgva Xfer(QC): 6 Toilet Transfer (QC): 6 Car Transfer (QC): 6 Weight Bearing Right Lower Extremity: Right Full Weight Bearing Left Lower Extremity: Left Weight Bearing/Tolerated Gait Training Does the Patient Walk?: Yes Distance: 150' x2 Walk 10 feet (QC): 6 Walk 50 ft with 2 Turns(QC): 6 Walk 150 ft (QC): 6 Walking 10ft/uneven surface-QC: 6 Gait Assistive Device: FWW Wheelchair Training Does the Pt Use a Wheelchair?: No Stair Training Stair Training: Handrails/: 2 handrails #of Steps: 6 1 Step (curb) (QC): 5 4 Steps (QC): 5 Stairs: Pattern: Step to Balance Picking up an Object (QC): 6 Treatments Pt completes QC as pt advises she does want to work on UE just focus on LE. [facility] explained again how [facility] works and pt again states she only wants to work LE. Pt & [facility] discuss OP PT after d/c so this could be the focus. Pt returns to room at end of tx with all needs met, call light in hand. Assessment Current Status: Good Progress Pt wants to focus on LE only with no work on strengthening or improvements on UE. Pt is able to complete QC scoring items well. Higher level balance activities can be worked on although pt states this has always been an issue. 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 Goals PT [facility] Goals Time Frame: Apr 02, 2022 Roll Left & Right (QC): 6 Sit to Lying (QC): 6 Lying-Sitting on Side/Bed(QC): 6 Sit to Stand (QC): 6 Chair/Skj-yl-Tqjml Xfer(QC): 6 Toilet Transfer (QC): 6 Car Transfer (QC): 6 Does the Patient Walk: Yes Walk 10 feet (QC): 6 Walk 50ft with 2 Turns (QC): 6 Walk 150 ft (QC): 6 Walking 10ft on Uneven Surface: 6 1 Step (curb) (QC): 6 4 Steps (QC): 6 12 Steps (QC): 6 Picking up an Object (QC): 6 Does the Pt use WC or Scooter?: No Wheel 50 feet with 2 turns (QC: 88 Wheel 150 feet: 88 PT Plan Treatment/Plan Treatment Plan: Continue Plan of Care Treatment Plan: Bed Mobility, Education, Functional Activity Darlene, Functional Strength, Group Therapy, Gait, Safety, Therapeutic Exercise, Transfers Treatment Duration: Apr 02, 2022 Frequency: At least 5 of 7 days/Wk (IRF) Estimated Hrs Per Day: 1.5 hours per day Patient and/or Family Agrees t: Yes Safety Risks/Education Patient Education: Steps Teaching Recipient: Patient Teaching Methods: Discussion Response to Teaching: Verbalize Understanding Time/GCodes Time In: 900 Time Out: 1000 Total Billed Treatment Time: 60 Total Billed Treatment 1, GT (20m) & FA x3 (40m) JESSICA MAIER [facility] Mar 15, 2022 10:55
--- NOTE | 2022-03-15 13:55 | Occupational Ther Daily Note ---
OT Current Status-Daily Note Subjective Pt alert in recliner finishing lunch. Pt agrees to therapy. No c/o pain at this time. Mental Status/Objective Patient Orientation: Person, Place, Time, Situation Acute change in mental status: 0 Inattention: 0 Disorganized thinkin Altered level of consciousness: 0 ADL-Treatment Pt doffed socks with AE. Pt educated in using sock aid. Pt states she has one at home but hasn't used it in a long time. After skilled instruction and demonstration, pt able to don socks using sock aid. Pt ambulated to EOB using FWW, SBA. Pt EOB to supine independently. Pt left lying in bed call light/phone in reach. All needs met in room. Therapy Code Descriptions/Definitions Functional [place] Measure: 0=Not Assessed/NA 4=Minimal Assistance 1=Total Assistance 5=Supervision or Setup 2=Maximal Assistance 6=Modified [place] 3=Moderate Assistance 7=Complete IndependenceSCALE: Activities may be completed with or without assistive devices. 8-Lshlmopfzl-tqerook completes the activity by him/herself with no assistance from a helper. 5-Set-up or Clean-up Assistance-helper sets up or cleans up; patient completes activity. [place] assists only prior to or following the activity. 4-Supervision or Touching Assistance-helper provides verbal cues and/or touching/steadying and/or contact guard assistance as patient completes activity. Assistance may be provided throughout the activity or intermittently. 3-Partial/Moderate Assistance-helper does LESS THAN HALF the effort. [place] lifts, holds or supports trunk or limbs, but provides less than half the effort. 2-Substantial/Maximal Assistance-helper does MORE THAN HALF the effort. [place] lifts or holds trunk or limbs and provides more than half the effort. 0-Edctvuaan-ixwipx does ALL the effort. Patient does none of the effort to complete the activity. Or, the assistance of 2 or more helpers is required for the patient to complete the activity. If activity was not attempted, code reason: 7-Patient Refused. 9-Not Applicable-not attempted and the patient did not perform the activity before the current illness, exacerbation or injury. 10-Not Attempted due to Environmental Limitations-(lack of equipment, weather restraints, etc.). 88-Not Attempted due to Medical Conditions or Safety Concerns. On/Off Footwear: 5 Education OT Patient Education: Modified ADL techniques, Use of adapted equipment (sock aid) Teaching Recipient: Patient Teaching Methods: Demonstration, Discussion Response to Teaching: Verbalize Understanding, Return Demonstration OT Short Term Goals Short Term Goals Time Frame: Mar 19, 2022 Eatin Oral hygiene: 6 Toileting hygiene: 6 Shower/bathe self: 5 Upper body dressin Lower body dressin Putting on/taking off footwear: 5 OT Public Health Analyst Goals [facility] Goals Time Frame: Mar 19, 2022 Acute change in mental status: 0 Inattention: 0 Disorganized thinkin Altered level of consciousness: 0 Eating (QC): 6 Oral Hygiene (QC): 6 Toileting Hygiene (QC): 6 Shower/Bathe Self (QC): 5 Upper Body Dressing (QC): 6 Lower Body Dressing (QC): 6 On/Off Footwear (QC): 6 1=Demonstrate adherence to instructed precautions during ADL tasks. 2=Patient will verbalize/demonstrate understanding of assistive devices/modifications for ADL. 3=Patient will improve strength/tolerance for activity to enable patient to perform ADL's. OT Education/Plan Problem List/Assessment Assessment: Decreased Activ Tolerance, Decreased Safety Aware, Impaired Coordination, Impaired Funct Balance, Impaired Self-Care Skills Pt would benefit from skilled OT to increase her independence in basic self care to allow her to safely return home and decrease caregiver burden. Discharge Recommendations Plan/Recommendations: Continue POC Treatment Plan/Plan of Care Patient would benefit from OT for education, treatment and training to promote independence in ADL's, mobility, safety and/or upper extremity function for ADL's. Plan of Care: ADL Retraining, Functional Mobility, Group Exercise/Act as Ind (education, exercise, energy conservation, safety, socialization, activity tolerance), UE Funct Exercise/Act Treatment Duration: Mar 19, 2022 Frequency: At least 5 of 7 days/Wk (IRF) Estimated Hrs Per Day: 1.5 hours per day Agreement: Yes Rehab Potential: Good Time/GCodes Start Time: 13:30 Stop Time: 14:00 Total Time Billed (hr/min): 30 Billed Treatment Time 1 visit ADL 2 (30 min) SYBIL GRIFFITH Mar 15, 2022 13:55
--- NOTE | 2022-03-15 14:44 | Progress Note ---
ASAD CHEN 03/15/22 1444: Progress Note CC: Left hip replacement with debility HPI: This is an 81yoWF clinic patient of Dr. Darling who presented from [place] s/p left hip replacement with slow recovery in need of regaining independence since she lives alone. She had a previous right hip replacement 04/2021 and had a successful stay in ARU. All home meds were restarted. PT OT will focus on regaining strength with use of AD and prevent falls. Patient is lying in bed when I visited and in no acute distress. Reports her shoulder pain is improved since OMM yesterday. Endorses neck discomfort today. Bowels are moving and bladder is functioning normally. Pain is controlled. Today will provide OMM to patient for assistance with recovery ROS: General: Fatigue, Malaise Musculoskeletal: leg pain, shoulder pain Exam: General Appearance: No Apparent Distress, WD/WN, Chronically ill HEENT: PERRL/EOMI Respiratory: Chest Non Tender, Lungs Clear, Normal Breath Sounds, No Accessory Muscle Use, No Respiratory Distress Cardiovascular: Regular Rate, Rhythm, No Edema, No Gallop, No JVD, No Murmur, Normal Peripheral Pulses Extremity: Normal Capillary Refill, Normal Inspection, Normal Range of Motion (except left leg), Non Tender, No Calf Tenderness, No Pedal Edema Neurologic/Psychiatric: Alert, Oriented x3, Normal Mood/Affect, Motor Weakness (left leg) Skin: Normal Color, Warm/Dry Lymphatic: No Adenopathy Assessment: 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 HTN HLP Hypothyroidism Obesity Hyponatremia holding HCTZ home med Hypokalemia Post op anemia from acute blood loss Left rectus femoris muscle hypertonic Left IT band taut Plan: -left leg lymphatic drainage and myofascial release -left rectus femoris soft tissue technique -Cervical soft tissue and myofascial release IZABELLA GALLEGOS DO 03/16/22 0553: Supervisory-Addendum Brief Verification & Attestation Participated in pt care: history, MDM, physical Personally performed: exam, history, MDM, supervision of care Care discussed with: Medical Student Procedures: n/a Results interpretation: Verified all documentation Verification and Attestation of Medical Student E/M Service A medical student performed and documented this service in my presence. I reviewed and verified all information documented by the medical student and made modifications to such information, when appropriate. I personally performed the physical exam and medical decision making. Izabella Gallegos, Mar 16, 2022,05:53 ASAD CHEN Mar 15, 2022 14:44 IZABELLA GALLEGOS DO Mar 16, 2022 05:53
--- NOTE | 2022-03-15 14:53 | Physical Therapy Daily Note ---
PT Daily Note-Current Subjective Pt sitting up in bed on the phone upon arrival. Pt is reluctant for "more therapy". Pt agrees to EX. Pain Location: No Pain Reported Section J - Health Conditions 1. Rarely or not at all 2. Occasionally 3. Frequently 4. Almost constantly 8. Unable to answer Pain Effect on Sleep: 2 Pain Interference with Therapy: 2 Pain Interference w/Day-to-Day: 2 Mental Status Patient Orientation: Person, Place, Time, Situation Transfers SCALE: Activities may be completed with or without assistive devices. 4-Bfndxiakzq-tccipsa completes the activity by him/herself with no assistance from a helper. 5-Set-up or Clean-up Assistance-helper sets up or cleans up; patient completes activity. [place] assists only prior to or following the activity. 4-Supervision or Touching Assistance-helper provides verbal cues and/or touching/steadying and/or contact guard assistance as patient completes activity. Assistance may be provided throughout the activity or intermittently. 3-Partial/Moderate Assistance-helper does LESS THAN HALF the effort. [place] lifts, holds or supports trunk or limbs, but provides less than half the effort. 2-Substantial/Maximal Assistance-helper does MORE THAN HALF the effort. [place] lifts or holds trunk or limbs and provides more than half the effort. 6-Sylrifkju-poctjd does ALL the effort. Patient does none of the effort to complete the activity. Or, the assistance of 2 or more helpers is required for the patient to complete the activity. If activity was not attempted, code reason: 7-Patient Refused. 9-Not Applicable-not attempted and the patient did not perform the activity before the current illness, exacerbation or injury. 10-Not Attempted due to Environmental Limitations-(lack of equipment, weather restraints, etc.). 88-Not Attempted due to Medical Conditions or Safety Concerns. Weight Bearing Right Lower Extremity: Right Full Weight Bearing Left Lower Extremity: Left Weight Bearing/Tolerated Exercises Supine Ex: Ankle pumps, Quad Set, Glut sets, Heel Slides, Short Arc Quads, Straight leg raise, Hip abd/add Supine Reps: 15 Treatments Pt completes Ex, taking RB as needed. Pt resting in bed at end of tx. All needs met, call light in hand. Assessment Current Status: Good Progress Pt reports wanting to focus on LE in OP setting. PT Short Term Goals Short Term Goals Time Frame: Mar 25, 2022 Roll Left & Right: 6 Sit to lyin Lying to sitting on side of be: 6 Sit to stand: 4 Chair/emb-hy-jdnkd transfer: 4 Toilet transfer: 4 Car transfer: 4 Walk 10 feet: 6 Walk 50 feet with two turns: 4 Walk 150 feet: 4 Walking 10ft on uneven surface: 4 1 step (curb): 4 4 steps: 4 12 steps: 4 PT Medical Support Specialist Goals Medical Support Specialist Goals PT Medical Support Specialist Goals Time Frame: Apr 02, 2022 Roll Left & Right (QC): 6 Sit to Lying (QC): 6 Lying-Sitting on Side/Bed(QC): 6 Sit to Stand (QC): 6 Chair/Pvc-ac-Vcjqk Xfer(QC): 6 Toilet Transfer (QC): 6 Car Transfer (QC): 6 Does the Patient Walk: Yes Walk 10 feet (QC): 6 Walk 50ft with 2 Turns (QC): 6 Walk 150 ft (QC): 6 Walking 10ft on Uneven Surface: 6 1 Step (curb) (QC): 6 4 Steps (QC): 6 12 Steps (QC): 6 Picking up an Object (QC): 6 Does the Pt use WC or Scooter?: No Wheel 50 feet with 2 turns (QC: 88 Wheel 150 feet: 88 PT Plan Treatment/Plan Treatment Plan: Continue Plan of Care Treatment Plan: Bed Mobility, Education, Functional Activity Darlene, Functional Strength, Group Therapy, Gait, Safety, Therapeutic Exercise, Transfers Treatment Duration: Apr 02, 2022 Frequency: At least 5 of 7 days/Wk (IRF) Estimated Hrs Per Day: 1.5 hours per day Patient and/or Family Agrees t: Yes Time/GCodes Time In: 1345 Time Out: 1415 Total Billed Treatment Time: 30 Total Billed Treatment 1, EX x2 (30m) JESSICA MAIER TANK CARPENTER Mar 15, 2022 14:53
[2022-03-15] MEDS: metFORMIN 500 MG (GLUCOPHAGE) TAB PO SCH (17:25)
[2022-03-15 19:29] VITALS: BP 134/60
[2022-03-15] MEDS: GABAPENTIN 100 MG (NEURONTIN) CAP PO SCH (20:37)
--- NOTE | 2022-03-16 05:59 | PM&R Progress Note ---
Subjective HPI/CC On Admission Date Seen by Provider: Mar 16, 2022 Time Seen by Provider: 08:30 Subjective/Events-last exam 03/16/2022: Pt is doing a lot better Dressings will be changed today Sugar was 95 doing pretty well 03/15/2022: Pt is doing about the same Edema is noted of the thigh No BM of the third day, will initiate a suppository 03/14/2022: Pt is doing well Sodium level 132, potassium 4.2 No other concerns Pain is controlled 03/13/2022: No major issues No pain No falls Eating well Checking labs in am 03/12/2022: No major issues Pain controlled Hyponatremia will require holding HCTZ Potassium low at 3.4 so ordered 10meq BID for 2 days then will go back to Q48 hours on Mon and she did not really want to do that unless Dr Darling approved but 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 Hgb stable but low Review of Systems General: Fatigue, Malaise Objective Exam Vital Signs Vital Signs Date Time Temp Pulse Resp B/P (MAP) Pulse Ox O2 Delivery O2 Flow Rate FiO2 03/16/22 09:00 Room Air 03/16/22 07:38 37.2 68 14 142/63 (89) 96 Capillary Refill : General Appearance: No Apparent Distress, WD/WN, Chronically ill HEENT: PERRL/EOMI, Normal ENT Inspection, Pharynx Normal Neck: Full Range of Motion, Normal Inspection, Non Tender, Supple, Carotid Bruit Respiratory: Chest Non Tender, Lungs Clear, Normal Breath Sounds, No Accessory Muscle Use, No Respiratory Distress Cardiovascular: Regular Rate, Rhythm, No Edema, No Gallop, No JVD, No Murmur, Normal Peripheral Pulses Gastrointestinal: Normal Bowel Sounds, No Organomegaly, No Pulsatile Mass, Non Tender, Soft Back: Normal Inspection, No CVA Tenderness, No Vertebral Tenderness Extremity: Normal Capillary Refill, Normal Inspection, Normal Range of Motion (except left leg), Non Tender, No Calf Tenderness, No Pedal Edema Neurologic/Psychiatric: Alert, Oriented x3, Normal Mood/Affect, 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 FIM Transfers Therapy Code Descriptions/Definitions Functional [place] Measure: 0=Not Assessed/NA 4=Minimal Assistance 1=Total Assistance 5=Supervision or Setup 2=Maximal Assistance 6=Modified [place] 3=Moderate Assistance 7=Complete IndependenceSCALE: Activities may be completed with or without assistive devices. 3-Pjtccpqewa-bwcgxwp completes the activity by him/herself with no assistance from a helper. 5-Set-up or Clean-up Assistance-helper sets up or cleans up; patient completes activity. [place] assists only prior to or following the activity. 4-Supervision or Touching Assistance-helper provides verbal cues and/or touching/steadying and/or contact guard assistance as patient completes activity. Assistance may be provided throughout the activity or intermittently. 3-Partial/Moderate Assistance-helper does LESS THAN HALF the effort. [place] lifts, holds or supports trunk or limbs, but provides less than half the effort. 2-Substantial/Maximal Assistance-helper does MORE THAN HALF the effort. [place] lifts or holds trunk or limbs and provides more than half the effort. 9-Gkftmeeio-xnifop does ALL the effort. Patient does none of the effort to complete the activity. Or, the assistance of 2 or more helpers is required for the patient to complete the activity. If activity was not attempted, code reason: 7-Patient Refused. 9-Not Applicable-not attempted and the patient did not perform the activity before the current illness, exacerbation or injury. 10-Not Attempted due to Environmental Limitations-(lack of equipment, weather restraints, etc.). 88-Not Attempted due to Medical Conditions or Safety Concerns. Roll Left to Right (QC): 6 Sit to Lying (QC): 6 Sit to Stand (QC): 6 Chair/Duy-ba-Kasad Xfer(QC): 6 Car Transfer (QC): 6 Gait Training Does the Patient Walk?: Yes Distance: 150' x2 Walk 10 feet (QC): 6 Walk 50 ft with 2 Turns(QC): 6 Walk 150 ft (QC): 6 Walking 10ft/uneven surface-QC: 6 Gait Assistive Device: FWW Wheelchair Training Does the Pt Use a Wheelchair?: No Wheel 50 ft with 2 turns (QC): 9 Wheel 150 ft (QC): 9 Type of Wheelchair: N/A Stair Training Stair Training: Handrails/: 2 handrails #of Steps: 6 1 Step (curb) (QC): 5 4 Steps (QC): 5 12 Steps (QC): 88 Stairs: Pattern: Step to Balance Picking up an Object (QC): 6 ADL-Treatment Eating (QC): 6 Oral Hygiene (QC): 6 (Per clinical judgment seated at sink.) Shower/Bathe Self (QC): 4 (SBA. 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
[2022-03-16] MEDS: LEVOTHYROXINE 100 MCG (LEVOTHROID) TAB PO SCH (06:30)
[2022-03-16] MEDS: glipiZIDE XL 5 MG (GLUCOTROL XL) TAB PO SCH (06:30)
[2022-03-16] MEDS: MULTIVIT W/MINERALS TAB (THERAGRAN M) PO SCH (06:30)
[2022-03-16 07:38] VITALS: BP 142/63
[2022-03-16] MEDS ORDERED: KCL 10 MEQ TAB (MICRO K) PO SCH (08:00)
--- NOTE | 2022-03-16 08:21 | Occupational Ther Daily Note ---
OT Current Status-Daily Note Subjective Pt agreeable to OT Tx, declines ADLs at this time. Once in gym, pt refused UE exercises, but reluctantly agreeable to UE activities. Mental Status/Objective Patient Orientation: Person, Place, Situation Acute change in mental status: 0 Inattention: 0 Disorganized thinkin Altered level of consciousness: 0 ADL-Treatment Therapy Code Descriptions/Definitions Functional [place] Measure: 0=Not Assessed/NA 4=Minimal Assistance 1=Total Assistance 5=Supervision or Setup 2=Maximal Assistance 6=Modified [place] 3=Moderate Assistance 7=Complete IndependenceSCALE: Activities may be completed with or without assistive devices. 3-Ftqtzpwitg-rkxkahh completes the activity by him/herself with no assistance from a helper. 5-Set-up or Clean-up Assistance-helper sets up or cleans up; patient completes activity. [place] assists only prior to or following the activity. 4-Supervision or Touching Assistance-helper provides verbal cues and/or touching/steadying and/or contact guard assistance as patient completes activity. Assistance may be provided throughout the activity or intermittently. 3-Partial/Moderate Assistance-helper does LESS THAN HALF the effort. [place] lifts, holds or supports trunk or limbs, but provides less than half the effort. 2-Substantial/Maximal Assistance-helper does MORE THAN HALF the effort. [place] lifts or holds trunk or limbs and provides more than half the effort. 3-Vzwdxktfs-nmtxmi does ALL the effort. Patient does none of the effort to complete the activity. Or, the assistance of 2 or more helpers is required for the patient to complete the activity. If activity was not attempted, code reason: 7-Patient Refused. 9-Not Applicable-not attempted and the patient did not perform the activity before the current illness, exacerbation or injury. 10-Not Attempted due to Environmental Limitations-(lack of equipment, weather restraints, etc.). 88-Not Attempted due to Medical Conditions or Safety Concerns. Oral Hygiene (QC): 6 (IND standing at sink.) Other Treatment [id number]: Pt in bed, transferred supine to sit EOB independently. Pt used FWW to stand at sink to complete oral care independently. She then transferred into therapy gym, seated at table. Pt refused UE exercises due to rotator cuff issues, but reluctantly agreed to table top UE activities. OT tx focused on i ncreasing BUE strength and activity tolerance. Pt placed x100 pegs into foam pegboard, 1lb wrist weights BUEs for first 60 pegs, no weight for last 40. Pt the removed all pegs from pegboard, no weights. During task, pt states she doesn't want to complete UE activities and would prefer to focus on LE exercises. OT educated pt on purpose and benefit of OT with focus on ADLs and UE strengthening/functional use of UEs. Pt verbalized understanding but argued that her orthopedic surgeon told her to rest her arms. OT informed pt the activities they were completing shouldn't irritate her rotator cuffs, but pt continued to talk over therapist and didn't appear to listen. Pt also offered ADLs or other tasks, which pt refused. Pt used FWW to return to her room, transferring to recliner. Post tx, pt in recliner, call light in reach and all needs met. [id number]: Pt in recliner, used FWW to perform functional mobility to therapy gym, independently. Pt declined UE exercises or activities that would irritate her rotator cuffs. In order to increase BUE fine motor strength and coordination, pt removed beads from heavy resistance theraputty. Pt returned to room using FWW, independently, then transferred to recliner. Post tx, tp in recliner,c all light in reach and all needs met. Education OT Patient Education: Correct positioning, Energy conservation, Modified ADL techniques, Progress toward Goal/Update tx plan, Purpose of tx/functional activities, Rehab process Teaching Recipient: Patient Teaching Methods: Discussion Response to Teaching: Verbalize Understanding OT Short Term Goals Short Term Goals Time Frame: Mar 19, 2022 Eatin Oral hygiene: 6 Toileting hygiene: 6 Shower/bathe self: 5 Upper body dressin Lower body dressin Putting on/taking off footwear: 5 OT Alf Goals Element Winding Machine Tender Goals Time Frame: Mar 19, 2022 Acute change in mental status: 0 Inattention: 0 Disorganized thinkin Altered level of consciousness: 0 Eating (QC): 6 Oral Hygiene (QC): 6 Toileting Hygiene (QC): 6 Shower/Bathe Self (QC): 5 Upper Body Dressing (QC): 6 Lower Body Dressing (QC): 6 On/Off Footwear (QC): 6 1=Demonstrate adherence to instructed precautions during ADL tasks. 2=Patient will verbalize/demonstrate understanding of assistive devices/modifications for ADL. 3=Patient will improve strength/tolerance for activity to enable patient to perform ADL's. OT Education/Plan Problem List/Assessment Assessment: Decreased Activ Tolerance, Decreased UE Strength, Impaired I ADL's Pt would benefit from skilled OT to increase her independence in basic self care to allow her to safely return home and decrease caregiver burden. Discharge Recommendations Plan/Recommendations: Continue POC Treatment Plan/Plan of Care Patient would benefit from OT for education, treatment and training to promote independence in ADL's, mobility, safety and/or upper extremity function for ADL's. Plan of Care: ADL Retraining, Functional Mobility, Group Exercise/Act as Ind (education, exercise, energy conservation, safety, socialization, activity tolerance), UE Funct Exercise/Act Treatment Duration: Mar 19, 2022 Frequency: At least 5 of 7 days/Wk (IRF) Estimated Hrs Per Day: 1.5 hours per day Agreement: Yes Rehab Potential: Good Time/GCodes Start Time: 07:45 ([id number]) Stop Time: 08:45 ([id number]) Total Time Billed (hr/min): 90 Billed Treatment Time [id number]: 1, ADL (15'), FA 3 (45') [id number]: 1, FA 2 (30') PAT HOOKER OT Mar 16, 2022 08:21
[2022-03-16] MEDS: polyethylene glycoL POWDER 17 GM (MIRALAX) PACK PO SCH ×2 (09:00→20:15)
[2022-03-16] MEDS: lisINopril 20 MG (PRINIVIL) TABLET PO SCH (10:07)
[2022-03-16] MEDS: DOCUSATE SODIUM 100 MG (COLACE) CAP PO SCH ×2 (10:07→20:12)
[2022-03-16] MEDS: amLODIPine 5 MG (NORVASC) TAB PO SCH (10:07)
[2022-03-16] MEDS: SENNA W/DOCUSATE (SENOKOT S) TABLET PO SCH ×2 (10:07→20:11)
[2022-03-16] MEDS: MELOXICAM 7.5 MG (MOBIC) TABLET PO SCH (10:07)
--- NOTE | 2022-03-16 10:07 | Physical Therapy Daily Note ---
PT Daily Note-Current Subjective Pt sitting in recliner upon arrival. Pt agrees to PT but again vocalizes she doesn't want to complete in UE work. Pain Section J - Health Conditions 1. Rarely or not at all 2. Occasionally 3. Frequently 4. Almost constantly 8. Unable to answer Pain Effect on Sleep: 2 Pain Interference with Therapy: 2 Pain Interference w/Day-to-Day: 2 Mental Status Patient Orientation: Person, Place, Time, Situation Transfers SCALE: Activities may be completed with or without assistive devices. 3-Qjxcbchesv-alkqyii completes the activity by him/herself with no assistance from a helper. 5-Set-up or Clean-up Assistance-helper sets up or cleans up; patient completes activity. [place] assists only prior to or following the activity. 4-Supervision or Touching Assistance-helper provides verbal cues and/or latrell arben/steadying and/or contact guard assistance as patient completes activity. Assistance may be provided throughout the activity or intermittently. 3-Partial/Moderate Assistance-helper does LESS THAN HALF the effort. [place] lifts, holds or supports trunk or limbs, but provides less than half the effort. 2-Substantial/Maximal Assistance-helper does MORE THAN HALF the effort. [place] lifts or holds trunk or limbs and provides more than half the effort. 5-Gubijiiiw-fmotky does ALL the effort. Patient does none of the effort to complete the activity. Or, the assistance of 2 or more helpers is required for the patient to complete the activity. If activity was not attempted, code reason: 7-Patient Refused. 9-Not Applicable-not attempted and the patient did not perform the activity before the current illness, exacerbation or injury. 10-Not Attempted due to Environmental Limitations-(lack of equipment, weather restraints, etc.). 88-Not Attempted due to Medical Conditions or Safety Concerns. Sit to Stand (QC): 6 Toilet Transfer (QC): 6 Weight Bearing Right Lower Extremity: Right Full Weight Bearing Left Lower Extremity: Left Weight Bearing/Tolerated Gait Training Does the Patient Walk?: Yes Distance: 175' x2 Walk 10 feet (QC): 6 Walk 50 ft with 2 Turns(QC): 6 Walk 150 ft (QC): 5 Gait Assistive Device: FWW Wheelchair Training Does the Pt Use a Wheelchair?: No Stair Training Stair Training: Handrails/: 2 handrails #of Steps: 8 1 Step (curb) (QC): 6 4 Steps (QC): 5 Stairs: Pattern: Step to Exercises Seated Therapy Exercises: Ankle pumps, Long arc quads, Hip flexion, Glut set Seated Reps: 15 Treatments TF to standing and amb. in hallway. Pt completes Stairs followed by RB. Pt completes Seated EX and amb. in hallway, returning to room. Pt uses BR and rest in recliner. All needs met, call light in hand. Assessment Current Status: Good Progress Pt wants to focus on LE as UE "are strong and don't worked". Pt is gaining independence & mobility with tasks. PT Short Term Goals Short Term Goals Time Frame: Mar 25, 2022 Roll Left & Right: 6 Sit to lyin Lying to sitting on side of be: 6 Sit to stand: 4 Chair/hln-qa-upsvn transfer: 4 Toilet transfer: 4 Car transfer: 4 Walk 10 feet: 6 Walk 50 feet with two turns: 4 Walk 150 feet: 4 Walking 10ft on uneven surface: 4 1 step (curb): 4 4 steps: 4 12 steps: 4 PT Mcc Goals Rf Manager Goals PT Rf Manager Goals Time Frame: Apr 02, 2022 Roll Left & Right (QC): 6 Sit to Lying (QC): 6 Lying-Sitting on Side/Bed(QC): 6 Sit to Stand (QC): 6 Chair/Xbd-bh-Inlba Xfer(QC): 6 Toilet Transfer (QC): 6 Car Transfer (QC): 6 Does the Patient Walk: Yes Walk 10 feet (QC): 6 Walk 50ft with 2 Turns (QC): 6 Walk 150 ft (QC): 6 Walking 10ft on Uneven Surface: 6 1 Step (curb) (QC): 6 4 Steps (QC): 6 12 Steps (QC): 6 Picking up an Object (QC): 6 Does the Pt use WC or Scooter?: No Wheel 50 feet with 2 turns (QC: 88 Wheel 150 feet: 88 PT Plan Problem List Problem List: Activity Tolerance Treatment/Plan Treatment Plan: Continue Plan of Care Treatment Plan: Bed Mobility, Education, Functional Activity Darlene, Functional Strength, Group Therapy, Gait, Safety, Therapeutic Exercise, Transfers Treatment Duration: Apr 02, 2022 Frequency: At least 5 of 7 days/Wk (IRF) Estimated Hrs Per Day: 1.5 hours per day Patient and/or Family Agrees t: Yes Safety Risks/Education Patient Education: Gait Training, Steps, Correct Positioning, Safety Issues Teaching Recipient: Patient Teaching Methods: Discussion Response to Teaching: Verbalize Understanding Time/GCodes Time In: 900 Time Out: 1000 Total Billed Treatment Time: 60 Total Billed Treatment 1, FA x2 (30m), GT (15m) & EX (15m) JESSICA MAIER ELECTRIC TRUCK CRANE OPERATOR Mar 16, 2022 10:07
[2022-03-16] MEDS: OXYBUTYNIN (DITROPAN) 5 MG TAB PO SCH (10:08)
[2022-03-16] MEDS: ACEBUTOLOL 200 MG (SECTRAL) CAPSULE PO SCH ×2 (10:09→20:12)
--- NOTE | 2022-03-16 15:00 | Physical Therapy Daily Note ---
PT Daily Note-Current Subjective Pt sitting in recliner upon arrival. Pt declines need for BR. Pt asks to go back to bed to rest after EX. Pain Location: No Pain Reported Section J - Health Conditions 1. Rarely or not at all 2. Occasionally 3. Frequently 4. Almost constantly 8. Unable to answer Pain Effect on Sleep: 2 Pain Interference with Therapy: 2 Pain Interference w/Day-to-Day: 2 Mental Status Patient Orientation: Person, Place, Time, Situation Transfers SCALE: Activities may be completed with or without assistive devices. 4-Xjezzkzrcm-wkeaogy completes the activity by him/herself with no assistance from a helper. 5-Set-up or Clean-up Assistance-helper sets up or cleans up; patient completes activity. [place] assists only prior to or following the activity. 4-Supervision or Touching Assistance-helper provides verbal cues and/or touching/steadying and/or contact guard assistance as patient completes activity. Assistance may be provided throughout the activity or intermittently. 3-Partial/Moderate Assistance-helper does LESS THAN HALF the effort. [place] lifts, holds or supports trunk or limbs, but provides less than half the effort. 2-Substantial/Maximal Assistance-helper does MORE THAN HALF the effort. [place] lifts or holds trunk or limbs and provides more than half the effort. 2-Ztmziyywk-sjkqvl does ALL the effort. Patient does none of the effort to complete the activity. Or, the assistance of 2 or more helpers is required for the patient to complete the activity. If activity was not attempted, code reason: 7-Patient Refused. 9-Not Applicable-not attempted and the patient did not perform the activity before the current illness, exacerbation or injury. 10-Not Attempted due to Environmental Limitations-(lack of equipment, weather restraints, etc.). 88-Not Attempted due to Medical Conditions or Safety Concerns. Sit to Lying (QC): 6 Sit to Stand (QC): 6 Weight Bearing Right Lower Extremity: Right Full Weight Bearing Left Lower Extremity: Left Weight Bearing/Tolerated Exercises Supine Ex: Ankle pumps, Quad Set, Glut sets, Heel Slides, Straight leg raise, Hip abd/add Supine Reps: 10 Treatments Pt TF to standing then to EOB and Supine in bed. Pt completes Supine EX with RB as needed. Pt has all needs met, call light in hand. Assessment Current Status: Good Progress Pt alfredito. tx well. PT Short Term Goals Short Term Goals Time Frame: Mar 25, 2022 Roll Left & Right: 6 Sit to lyin Lying to sitting on side of be: 6 Sit to stand: 4 Chair/wbj-vn-hokot transfer: 4 Toilet transfer: 4 Car transfer: 4 Walk 10 feet: 6 Walk 50 feet with two turns: 4 Walk 150 feet: 4 Walking 10ft on uneven surface: 4 1 step (curb): 4 4 steps: 4 12 steps: 4 PT Correction Goals Minute Clerk For Basic Traffic Goals PT Correction Goals Time Frame: Apr 02, 2022 Roll Left & Right (QC): 6 Sit to Lying (QC): 6 Lying-Sitting on Side/Bed(QC): 6 Sit to Stand (QC): 6 Chair/Wlh-az-Lrqar Xfer(QC): 6 Toilet Transfer (QC): 6 Car Transfer (QC): 6 Does the Patient Walk: Yes Walk 10 feet (QC): 6 Walk 50ft with 2 Turns (QC): 6 Walk 150 ft (QC): 6 Walking 10ft on Uneven Surface: 6 1 Step (curb) (QC): 6 4 Steps (QC): 6 12 Steps (QC): 6 Picking up an Object (QC): 6 Does the Pt use WC or Scooter?: No Wheel 50 feet with 2 turns (QC: 88 Wheel 150 feet: 88 PT Plan Treatment/Plan Treatment Plan: Continue Plan of Care Treatment Plan: Bed Mobility, Education, Functional Activity Darlene, Functional Strength, Group Therapy, Gait, Safety, Therapeutic Exercise, Transfers Treatment Duration: Apr 02, 2022 Frequency: At least 5 of 7 days/Wk (IRF) Estimated Hrs Per Day: 1.5 hours per day Patient and/or Family Agrees t: Yes Safety Risks/Education Patient Education: Correct Positioning Teaching Recipient: Patient Teaching Methods: Discussion Response to Teaching: Verbalize Understanding Time/GCodes Time In: 1400 Time Out: 1430 Total Billed Treatment Time: 30 Total Billed Treatment 1, EX x2 (30m) JESSICA MAIER PTA Mar 16, 2022 15:00
--- NOTE | 2022-03-16 15:17 | Progress Note ---
ASAD CHEN 03/16/22 1517: Progress Note CC: Left hip replacement with debility HPI: This is an 81yoWF clinic patient of Dr. Darling who presented from [place] s/p left hip replacement with slow recovery in need of regaining independence since she lives alone. She had a previous right hip replacement 04/2021 and had a successful stay in [facility]U. All home meds were restarted. PT OT will focus on regaining strength with use of AD and prevent falls. Patient is lying in bed comfortably when I visited and in no acute distress. Bowels are moving and bladder is functioning normally. Endorses shoulder discomfort today. Pain is controlled. Today will provide OMM to patient for assistance with recovery ROS: General: Fatigue, Malaise Musculoskeletal: leg pain, shoulder pain Exam: General Appearance: No Apparent Distress, WD/WN, Chronically ill HEENT: PERRL/EOMI Respiratory: Chest Non Tender, Lungs Clear, Normal Breath Sounds, No Accessory Muscle Use, No Respiratory Distress Cardiovascular: Regular Rate, Rhythm, No Edema, No Gallop, No JVD, No Murmur, Normal Peripheral Pulses Extremity: Normal Capillary Refill, Normal Inspection, Normal Range of Motion (except left leg), Non Tender, No Calf Tenderness, No Pedal Edema Neurologic/Psychiatric: Alert, Oriented x3, Normal Mood/Affect, Motor Weakness (left leg) Skin: Normal Color, Warm/Dry Lymphatic: No Adenopathy Assessment: 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 HTN HLP Hypothyroidism Obesity Hyponatremia holding HCTZ home med Hypokalemia Post op anemia from acute blood loss Left rectus femoris muscle hypertonic Left IT band taut Plan: -left leg lymphatic drainage and myofascial release -left rectus femoris soft tissue technique -b/l deltoid muscle soft tissue technique and indirect myofascial release IZABELLA GALLEGOS DO 03/16/222113: Supervisory-Addendum Brief Verification & Attestation Participated in pt care: history, MDM, physical Personally performed: exam, history, MDM, supervision of care Care discussed with: Medical Student Procedures: n/a Results interpretation: Verified all documentation Verification and Attestation of Medical Student E/M Service A medical student performed and documented this service in my presence. I reviewed and verified all information documented by the medical student and made modifications to such information, when appropriate. I personally performed the physical exam and medical decision making. Izabella Gallegos, Mar 16, 2022,21:14 ASAD CHEN Mar 16, 2022 15:17 IZABELLA GALLEGOS DO Mar 16, 2022 21:14
[2022-03-16] MEDS: metFORMIN 500 MG (GLUCOPHAGE) TAB PO SCH (18:54)
[2022-03-16] MEDS: GABAPENTIN 100 MG (NEURONTIN) CAP PO SCH (20:12)
[2022-03-16] MEDS: ACETAMINOPHEN 500 MG TAB (TYLENOL) PO PRN (20:13)
[2022-03-16 20:30] VITALS: BP 149/70
--- NOTE | 2022-03-17 05:45 | PM&R Progress Note ---
Subjective HPI/CC On Admission Date Seen by Provider: Mar 17, 2022 Time Seen by Provider: 12:30 Subjective/Events-last exam 03/17/2022: No major problems today Discharge is planned No falls Participating well 03/16/2022: Pt is doing a lot better Dressings will be changed today Sugar was 95 doing pretty well 03/15/2022: Pt is doing about the same Edema is noted of the thigh No BM of the third day, will initiate a suppository 03/14/2022: Pt is doing well Sodium level 132, potassium 4.2 No other concerns Pain is controlled 03/13/2022: No major issues No pain No falls Eating well Checking labs in am 03/12/2022: No major issues Pain controlled Hyponatremia will require holding HCTZ Potassium low at 3.4 so ordered 10meq BID for 2 days then will go back to Q48 hours on Mon and she did not really want to do that unless Dr Darling approved but she is not electronic imager and it appears she is willing to take the additional supplement for 2 days now but she could possibly refuse it. Hgb stable but low Review of Systems General: Fatigue, Malaise Objective Exam Vital Signs Vital Signs Date Time Temp Pulse Resp B/P (MAP) Pulse Ox O2 Delivery O2 Flow Rate FiO2 03/17/22 21:00 98 Room Air 03/17/22 20:30 36.8 61 18 129/62 (84) Capillary Refill : General Appearance: No Apparent Distress, WD/WN, Chronically ill HEENT: PERRL/EOMI, Normal ENT Inspection, Pharynx Normal Neck: Full Range of Motion, Normal Inspection, Non Tender, Supple, Carotid Bruit Respiratory: Chest Non Tender, Lungs Clear, Normal Breath Sounds, No Accessory Muscle Use, No Respiratory Distress Cardiovascular: Regular Rate, Rhythm, No Edema, No Gallop, No JVD, No Murmur, Normal Peripheral Pulses Gastrointestinal: Normal Bowel Sounds, No Organomegaly, No Pulsatile Mass, Non Tender, Soft Back: Normal Inspection, No CVA Tenderness, No Vertebral Tenderness Extremity: Normal Capillary Refill, Normal Inspection, Normal Range of Motion (except left leg), Non Tender, No Calf Tenderness, No Pedal Edema Neurologic/Psychiatric: Alert, Oriented x3, Normal Mood/Affect, jewel hole gauger II-XII Norm as Tested, Abnormal Gait, Motor Weakness (left leg) Skin: Normal Color, Warm/Dry Lymphatic: No Adenopathy Results/Procedures Lab Patient resulted labs reviewed. FIM Transfers Therapy Code Descriptions/Definitions Functional [place] Measure: 0=Not Assessed/NA 4=Minimal Assistance 1=Total Assistance 5=Supervision or Setup 2=Maximal Assistance 6=Modified [place] 3=Moderate Assistance 7=Complete IndependenceSCALE: Activities may be completed with or without assistive devices. 2-Oxvfucpbep-cjuhrdv completes the activity by him/herself with no assistance from a helper. 5-Set-up or Clean-up Assistance-helper sets up or cleans up; patient completes activity. [place] assists only prior to or following the activity. 4-Supervision or Touching Assistance-helper provides verbal cues and/or touc maty/steadying and/or contact guard assistance as patient completes activity. Assistance may be provided throughout the activity or intermittently. 3-Partial/Moderate Assistance-helper does LESS THAN HALF the effort. [place] lifts, holds or supports trunk or limbs, but provides less than half the effort. 2-Substantial/Maximal Assistance-helper does MORE THAN HALF the effort. [place] lifts or holds trunk or limbs and provides more than half the effort. 8-Urduaroun-tlhxwq does ALL the effort. Patient does none of the effort to complete the activity. Or, the assistance of 2 or more helpers is required for the patient to complete the activity. If activity was not attempted, code reason: 7-Patient Refused. 9-Not Applicable-not attempted and the patient did not perform the activity before the current illness, exacerbation or injury. 10-Not Attempted due to Environmental Limitations-(lack of equipment, weather restraints, etc.). 88-Not Attempted due to Medical Conditions or Safety Concerns. Roll Left to Right (QC): 6 Sit to Lying (QC): 6 Sit to Stand (QC): 6 Chair/Qlj-bs-Asxjy Xfer(QC): 6 Car Transfer (QC): 6 Gait Training Does the Patient Walk?: Yes Distance: 175' x2 Walk 10 feet (QC): 6 Walk 50 ft with 2 Turns(QC): 6 Walk 150 ft (QC): 5 Walking 10ft/uneven surface-QC: 6 Gait Assistive Device: FWW Wheelchair Training Does the Pt Use a Wheelchair?: No Wheel 50 ft with 2 turns (QC): 9 Wheel 150 ft (QC): 9 Type of Wheelchair: N/A Stair Training Stair Training: Handrails/: 2 handrails #of Steps: 8 1 Step (curb) (QC): 6 4 Steps (QC): 5 12 Steps (QC): 88 Stairs: Pattern: Step to Balance Picking up an Object (QC): 6 ADL-Treatment Eating (QC): 6 Oral Hygiene (QC): 6 (IND standing at sink.) Shower/Bathe Self (QC): 4 (SBA. 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
[2022-03-17] MEDS: glipiZIDE XL 5 MG (GLUCOTROL XL) TAB PO SCH (06:48)
[2022-03-17] MEDS: MULTIVIT W/MINERALS TAB (THERAGRAN M) PO SCH (06:48)
[2022-03-17] MEDS: LEVOTHYROXINE 100 MCG (LEVOTHROID) TAB PO SCH (06:48)
[2022-03-17 07:35] VITALS: BP 131/62
[2022-03-17] MEDS: OXYBUTYNIN (DITROPAN) 5 MG TAB PO SCH (08:14)
[2022-03-17] MEDS: MELOXICAM 7.5 MG (MOBIC) TABLET PO SCH (08:14)
[2022-03-17] MEDS: lisINopril 20 MG (PRINIVIL) TABLET PO SCH (08:14)
[2022-03-17] MEDS: DOCUSATE SODIUM 100 MG (COLACE) CAP PO SCH ×2 (08:14→20:41)
[2022-03-17] MEDS: amLODIPine 5 MG (NORVASC) TAB PO SCH (08:14)
[2022-03-17] MEDS: ACEBUTOLOL 200 MG (SECTRAL) CAPSULE PO SCH ×2 (08:14→20:42)
[2022-03-17] MEDS: SENNA W/DOCUSATE (SENOKOT S) TABLET PO SCH ×2 (08:15→20:42)
[2022-03-17] MEDS: CYCLOBENZAPRINE 10 MG (FLEXERIL) TAB PO PRN (08:39)
--- NOTE | 2022-03-17 10:04 | Physical Therapy Daily Note ---
PT Daily Note-Current Subjective Pt. states she will use her lift recline chair to sleep in at home at [address] but the mechanism is broken on it and it wont lift any more. Pt. resists thinking of attempting bed TRF but agrees after explanation. Pt. states left hip pain is 5-6/10. "I dont want any arm exercises at all, just work on my legs and we'll get along fine" Pain Numeric Pain Scale: 6 Location: Left Location Body Site: Hip Pain Description: Ache Section J - Health Conditions 1. Rarely or not at all 2. Occasionally 3. Frequently 4. Almost constantly 8. Unable to answer Pain Effect on Sleep: 2 Pain Interference with Therapy: 3 Pain Interference w/Day-to-Day: 23 Mental Status Patient Orientation: Normal For Age Transfers SCALE: Activities may be completed with or without assistive devices. 7-Rkxanqwhuc-xzhedid completes the activity by him/herself with no assistance from a helper. 5-Set-up or Clean-up Assistance-helper sets up or cleans up; patient completes activity. [place] assists only prior to or following the activity. 4-Supervision or Touching Assistance-helper provides verbal cues and/or t ouching/steadying and/or contact guard assistance as patient completes activity. Assistance may be provided throughout the activity or intermittently. 3-Partial/Moderate Assistance-helper does LESS THAN HALF the effort. [place] lifts, holds or supports trunk or limbs, but provides less than half the effort. 2-Substantial/Maximal Assistance-helper does MORE THAN HALF the effort. [place] lifts or holds trunk or limbs and provides more than half the effort. 7-Zaazyauvx-juxrgg does ALL the effort. Patient does none of the effort to complete the activity. Or, the assistance of 2 or more helpers is required for the patient to complete the activity. If activity was not attempted, code reason: 7-Patient Refused. 9-Not Applicable-not attempted and the patient did not perform the activity before the current illness, exacerbation or injury. 10-Not Attempted due to Environmental Limitations-(lack of equipment, weather restraints, etc.). 88-Not Attempted due to Medical Conditions or Safety Concerns. Roll Left & Right (QC): 6 Sit to Lying (QC): 4 Lying to Sitting/Side of Bed(Q: 4 Sit to Stand (QC): 6 Chair/Opk-lj-Rpcdz Xfer(QC): 6 Toilet Transfer (QC): 6 needs assist for LLE in out bed, pain limits TRF Weight Bearing Right Lower Extremity: Right Full Weight Bearing Left Lower Extremity: Left Weight Bearing/Tolerated Gait Training Does the Patient Walk?: Yes Walk 10 feet (QC): 6 Walk 50 ft with 2 Turns(QC): 6 Walk 150 ft (QC): 6 Gait Persons Needed: 1 Gait Assistive Device: FWW good even pattern, safe use of AD Exercises Supine Ex: Ankle pumps, Quad Set, Glut sets, Heel Slides, Short Arc Quads, Scooting, Straight leg raise, Hip abd/add Supine Reps: 12 (x3) Seated Therapy Exercises: Ankle pumps, Sit to stand, Long arc quads Seated Reps: 12 assist for LLE Treatments bed mob, toileting, gait , therex Assessment Current Status: Good Progress PT Short Term Goals Short Term Goals Time Frame: Mar 25, 2022 Roll Left & Right: 6 Sit to lyin Lying to sitting on side of be: 6 Sit to stand: 4 Chair/xbm-lg-xjoaa transfer: 4 Toilet transfer: 4 Car transfer: 4 Walk 10 feet: 6 Walk 50 feet with two turns: 4 Walk 150 feet: 4 Walking 10ft on uneven surface: 4 1 step (curb): 4 4 steps: 4 12 steps: 4 PT Halfway Goals Halfway Goals PT Halfway Goals Time Frame: Apr 02, 2022 Roll Left & Right (QC): 6 Sit to Lying (QC): 6 Lying-Sitting on Side/Bed(QC): 6 Sit to Stand (QC): 6 Chair/Cby-pm-Ztfzt Xfer(QC): 6 Toilet Transfer (QC): 6 Car Transfer (QC): 6 Does the Patient Walk: Yes Walk 10 feet (QC): 6 Walk 50ft with 2 Turns (QC): 6 Walk 150 ft (QC): 6 Walking 10ft on Uneven Surface: 6 1 Step (curb) (QC): 6 4 Steps (QC): 6 12 Steps (QC): 6 Picking up an Object (QC): 6 Does the Pt use WC or Scooter?: No Wheel 50 feet with 2 turns (QC: 88 Wheel 150 feet: 88 PT Plan Treatment/Plan Treatment Plan: Continue Plan of Care Treatment Plan: Bed Mobility, Education, Functional Activity Darlene, Functional Strength, Group Therapy, Gait, Safety, Therapeutic Exercise, Transfers Treatment Duration: Apr 02, 2022 Frequency: At least 5 of 7 days/Wk (IRF) Estimated Hrs Per Day: 1.5 hours per day Patient and/or Family Agrees t: Yes Safety Risks/Education Patient Education: Gait Training, Transfer Techniques, Reviewed Precautions, Correct Positioning, Disease Process, Safety Issues Teaching Recipient: Patient Teaching Methods: Demonstration, Discussion Response to Teaching: Verbalize Understanding, Return Demonstration, Reinforcement Needed Time/GCodes Time In: 900 Time Out: 1000 Total Billed Treatment Time: 60 Total Billed Treatment 1, Ex20m,GT15m,FA25m CHARITY JAIMES PTA Mar 17, 2022 10:04
--- NOTE | 2022-03-17 10:26 | Occupational Ther Daily Note ---
OT Current Status-Daily Note Subjective Pt in recliner, agreeable to OT Tx. Pt declines showering today, prefers to shower tomorrow. Mental Status/Objective Acute change in mental status: 0 Inattention: 0 Disorganized thinkin Altered level of consciousness: 0 ADL-Treatment Therapy Code Descriptions/Definitions Functional [place] Measure: 0=Not Assessed/NA 4=Minimal Assistance 1=Total Assistance 5=Supervision or Setup 2=Maximal Assistance 6=Modified [place] 3=Moderate Assistance 7=Complete IndependenceSCALE: Activities may be completed with or without assistive devices. 6-Opdhueikhv-tpyiocp completes the activity by him/herself with no assistance from a helper. 5-Set-up or Clean-up Assistance-helper sets up or cleans up; patient completes activity. [place] assists only prior to or following the activity. 4-Supervision or Touching Assistance-helper provides verbal cues and/or t ouching/steadying and/or contact guard assistance as patient completes activity. Assistance may be provided throughout the activity or intermittently. 3-Partial/Moderate Assistance-helper does LESS THAN HALF the effort. [place] lifts, holds or supports trunk or limbs, but provides less than half the effort. 2-Substantial/Maximal Assistance-helper does MORE THAN HALF the effort. [place] lifts or holds trunk or limbs and provides more than half the effort. 3-Csmvzucuz-tswwnb does ALL the effort. Patient does none of the effort to complete the activity. Or, the assistance of 2 or more helpers is required for the patient to complete the activity. If activity was not attempted, code reason: 7-Patient Refused. 9-Not Applicable-not attempted and the patient did not perform the activity before the current illness, exacerbation or injury. 10-Not Attempted due to Environmental Limitations-(lack of equipment, weather restraints, etc.). 88-Not Attempted due to Medical Conditions or Safety Concerns. Other Treatment Pt in recliner, agreeable to OT Tx. Pt declines ADLs at this time, agreeable to go to therapy gym. OT tx focused on increasing BUE Strength and activity tolerance, increasing fine motor strength and coordination, and increasing f unctional use of BUEs. Pt requests activities that do not affect her rotator cuffs, so more table top activities complete on this date. Pt removed beads from heavy resistance (green) theraputty, able to locate all beads without cues. She then placed/removed graded clothespins 1-5lbs, BUE 1 time each. Noted increased difficulty with increased resistance with L hand, pt states carpal tunnel and pinched nerve in her elbow L side. Pt completed pegboard task, placing x100 pegs into pegboard, alternating hands, then removed pegs from pegboard. "Perfection" task placed in front of pt. Pt states "Are we back in kindergarten?" OT informed pt that OT would like to focus on higher level tasks in order to increase BUE strength utilizing other activities and tasks, but pt refuses all other offered tasks, including arm bike, freeweights, theraband, etc, due to rotator cuffs and reports of her surgeon stating she isn't supposed to do anything that causes her pain. Pt then agreeable to performing "Perfection" game. Pt able to manipulate and place all shapes into their correct places, no cues required, 1lb wrist weights bilaterally. Pt slow with all activities, and took frequent rest breaks. When asked how her shoulders/arms felt, pt indicates they felt fine prior to tx, but now are sore. OT attempted to provide education about benefits and purpose of tx, but pt continued to talk over therapist. Pt used FWW to perform functional mobility around ORU common area and back to her room, independently. Post tx, pt in recliner, call light in reach and all needs met. Education OT Patient Education: Correct positioning, Energy conservation, Modified ADL techniques, Progress toward Goal/Update tx plan, Purpose of tx/functional activities, Rehab process Teaching Recipient: Patient Teaching Methods: Discussion Response to Teaching: Verbalize Understanding OT Short Term Goals Short Term Goals Time Frame: Mar 19, 2022 Eatin Oral hygiene: 6 Toileting hygiene: 6 Shower/bathe self: 5 Upper body dressin Lower body dressin Putting on/taking off footwear: 5 OT Traffic Agent Goals Traffic Agent Goals Time Frame: Mar 19, 2022 Acute change in mental status: 0 Inattention: 0 Disorganized thinkin Altered level of consciousness: 0 Eating (QC): 6 Oral Hygiene (QC): 6 Toileting Hygiene (QC): 6 Shower/Bathe Self (QC): 5 Upper Body Dressing (QC): 6 Lower Body Dressing (QC): 6 On/Off Footwear (QC): 6 1=Demonstrate adherence to instructed precautions during ADL tasks. 2=Patient will verbalize/demonstrate understanding of assistive devices/modifications for ADL. 3=Patient will improve strength/tolerance for activity to enable patient to perform ADL's. OT Education/Plan Problem List/Assessment Assessment: Decreased Activ Tolerance, Decreased UE Strength, Impaired I ADL's, Restricted Funct UE ROM Pt would benefit from skilled OT to increase her independence in basic self care to allow her to safely return home and decrease caregiver burden. Discharge Recommendations Plan/Recommendations: Continue POC Treatment Plan/Plan of Care Patient would benefit from OT for education, treatment and training to promote independence in ADL's, mobility, safety and/or upper extremity function for ADL's. Plan of Care: ADL Retraining, Functional Mobility, Group Exercise/Act as Ind (education, exercise, energy conservation, safety, socialization, activity tolerance), UE Funct Exercise/Act Treatment Duration: Mar 19, 2022 Frequency: At least 5 of 7 days/Wk (IRF) Estimated Hrs Per Day: 1.5 hours per day Agreement: Yes Rehab Potential: Good Time/GCodes Start Time: 10:00 Stop Time: 11:30 Total Time Billed (hr/min): 90 Billed Treatment Time 1, FA 6 PAT HOOKER OT Mar 17, 2022 10:25
[2022-03-17] MEDS: polyethylene glycoL POWDER 17 GM (MIRALAX) PACK PO SCH ×2 (12:49→20:41)
--- NOTE | 2022-03-17 13:17 | Physical Therapy Daily Note ---
PT Daily Note-Current Subjective Pt. agrees to Rx. States she is" sore all over from all this exercise" Pain Numeric Pain Scale: 4 Location Body Site: Hip Pain Description: Ache Section J - Health Conditions 1. Rarely or not at all 2. Occasionally 3. Frequently 4. Almost constantly 8. Unable to answer Pain Effect on Sleep: 2 Pain Interference with Therapy: 3 Pain Interference w/Day-to-Day: 3 Mental Status Patient Orientation: Normal For Age Transfers SCALE: Activities may be completed with or without assistive devices. 7-Lrcdgclwle-mhxwomx completes the activity by him/herself with no assistance from a helper. 5-Set-up or Clean-up Assistance-helper sets up or cleans up; patient completes activity. [place] assists only prior to or following the activity. 4-Supervision or Touching Assistance-helper provides verbal cues and/or touching/steadying and/or contact guard assistance as patient completes activity. Assistance may be provided throughout the activity or intermittently. 3-Partial/Moderate Assistance-helper does LESS THAN HALF the effort. [place] lifts, holds or supports trunk or limbs, but provides less than half the effort. 2-Substantial/Maximal Assistance-helper does MORE THAN HALF the effort. [place] lifts or holds trunk or limbs and provides more than half the effort. 6-Qirsgaulc-dddmxb does ALL the effort. Patient does none of the effort to complete the activity. Or, the assistance of 2 or more helpers is required for the patient to complete the activity. If activity was not attempted, code reason: 7-Patient Refused. 9-Not Applicable-not attempted and the patient did not perform the activity before the current illness, exacerbation or injury. 10-Not Attempted due to Environmental Limitations-(lack of equipment, weather restraints, etc.). 88-Not Attempted due to Medical Conditions or Safety Concerns. Roll Left & Right (QC): 6 Sit to Lying (QC): 4 Lying to Sitting/Side of Bed(Q: 6 Sit to Stand (QC): 6 Chair/Nnd-kz-Sberl Xfer(QC): 6 Toilet Transfer (QC): 6 pt. needs CGA to min to bring LLE into bed and needs reminded as she does this that this limb cannot cross midline as she lifts it into bed. Needs assist at min level Weight Bearing Right Lower Extremity: Right Full Weight Bearing Left Lower Extremity: Left Weight Bearing/Tolerated Gait Training Does the Patient Walk?: Yes Gait Assistive Device: FWW gait 175 ft x 2, 50 ft x 1 FWW SBA, no LOB, slow careful Exercises NuStep Minutes: 8 NuStep Workload: 1 Treatments TRFs toilet, chair and bed, gait, nustep, precautions review Assessment Current Status: Good Progress PT Short Term Goals Short Term Goals Time Frame: Mar 25, 2022 Roll Left & Right: 6 Sit to lyin Lying to sitting on side of be: 6 Sit to stand: 4 Chair/ozl-uv-yjhfr transfer: 4 Toilet transfer: 4 Car transfer: 4 Walk 10 feet: 6 Walk 50 feet with two turns: 4 Walk 150 feet: 4 Walking 10ft on uneven surface: 4 1 step (curb): 4 4 steps: 4 12 steps: 4 PT Chcf Goals Burnisher And Bumper Goals PT Chcf Goals Time Frame: Apr 02, 2022 Roll Left & Right (QC): 6 Sit to Lying (QC): 6 Lying-Sitting on Side/Bed(QC): 6 Sit to Stand (QC): 6 Chair/Lif-mt-Otlck Xfer(QC): 6 Toilet Transfer (QC): 6 Car Transfer (QC): 6 Does the Patient Walk: Yes Walk 10 feet (QC): 6 Walk 50ft with 2 Turns (QC): 6 Walk 150 ft (QC): 6 Walking 10ft on Uneven Surface: 6 1 Step (curb) (QC): 6 4 Steps (QC): 6 12 Steps (QC): 6 Picking up an Object (QC): 6 Does the Pt use WC or Scooter?: No Wheel 50 feet with 2 turns (QC: 88 Wheel 150 feet: 88 PT Plan Treatment/Plan Treatment Plan: Continue Plan of Care Treatment Plan: Bed Mobility, Education, Functional Activity Darlene, Functional Strength, Group Therapy, Gait, Safety, Therapeutic Exercise, Transfers Treatment Duration: Apr 02, 2022 Frequency: At least 5 of 7 days/Wk (IRF) Estimated Hrs Per Day: 1.5 hours per day Patient and/or Family Agrees t: Yes Safety Risks/Education Patient Education: Gait Training, Transfer Techniques, Reviewed Precautions, Correct Positioning, Disease Process, Safety Issues Teaching Recipient: Patient Teaching Methods: Demonstration, Discussion Response to Teaching: Verbalize Understanding, Return Demonstration, Reinforcement Needed Time/GCodes Time In: 1230 Time Out: 1300 Total Billed Treatment Time: 30 Total Billed Treatment 1,GT15m,EX15m CHARITY JAIMES GAMES DEALER Mar 17, 2022 13:17
[2022-03-17] MEDS ORDERED: ASPI-1238 PO (15:20)
[2022-03-17] MEDS: metFORMIN 500 MG (GLUCOPHAGE) TAB PO SCH (17:32)
--- NOTE | 2022-03-17 18:00 | Progress Note ---
ASAD CHEN 03/17/22 1800: Progress Note CC: Left hip replacement with debility HPI: This is an 81yoWF clinic patient of Dr. Darling who presented from [place] s/p left hip replacement with slow recovery in need of regaining independence since she lives alone. She had a previous right hip replacement 04/2021 and had a successful stay in [facility]. All home meds were restarted. PT OT will focus on regaining strength with use of AD and prevent falls. Patient is lying in bed comfortably when I visited and in no acute distress. Bowels are moving and bladder is functioning normally. Endorses mostly right shoulder discomfort today, though it has improved since yesterday. Pain is controlled. Today will provide OMM to patient for assistance with recovery ROS: General: Fatigue, Malaise Musculoskeletal: leg pain, shoulder pain Exam: General Appearance: No Apparent Distress, WD/WN, Chronically ill HEENT: PERRL/EOMI Respiratory: Chest Non Tender, Lungs Clear, Normal Breath Sounds, No Accessory Muscle Use, No Respiratory Distress Cardiovascular: Regular Rate, Rhythm, No Edema, No Gallop, No JVD, No Murmur, Normal Peripheral Pulses Extremity: Normal Capillary Refill, Normal Inspection, Normal Range of Motion (except left leg), Non Tender, No Calf Tenderness, No Pedal Edema Neurologic/Psychiatric: Alert, Oriented x3, Normal Mood/Affect, Motor Weakness (left leg) Skin: Normal Color, Warm/Dry Lymphatic: No Adenopathy Assessment: 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 HTN HLP Hypothyroidism Obesity Hyponatremia holding HCTZ home med Hypokalemia Post op anemia from acute blood loss Somatic dysfunction of left leg s/p hip replacement Plan: -left leg lymphatic drainage and myofascial release -b/l deltoid muscle soft tissue technique and indirect myofascial release IZABELLA GALLEGOS DO 03/18/22 0529: Supervisory-Addendum Brief Verification & Attestation Participated in pt care: history, MDM, physical Personally performed: exam, history, MDM, supervision of care Care discussed with: Medical Student Procedures: n/a Results interpretation: Verified all documentation Verification and Attestation of Medical Student E/M Service A medical student performed and documented this service in my presence. I revie wed and verified all information documented by the medical student and made modifications to such information, when appropriate. I personally performed the physical exam and medical decision making. Izabella Gallegos, Mar 18, 2022,05:29 ASAD CHEN Mar 17, 2022 18:00 IZABELLA GALLEGOS DO Mar 18, 2022 05:29
[2022-03-17 20:30] VITALS: BP 129/62
[2022-03-17] MEDS: GABAPENTIN 100 MG (NEURONTIN) CAP PO SCH (20:42)
--- NOTE | 2022-03-18 05:52 | PM&R Progress Note ---
Subjective HPI/CC On Admission Date Seen by Provider: Mar 18, 2022 Time Seen by Provider: 12:30 Subjective/Events-last exam 03/18/2022: Doing well No pain Monitoring closely DC Monday03/17/2022: No major problems today Discharge is planned No falls Participating well 03/16/2022: Pt is doing a lot better Dressings will be changed today Sugar was 95 doing pretty well 03/15/2022: Pt is doing about the same Edema is noted of the thigh No BM of the third day, will initiate a suppository 03/14/2022: Pt is doing well Sodium level 132, potassium 4.2 No other concerns Pain is controlled 03/13/2022: No major issues No pain No falls Eating well Checking labs in am 03/12/2022: No major issues Pain controlled Hyponatremia will require holding HCTZ Potassium low at 3.4 so ordered 10meq BID for 2 days then will go back to Q48 hours on Mon and she did not really want to do that unless Dr Darling approved but 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 Hgb stable but low Review of Systems General: Fatigue, Malaise Musculoskeletal: leg pain Objective Exam Vital Signs Vital Signs Date Time Temp Pulse Resp B/P (MAP) Pulse Ox O2 Delivery O2 Flow Rate FiO2 03/18/22 23:30 54 03/18/22 21:34 36.8 20 126/58 (80) 96 Room Air Capillary Refill : General Appearance: No Apparent Distress, WD/WN, Chronically ill HEENT: PERRL/EOMI, Normal ENT Inspection, Pharynx Normal Neck: Full Range of Motion, Normal Inspection, Non Tender, Supple, Carotid Bruit Respiratory: Chest Non Tender, Lungs Clear, Normal Breath Sounds, No Accessory Muscle Use, No Respiratory Distress Cardiovascular: Regular Rate, Rhythm, No Edema, No Gallop, No JVD, No Murmur, Normal Peripheral Pulses Gastrointestinal: Normal Bowel Sounds, No Organomegaly, No Pulsatile Mass, Non Tender, Soft Back: Normal Inspection, No CVA Tenderness, No Vertebral Tenderness Extremity: Normal Capillary Refill, Normal Inspection, Normal Range of Motion (except left leg), Non Tender, No Calf Tenderness, No Pedal Edema Neurologic/Psychiatric: Alert, Oriented x3, Normal Mood/Affect, aircraft servicer II-XII Norm as Tested, Abnormal Gait, Motor Weakness (left leg) Skin: Normal Color, Warm/Dry Lymphatic: No Adenopathy Results/Procedures Lab Patient resulted labs reviewed. FIM Transfers Therapy Code Descriptions/Definitions Functional [place] Measure: 0=Not Assessed/NA 4=Minimal Assistance 1=Total Assistance 5=Supervision or Setup 2=Maximal Assistance 6=Modified [place] 3=Moderate Assistance 7=Complete IndependenceSCALE: Activities may be completed with or without assistive devices. 5-Dfccdshfap-vrfrvwo completes the activity by him/herself with no assistance from a helper. 5-Set-up or Clean-up Assistance-helper sets up or cleans up; patient completes activity. [place] assists only prior to or following the activity. 4-Supervision or Touching Assistance-helper provides verbal cues and/or touching/steadying and/or contact guard assistance as patient completes activity. Assistance may be provided throughout the activity or intermittently. 3-Partial/Moderate Assistance-helper does LESS THAN HALF the effort. [place] lifts, holds or supports trunk or limbs, but provides less than half the effort. 2-Substantial/Maximal Assistance-helper does MORE THAN HALF the effort. [place] lifts or holds trunk or limbs and provides more than half the effort. 3-Tfsmwmtti-tntstj does ALL the effort. Patient does none of the effort to complete the activity. Or, the assistance of 2 or more helpers is required for the patient to complete the activity. If activity was not attempted, code reason: 7-Patient Refused. 9-Not Applicable-not attempted and the patient did not perform the activity before the current illness, exacerbation or injury. 10-Not Attempted due to Environmental Limitations-(lack of equipment, weather restraints, etc.). 88-Not Attempted due to Medical Conditions or Safety Concerns. Roll Left to Right (QC): 6 Sit to Lying (QC): 4 Sit to Stand (QC): 6 Chair/Uoi-xc-Dukhh Xfer(QC): 6 Car Transfer (QC): 6 Gait Training Does the Patient Walk?: Yes Distance: 175' x2 Walk 10 feet (QC): 6 Walk 50 ft with 2 Turns(QC): 6 Walk 150 ft (QC): 6 Walking 10ft/uneven surface-QC: 6 Gait Persons Needed: 1 Gait Assistive Device: FWW Wheelchair Training Does the Pt Use a Wheelchair?: No Wheel 50 ft with 2 turns (QC): 9 Wheel 150 ft (QC): 9 Type of Wheelchair: N/A Stair Training Stair Training: Handrails/: 2 handrails #of Steps: 8 1 Step (curb) (QC): 6 4 Steps (QC): 5 12 Steps (QC): 88 Stairs: Pattern: Step to Balance Picking up an Object (QC): 6 ADL-Treatment Eating (QC): 6 Oral Hygiene (QC): 6 (IND standing at sink.) Shower/Bathe Self (QC): 4 (SBA. 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
[2022-03-18] MEDS: LEVOTHYROXINE 100 MCG (LEVOTHROID) TAB PO SCH (06:56)
[2022-03-18] MEDS: glipiZIDE XL 5 MG (GLUCOTROL XL) TAB PO SCH (06:56)
[2022-03-18] MEDS: MULTIVIT W/MINERALS TAB (THERAGRAN M) PO SCH (06:56)
[2022-03-18 07:40] VITALS: BP 119/70
[2022-03-18] MEDS: amLODIPine 5 MG (NORVASC) TAB PO SCH (09:15)
[2022-03-18] MEDS: ACEBUTOLOL 200 MG (SECTRAL) CAPSULE PO SCH ×2 (09:15→21:10)
[2022-03-18] MEDS: DOCUSATE SODIUM 100 MG (COLACE) CAP PO SCH ×2 (09:15→21:11)
[2022-03-18] MEDS: SENNA W/DOCUSATE (SENOKOT S) TABLET PO SCH ×2 (09:15→21:12)
[2022-03-18] MEDS: MELOXICAM 7.5 MG (MOBIC) TABLET PO SCH (09:15)
[2022-03-18] MEDS: OXYBUTYNIN (DITROPAN) 5 MG TAB PO SCH (09:15)
[2022-03-18] MEDS: lisINopril 20 MG (PRINIVIL) TABLET PO SCH (09:16)
--- NOTE | 2022-03-18 11:02 | Occupational Ther Daily Note ---
OT Current Status-Daily Note Subjective Pt in recliner, agreeable to OT Tx with focus on ADLs. Mental Status/Objective Acute change in mental status: 0 Inattention: 0 Disorganized thinkin Altered level of consciousness: 0 ADL-Treatment Therapy Code Descriptions/Definitions Functional [place] Measure: 0=Not Assessed/NA 4=Minimal Assistance 1=Total Assistance 5=Supervision or Setup 2=Maximal Assistance 6=Modified [place] 3=Moderate Assistance 7=Complete IndependenceSCALE: Activities may be completed with or without assistive devices. 8-Zzxydkzqmo-vltueus completes the activity by him/herself with no assistance from a helper. 5-Set-up or Clean-up Assistance-helper sets up or cleans up; patient completes activity. [place] assists only prior to or following the activity. 4-Supervision or Touching Assistance-helper provides verbal cues and/or touching/steadying and/or contact guard assistance as patient completes activity. Assistance may be provided throughout the activity or intermittently. 3-Partial/Moderate Assistance-helper does LESS THAN HALF the effort. [place] lifts, holds or supports trunk or limbs, but provides less than half the effort. 2-Substantial/Maximal Assistance-helper does MORE THAN HALF the effort. [place] lifts or holds trunk or limbs and provides more than half the effort. 3-Jmkewvhnj-xhjcsj does ALL the effort. Patient does none of the effort to complete the activity. Or, the assistance of 2 or more helpers is required for the patient to complete the activity. If activity was not attempted, code reason: 7-Patient Refused. 9-Not Applicable-not attempted and the patient did not perform the activity before the current illness, exacerbation or injury. 10-Not Attempted due to Environmental Limitations-(lack of equipment, weather restraints, etc.). 88-Not Attempted due to Medical Conditions or Safety Concerns. Eating (QC): 6 Oral Hygiene (QC): 6 Shower/Bathe Self (QC): 5 Upper Body Dressing (QC): 6 Lower Body Dressing (QC): 6 On/Off Footwear: 6 Toileting Hygiene (QC): 6 Toilet Transfer (QC): 6 Other Treatment Pt in recliner, used FWW to transfer into bathroom and onto FL. Pt completed showering and dressing, then stood at sink for oral care. Pt independent with ADLs except showering (set up to cover dressing). Pt returned to her recliner using FWW, independently. Post tx, pt in recliner, call light in reach and all needs met. Education OT Patient Education: Correct positioning, Energy conservation, Modified ADL techniques, Progress toward Goal/Update tx plan, Purpose of tx/functional activities, Rehab process Teaching Recipient: Patient Teaching Methods: Discussion Response to Teaching: Verbalize Understanding OT Short Term Goals Short Term Goals Time Frame: Mar 19, 2022 Eatin Oral hygiene: 6 Toileting hygiene: 6 Shower/bathe self: 5 Upper body dressin Lower body dressin Putting on/taking off footwear: 5 OT [facility] Goals Binitrotoluene Operator Goals Time Frame: Mar 19, 2022 Acute change in mental status: 0 Inattention: 0 Disorganized thinkin Altered level of consciousness: 0 Eating (QC): 6 Oral Hygiene (QC): 6 Toileting Hygiene (QC): 6 Shower/Bathe Self (QC): 5 Upper Body Dressing (QC): 6 Lower Body Dressing (QC): 6 On/Off Footwear (QC): 6 1=Demonstrate adherence to instructed precautions during ADL tasks. 2=Patient will verbalize/demonstrate understanding of assistive devices/modifications for ADL. 3=Patient will improve strength/tolerance for activity to enable patient to perform ADL's. OT Education/Plan Problem List/Assessment Assessment: Decreased Activ Tolerance, Decreased UE Strength, Impaired I ADL's, Restricted Funct UE ROM Pt would benefit from skilled OT to increase her independence in basic self care to allow her to safely return home and decrease caregiver burden. Discharge Recommendations Plan/Recommendations: Continue POC Treatment Plan/Plan of Care Patient would benefit from OT for education, treatment and training to promote independence in ADL's, mobility, safety and/or upper extremity function for ADL's. Plan of Care: ADL Retraining, Functional Mobility, Group Exercise/Act as Ind (education, exercise, energy conservation, safety, socialization, activity tolerance), UE Funct Exercise/Act Treatment Duration: Mar 19, 2022 Frequency: At least 5 of 7 days/Wk (IRF) Estimated Hrs Per Day: 1.5 hours per day Agreement: Yes Rehab Potential: Good Time/GCodes Start Time: 10:00 Stop Time: 11:00 Total Time Billed (hr/min): 60 Billed Treatment Time 1, ADL 4 CRUMPACKER,PAT OT Mar 18, 2022 11:02
[2022-03-18] MEDS: polyethylene glycoL POWDER 17 GM (MIRALAX) PACK PO SCH ×2 (12:01→21:12)
--- NOTE | 2022-03-18 13:32 | Occupational Ther Daily Note ---
OT Current Status-Daily Note Subjective Pt in recliner, agreeable to OT tx. Mental Status/Objective Acute change in mental status: 0 Inattention: 0 Disorganized thinkin Altered level of consciousness: 0 ADL-Treatment Therapy Code Descriptions/Definitions Functional [place] Measure: 0=Not Assessed/NA 4=Minimal Assistance 1=Total Assistance 5=Supervision or Setup 2=Maximal Assistance 6=Modified [place] 3=Moderate Assistance 7=Complete IndependenceSCALE: Activities may be completed with or without assistive devices. 2-Xruiinrohs-lnvvdek completes the activity by him/herself with no assistance from a helper. 5-Set-up or Clean-up Assistance-helper sets up or cleans up; patient completes activity. [place] assists only prior to or following the activity. 4-Supervision or Touching Assistance-helper provides verbal cues and/or touching/steadying and/or contact guard assistance as patient completes activity. Assistance may be provided throughout the activity or intermittently. 3-Partial/Moderate Assistance-helper does LESS THAN HALF the effort. [place] lifts, holds or supports trunk or limbs, but provides less than half the effort. 2-Substantial/Maximal Assistance-helper does MORE THAN HALF the effort. [place] lifts or holds trunk or limbs and provides more than half the effort. 3-Okngcetqd-qdypqx does ALL the effort. Patient does none of the effort to complete the activity. Or, the assistance of 2 or more helpers is required for the patient to complete the activity. If activity was not attempted, code reason: 7-Patient Refused. 9-Not Applicable-not attempted and the patient did not perform the activity before the current illness, exacerbation or injury. 10-Not Attempted due to Environmental Limitations-(lack of equipment, weather restraints, etc.). 88-Not Attempted due to Medical Conditions or Safety Concerns. Other Treatment Pt in recliner, used FWW to perform functional mobility to therapy gym, independently. OT tx focused on increasing BUE strength and activity tolerance, and increasing fine motor strength and coordination. Pt completed pegboard task, placing 1" pegs into foam pegboard, alternating hands. OT encouraged pt to complete task with 1lb wrist weights, but pt adamantly refused weights (even with education on benefits/purpose of OT), so pt placed/removed x25 pegs without weights. Pt then removed beads from moderate resistance theraputty, able to locate all beads without cues. Education OT Patient Education: Correct positioning, Energy conservation, Modified ADL techniques, Progress toward Goal/Update tx plan, Purpose of tx/functional activities, Rehab process Teaching Recipient: Patient Teaching Methods: Discussion Response to Teaching: Verbalize Understanding OT Short Term Goals Short Term Goals Time Frame: Mar 19, 2022 Eatin Oral hygiene: 6 Toileting hygiene: 6 Shower/bathe self: 5 Upper body dressin Lower body dressin Putting on/taking off footwear: 5 OT [facility] Goals Armorer Technician Goals Time Frame: Mar 19, 2022 Acute change in mental status: 0 Inattention: 0 Disorganized thinkin Altered level of consciousness: 0 Eating (QC): 6 (met) Oral Hygiene (QC): 6 (met) Toileting Hygiene (QC): 6 (met) Shower/Bathe Self (QC): 5 (met) Upper Body Dressing (QC): 6 (met) Lower Body Dressing (QC): 6 (met) On/Off Footwear (QC): 6 (met) 1=Demonstrate adherence to instructed precautions during ADL tasks. 2=Patient will verbalize/demonstrate understanding of assistive devices/modifications for ADL. 3=Patient will improve strength/tolerance for activity to enable patient to perform ADL's. OT Education/Plan Problem List/Assessment Assessment: Decreased Activ Tolerance, Decreased UE Strength, Impaired I ADL's Pt would benefit from skilled OT to increase her independence in basic self care to allow her to safely return home and decrease caregiver burden. Discharge Recommendations Plan/Recommendations: Continue POC Treatment Plan/Plan of Care Patient would benefit from OT for education, treatment and training to promote independence in ADL's, mobility, safety and/or upper extremity function for ADL's. Plan of Care: ADL Retraining, Functional Mobility, Group Exercise/Act as Ind (education, exercise, energy conservation, safety, socialization, activity tolerance), UE Funct Exercise/Act Treatment Duration: Mar 19, 2022 Frequency: At least 5 of 7 days/Wk (IRF) Estimated Hrs Per Day: 1.5 hours per day Agreement: Yes Rehab Potential: Good Time/GCodes Start Time: 13:15 Stop Time: 13:45 Total Time Billed (hr/min): 30 Billed Treatment Time 1, FA 2 PAT HOOKER OT Mar 18, 2022 13:32
--- NOTE | 2022-03-18 14:47 | Physical Therapy Daily Note ---
PT Daily Note-Current Subjective Patient sitting in chair upon PT arrival, agreeable to treatment. Patient rates pain at 2/10 currently. Pain Section J - Health Conditions 1. Rarely or not at all 2. Occasionally 3. Frequently 4. Almost constantly 8. Unable to answer Pain Effect on Sleep: 2 Pain Interference with Therapy: 3 Pain Interference w/Day-to-Day: 3 Mental Status Patient Orientation: Person, Place, Time, Situation Transfers SCALE: Activities may be completed with or without assistive devices. 1-Hmygibqsfu-dzujoip completes the activity by him/herself with no assistance from a helper. 5-Set-up or Clean-up Assistance-helper sets up or cleans up; patient completes activity. [place] assists only prior to or following the activity. 4-Supervision or Touching Assistance-helper provides verbal cues and/or touching/steadying and/or contact guard assistance as patient completes activity. Assistance may be provided throughout the activity or intermittently. 3-Partial/Moderate Assistance-helper does LESS THAN HALF the effort. [place] lifts, holds or supports trunk or limbs, but provides less than half the effort. 2-Substantial/Maximal Assistance-helper does MORE THAN HALF the effort. [place] lifts or holds trunk or limbs and provides more than half the effort. 1-Plnrzvuds-brutxm does ALL the effort. Patient does none of the effort to complete the activity. Or, the assistance of 2 or more helpers is required for the patient to complete the activity. If activity was not attempted, code reason: 7-Patient Refused. 9-Not Applicable-not attempted and the patient did not perform the activity before the current illness, exacerbation or injury. 10-Not Attempted due to Environmental Limitations-(lack of equipment, weather restraints, etc.). 88-Not Attempted due to Medical Conditions or Safety Concerns. Roll Left & Right (QC): 6 Sit to Lying (QC): 6 Lying to Sitting/Side of Bed(Q: 4 Sit to Stand (QC): 6 Chair/Evt-ke-Knibg Xfer(QC): 6 Toilet Transfer (QC): 6 Car Transfer (QC): 3 Weight Bearing Right Lower Extremity: Right Full Weight Bearing Left Lower Extremity: Left Weight Bearing/Tolerated Gait Training Does the Patient Walk?: Yes Distance: 200, 200 feet Walk 10 feet (QC): 6 Walk 50 ft with 2 Turns(QC): 6 Walk 150 ft (QC): 4 Walking 10ft/uneven surface-QC: 6 Gait Persons Needed: 1 Gait Assistive Device: FWW Wheelchair Training Does the Pt Use a Wheelchair?: No Wheel 50 ft with 2 turns (QC): 9 Wheel 150 ft (QC): 9 Stair Training #of Steps: 12 1 Step (curb) (QC): 6 4 Steps (QC): 4 12 Steps (QC): 4 Stairs: Pattern: Step to Balance Picking up an Object (QC): 6 Special Test Comments Performed standing with FWW and spinner iron. Exercises Supine Ex: Ankle pumps, Quad Set, Glut sets Supine Reps: 20 Seated Therapy Exercises: Long arc quads, Hip flexion, Kicking activity, Hip abd/add Seated Reps: 20 NuStep Minutes: 10 NuStep Workload: 3 Assessment Current Status: Fair Progress Patient tolerated treatment well. Patient performs LE therapeutic exercise as listed above. Demonstrates improved gait pattern with increased distance. Alden bronson ambulates 250 feet x 2 with FWW, with SBA at long distances. Patient performs functional activity as listed above. Patient performs Nu Step, level 3 x 10 minutes. Patient ambulates to room with FWW, with SBA and verbal cues for path. Patient in chair post treatment with all needs met, nursing notified, call light in hand. PT Short Term Goals Short Term Goals Time Frame: Mar 25, 2022 Roll Left & Right: 6 Sit to lyin Lying to sitting on side of be: 6 Sit to stand: 4 Chair/gcq-gc-ovkre transfer: 4 Toilet transfer: 4 Car transfer: 4 Walk 10 feet: 6 Walk 50 feet with two turns: 4 Walk 150 feet: 4 Walking 10ft on uneven surface: 4 1 step (curb): 4 4 steps: 4 12 steps: 4 PT Crisis Therapist Goals Snf Goals PT Snf Goals Time Frame: Apr 02, 2022 Roll Left & Right (QC): 6 Sit to Lying (QC): 6 Lying-Sitting on Side/Bed(QC): 6 Sit to Stand (QC): 6 Chair/Euq-nf-Hgkik Xfer(QC): 6 Toilet Transfer (QC): 6 Car Transfer (QC): 6 Does the Patient Walk: Yes Walk 10 feet (QC): 6 Walk 50ft with 2 Turns (QC): 6 Walk 150 ft (QC): 6 Walking 10ft on Uneven Surface: 6 1 Step (curb) (QC): 6 4 Steps (QC): 6 12 Steps (QC): 6 Picking up an Object (QC): 6 Does the Pt use WC or Scooter?: No Wheel 50 feet with 2 turns (QC: 88 Wheel 150 feet: 88 PT Plan Treatment/Plan Treatment Plan: Continue Plan of Care Treatment Plan: Bed Mobility, Education, Functional Activity Darlene, Functional Strength, Group Therapy, Gait, Safety, Therapeutic Exercise, Transfers Treatment Duration: Apr 02, 2022 Frequency: At least 5 of 7 days/Wk (IRF) Estimated Hrs Per Day: 1.5 hours per day Patient and/or Family Agrees t: Yes Safety Risks/Education Patient Education: Gait Training, Transfer Techniques, Steps Time/GCodes Time In: 1100 Time Out: 1200 Total Billed Treatment Time: 60 Total Billed Treatment Visit, Gait (20), Ex (20), FA (20) COLLEEN MCCARTY PT Mar 18, 2022 14:47
--- NOTE | 2022-03-18 14:55 | Physical Therapy Daily Note ---
PT Daily Note-Current Subjective Patient sitting in chair upon PT arrival, agreeable to treatment. Rates pain at 2/10 currently. Pain Section J - Health Conditions 1. Rarely or not at all 2. Occasionally 3. Frequently 4. Almost constantly 8. Unable to answer Pain Effect on Sleep: 2 Pain Interference with Therapy: 3 Pain Interference w/Day-to-Day: 3 Transfers SCALE: Activities may be completed with or without assistive devices. 3-Yutqmwokke-hnvuckp completes the activity by him/herself with no assistance from a helper. 5-Set-up or Clean-up Assistance-helper sets up or cleans up; patient completes activity. [place] assists only prior to or following the activity. 4-Supervision or Touching Assistance-helper provides verbal cues and/or touching/steadying and/or contact guard assistance as patient completes activity. Assistance may be provided throughout the activity or intermittently. 3-Partial/Moderate Assistance-helper does LESS THAN HALF the effort. [place] lifts, holds or supports trunk or limbs, but provides less than half the effort. 2-Substantial/Maximal Assistance-helper does MORE THAN HALF the effort. [place] lifts or holds trunk or limbs and provides more than half the effort. 9-Igevednkd-nzsvhl does ALL the effort. Patient does none of the effort to complete the activity. Or, the assistance of 2 or more helpers is required for the patient to complete the activity. If activity was not attempted, code reason: 7-Patient Refused. 9-Not Applicable-not attempted and the patient did not perform the activity before the current illness, exacerbation or injury. 10-Not Attempted due to Environmental Limitations-(lack of equipment, weather restraints, etc.). 88-Not Attempted due to Medical Conditions or Safety Concerns. Weight Bearing Right Lower Extremity: Right Full Weight Bearing Left Lower Extremity: Left Weight Bearing/Tolerated Gait Training Does the Patient Walk?: Yes Distance: 150 Walk 10 feet (QC): 6 Walk 50 ft with 2 Turns(QC): 6 Walk 150 ft (QC): 4 Gait Persons Needed: 1 Gait Assistive Device: FWW Assessment Current Status: Fair Progress Patient tolerated treatment well. Patient ambulates 150 feet x 2 with FWW, with SBA at long distances. Patient ambulates to room with FWW, with SBA and verbal cues for path. Patient in chair post treatment with all needs met, nursing notified, call light in hand. PT Short Term Goals Short Term Goals Time Frame: Mar 25, 2022 Roll Left & Right: 6 Sit to lyin Lying to sitting on side of be: 6 Sit to stand: 4 Chair/ztw-yg-anusx transfer: 4 Toilet transfer: 4 Car transfer: 4 Walk 10 feet: 6 Walk 50 feet with two turns: 4 Walk 150 feet: 4 Walking 10ft on uneven surface: 4 1 step (curb): 4 4 steps: 4 12 steps: 4 PT Residential Goals Residential Goals PT [place] Worker Goals Time Frame: Apr 02, 2022 Roll Left & Right (QC): 6 Sit to Lying (QC): 6 Lying-Sitting on Side/Bed(QC): 6 Sit to Stand (QC): 6 Chair/Sha-we-Lpjdf Xfer(QC): 6 Toilet Transfer (QC): 6 Car Transfer (QC): 6 Does the Patient Walk: Yes Walk 10 feet (QC): 6 Walk 50ft with 2 Turns (QC): 6 Walk 150 ft (QC): 6 Walking 10ft on Uneven Surface: 6 1 Step (curb) (QC): 6 4 Steps (QC): 6 12 Steps (QC): 6 Picking up an Object (QC): 6 Does the Pt use WC or Scooter?: No Wheel 50 feet with 2 turns (QC: 88 Wheel 150 feet: 88 PT Plan Treatment/Plan Treatment Plan: Continue Plan of Care Treatment Plan: Bed Mobility, Education, Functional Activity Darlene, Functional Strength, Group Therapy, Gait, Safety, Therapeutic Exercise, Transfers Treatment Duration: Apr 02, 2022 Frequency: At least 5 of 7 days/Wk (IRF) Estimated Hrs Per Day: 1.5 hours per day Patient and/or Family Agrees t: Yes Safety Risks/Education Patient Education: Gait Training Teaching Recipient: Patient Teaching Methods: Demonstration, Discussion Response to Teaching: Verbalize Understanding, Return Demonstration Time/GCodes Time In: 1345 Time Out: 1415 Total Billed Treatment Time: 30 Total Billed Treatment Visit, Gait (30) COLLEEN MCCARTY PT Mar 18, 2022 14:55
[2022-03-18] MEDS: metFORMIN 500 MG (GLUCOPHAGE) TAB PO SCH (18:50)
[2022-03-18] MEDS: GABAPENTIN 100 MG (NEURONTIN) CAP PO SCH (21:10)
[2022-03-18 21:34] VITALS: BP 126/58
[2022-03-19] MEDS: glipiZIDE XL 5 MG (GLUCOTROL XL) TAB PO SCH (05:48)
[2022-03-19] MEDS: MULTIVIT W/MINERALS TAB (THERAGRAN M) PO SCH (05:48)
[2022-03-19] MEDS: LEVOTHYROXINE 100 MCG (LEVOTHROID) TAB PO SCH (05:48)
[2022-03-19] MEDS ORDERED: KCL 10 MEQ TAB (MICRO K) PO SCH (08:00)
--- NOTE | 2022-03-19 08:01 | PM&R Progress Note ---
Subjective HPI/CC On Admission Date Seen by Provider: Mar 19, 2022 Time Seen by Provider: 11:30 Subjective/Events-last exam 03/19/2022: Ready for discharge tomorrow 03/18/2022: Doing well No pain Monitoring closely DC Monday03/17/2022: No major problems today Discharge is planned No falls Participating well 03/16/2022: Pt is doing a lot better Dressings will be changed today Sugar was 95 doing pretty well 03/15/2022: Pt is doing about the same Edema is noted of the thigh No BM of the third day, will initiate a suppository 03/14/2022: Pt is doing well Sodium level 132, potassium 4.2 No other concerns Pain is controlled 03/13/2022: No major issues No pain No falls Eating well Checking labs in am 03/12/2022: No major issues Pain controlled Hyponatremia will require holding HCTZ Potassium low at 3.4 so ordered 10meq BID for 2 days then will go back to Q48 hours on Mon and she did not really want to do that unless Dr Darling approved but 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 Hgb stable but low Review of Systems General: Fatigue, Malaise Objective Exam Vital Signs Vital Signs Date Time Temp Pulse Resp B/P (MAP) Pulse Ox O2 Delivery O2 Flow Rate FiO2 03/19/22 20:20 Room Air 03/19/22 20:16 36.4 60 24 132/63 (86) 96 Capillary Refill : General Appearance: No Apparent Distress, WD/WN, Chronically ill HEENT: PERRL/EOMI, Normal ENT Inspection, Pharynx Normal Neck: Full Range of Motion, Normal Inspection, Non Tender, Supple, Carotid Bruit Respiratory: Chest Non Tender, Lungs Clear, Normal Breath Sounds, No Accessory Muscle Use, No Respiratory Distress Cardiovascular: Regular Rate, Rhythm, No Edema, No Gallop, No JVD, No Murmur, Normal Peripheral Pulses Gastrointestinal: Normal Bowel Sounds, No Organomegaly, No Pulsatile Mass, Non Tender, Soft Back: Normal Inspection, No CVA Tenderness, No Vertebral Tenderness Extremity: Normal Capillary Refill, Normal Inspection, Normal Range of Motion (except left leg), Non Tender, No Calf Tenderness, No Pedal Edema Neurologic/Psychiatric: Alert, Oriented x3, Normal Mood/Affect, under cutter II-XII Norm as Tested, Abnormal Gait, Motor Weakness (left leg) Skin: Normal Color, Warm/Dry Lymphatic: No Adenopathy Results/Procedures Lab Patient resulted labs reviewed. FIM Transfers Therapy Code Descriptions/Definitions Functional [place] Measure: 0=Not Assessed/NA 4=Minimal Assistance 1=Total Assistance 5=Supervision or Setup 2=Maximal Assistance 6=Modified [place] 3=Moderate Assistance 7=Complete IndependenceSCALE: Activities may be completed with or without assistive devices. 5-Lcsnloqwhk-ecwvfjv completes the activity by him/herself with no assistance from a helper. 5-Set-up or Clean-up Assistance-helper sets up or cleans up; patient completes activity. [place] assists only prior to or following the activity. 4-Supervision or Touching Assistance-helper provides verbal cues and/or touching/steadying and/or contact guard assistance as patient completes activity. Assistance may be provided throughout the activity or intermittently. 3-Partial/Moderate Assistance-helper does LESS THAN HALF the effort. [place] lifts, holds or supports trunk or limbs, but provides less than half the effort. 2-Substantial/Maximal Assistance-helper does MORE THAN HALF the effort. [place] lifts or holds trunk or limbs and provides more than half the effort. 1-Lploktpdi-lkfnql does ALL the effort. Patient does none of the effort to co mplete the activity. Or, the assistance of 2 or more helpers is required for the patient to complete the activity. If activity was not attempted, code reason: 7-Patient Refused. 9-Not Applicable-not attempted and the patient did not perform the activity before the current illness, exacerbation or injury. 10-Not Attempted due to Environmental Limitations-(lack of equipment, weather restraints, etc.). 88-Not Attempted due to Medical Conditions or Safety Concerns. Roll Left to Right (QC): 6 Sit to Lying (QC): 6 Sit to Stand (QC): 6 Chair/Swe-nh-Xehfz Xfer(QC): 6 Car Transfer (QC): 3 Gait Training Does the Patient Walk?: Yes Distance: 150 Walk 10 feet (QC): 6 Walk 50 ft with 2 Turns(QC): 6 Walk 150 ft (QC): 4 Walking 10ft/uneven surface-QC: 6 Gait Persons Needed: 1 Gait Assistive Device: FWW Wheelchair Training Does the Pt Use a Wheelchair?: No Wheel 50 ft with 2 turns (QC): 9 Wheel 150 ft (QC): 9 Type of Wheelchair: N/A Stair Training Stair Training: Handrails/: 2 handrails #of Steps: 12 1 Step (curb) (QC): 6 4 Steps (QC): 4 12 Steps (QC): 4 Stairs: Pattern: Step to Balance Picking up an Object (QC): 6 ADL-Treatment Eating (QC): 6 Oral Hygiene (QC): 6 Shower/Bathe Self (QC): 5 Upper Body Dressing (QC): 6 Lower Body Dressing (QC): 6 On/Off Footwear (QC): 6 Toileting Hygiene (QC): 6 Toilet Transfer (QC): 6 Assessment/Plan Assessment and Plan Assess & Plan/Chief Complaint Assessment: 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
[2022-03-19 08:21] VITALS: BP 133/61
[2022-03-19] MEDS: OXYBUTYNIN (DITROPAN) 5 MG TAB PO SCH (08:21)
[2022-03-19] MEDS: SENNA W/DOCUSATE (SENOKOT S) TABLET PO SCH ×2 (08:22→21:22)
[2022-03-19] MEDS: DOCUSATE SODIUM 100 MG (COLACE) CAP PO SCH ×2 (08:22→21:22)
[2022-03-19] MEDS: amLODIPine 5 MG (NORVASC) TAB PO SCH (08:22)
[2022-03-19] MEDS: MELOXICAM 7.5 MG (MOBIC) TABLET PO SCH (08:22)
[2022-03-19] MEDS: lisINopril 20 MG (PRINIVIL) TABLET PO SCH (08:22)
[2022-03-19] MEDS: polyethylene glycoL POWDER 17 GM (MIRALAX) PACK PO SCH ×2 (08:26→21:22)
[2022-03-19] MEDS: ACEBUTOLOL 200 MG (SECTRAL) CAPSULE PO SCH ×2 (10:34→21:22)
[2022-03-19 10:36] VITALS: BP 155/67
[2022-03-19] MEDS: CYCLOBENZAPRINE 10 MG (FLEXERIL) TAB PO PRN ×2 (10:36→21:22)
--- NOTE | 2022-03-19 10:55 | Physical Therapy Daily Note ---
PT Daily Note-Current Subjective Patient agrees to PT Pain Section J - Health Conditions 1. Rarely or not at all 2. Occasionally 3. Frequently 4. Almost constantly 8. Unable to answer Pain Effect on Sleep: 2 Pain Interference with Therapy: 3 Pain Interference w/Day-to-Day: 3 Mental Status Patient Orientation: Normal For Age Transfers SCALE: Activities may be completed with or without assistive devices. 7-Lehashluae-daycoad completes the activity by him/herself with no assistance from a helper. 5-Set-up or Clean-up Assistance-helper sets up or cleans up; patient completes a ctivity. Lolita assists only prior to or following the activity. 4-Supervision or Touching Assistance-helper provides verbal cues and/or touching/steadying and/or contact guard assistance as patient completes activity. Assistance may be provided throughout the activity or intermittently. 3-Partial/Moderate Assistance-helper does LESS THAN HALF the effort. Lolita lifts, holds or supports trunk or limbs, but provides less than half the effort. 2-Substantial/Maximal Assistance-helper does MORE THAN HALF the effort. Lolita lifts or holds trunk or limbs and provides more than half the effort. 7-Epdbegywn-otuhta does ALL the effort. Patient does none of the effort to complete the activity. Or, the assistance of 2 or more helpers is required for the patient to complete the activity. If activity was not attempted, code reason: 7-Patient Refused. 9-Not Applicable-not attempted and the patient did not perform the activity before the current illness, exacerbation or injury. 10-Not Attempted due to Environmental Limitations-(lack of equipment, weather restraints, etc.). 88-Not Attempted due to Medical Conditions or Safety Concerns. Sit to Lying (QC): 6 Lying to Sitting/Side of Bed(Q: 6 Sit to Stand (QC): 6 Weight Bearing Right Lower Extremity: Right Full Weight Bearing Left Lower Extremity: Left Weight Bearing/Tolerated Gait Training Distance: >300' Walk 10 feet (QC): 6 Gait Assistive Device: FWW steady gait sequence with no deviation Assessment Patient tolerated treatment well and returned to bed with needs met. Plan dismissal tomorrow. PT Short Term Goals Short Term Goals Time Frame: Mar 25, 2022 Roll Left & Right: 6 Sit to lyin Lying to sitting on side of be: 6 Sit to stand: 4 Chair/afw-bl-zcssm transfer: 4 Toilet transfer: 4 Car transfer: 4 Walk 10 feet: 6 Walk 50 feet with two turns: 4 Walk 150 feet: 4 Walking 10ft on uneven surface: 4 1 step (curb): 4 4 steps: 4 12 steps: 4 PT Nursing Home Goals Stave Bolt Equalizer Goals PT Nursing Home Goals Time Frame: Apr 02, 2022 Roll Left & Right (QC): 6 Sit to Lying (QC): 6 Lying-Sitting on Side/Bed(QC): 6 Sit to Stand (QC): 6 Chair/Yve-gr-Xirqi Xfer(QC): 6 Toilet Transfer (QC): 6 Car Transfer (QC): 6 Does the Patient Walk: Yes Walk 10 feet (QC): 6 Walk 50ft with 2 Turns (QC): 6 Walk 150 ft (QC): 6 Walking 10ft on Uneven Surface: 6 1 Step (curb) (QC): 6 4 Steps (QC): 6 12 Steps (QC): 6 Picking up an Object (QC): 6 Does the Pt use WC or Scooter?: No Wheel 50 feet with 2 turns (QC: 88 Wheel 150 feet: 88 PT Plan Treatment/Plan Treatment Plan: Continue Plan of Care Treatment Plan: Bed Mobility, Education, Functional Activity Darlene, Functional Strength, Group Therapy, Gait, Safety, Therapeutic Exercise, Transfers Treatment Duration: Apr 02, 2022 Frequency: At least 5 of 7 days/Wk (IRF) Estimated Hrs Per Day: 1.5 hours per day Patient and/or Family Agrees t: Yes Time/GCodes Time In: 934 Time Out: 944 Total Billed Treatment Time: 10 Total Billed Treatment 1 visit FA 10 min AMRITA LIU PT Mar 19, 2022 10:55
[2022-03-19] MEDS: metFORMIN 500 MG (GLUCOPHAGE) TAB PO SCH (16:53)
[2022-03-19] MEDS ORDERED: TRAM50TA3 PO (20:02)
[2022-03-19 20:16] VITALS: BP 132/63
[2022-03-19] MEDS: GABAPENTIN 100 MG (NEURONTIN) CAP PO SCH (21:22)
[2022-03-20] MEDS: LEVOTHYROXINE 100 MCG (LEVOTHROID) TAB PO SCH (06:35)
[2022-03-20] MEDS: glipiZIDE XL 5 MG (GLUCOTROL XL) TAB PO SCH (06:35)
[2022-03-20] MEDS: MULTIVIT W/MINERALS TAB (THERAGRAN M) PO SCH (06:35)
--- NOTE | 2022-03-20 07:03 | Discharge Summary ---
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 HTN HLP Hypothyroidism Obesity Hyponatremia holding HCTZ home med Hypokalemia Post op anemia from acute blood loss Plan: Hold HCTZ Monitor BP Monitor hgb PT OT 03/12/2022: Potassium supplement Monitor closely 03/13/2022: Supportive care Monitor closely 03/14/2022: Resume potassium q48 03/15/2022: Supportive care 03/16/2022: Monitor sugar 03/17/2022: Monitor blood pressure 03/18/2022: Doing well 03/19/2022: DC Monday (1) Status post left hip replacement (2) Chronic GERD (3) Advanced age (4) Hypertension (5) Hypothyroidism (6) Hyponatremia (7) Diabetes Discharge Summary Discharge Physical Examination Allergies: Coded Allergies: Amiiiff-XQE-OcX Reductase Inhibitor (Verified Adverse Reaction, Unknown, 05/09/21) Vitals & I&Os Vital Signs Date Time Temp Pulse Resp B/P (MAP) Pulse Ox O2 Delivery O2 Flow Rate FiO2 03/20/22 09:21 36.9 03/20/22 08:29 96 Room Air 03/20/22 07:25 62 20 134/61 (85) General Appearance: Alert, Oriented X3, Cooperative Respiratory: Clear to Auscultation Neuro: Normal Gait, Normal Speech, Strength at 5/5 X4 Ext Psych/Mental Status: Mental Status NL Hospital Course Was the Problem List Reviewed?: Yes Lengthy course after admitted following elective ortho surgery and she had a slow recovery but had no decompensation during hospital course and pain was controlled and labs remained stable but potassium was low and was replaced and overall she did well and was DC in improved condition. Labs (last 24 hrs) Laboratory Tests 03/12/22 05:35: White Blood Count 9.7, Red Blood Count 3.26L, Hemoglobin 9.8L, Hematocrit 28L, Mean Corpuscular Volume 84, Mean Corpuscular Hemoglobin 30, Mean Corpuscular Hemoglobin Concent 36, Red Cell Distribution Width 13.0, Platelet Count 295, Mean Platelet Volume 10.0, Immature Granulocyte % (Auto) 0, Neutrophils (%) ( Auto) 76H, Lymphocytes (%) (Auto) 10L, Monocytes (%) (Auto) 9, Eosinophils (%) (Auto) 3, Basophils (%) (Auto) 0, Neutrophils # (Auto) 7.4, Lymphocytes # (Auto) 1.0, Monocytes # (Auto) 0.9, Eosinophils # (Auto) 0.3, Basophils # (Auto) 0.0, Immature Granulocyte # (Auto) 0.0, Sodium Level 131L, Potassium Level 3.4L, Chloride Level 95L, Carbon Dioxide Level 24, Anion Gap 12, Blood Urea Nitrogen 8, Creatinine 0.59L, Estimat Glomerular Filtration Rate 89, BUN/Creatinine Ratio 14, Glucose Level 109H, Calcium Level 8.2L, Corrected Calcium 9.2, Total Bilirubin 0.6, Aspartate Amino Transf (AST/SGOT) 22, Alanine Aminotransferase (ALT/SGPT) 9, Alkaline Phosphatase 58, Total Protein 5.1L, Albumin 2.8L 03/12/22 07:57: Glucometer 163H 03/13/22 07:45: Glucometer 143H 03/14/22 05:24: White Blood Count 7.4, Red Blood Count 3.23L, Hemoglobin 9.4L, Hematocrit 28L, Mean Corpuscular Volume 85, Mean Corpuscular Hemoglobin 29, Mean Corpuscular Hemoglobin Concent 34, Red Cell Distribution Width 13.0, Platelet Count 350, Mean Platelet Volume 9.9, Immature Granulocyte % (Auto) 0, Neutrophils (%) (Auto) 64, Lymphocytes (%) (Auto) 17, Monocytes (%) (Auto) 11, Eosinophils (%) (Auto) 6, Basophils (%) (Auto) 1, Neutrophils # (Auto) 4.7, Lymphocytes # (Auto) 1.3, Monocytes # (Auto) 0.8, Eosinophils # (Auto) 0.5H, Basophils # (Auto) 0.1, Immature Granulocyte # (Auto) 0.0, Sodium Level 132L, Potassium Level 4.2, Chloride Level 98, Carbon Dioxide Level 24, Anion Gap 10, Blood Urea Nitrogen 6L , Creatinine 0.66, Estimat Glomerular Filtration Rate 87, BUN/Creatinine Ratio 9, Glucose Level 122H, Calcium Level 8.6, Corrected Calcium 9.6, Total Bilirubin 0.5, Aspartate Amino Transf (AST/SGOT) 20, Alanine Aminotransferase (ALT/SGPT) 12, Alkaline Phosphatase 54, Total Protein 5.1L, Albumin 2.8L, Magnesium Level 1.3L 03/15/22 06:33: Glucometer 111H 03/16/22 06:12: Glucometer 97 03/17/22 05:37: Glucometer 106 03/18/22 05:33: Glucometer 91 03/19/22 05:03: Glucometer 96 03/20/22 05:50: Glucometer 88 Pending Labs Laboratory Tests 03/12/22 05:35: White Blood Count 9.7, Red Blood Count 3.26, Hemoglobin 9.8, Hematocrit 28, Mean Corpuscular Volume 84, Mean Corpuscular Hemoglobin 30, Mean Corpuscular Hemoglobin Concent 36, Red Cell Distribution Width 13.0, Platelet Count 295, Mean Platelet Volume 10.0, Immature Granulocyte % (Auto) 0, Neutrophils (%) (Auto) 76, Lymphocytes (%) (Auto) 10, Monocytes (%) (Auto) 9, Eosinophils (%) (Auto) 3, Basophils (%) (Auto) 0, Neutrophils # (Auto) 7.4, Lymphocytes # (Auto) 1.0, Monocytes # (Auto) 0.9, Eosinophils # (Auto) 0.3, Basophils # (Auto) 0.0, Immature Granulocyte # (Auto) 0.0, Sodium Level 131, Potassium Level 3.4, Chloride Level 95, Carbon Dioxide Level 24, Anion Gap 12, Blood Urea Nitrogen 8, Creatinine 0.59, Estimat Glomerular Filtration Rate 89, BUN/Creatinine Ratio 14, Glucose Level 109, Calcium Level 8.2, Corrected Calcium 9.2, Total Bilirubin 0.6, Aspartate Amino Transf (AST/SGOT) 22, Alanine Aminotransferase (ALT/SGPT) 9, Alkaline Phosphatase 58, Total Protein 5.1, Albumin 2.8 03/12/22 07:57: Glucometer 163 03/13/22 07:45: Glucometer 143 03/14/22 05:24: White Blood Count 7.4, Red Blood Count 3.23, Hemoglobin 9.4, Hematocrit 28, Mean Corpuscular Volume 85, Mean Corpuscular Hemoglobin 29, Mean Corpuscular Hemoglobin Concent 34, Red Cell Distribution Width 13.0, Platelet Count 350, Mean Platelet Volume 9.9, Immature Granulocyte % (Auto) 0, Neutrophils (%) (Auto) 64, Lymphocytes (%) (Auto) 17, Monocytes (%) (Auto) 11, Eosinophils (%) (Auto) 6, Basophils (%) (Auto) 1, Neutrophils # (Auto) 4.7, Lymphocytes # (Auto) 1.3, Monocytes # (Auto) 0.8, Eosinophils # (Auto) 0.5, Basophils # (Auto) 0.1, Immature Granulocyte # (Auto) 0.0, Sodium Level 132, Potassium Level 4.2, Chloride Level 98, Carbon Dioxide Level 24, Anion Gap 10, Blood Urea Nitrogen 6, Creatinine 0.66, Estimat Glomerular Filtration Rate 87, BUN/Creatinine Ratio 9, Glucose Level 122, Calcium Level 8.6, Corrected Calcium 9.6, Total Bilirubin 0.5, Aspartate Amino Transf (AST/SGOT) 20, Alanine Aminotransferase (ALT/SGPT) 12, Alkaline Phosphatase 54, Total Protein 5.1, Albumin 2.8, Magnesium Level 1.3 03/15/22 06:33: Glucometer 111 03/16/22 06:12: Glucometer 97 03/17/22 05:37: Glucometer 106 03/18/22 05:33: Glucometer 91 03/19/22 05:03: Glucometer 96 03/20/22 05:50: Glucometer 88 Discharge Home Medications: Active Scripts Active Tramadol HCl 50 Mg Tablet 50-100 Mg PO Q6H PRN Reported Amlodipine Besylate 5 Mg Tablet 5 Mg PO DAILY Tylenol Extra Strength (Acetaminophen) 500 Mg Tablet 1,000 Mg PO Q8H PRN Gabapentin 100 Mg Capsule 100 Mg PO HS Hydrochlorothiazide 12.5 Mg Tablet 12.5 Mg PO DAILY Levothyroxine Sodium 100 Mcg Tablet 100 Mcg PO DAILY K-Tab ER (Potassium Chloride) 10 Meq Tablet.er 10 Meq PO Q48H B Complex Formula #1 Tablet (Vitamin B Complex/Folic Acid) 0.4 Mg Tablet 1 Ea PO DAILY Meloxicam 15 Mg Tablet 15 Mg PO DAILY Oxybutynin Chloride ER (Oxybutynin Chloride) 15 Mg Tab.er.24 15 Mg PO DAILY [Ginkgo Biloba 230 Mg] 1 Tab PO BID Acebutolol HCl 200 Mg Capsule 200 Mg PO BID Cyclobenzaprine HCl 10 Mg Tablet 10 Mg PO BID PRN Glucotrol Xl (Glipizide) 5 Mg Tab.er.24 5 Mg PO DAILY Lisinopril 20 Mg Tablet 20 Mg PO BID Metformin HCl 500 Mg Tablet 500 Mg PO HS Instructions to patient/family Please see electronic discharge instructions given to patient. Diagnosis/Problems Diagnosis/Problems (1) Status post left hip replacement (2) Chronic GERD (3) Advanced age (4) Hypertension (5) Hypothyroidism (6) Hyponatremia (7) Diabetes BRENDA GALLEGOS DO Mar 20, 2022 07:03
[2022-03-20 07:25] VITALS: BP 134/61
[2022-03-20] MEDS: ACEBUTOLOL 200 MG (SECTRAL) CAPSULE PO SCH (08:37)
[2022-03-20] MEDS: SENNA W/DOCUSATE (SENOKOT S) TABLET PO SCH (08:37)
[2022-03-20] MEDS: DOCUSATE SODIUM 100 MG (COLACE) CAP PO SCH (08:37)
[2022-03-20] MEDS: amLODIPine 5 MG (NORVASC) TAB PO SCH (08:37)
[2022-03-20] MEDS: polyethylene glycoL POWDER 17 GM (MIRALAX) PACK PO SCH (08:38)
[2022-03-20] MEDS: OXYBUTYNIN (DITROPAN) 5 MG TAB PO SCH (08:38)
[2022-03-20] MEDS: lisINopril 20 MG (PRINIVIL) TABLET PO SCH (08:38)
[2022-03-20] MEDS: MELOXICAM 7.5 MG (MOBIC) TABLET PO SCH (08:38)
--- NOTE | 2022-03-21 11:58 | Therapy Team Discharge Summary ---
Therapy Discharge Summary Discharge Recommendations Date of Discharge Mar 20, 2022 at 14:47 Physical Therapy Roll Left to Right (QC): 6 Sit to Lying (QC): 6 Lying to Sitting/Side of Bed(Q: 6 Sit to Stand (QC): 6 Chair/Vbs-zl-Ixres Xfer(QC): 6 Toilet Transfer (QC): 5 Car Transfer (QC): 3 Does the Patient Walk: Yes Mode of Locomotion: Walk Anticipated Mode of Locomotion: Walk Walk 10 feet (QC): 6 Walk 50 ft with 2 Turns(QC): 6 Walk 150 ft (QC): 4 Walking 10ft on uneven surface: 6 Gait Assistive Device: FWW Does the Pt Use a Wheelchair: No Wheel 50 ft with 2 turns (QC): 9 Wheel 150 ft (QC): 9 Type of Wheelchair: N/A #of Steps: 12 1 Step (curb) (QC): 6 4 Steps (QC): 4 12 Steps (QC): 4 Balance Sitting Static: Normal Balance Sitting Dynamic: Normal Balance-Standing Static: Fair Picking up an Object (QC): 6 Occupational Therapy Pt admitted to [facility] s/p L [facility]. At [facility], pt was independent with ADLS and functional mobility, using 2 SPCs. Upon initial evaluation, pt was independent with eating, SBA oral care and UE dressing, min A showering and LE dressing, total assist with footwear and CGA toileting. OT tx focused on increasing safety and independence with ADLs and functional mobility and increasing BUE strength and activity tolerance. UE strengthening limited by pt refusal to participate in most UE activities due to rotator cuff issues. Pt made good progress with ADLs, attaining all LTGs. Pt discharged from facility, d/c from OT at this time. No further OT recommendations. Decreased Activ Tolerance, Decreased UE Strength, Impaired I ADL's Eating (QC): 6 Oral Hygiene (QC): 6 Shower/Bathe Self (QC): 5 Upper Body Dressing (QC): 6 Lower Body Dressing (QC): 6 On/Off Footwear (QC): 6 Toileting Hygiene (QC): 6 PT Propellant Charge Zone Assembler Goals Alf Goals PT Alf Goals Time Frame: Apr 02, 2022 Scoring Section J - Health Conditions 1. Rarely or not at all 2. Occasionally 3. Frequently 4. Almost constantly 8. Unable to answer Roll Left to Right (QC): 6 Sit to Lying (QC): 6 Lying-Sitting on Side/Bed(QC): 6 Sit to Stand (QC): 6 Chair/Lla-im-Upild Xfer(QC): 6 Car Transfer (QC): 6 Does the Patient Walk: Yes Walk 10 feet (QC): 6 Walk 10ft-Uneven Surface(QC): 6 Walk 50ft with 2 Turns (QC): 6 Walk 150 ft (QC): 6 Gait Assistive Device: FWW Does the Pt use WC or Scooter?: No Wheel 50 feet with 2 turns (QC: 88 1 Step (curb) (QC): 6 4 Steps (QC): 6 12 Steps (QC): 6 Picking up an Object (QC): 6 OT Alf Goals Alf Goals Time Frame: Mar 19, 2022 Acute change in mental status: 0 Inattention: 0 Disorganized thinkin Altered level of consciousness: 0 Eating (QC): 6 (met) Oral Hygiene (QC): 6 (met) Toileting Hygiene (QC): 6 (met) Shower/Bathe Self (QC): 5 (met) Upper Body Dressing (QC): 6 (met) Lower Body Dressing (QC): 6 (met) On/Off Footwear (QC): 6 (met) 1=Demonstrate adherence to instructed precautions during ADL tasks. 2=Patient will verbalize/demonstrate understanding of assistive devices/modifications for ADL. 3=Patient will improve strength/tolerance for activity to enable patient to perform ADL's. PAT HOOKER OT Mar 21, 2022 11:58
--- NOTE | 2022-03-21 12:12 | Therapy Team Discharge Summary ---
Therapy Discharge Summary Discharge Recommendations Date of Discharge Mar 20, 2022 at 14:47 Physical Therapy Patient came to rehab post left [facility]. Upon evaluation patient performed rolling with CGA/SBA, supine <-> sit min/modA, sit <-> stand and transfers min/modA, and ambulated 10' with a rolling walker with CGA. Patient has been performing bed mobility and transfer training, balance and endurance training, functional strengthening, stair training, gait training, and education. 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 Now, patient performs rolling with independence, sit to supine independent, supine to sit SBA, sit <-> stand and transfers independent, car transfer min/modA, ambulates 200' with a rolling walker with SBA (independent ambulating 50' with at least 2 turns of 90 degrees and independent ambulating 10' over an uneven surface), can go up and down 12 steps using 2 handrails with CGA/SBA, and can machine operator picker an object from the floor using a skein straightener with independence. Patient has been discharged from this facility and will be discharged from PT at this time. Roll Left to Right (QC): 6 Sit to Lying (QC): 6 Lying to Sitting/Side of Bed(Q: 6 Sit to Stand (QC): 6 Chair/Rvd-cl-Dgswn Xfer(QC): 6 Toilet Transfer (QC): 5 Car Transfer (QC): 3 Does the Patient Walk: Yes Mode of Locomotion: Walk Anticipated Mode of Locomotion: Walk Walk 10 feet (QC): 6 Walk 50 ft with 2 Turns(QC): 6 Walk 150 ft (QC): 4 Walking 10ft on uneven surface: 6 Gait Assistive Device: FWW Does the Pt Use a Wheelchair: No Wheel 50 ft with 2 turns (QC): 9 Wheel 150 ft (QC): 9 Type of Wheelchair: N/A #of Steps: 12 1 Step (curb) (QC): 6 4 Steps (QC): 4 12 Steps (QC): 4 Balance Sitting Static: Normal Balance Sitting Dynamic: Normal Balance-Standing Static: Fair Picking up an Object (QC): 6 Occupational Therapy Decreased Activ Tolerance, Decreased UE Strength, Impaired I ADL's Eating (QC): 6 Oral Hygiene (QC): 6 Shower/Bathe Self (QC): 5 Upper Body Dressing (QC): 6 Lower Body Dressing (QC): 6 On/Off Footwear (QC): 6 Toileting Hygiene (QC): 6 PT M[facility] Goals Director Of Career Resources Goals PT Director Of Career Resources Goals Time Frame: Apr 02, 2022 Scoring Section J - Health Conditions 1. Rarely or not at all 2. Occasionally 3. Frequently 4. Almost constantly 8. Unable to answer Roll Left to Right (QC): 6 Sit to Lying (QC): 6 Lying-Sitting on Side/Bed(QC): 6 Sit to Stand (QC): 6 Chair/Gvw-nk-Hhvkn Xfer(QC): 6 Car Transfer (QC): 6 Does the Patient Walk: Yes Walk 10 feet (QC): 6 Walk 10ft-Uneven Surface(QC): 6 Walk 50ft with 2 Turns (QC): 6 Walk 150 ft (QC): 6 Gait Assistive Device: FWW Does the Pt use WC or Scooter?: No Wheel 50 feet with 2 turns (QC: 88 1 Step (curb) (QC): 6 4 Steps (QC): 6 12 Steps (QC): 6 Picking up an Object (QC): 6 OT Director Of Career Resources Goals Director Of Career Resources Goals Time Frame: Mar 19, 2022 Acute change in mental status: 0 Inattention: 0 Disorganized thinkin Altered level of consciousness: 0 Eating (QC): 6 (met) Oral Hygiene (QC): 6 (met) Toileting Hygiene (QC): 6 (met) Shower/Bathe Self (QC): 5 (met) Upper Body Dressing (QC): 6 (met) Lower Body Dressing (QC): 6 (met) On/Off Footwear (QC): 6 (met) 1=Demonstrate adherence to instructed precautions during ADL tasks. 2=Patient will verbalize/demonstrate understanding of assistive devices/modifications for ADL. 3=Patient will improve strength/tolerance for activity to enable patient to perform ADL's. KENTRELL MCHUGH PT Mar 21, 2022 12:12
== END 2022-03-20 14:47 | disposition home or self-care (01) | DRG 560 ==
PROVIDERS: ADMIT Internal Medicine; ATTEND Internal Medicine
DX: Z47.1 Aftercare following joint replacement surgery (principal); E87.1 Hypo-osmolality and hyponatremia; D62 Acute posthemorrhagic anemia; E87.6 Hypokalemia; E66.9 Obesity, unspecified; E78.00 Pure hypercholesterolemia, unspecified; I10 Essential (primary) hypertension; K21.9 Gastro-esophageal reflux disease without esophagitis; M19.91 Primary osteoarthritis, unspecified site; E03.9 Hypothyroidism, unspecified; E11.9 Type 2 diabetes mellitus without complications; M99.06 Segmental and somatic dysfunction of lower extremity; Z96.643 Presence of artificial hip joint, bilateral; Z68.30 Body mass index [BMI] 30.0-30.9, adult; Z79.84 Long term (current) use of oral hypoglycemic drugs; Z88.8 Allergy status to other drugs, medicaments and biological substances; Z79.899 Other long term (current) drug therapy
CPT/HCPCS: 36415; 80053; 82947; 83735; 85025

== ENCOUNTER 2022-03-24 14:38 | Outpatient (RCR) | payer MEDICARE ==
[~2022-03-24 14:38] MED LIST changes: -ACEB200C PO; +ACEB200C17 PO; +ACET-2267 PO; +ASPI-1238 PO; +LEVO100T7 PO; +MELO15TA39 PO; +POTA10TA PO; +TRAM50TA3 PO; +VITA-93 PO
== END 2022-03-25 | disposition still patient (30) ==
PROVIDERS: ATTEND Orthopaedic Surgery
DX: Z96.641 Presence of right artificial hip joint (principal)

== ENCOUNTER 2022-04-12 13:36 | Outpatient (RCR) | payer MEDICARE | END 2022-04-12 16:39 | disposition home or self-care (01) | PROVIDERS: ATTEND Orthopaedic Surgery | DX: Z47.1 Aftercare following joint replacement surgery (principal); Z96.642 Presence of left artificial hip joint ==